=== PATIENT | male | born 1935 | race Caucasian/White ===

== ENCOUNTER 2017-06-20 06:59 | Day surgery (SDC) | payer MEDICARE ==
[2017-06-19 09:01] VITALS: BMI 28.4
[~2017-06-20 06:59] MED LIST: LACTATED RINGERS 1,000 ML IV SCH; LIDOCAINE 1% 20 ML VIAL (10MG/ML) FOR IV START INTRADERMA PRN; Pre Op ABX Message 1 EACH MISC MISCELLANE ONE
[2017-06-20] MEDS ORDERED: LIDOCAINE 2% (PF) 20 MG/ML 10 ML AMP INHALATION STA (07:25)
[2017-06-20] MEDS ORDERED: ALBUTEROL NEBULIZED 2.5 MG/3 ML INHALATION STA (07:25)
[2017-06-20 07:34] VITALS: RESP 16; TEMP 97.3
[2017-06-20 07:38] LABS: Glucose,Whole Blood 91 mg/dL (75-99)
[2017-06-20] MEDS ORDERED: PROPOFOL 10 MG/ML 20 ML VIAL IV ONE (08:02)
[2017-06-20 09:04] VITALS: BP 178/78; PULSE 76
--- NOTE | 2017-06-20 09:35 | PCN ---
PROCEDURE NOTE OPERATIVE REPORT: Bronchoscopy, bronchoalveolar lavage, random washing from different lobes. PREOPERATIVE DIAGNOSIS: Bronchiectasis, persistent cough, in spite of antibiotics. POSTOPERATIVE DIAGNOSIS: Bronchiectasis, persistent cough, in spite of antibiotics. ANESTHESIA USED: IV conscious sedation. PROCEDURE: The patient was prepared according to bronchoscopy protocol. O2 was applied via nasal cannula. We monitored his O2 saturation continuously via pulse oximetry. We also monitored his cardiac rhythm continuously. Blood pressure was intermittently monitored. After adequate IV conscious sedation, a bite block was placed, and the bronchoscope was advanced through the bite block down to the area of the oropharynx. Vocal cords were visualized, minimal whitish secretions were noted around the area of the vocal cords, these were easily suctioned. Then, lidocaine was applied over the vocal cords, and the bronchoscope was advanced further down to the trachea. Thorough examination was done of the trachea, rosmery, right upper lobe, right middle lobe, right lower lobe, left upper lobe, lingula and left lower lobe. Purulent secretions were noted throughout the different lobes and different segments. These were suctioned, washed and lavaged, especially from the area of the right middle lobe and right lower lobe. It was a random washing collected, and it was sent for different diagnostic studies. The mucosa was noted to be bronchitic, the secretions were noted to be slightly purulent, no endobronchial tumors or lesions were noted. There was also evidence of tracheomalacia noted. The procedure was well tolerated, no evidence of any immediate complications. The fluid was sent for different diagnostic studies including cultures, bacterial cultures, fungal cultures and viral cultures. MMODL / IJN: [id number] /
[2017-06-20 15:13] LABS: Color,BF Red
[2017-06-20 15:14] LABS: Appearance,BF Bloody; Nucleated Cells, Body Fluid 150 /uL; RBC, Body Fluid 21600 /uL
[2017-06-20 15:25] LABS: Mononuclear WBC,Body Fluid 20 %; Polynuclear WBC,Body Fluid 80 %; Total Cells Counted,Body Fluid 50
== END 2017-06-20 09:18 | disposition home or self-care (01) ==
LOC: ORWHC2ENDO 06:59
PROVIDERS: ATTEND Internal Medicine
DX: J47.9 Bronchiectasis, uncomplicated (principal); K21.9 Gastro-esophageal reflux disease without esophagitis; I25.10 Atherosclerotic heart disease of native coronary artery without angina pectoris; I10 Essential (primary) hypertension; M79.7 Fibromyalgia; Z87.891 Personal history of nicotine dependence; Z79.82 Long term (current) use of aspirin; Z79.51 Long term (current) use of inhaled steroids; Z79.52 Long term (current) use of systemic steroids; Z79.899 Other long term (current) drug therapy; Z88.1 Allergy status to other antibiotic agents
CPT/HCPCS: 87798 ×3; 87496; 87498; 87529 ×2; 88108; 88305; 89050; 87252; 87502; 87634; 87070; 87205; 87116; 87102; 87206; 31624; J2704

== ENCOUNTER 2017-11-12 11:57 | Emergency (ER) | payer MEDICARE ==
[2017-11-12 12:04] VITALS: RESP 18
[2017-11-12] MEDS ORDERED: IPRATROPIUM-ALBUTEROL 3 ML NEB INHALATION STA (12:16)
[2017-11-12] MEDS ORDERED: methylPREDNISolone SOD SUCCI 125 MG/2 ML VIAL IV STA (12:16)
--- NOTE | 2017-11-12 12:19 | ED ---
URI HPI - General Chief Complaint: Upper Respiratory Infection Stated Complaint: Sob-hx of copd Time Seen by Provider: 11/12/17 12:05 Source: patient, RN notes reviewed, old records reviewed Mode of arrival: ambulatory Limitations: no limitations - History of Present Illness Initial Comments: Patient is an 82-year-old male with a history of COPD presents to the emergency department for chief complaint of cough and occasional shortness of breath since Saturday afternoon. He reports that he went to a meeting at the restaurant [employer] was. He states that they use a chemical latrine cleaner on their floor which causes him to have a coughing response and is mainly short of breath. He states that this seemed to be worse than HIS previous times going to the restaurant. Patient reports that he has had no chest pain. Cough has been nonproductive. He has been using breathing treatments every 4 hours as well as continue steroid doses at night to help him sleep. He is on a maintenance 5 mg dose. His blending coordinator is Dr. Lynn. Patient reports that he has had no fevers or chills. Cough is nonproductive. - Related Data Home Medications Medication Instructions Recorded Confirmed Aspirin EC [Ecotrin Low Dose] 81 mg PO DAILY 07/05/15 11/12/17 Glucosam/Maxwell-Msm1/C/Leonel/Bosw 1 tab PO BID 07/05/15 11/12/17 [Glucosamine-Chondroitin Tablet] Omeprazole [PriLOSEC] 20 mg PO AC-BRKFST 07/05/15 11/12/17 Ubidecarenone [Co Q-10] 300 mg PO DAILY 07/05/15 11/12/17 Clopidogrel [Plavix] 75 mg PO DAILY 05/25/16 11/12/17 Olodaterol HCl [Striverdi Respimat] 2 puff INHALATION DAILY 05/25/16 11/12/17 Carvedilol [Coreg] 6.25 mg PO BID 06/19/17 11/12/17 Furosemide [Lasix] 40 mg PO 1600 06/19/17 11/12/17 Losartan Potassium [Cozaar] 12.5 mg PO BID 06/19/17 11/12/17 Metamucil 75 75 gm PO DAILY 06/19/17 11/12/17 Mometasone Inhalr 220 Mcg/Puff 1 puff INHALATION BID 06/19/17 11/12/17 [Asmanex] N-Acetyl 600 mg PO TID 06/19/17 11/12/17 Resveratrol Tab 75 mg PO DAILY 06/19/17 11/12/17 hydrALAZINE HCL 12.5 mg PO BID 06/19/17 11/12/17 Albuterol Inhaler [Ventolin Hfa 2 puff INHALATION RT-DAILY PRN 11/12/17 11/12/17 Inhaler] Ascorbic Acid [Vitamin C] 1,000 mg PO DAILY 11/12/17 11/12/17 Cholecalciferol [Vitamin D3] 1,000 unit PO DAILY 11/12/17 11/12/17 Isosorbide Dinitrate 30 mg PO DAILY 11/12/17 11/12/17 Polyethylene Glycol 3350 [Miralax] 17 gm PO BID PRN 11/12/17 11/12/17 guaiFENesin [Mucinex] 600 mg PO DAILY 11/12/17 11/12/17 Previous Rx's Medication Instructions Recorded Rybp-Kuio-Zhv 6.25-5-10Mg/5Ml 5 ml PO Q4H 3 Days #90 ml 11/12/17 [Phenergan VC with Codeine] predniSONE 50 mg PO DAILY #7 tablet 11/12/17 Allergies Allergy/AdvReac Type Severity Reaction Status Date / Time diphenhydramine HCl Allergy Confusion Verified 11/12/17 13:29 [From Benadryl] meperidine [From Demerol] Allergy Unknown Verified 11/12/17 13:29 Childhood Review of Systems ROS Statement: Those systems with pertinent positive or pertinent negative responses have been documented in the HPI. ROS Other: All systems not noted in ROS Statement are negative. Past Medical History Past Medical History: Atrial Fibrillation, Coronary Artery Disease (CAD), COPD, Fibromyalgia, GERD/Reflux, Hyperlipidemia, Hypertension, Myocardial Infarction ( MT), Osteoarthritis (OA), Pneumonia, Prostate Disorder, Thyroid Disorder Additional Past Medical History / Comment(s): hx gout, Last Myocardial Infarction Date:: unkn-silent History of Any Multi-Drug Resistant Organisms: None Reported Past Surgical History: Appendectomy, Heart Catheterization With Stent, Hernia Repair, Prostate Surgery, Tonsillectomy Additional Past Surgical History / Comment(s): TURP, sub-mucous resection to improve breathing, 4 cardiac stents, payam cataract surgery Past Anesthesia/Blood Transfusion Reactions: Motion Sickness Additional Past Anesthesia/Blood Transfusion Reaction / Comment(s): . Date of Last Stent Placement:: 2012 Past Psychological History: No Psychological Hx Reported Smoking Status: Former smoker Past Alcohol Use History: None Reported Past Drug Use History: None Reported - Past Family History Father Family Medical History: CVA/TIA Additional Family Medical History / Comment(s): Father had a severe CVA and of this at age 80 yrs. Mother Family Medical History: Coronary Artery Disease (CAD) Additional Family Medical History / Comment(s): Mother had an enlarged heart and at age 90. Sister(s) Family Medical History: Cancer General Exam - General Exam Comments Initial Comments: Patient is an 82-year-old male. Alert and oriented. No significant distress. Limitations: no limitations Head exam: Present: atraumatic, normocephalic, normal inspection Eye exam: Present: normal appearance, PERRL, EOMI. Absent: scleral icterus, conjunctival injection, periorbital swelling ENT exam: Present: normal exam, mucous membranes moist Neck exam: Present: normal inspection. Absent: tenderness, meningismus, lymphadenopathy Respiratory exam: Present: normal lung sounds bilaterally, other (Dry cough). Absent: respiratory distress, wheezes, rales, rhonchi, stridor Cardiovascular Exam: Present: regular rate, normal rhythm, normal heart sounds. Absent: systolic murmur, diastolic murmur, rubs, gallop, clicks GI/Abdominal exam: Present: soft, normal bowel sounds. Absent: distended, tenderness, guarding, rebound, rigid Extremities exam: Present: normal inspection, full ROM, normal capillary refill. Absent: tenderness, pedal edema, joint swelling, calf tenderness Back exam: Present: normal inspection Neurological exam: Present: alert, oriented X3, CN II-XII intact Psychiatric exam: Present: normal affect, normal mood Course Vital Signs 11/12/17 11/12/17 11/12/17 12:00 12:18 12:45 Temperature 99.0 F Pulse Rate 80 83 Respiratory 18 18 Rate Blood Pressure 163/70 O2 Sat by Pulse 95 Oximetry 11/12/17 12:58 Temperature Pulse Rate 88 Respiratory Rate Blood Pressure O2 Sat by Pulse Oximetry - Reevaluation(s) Reevaluation #1: 11/12/17 13:46 Patient is reevaluated and resting or melena. Reports improvement after reading treatment and steroids. Medical Decision Making - Medical Decision Making This Patient is an 82-year-old male history of COPD who takes a daily low-dose steroid by his wound is Dr. Lynn presents today with a acute exacerbation after being exposed to a chemical cleaning product. Patient will be given IM Solu-Medrol, and breathing treatment. Does report improvement. Chest x-ray shows evidence of bronchitis, no significant infiltrate at this time. I discussed we'll increase the patient's steroids, and he has plenty of medication for his nebulizer machine. Also will put the Patient on dose of cough medicine to help him sleep. I discussed the S follow-up with his blending coordinator in 2 days. Patient agrees to treatment plan will comply. Return parameters were discussed. - Lab Data Result diagrams: 11/12/17 12:47 11/12/17 12:47 Lab Results 11/12/17 11/12/17 11/12/17 Range/Units 12:47 12:47 12:47 WBC 12.7 H (3.8-10.6) k/uL RBC 3.62 L (4.30-5.90) m/uL Hgb 11.7 L (13.0-17.5) gm/dL Hct 34.1 L (39.0-53.0) % MCV 94.2 (80.0-100.0) fL MCH 32.3 (25.0-35.0) pg MCHC 34.3 (31.0-37.0) g/dL RDW 13.3 (11.5-15.5) % Plt Count 323 (150-450) k/uL Neutrophils % 85 % Lymphocytes % 6 % Monocytes % 6 % Eosinophils % 1 % Basophils % 0 % Neutrophils # 10.8 H (1.3-7.7) k/uL Lymphocytes # 0.8 L (1.0-4.8) k/uL Monocytes # 0.8 (0-1.0) k/uL Eosinophils # 0.1 (0-0.7) k/uL Basophils # 0.0 (0-0.2) k/uL PT 9.7 (9.0-12.0) sec INR 1.0 (<1.2) APTT 26.6 (22.0-30.0) sec Sodium 133 L (137-145) mmol/L Potassium 4.1 (3.5-5.1) mmol/L Chloride 97 L (98-107) mmol/L Carbon Dioxide 24 (22-30) mmol/L Anion Gap 12 mmol/L BUN 14 (9-20) mg/dL Creatinine 0.98 (0.66-1.25) mg/dL Est GFR (CKD-EPI)AfAm 83 (>60 ml/min/1.73 sqM) Est GFR (CKD-EPI)NonAf 72 (>60 ml/min/1.73 sqM) Glucose 133 H (74-99) mg/dL Calcium 9.2 (8.4-10.2) mg/dL Total Bilirubin 0.7 (0.2-1.3) mg/dL AST 27 (17-59) U/L ALT 34 (21-72) U/L Alkaline Phosphatase 46 (38-126) U/L Total Protein 6.9 (6.3-8.2) g/dL Albumin 4.1 (3.5-5.0) g/dL - Radiology Data Radiology results: report reviewed Chest x-ray shows some persistent interstitial changes which are stable. Correlate for possible bronchitis or chronic underlying interstitial lung disease. Left basilar atelectasis or less likely infiltrate to correlate clinically. Disposition Clinical Impression: Bronchitis, COPD exacerbation Disposition: HOME SELF-CARE Condition: Good Instructions: Acute Bronchitis (ED) Additional Instructions: Patient has a follow-up with your blending coordinator in 2 days. Take the steroids and use cough syrup as directed. Return to the emergency department if any alarming signs or symptoms occur. Prescriptions: predniSONE 50 mg PO DAILY #7 tablet Vmql-Ugqz-Ckc 6.25-5-10Mg/5Ml [Phenergan VC with Codeine] 5 ml PO Q4H 3 Days # 90 ml Is patient prescribed a controlled substance at d/c from ED?: No When asked, does pt state using other controlled substances?: No If prescribed controlled substance>3 days was MAPS reviewed?: No If opioid is for acute pain is fill amount 7 days or less?: No If Rx opioid, was Start Talking consent form obtained?: No Referrals: Aleja Ford DO [Primary Care Provider] - 1-2 days Time of Disposition: 13:48
--- NOTE | 2017-11-12 12:44 | XR ---
EXAMINATION TYPE: XR chest 2V DATE OF EXAM: 11/12/2017 COMPARISON: 06/04/2017 TECHNIQUE: PA and lateral views submitted. HISTORY: Difficulty breathing FINDINGS: Mild cardiomegaly. Atherosclerotic changes aorta with subsegmental changes at the left lung base. Mild elongation of the thoracic aorta. Diffuse interstitial prominence shows some improvement from prior. No consolidation or pleural effusi on. Degenerative change of the spine noted. IMPRESSION: 1. Some persistent interstitial changes which are stable year. Correlate for possible underlying bron chitis, or chronic underlying interstitial lung disease. 2. Left basilar atelectasis or less likely infiltrate correlate clinically.
[2017-11-12 13:02] LABS: Basophils % (A) 0 %; Eosinophils # (A) 0.1 k/uL (0-0.7); Eosinophils % (A) 1 %; HCT 34.1 % (39.0-53.0); HGB 11.7 gm/dL (13.0-17.5); Lymphocytes # (A) 0.8 k/uL (1.0-4.8); Lymphocytes % (A) 6 %; MCH 32.3 pg (25.0-35.0); MCHC 34.3 g/dL (31.0-37.0); MCV 94.2 fL (80.0-100.0); Mean Platelet Volume 6.8; Monocytes # (A) 0.8 k/uL (0-1.0); Monocytes % (A) 6 %; Neutrophils # (A) 10.8 k/uL (1.3-7.7); Neutrophils % (A) 85 %; Platelet Count 323 k/uL (150-450); RBC 3.62 m/uL (4.30-5.90); RDW 13.3 % (11.5-15.5); WBC 12.7 k/uL (3.8-10.6)
[2017-11-12 13:11] LABS: Albumin 4.1 g/dL (3.5-5.0); Calcium 9.2 mg/dL (8.4-10.2); Partial Thromboplastin Time 26.6 sec (22.0-30.0); Potassium 4.1 mmol/L (3.5-5.1); Prothrombin Time 9.7 sec (9.0-12.0); Total Bilirubin 0.7 mg/dL (0.2-1.3); Total Protein 6.9 g/dL (6.3-8.2)
[2017-11-12 14:07] VITALS: BP 127/67; PULSE 79; TEMP 99.7
== END 2017-11-12 14:07 | disposition home or self-care (01) ==
LOC: EC 11:57
DX: J44.1 Chronic obstructive pulmonary disease with (acute) exacerbation (principal); I48.91 Unspecified atrial fibrillation; I25.10 Atherosclerotic heart disease of native coronary artery without angina pectoris; E78.5 Hyperlipidemia, unspecified; K21.9 Gastro-esophageal reflux disease without esophagitis; I10 Essential (primary) hypertension; I25.2 Old myocardial infarction; M19.90 Unspecified osteoarthritis, unspecified site; Z90.49 Acquired absence of other specified parts of digestive tract; Z95.5 Presence of coronary angioplasty implant and graft; Z98.890 Other specified postprocedural states; Z87.891 Personal history of nicotine dependence; Z79.02 Long term (current) use of antithrombotics/antiplatelets; Z79.51 Long term (current) use of inhaled steroids; Z79.82 Long term (current) use of aspirin; Z79.899 Other long term (current) drug therapy
CPT/HCPCS: 36415; 94640; 80053; 85025; 85610; 85730; 87040; 71046; 99284; 96374; J2930

== ENCOUNTER 2018-04-01 10:30 | Day surgery (SDC) | payer MEDICARE ==
[2018-03-28 11:14] VITALS: BMI 29.7
[~2018-04-01 10:30] MED LIST changes: +ALBUTEROL NEB (CONC) 2.5 MG/0.5 ML INHALATION ONE; +LACTATED RINGERS 1,000 ML IV ONE; +LIDOCAINE 2% (PF) 20 MG/ML 2 ML AMP INHALATION ONE; +LIDOCAINE VISCOUS 2% 15 ML CUP MUCOUS MEM ONE; -Pre Op ABX Message 1 EACH MISC MISCELLANE ONE
[2018-04-01 11:26] VITALS: TEMP 97.4
[2018-04-01 11:29] LABS: Glucose,Whole Blood 101 mg/dL (75-99)
[2018-04-01] MEDS ORDERED: MIDAZOLAM 2 MG/2 ML VIAL ONE (12:37)
[2018-04-01] MEDS ORDERED: LIDOCAINE 1% INJ 10MG/ML (20 ML MDV) ONE (12:37)
[2018-04-01] MEDS ORDERED: PROPOFOL 10 MG/ML 20 ML VIAL IV ONE (12:37)
[2018-04-01] MEDS ORDERED: fentaNYL (PF) 50 MCG/ML 2 ML AMP ONE (12:37)
[2018-04-01] MEDS ORDERED: KETAMINE 10 MG/ML 20 ML VIAL ONE (12:37)
[2018-04-01 13:24] VITALS: BP 118/73; PULSE 73; RESP 18
--- NOTE | 2018-04-01 15:13 | PCN ---
PROCEDURE NOTE The operative report is bronchoscopy, random bronchial washing, and random BAL. PREOPERATIVE DIAGNOSIS: Bronchiectasis and difficulty clearing secretions. POSTOPERATIVE DIAGNOSIS: Bronchiectasis and tracheobronchomalacia. ANESTHESIA USED: IV conscious sedation. PROCEDURE: The patient was prepared according to the protocol. O2 was applied via Ventimask over his mouth. Patient was placed in a supine position, we monitored his O2 saturation continuously, blood pressure was intermittently monitored, and cardiac rhythm was continuously monitored. After adequate IV conscious sedation, 2 mL of lidocaine were instilled into the right naris, the bronchoscope was advanced through the right naris down to the area of the vocal cords. The vocal cords were patent. Then lidocaine was applied over the vocal cords, and the bronchoscope was advanced further down to the trachea. Thorough examination was done of the trachea, rosmery, right upper lobe, right middle lobe, right lower lobe, left upper lobe, lingula and left lower lobe. There was clearly evidence of thick purulent secretions noted in both lungs, in different lobes, there was also evidence of tracheomalacia. During the suctioning, the channel of the bronchoscope was too narrow and could not suction much with a narrow channel bronchoscope, hence I changed the bronchoscope to a bigger size channel, and I was able to suction thick purulent secretions from both lungs. Lavage of the lower lobes including the left lower lobe, right lower lobe, and right middle lobe as well as lingula was done. All purulent secretions were sent for cultures. Patient tolerated the procedure well, no evidence of any immediate complications. MMODL / IJN: [id number] /
[2018-04-01 15:34] LABS: Color,BF Colorless
[2018-04-01 15:35] LABS: Appearance,BF Blood Tinged
[2018-04-01 16:58] LABS: Nucleated Cells, Body Fluid 66 /uL; RBC, Body Fluid 439 /uL
[2018-04-01 17:04] LABS: Mononuclear WBC,Body Fluid 37 %; Polynuclear WBC,Body Fluid 63 %; Total Cells Counted,Body Fluid 100
== END 2018-04-01 13:46 | disposition home or self-care (01) ==
LOC: ORWHC2ENDO 10:30
PROVIDERS: ATTEND Internal Medicine
DX: J39.8 Other specified diseases of upper respiratory tract (principal); J98.09 Other diseases of bronchus, not elsewhere classified; Z87.891 Personal history of nicotine dependence; J44.1 Chronic obstructive pulmonary disease with (acute) exacerbation; K21.9 Gastro-esophageal reflux disease without esophagitis; I25.10 Atherosclerotic heart disease of native coronary artery without angina pectoris; I10 Essential (primary) hypertension; E78.5 Hyperlipidemia, unspecified; R05 Cough; I25.2 Old myocardial infarction; I48.91 Unspecified atrial fibrillation; E07.9 Disorder of thyroid, unspecified; N40.0 Benign prostatic hyperplasia without lower urinary tract symptoms; M79.7 Fibromyalgia; M10.9 Gout, unspecified; Z79.82 Long term (current) use of aspirin; Z79.51 Long term (current) use of inhaled steroids; Z79.52 Long term (current) use of systemic steroids; Z79.899 Other long term (current) drug therapy; Z88.1 Allergy status to other antibiotic agents; Z88.5 Allergy status to narcotic agent; Z88.8 Allergy status to other drugs, medicaments and biological substances
CPT/HCPCS: 94640; 89050; 87070; 87205; 87116; 87102; 87206; 31624; J2250; J2001 ×2; J3010; J2704

== ENCOUNTER 2018-10-30 10:47 | Day surgery (SDC) | payer MEDICARE ==
[2018-10-29 09:23] VITALS: BMI 27.4
[~2018-10-30 10:47] MED LIST changes: -LACTATED RINGERS 1,000 ML IV ONE; -LACTATED RINGERS 1,000 ML IV SCH; -LIDOCAINE 1% 20 ML VIAL (10MG/ML) FOR IV START INTRADERMA PRN; -LIDOCAINE 2% (PF) 20 MG/ML 2 ML AMP INHALATION ONE; +LIDOCAINE 2% (PF) 20 MG/ML 5 ML VIAL INHALATION ONE; -LIDOCAINE VISCOUS 2% 15 ML CUP MUCOUS MEM ONE; +LIDOCAINE VISCOUS 300 MG/15 ML CUP MUCOUS MEM ONE; +SODIUM CHLORIDE 0.9% 1,000 ML IV SCH
[2018-10-30 11:32] VITALS: RESP 18; TEMP 97.8
[2018-10-30] MEDS ORDERED: LACTATED RINGERS 1,000 ML IV ONE (11:32)
[2018-10-30 11:53] LABS: Glucose,Whole Blood 100 mg/dL (75-99)
[2018-10-30] MEDS ORDERED: LIDOCAINE 1% INJ 10MG/ML (20 ML MDV) ONE (12:28)
[2018-10-30] MEDS ORDERED: PROPOFOL 10 MG/ML 20 ML VIAL IV ONE (12:28)
[2018-10-30] MEDS ORDERED: LIDOCAINE 2% INJ 20 MG/ML INTRATRACH ONE (12:50)
[2018-10-30 13:29] VITALS: BP 121/73; PULSE 59
--- NOTE | 2018-10-30 14:09 | PCN ---
PROCEDURE NOTE PROCEDURE: Bronchoscopy and bronchoalveolar lavage, random washings of endobronchial secretions from both lungs bilaterally. PREOPERATIVE DIAGNOSIS: Bronchiectasis, difficulty clearing secretions, and worsening shortness of breath. POSTOPERATIVE DIAGNOSIS: Bronchiectasis, difficulty clearing purulent secretions, and tracheobronchomalacia. ANESTHESIA USED: IV conscious sedation. PROCEDURE DESCRIPTION: Patient was prepared according to the bronchoscopy protocol. O2 was applied via nasal cannula and Ventimask. Before and after the procedure the patient was monitored using pulse oximetry, blood pressure was intermittently monitored, and cardiac rhythm was continuously monitored. Patient was placed in the supine position, and after adequate IV conscious sedation, the bronchoscope was inserted through the right naris down to the area of the vocal cords. Significant purulent secretions were noted in the area around the vocal cords, and the vocal cords were patent. The right vocal cord was noted to be slightly sluggish. Lidocaine was applied over the vocal cords, the bronchoscope was advanced further down. Thorough examination was done of the trachea, rosmery, right upper lobe, right lower lobe, right lower lobe, left upper lobe, lingula and left lower lobe. There was evidence of tracheobronchial malacia. There was also evidence of significant purulent secretions, mostly in the right middle lobe, right lower lobe, lingula and left lower lobe. Random bronchial lavage and washing was done from these different areas, specifically the right middle lobe, right lower lobe, lingula and left lower lobe. Procedure was well tolerated. The fluid was sent for different diagnostic studies, and all the secretions were cleared quite well. There was also evidence of tracheomalacia noted upon examination of the trachea. Again, no evidence of any immediate complications, procedure was well tolerated, blood loss was 0. MMODL / IJN: [id number] /
[2018-10-30 16:29] LABS: Appearance,BF Blood Tinged; Color,BF Red; Nucleated Cells, Body Fluid 1667 /uL; RBC, Body Fluid 8133 /uL
[2018-10-30 16:30] LABS: Mononuclear WBC,Body Fluid 2 %; Polynuclear WBC,Body Fluid 98 %; Total Cells Counted,Body Fluid 100
[2018-10-31 12:19] LABS: Mononuclear WBC,Body Fluid 7 %; Polynuclear WBC,Body Fluid 93 %; Total Cells Counted,Body Fluid 100
== END 2018-10-30 13:58 | disposition home or self-care (01) ==
LOC: ORWHC2ENDO 10:47
PROVIDERS: ATTEND Internal Medicine
DX: J47.9 Bronchiectasis, uncomplicated (principal); J39.8 Other specified diseases of upper respiratory tract; J98.09 Other diseases of bronchus, not elsewhere classified; I25.10 Atherosclerotic heart disease of native coronary artery without angina pectoris; I10 Essential (primary) hypertension; E78.49 Other hyperlipidemia; I48.91 Unspecified atrial fibrillation; Z87.891 Personal history of nicotine dependence; E07.9 Disorder of thyroid, unspecified; M79.7 Fibromyalgia; K21.9 Gastro-esophageal reflux disease without esophagitis; J44.9 Chronic obstructive pulmonary disease, unspecified; Z82.3 Family history of stroke; Z95.5 Presence of coronary angioplasty implant and graft; Z79.02 Long term (current) use of antithrombotics/antiplatelets; Z79.82 Long term (current) use of aspirin; Z79.51 Long term (current) use of inhaled steroids; Z88.1 Allergy status to other antibiotic agents; Z88.5 Allergy status to narcotic agent; Z88.8 Allergy status to other drugs, medicaments and biological substances
CPT/HCPCS: 94640; 89050; 87070; 87205; 87116; 87102; 87077; 87186; 87206; 31624; J2001 ×3; J2704

== ENCOUNTER 2019-04-23 07:00 | Day surgery (SDC) | payer MEDICARE ==
[2019-04-23] MEDS ORDERED: LIDOCAINE 1% INJ 10MG/ML (20 ML MDV) ONE (08:02)
[2019-04-23] MEDS ORDERED: KETAMINE 10 MG/ML 20 ML VIAL ONE (08:02)
[2019-04-23] MEDS ORDERED: PROPOFOL 10 MG/ML 20 ML VIAL IV ONE (08:02)
[2019-04-23] MEDS ORDERED: LIDOCAINE 2% INJ 20 MG/ML INTRATRACH ONE (08:16)
[2019-04-23] MEDS ORDERED: LEVOFLOXACIN 750MG-D5W PMX 750 MG in DEXTROSE/WATER 1 150ML.BAG IVPB STA (08:23)
--- NOTE | 2019-04-23 09:22 | PCN ---
PROCEDURE NOTE OPERATIVE REPORT: Bronchoscopy with bronchoalveolar lavage of multiple lobes and bronchial washing of the different lobes. PREOPERATIVE DIAGNOSES: Bronchiectasis, chronic obstructive pulmonary disease exacerbation, and difficulty clearing secretions. POSTOPERATIVE DIAGNOSES: Bronchiectasis, chronic obstructive pulmonary disease exacerbation, and bronchomalacia. ANESTHESIA USED: IV conscious sedation. PROCEDURE: Patient was prepared according to the bronchoscopy protocol. The O2 was applied via nasal cannula. Then after adequate IV conscious sedation, we monitored his O2 saturation continuously, blood pressure was intermittently monitored and cardiac rhythm was continuously monitored. The left naris was anesthetized with topical lidocaine. Then the bronchoscope was inserted through the left naris down to the area of the vocal cords and the vocal cords were patent. Significant purulent secretions noted in the area of the vocal cords and the pyriform sinuses. The secretions were suctioned easily. Then lidocaine was applied over the vocal cords, the bronchoscope was advanced further down to the trachea. Thorough examination was done of the trachea, rosmery, right upper lobe, right middle lobe, right lower lobe, left upper lobe lingula and left lower lobe. There was evidence of significant purulent secretions throughout the whole bronchial tree including the tracheal region, right upper lobe, right middle lobe, right lower lobe, left upper lobe lingula and left lower lobe. All the different lobes were lavaged and suctioned. The purulent secretions were cleared completely. There was evidence of bronchiectasis. There was also evidence of bronchomalacia. The procedure was well-tolerated. The secretions were sent for different diagnostic studies. No evidence of any immediate complications. The patient will be discharged empirically on Levaquin 500 mg daily for 10 days, and I will give him a dose of Levaquin today 750 mg IV piggyback, I will also arrange for prednisone 30 mg tapered over the next 18 days to his usual dose of 5 mg daily maintenance and the patient will continue his bronchodilators as usual. MMODL / IJN: [id number] /
[2019-04-23 09:41] VITALS: PULSE 77
[2019-04-23 09:46] VITALS: BP 117/74; RESP 22
[2019-04-23] MEDS ORDERED: ACETAMINOPHEN TAB 500 MG TAB PO ONE (09:46)
[2019-04-23 09:48] VITALS: TEMP 101.2
[2019-04-23 15:53] LABS: Appearance,BF Cloudy; Nucleated Cells, Body Fluid 4200 /uL; RBC, Body Fluid 1800 /uL
[2019-04-23 15:55] LABS: Mononuclear WBC,Body Fluid 3 %; Polynuclear WBC,Body Fluid 97 %; Total Cells Counted,Body Fluid 100
== END 2019-04-23 09:51 | disposition home or self-care (01) ==
LOC: ORWHC2ENDO 07:00
PROVIDERS: ATTEND Internal Medicine
DX: J47.1 Bronchiectasis with (acute) exacerbation (principal); J98.09 Other diseases of bronchus, not elsewhere classified; K21.9 Gastro-esophageal reflux disease without esophagitis; I25.10 Atherosclerotic heart disease of native coronary artery without angina pectoris; I10 Essential (primary) hypertension; D50.9 Iron deficiency anemia, unspecified; E78.5 Hyperlipidemia, unspecified; I48.91 Unspecified atrial fibrillation; E07.9 Disorder of thyroid, unspecified; M79.7 Fibromyalgia; R50.9 Fever, unspecified; I25.2 Old myocardial infarction; Z86.19 Personal history of other infectious and parasitic diseases; Z88.8 Allergy status to other drugs, medicaments and biological substances; Z88.1 Allergy status to other antibiotic agents; Z79.51 Long term (current) use of inhaled steroids; Z79.82 Long term (current) use of aspirin; Z79.899 Other long term (current) drug therapy; Z79.52 Long term (current) use of systemic steroids; Z79.02 Long term (current) use of antithrombotics/antiplatelets; Z87.891 Personal history of nicotine dependence; Z98.890 Other specified postprocedural states; Z90.89 Acquired absence of other organs; Z95.5 Presence of coronary angioplasty implant and graft; Z82.49 Family history of ischemic heart disease and other diseases of the circulatory system; Z82.3 Family history of stroke
CPT/HCPCS: 94640; 89050; 87252; 87070; 87205; 87102; 87077; 87186; 31624; J2001 ×3; J2704; 87496; 87498; 87502; 87529; 87634; 87798

== ENCOUNTER 2020-06-13 10:45 | Inpatient (IN) | payer MEDICARE ==
--- NOTE | 2020-06-13 12:00 | XR ---
EXAMINATION TYPE: XR chest 1V portable DATE OF EXAM: 06/13/2020 Comparison: 11/12/2017 Clinical History: 85-year-old male cough Findings: Heart upper limits of normal in size. Mild elongation thoracic aorta. Mild interstitial prominence. M ild hyperinflation. Mild patchy opacity medial right base and also at the left base. Degenerative devin nge right shoulder. Impression: 1. COPD. 2. Patchy medial right basilar and also peripheral left basilar opacity. These could be areas of atel ectasis versus developing infiltrate.
--- NOTE | 2020-06-13 12:02 | ED ---
General Adult HPI - General Chief complaint: Shortness of Breath Stated complaint: SOB Time Seen by Provider: 06/13/20 11:18 Source: patient, RN notes reviewed Mode of arrival: wheelchair Limitations: no limitations - History of Present Illness Initial comments: Patient 85-year-old male presented to the emergency room today with a chief complaint of increased shortness of breath. Patient does admit to history of COPD. Patient IS normal conjunctiva is 4 days. Patient states that his had some cough congestion. Patient does admit that last time he had to sit up in the chair. He states that he was feeling more short of breath. He states is unsure if it was just anxiety that was getting better of him. He does admit that he is feeling better at this point. Patient denies any other complaints or symptoms currently. Patient denies any recent fever, chills, chest pain, back pain, abdominal pain, nausea or vomiting, headaches or visual changes, or any other complaints. - Related Data Home Medications Medication Instructions Recorded Confirmed Aspirin EC [Ecotrin Low Dose] 81 mg PO DAILY 07/05/15 10/29/18 Omeprazole [PriLOSEC] 20 mg PO AC-BRKFST 07/05/15 10/29/18 Ubidecarenone [Co Q-10] 100 mg PO DAILY 07/05/15 10/29/18 Clopidogrel [Plavix] 75 mg PO MOWEFR 05/25/16 10/29/18 Olodaterol HCl [Striverdi Respimat] 2 puff INHALATION DAILY 05/25/16 10/29/18 Carvedilol [Coreg] 6.25 mg PO BID 06/19/17 10/29/18 Furosemide [Lasix] 20 - 40 mg PO BID PRN 06/19/17 10/29/18 Losartan Potassium [Cozaar] 12.5 mg PO BID 06/19/17 10/29/18 hydrALAZINE HCL 12.5 mg PO BID 06/19/17 10/29/18 Albuterol Inhaler (Mhu) [Ventolin 2 puff INHALATION QID PRN 11/12/17 10/29/18 Hfa Inhaler] Ascorbic Acid [Vitamin C] 3,000 mg PO DAILY 11/12/17 10/29/18 Cholecalciferol [Vitamin D3] 5,000 unit PO DAILY 11/12/17 10/29/18 Isosorbide Dinitrate 30 mg PO DAILY 11/12/17 10/29/18 guaiFENesin [Mucinex] 400 mg PO TID 11/12/17 10/29/18 Fish Oil/Dha/Epa [Fish Oil 1,200 1,600 mg PO TID 03/28/18 10/29/18 mg Fish Oil] Glucosamine/MSM/Chrond/D3/Bosw 1 each PO BID 03/28/18 10/29/18 [Iymqjblmfwr-Nqovlx-GPC-D3 Cplt] Magnesium Citrate 200 mg PO BID 03/28/18 10/29/18 Multivitamins, Thera [Multivitamin 1 tab PO DAILY 03/28/18 10/29/18 (formulary)] Potassium Gluconate 99 mg PO DIRECTED 03/28/18 10/29/18 Gmld-Prwq-Wkh 6.25-5-10Mg/5Ml 5 ml PO Q4H PRN 03/28/18 10/29/18 [Phenergan VC with Codeine] Psyllium Husk 100% [Metamucil 15 gm PO DAILY 03/28/18 10/29/18 Packet] Resveratrol 75 mg PO DAILY 03/28/18 10/29/18 Rosuvastatin [Crestor] 5 mg PO HS 03/28/18 10/29/18 polyethylene glycoL 3350 [Miralax] 20 gm PO DAILY 03/28/18 10/29/18 Albuterol Nebulized [Ventolin 2.5 mg INHALATION QID 10/29/18 10/29/18 Nebulized] Ipratropium Nebulized [Atrovent 0.5 mg INHALATION QID 10/29/18 10/29/18 Nebulized 0.2 MG/ML] L.acidoph,Paracasei, B.lactis 1 each PO DAILY 10/29/18 10/29/18 [Probiotic] Mometasone Inhalr 220 Mcg/Puff 1 puff INHALATION BID 10/29/18 10/29/18 [Asmanex] Sulfamethox-Tmp 800-160Mg [Bactrim 1 tab PO Q12HR 10/29/18 10/29/18 DS 800-160 mg] predniSONE 30 mg PO DAILY 10/29/18 10/29/18 Allergies Allergy/AdvReac Type Severity Reaction Status Date / Time ciprofloxacin [From Cipro] Allergy joint Verified 06/13/20 11:14 problems diphenhydramine HCl Allergy "felt like Verified 06/13/20 11:14 [From Benadryl] I was dying" meperidine [From Demerol] Allergy Unknown Verified 06/13/20 11:14 Childhood steroids Allergy "angina" Uncoded 06/13/20 11:14 Review of Systems ROS Statement: Those systems with pertinent positive or pertinent negative responses have been documented in the HPI. ROS Other: All systems not noted in ROS Statement are negative. Past Medical History Past Medical History: Atrial Fibrillation, Coronary Artery Disease (CAD), Fibromyalgia, GERD/Reflux, Hyperlipidemia, Hypertension, Myocardial Infarction (VT), Pneumonia, Thyroid Disorder Additional Past Medical History / Comment(s): hx gout, increase difficulty cl earing lungs at night-occ. sleeping in chair to sleep, essential tremors, frequent cough, SOB, vertigo Last Myocardial Infarction Date:: unkn-silent History of Any Multi-Drug Resistant Organisms: MRSA Date of last positivie culture/infection: 04/23/19 MDRO Source:: Bronch wash Past Surgical History: Appendectomy, Heart Catheterization With Stent, Hernia Repair, Prostate Surgery, Tonsillectomy Additional Past Surgical History / Comment(s): TURP, sub-mucous resection to improve breathing, turbinate reduction, 4 cardiac stents, payam cataract surgery, hernia repair x3 , aortic valve replacment 03/2020 Past Anesthesia/Blood Transfusion Reactions: Motion Sickness Additional Past Anesthesia/Blood Transfusion Reaction / Comment(s): vertigo Date of Last Stent Placement:: 2012 Past Psychological History: ADD/ADHD Smoking Status: Former smoker Past Alcohol Use History: Occasional Past Drug Use History: None Reported - Past Family History Father Family Medical History: CVA/TIA Additional Family Medical History / Comment(s): Father had a severe CVA and of this at age 80 yrs. Mother Family Medical History: Coronary Artery Disease (CAD) Additional Family Medical History / Comment(s): Mother had an enlarged heart and at age 90. Sister(s) Family Medical History: Cancer General Exam - General Exam Comments Initial Comments: General: The patient is awake and alert, in no distress, and does not appear acutely ill. Eye: extra-ocular movements are intact. No nystagmus. There is normal conjunctiva bilaterally. No signs of icterus. Ears, nose, mouth and throat: There are moist mucous membranes and no oral lesions. Neck: The neck is supple, there is no tenderness or JVD. Cardiovascular: There is a regular rate and rhythm. No murmur, rub or gallop is appreciated. Respiratory: Lungs are clear to auscultation, respirations are non-labored, breath sounds are equal. No wheezes, stridor, rales, or rhonchi. Musculoskeletal: Normal ROM, no tenderness. Strength 5/5. Sensation intact. Pulses equal bilaterally 2+. Neurological: A&O x 3. CN II-XII intact, There are no obvious motor or sensory deficits. Coordination appears grossly intact. Speech is normal. Skin: Skin is warm and dry and no rashes or lesions are noted. Psychiatric: Cooperative, appropriate mood & affect, normal judgment. Limitations: no limitations Course Vital Signs 06/13/20 06/13/20 06/13/20 11:11 11:28 12:14 Temperature 98.8 F Pulse Rate 72 68 Respiratory 18 20 18 Rate Blood Pressure 147/76 140/81 O2 Sat by Pulse 98 97 Oximetry 06/13/20 13:00 Temperature Pulse Rate 69 Respiratory 22 Rate Blood Pressure 140/81 O2 Sat by Pulse 97 Oximetry Medical Decision Making - Medical Decision Making Patient's comatose negative. Patient's vitals are stable. The emergency room. Patient chest x-ray was unremarkable for any sign of pneumonia. Patient's sodium was 120. Will be admitted to the hospital. Patient is with plan states understanding. - Lab Data Result diagrams: 06/13/20 11:38 06/13/20 11:38 Lab Results 06/13/20 06/13/20 06/13/20 Range/Units 11:38 11:38 11:38 WBC 11.8 H (3.8-10.6) k/uL RBC 3.48 L (4.30-5.90) m/uL Hgb 11.5 L (13.0-17.5) gm/dL Hct 32.6 L (39.0-53.0) % MCV 93.5 (80.0-100.0) fL MCH 33.1 (25.0-35.0) pg MCHC 35.4 (31.0-37.0) g/dL RDW 13.3 (11.5-15.5) % Plt Count 308 (150-450) k/uL MPV 7.2 Neutrophils % 83 % Lymphocytes % 6 % Monocytes % 7 % Eosinophils % 2 % Basophils % 0 % Neutrophils # 9.8 H (1.3-7.7) k/uL Lymphocytes # 0.7 L (1.0-4.8) k/uL Monocytes # 0.9 (0-1.0) k/uL Eosinophils # 0.3 (0-0.7) k/uL Basophils # 0.0 (0-0.2) k/uL PT 10.1 (9.0-12.0) sec INR 0.9 (<1.2) APTT 22.9 (22.0-30.0) sec Sodium 120 L (137-145) mmol/L Potassium 3.9 (3.5-5.1) mmol/L Chloride 90 L (98-107) mmol/L Carbon Dioxide 22 (22-30) mmol/L Anion Gap 8 mmol/L BUN 15 (9-20) mg/dL Creatinine 0.68 (0.66-1.25) mg/dL Est GFR (CKD-EPI)AfAm >90 (>60 ml/min/1.73 sqM) Est GFR (CKD-EPI)NonAf 87 (>60 ml/min/1.73 sqM) Glucose 111 H (74-99) mg/dL Calcium 9.2 (8.4-10.2) mg/dL Total Bilirubin 1.0 (0.2-1.3) mg/dL AST 30 (17-59) U/L ALT 17 (4-49) U/L Alkaline Phosphatase 59 (38-126) U/L Troponin I (0.000-0.034) ng/mL Total Protein 7.3 (6.3-8.2) g/dL Albumin 4.1 (3.5-5.0) g/dL Coronavirus (PCR) (Not Detectd) 06/13/20 06/13/20 Range/Units 11:38 12:09 WBC (3.8-10.6) k/uL RBC (4.30-5.90) m/uL Hgb (13.0-17.5) gm/dL Hct (39.0-53.0) % MCV (80.0-100.0) fL MCH (25.0-35.0) pg MCHC (31.0-37.0) g/dL RDW (11.5-15.5) % Plt Count (150-450) k/uL MPV Neutrophils % % Lymphocytes % % Monocytes % % Eosinophils % % Basophils % % Neutrophils # (1.3-7.7) k/uL Lymphocytes # (1.0-4.8) k/uL Monocytes # (0-1.0) k/uL Eosinophils # (0-0.7) k/uL Basophils # (0-0.2) k/uL PT (9.0-12.0) sec INR (<1.2) APTT (22.0-30.0) sec Sodium (137-145) mmol/L Potassium (3.5-5.1) mmol/L Chloride (98-107) mmol/L Carbon Dioxide (22-30) mmol/L Anion Gap mmol/L BUN (9-20) mg/dL Creatinine (0.66-1.25) mg/dL Est GFR (CKD-EPI)AfAm (>60 ml/min/1.73 sqM) Est GFR (CKD-EPI)NonAf (>60 ml/min/1.73 sqM) Glucose (74-99) mg/dL Calcium (8.4-10.2) mg/dL Total Bilirubin (0.2-1.3) mg/dL AST (17-59) U/L ALT (4-49) U/L Alkaline Phosphatase (38-126) U/L Troponin I <0.012 (0.000-0.034) ng/mL Total Protein (6.3-8.2) g/dL Albumin (3.5-5.0) g/dL Coronavirus (PCR) Not Detected (Not Detectd) Disposition Clinical Impression: COPD exacerbation, Hyponatremia Disposition: ADMITTED IP TO THIS HOSP Condition: Stable Is patient prescribed a controlled substance at d/c from ED?: No Referrals: Aleja Ford DO [Primary Care Provider] - 1-2 days Time of Disposition: 13:32
[2020-06-13 12:14] LABS: ALT 17 U/L (4-49); AST 30 U/L (17-59); African American GFR (CKD) >90 (>60 ml/min/1.73 sqM); Albumin 4.1 g/dL (3.5-5.0); Alkaline Phosphatase 59 U/L (38-126); Anion Gap 8 mmol/L; Blood Urea Nitrogen 15 mg/dL (9-20); Calcium 9.2 mg/dL (8.4-10.2); Carbon Dioxide 22 mmol/L (22-30); Chloride 90 mmol/L (98-107); Glucose 111 mg/dL (74-99); Non-African American GFR(CKD) 87 (>60 ml/min/1.73 sqM); Potassium 3.9 mmol/L (3.5-5.1); Sodium 120 mmol/L (137-145); Total Protein 7.3 g/dL (6.3-8.2)
[2020-06-13 12:36] LABS: INR 0.9 (<1.2); Partial Thromboplastin Time 22.9 sec (22.0-30.0); Prothrombin Time 10.1 sec (9.0-12.0)
[2020-06-13 12:56] LABS: Basophils % (A) 0 %; Eosinophils # (A) 0.3 k/uL (0-0.7); Eosinophils % (A) 2 %; HCT 32.6 % (39.0-53.0); HGB 11.5 gm/dL (13.0-17.5); Lymphocytes # (A) 0.7 k/uL (1.0-4.8); Lymphocytes % (A) 6 %; MCH 33.1 pg (25.0-35.0); MCHC 35.4 g/dL (31.0-37.0); MCV 93.5 fL (80.0-100.0); Mean Platelet Volume 7.2; Monocytes # (A) 0.9 k/uL (0-1.0); Monocytes % (A) 7 %; Neutrophils # (A) 9.8 k/uL (1.3-7.7); Neutrophils % (A) 83 %; Platelet Count 308 k/uL (150-450); RBC 3.48 m/uL (4.30-5.90); RDW 13.3 % (11.5-15.5); WBC 11.8 k/uL (3.8-10.6)
[2020-06-13] MEDS ORDERED: ONDANSETRON 4 MG/2 ML VIAL IVP PRN (13:26)
[2020-06-13] MEDS ORDERED: NALOXONE 0.4 MG/ML 1 ML VIAL IV PRN (13:26)
[2020-06-13] MEDS: SODIUM CHLORIDE 0.9% 1,000 ML IV SCH ×2 (13:32→23:05)
[2020-06-13] MEDS ORDERED: SENNOSIDES 8.6 MG TAB PO PRN (17:23)
--- NOTE | 2020-06-13 17:46 | P.HPIM ---
History of Present Illness H&P Date: 06/13/20 Chief Complaint: Shortness of breath Patient is a 85-year-old male with a known history of coronary artery disease status post and placement, recent I aortic valve replacement in April 2020, COPD, bronchiectasis and pulmonary fibrosis on follow with Dr. Richardson as an outpatient, hypertension, GERD, hypothyroidism and ADD/ADHD and previous history of smoking presents to ER with complaints of shortness of breath worsening since yesterday. Patient says that he has been having cough and mucus-like sputum production and unable to clear secretions. Patient states that he has been drinking plenty of water to clear his lungs. Denied any complaints of fever or chills. No nausea vomiting or abdominal pain or diarrhea. Denied any recent illnesses. Patient thought he might covid 19 infection and presents to ER. Denied any complaints of chest pain. No worsening leg swelling. Chest x-ray showed COPD, patchy medial right basilar and also peripheral left basilar opacity. This could be areas of atelectasis versus developing infiltrate. Laboratory data showed obese 11.8, hemoglobin 11.5 and platelets 308 and lymphocytes 0.7 Sodium 120, potassium 3.9, chloride 90 and BUN 15 and creatinine 0.68 Troponin 0.012 and Covid 19 PCR not detected Review of Systems Constitutional: Patient denies any fever or chills . Patient does have generalized weakness. No fatigue or weight loss.. Abdomen: Patient denied nausea vomiting and diarrhea and abdominal pain. Cardiovascular: Patient denies any chest pain or short of breath no palpitations. Respiratory: Patient does have cough with mucus sputum production and shortness of breath Neurologic: Patient denied any numbness or tingling headache. Musculoskeletal: Patient denies any complaints of joint swelling or deformity. Skin: Negative Psychiatric: Negative Endocrine: No heat or cold intolerance. No recent weight gain. Genitourinary: No dysuria or hematuria. All other 14 point ROS negative except the above Past Medical History Past Medical History: Atrial Fibrillation, Coronary Artery Disease (CAD), Fibromyalgia, GERD/Reflux, Hyperlipidemia, Hypertension, Myocardial Infarction (AR), Pneumonia, Thyroid Disorder Additional Past Medical History / Comment(s): hx gout, increase difficulty clearing lungs at night-occ. sleeping in chair to sleep, essential tremors, frequent cough, SOB, vertigo Last Myocardial Infarction Date:: unkn-silent History of Any Multi-Drug Resistant Organisms: MRSA Date of last positivie culture/infection: 04/23/19 MDRO Source:: Bronch wash Past Surgical History: Appendectomy, Cardiac Valve Replacement, Heart Catheterization With Stent, Hernia Repair, Prostate Surgery, Tonsillectomy Additional Past Surgical History / Comment(s): TURP, sub-mucous resection to improve breathing, turbinate reduction, 4 cardiac stents, payam cataract surgery, hernia repair x3 , aortic valve replacment 03/2020, Aortic Valve replacement April 30 2021 Past Anesthesia/Blood Transfusion Reactions: Motion Sickness Additional Past Anesthesia/Blood Transfusion Reaction / Comment(s): vertigo Date of Last Stent Placement:: 2012 Past Psychological History: ADD/ADHD Additional Psychological History / Comment(s): . Smoking Status: Former smoker Past Alcohol Use History: Occasional Additional Past Alcohol Use History / Comment(s): Pt started smoking in 1950 and quit in 1969. He was a 3 1/2 ppd smoker. Past Drug Use History: None Reported - Past Family History Father Family Medical History: CVA/TIA Additional Family Medical History / Comment(s): Father had a severe CVA and of this at age 80 yrs. Mother Family Medical History: Coronary Artery Disease (CAD) Additional Family Medical History / Comment(s): Mother had an enlarged heart and at age 90. Sister(s) Family Medical History: Cancer Medications and Allergies Home Medications Medication Instructions Recorded Confirmed Type Aspirin EC [Ecotrin Low Dose] 81 mg PO DAILY 07/05/15 06/13/20 History Ubidecarenone [Co Q-10] 100 mg PO DAILY 07/05/15 06/13/20 History Clopidogrel [Plavix] 75 mg PO DAILY 05/25/16 06/13/20 History Carvedilol [Coreg] 6.25 mg PO BID 06/19/17 06/13/20 History Ascorbic Acid [Vitamin C] 1,000 mg PO TID 11/12/17 06/13/20 History Cholecalciferol [Vitamin D3] 5,000 unit PO DAILY 11/12/17 06/13/20 History Fish Oil/Dha/Epa [Fish Oil 1,200 1 cap PO DAILY 03/28/18 06/13/20 History mg Fish Oil] Glucosamine/MSM/Chrond/D3/Bosw 1 tab PO BID 03/28/18 06/13/20 History [Shyrvfhrlsk-Arikaq-GZW-D3 Cplt] Magnesium Citrate 200 mg PO HS 03/28/18 06/13/20 History Multivitamins, Thera [Multivitamin 1 tab PO DAILY 03/28/18 06/13/20 History (formulary)] Psyllium Husk 100% [Metamucil 15 gm PO HS 03/28/18 06/13/20 History Packet] polyethylene glycoL 3350 [Miralax] 17 gm PO HS 03/28/18 06/13/20 History Mometasone Inhalr 220 Mcg/Puff 2 puff INHALATION RT-BID 10/29/18 06/13/20 History [Asmanex] predniSONE 5 mg PO DAILY 10/29/18 06/13/20 History Acetylcysteine [Nac] 500 mg PO DAILY 06/13/20 06/13/20 History Chlorthalidone [Hygroton] 25 mg PO DAILY 06/13/20 06/13/20 History Ipratropium-Albuterol Nebulize 3 ml INHALATION RT-QID 06/13/20 06/13/20 History [Duoneb 0.5 mg-3 mg/3 ml Soln] Isosorbide Mononitrate ER [Imdur] 30 mg PO DAILY 06/13/20 06/13/20 History Losartan Potassium [Cozaar] 50 mg PO DAILY 06/13/20 06/13/20 History Selenium 50 mcg PO DAILY 06/13/20 06/13/20 History Zinc Gluconate [Zinc] 50 mg PO DAILY 06/13/20 06/13/20 History Allergies Allergy/AdvReac Type Severity Reaction Status Date / Time meperidine [From Demerol] Allergy Unknown Verified 06/13/20 14:13 Childhood ciprofloxacin [From Cipro] AdvReac joint Verified 06/13/20 14:13 problems diphenhydramine HCl AdvReac "felt like Verified 06/13/20 14:13 [From Benadryl] I was dying" steroids AdvReac "angina" Uncoded 06/13/20 14:13 Physical Exam Vitals: Vital Signs Temp Pulse Pulse Resp BP BP Pulse Ox 06/13/20 15:45 98.2 F 72 16 151/63 98 06/13/20 15:00 98 F 63 22 146/85 100 06/13/20 14:00 71 12 140/78 99 06/13/20 13:00 69 22 140/81 97 06/13/20 12:14 68 18 140/81 97 06/13/20 11:28 20 06/13/20 11:11 98.8 F 72 18 147/76 98 Intake and Output 06/13/20 06/13/20 06/13/20 06:59 14:59 22:59 Other: Weight 70.307 kg PHYSICAL EXAMINATION: Patient is lying in the bed comfortably, no acute distress, awake alert and oriented.. HEENT: Normocephalic. Neck is supple. Pupils reactive. Nostrils clear. Oral cavity is moist. Ears reveal no drainage. Neck reveals no JVD, carotid bruits, or thyromegaly. CHEST EXAMINATION: Trachea is central. Symmetrical expansion. Bilateral diffuse coarse breath sounds and rhonchi. Minimal expiratory wheeze.. CARDIAC: Normal S1, S2 with no gallops. No murmurs ABDOMEN: Soft. Bowel sounds normal. No organomegaly. No abdominal bruits. Extremities: Bilateral trace lower extremity edema. No clubbing or cyanosis Neurologically awake, alert, oriented x3 with well-coordinated movements. No focal deficits noted Skin: No rash or skin lesions. Psychiatric: Coperative. Nonsuicidal Musculoskeletal: No joint swelling or deformity. Normal range of motion. Results CBC & Chem 7: 06/13/20 11:38 06/13/20 11:38 Labs: Abnormal Lab Results - Last 24 Hours (Table) 06/13/20 06/13/20 Range/Units 11:38 11:38 WBC 11.8 H (3.8-10.6) k/uL RBC 3.48 L (4.30-5.90) m/uL Hgb 11.5 L (13.0-17.5) gm/dL Hct 32.6 L (39.0-53.0) % Neutrophils # 9.8 H (1.3-7.7) k/uL Lymphocytes # 0.7 L (1.0-4.8) k/uL Sodium 120 L (137-145) mmol/L Chloride 90 L (98-107) mmol/L Glucose 111 H (74-99) mg/dL Thrombosis Risk Factor Assmnt - DVT/VTE Prophylaxis DVT/VTE Prophylaxis: Pharmacologic Prophylaxis ordered - Choose All That Apply Each Factor Represents 1 point: Abnormal pulmonary function (COPD) Other Risk Factors: Yes Each Risk Factor Represents 3 Points: Age 75 years or older Thrombosis Risk Factor Assessment Total Risk Factor Score: 4 Thrombosis Risk Factor Assessment Level: Moderate Risk Assessment and Plan Assessment: Acute COPD exacerbation with history of bronchiectasis and tracheomalacia Acute tracheobronchitis Hyponatremia likely hypoosmolar with plenty of plain water intake and decreased solute intake. Recent history of aortic valve replacement Coronary artery disease with history of stent placement History of paroxysmal atrial fibrillation. Maintained on sinus rhythm. Hypertension Hyperlipidemia BPH Fibromyalgia History of gout ADD/ADHD Previous history of smoking DVT prophylaxis with heparin subcu plan: Patient will be continued on IV steroids and antibiotics. Continue with the DuoNeb's and also supplementation. Patient is not on home oxygen currently. Continue IV hydration with normal saline and restrict free water intake. Monitor sodium level closely. BNP level was ordered. Continue with home medications including aspirin, Plavix and beta blockers. Pulmonary was consulted for further evaluation. Time with Patient: Greater than 30
[2020-06-13] MEDS: carvediloL 6.25 MG TAB PO SCH (17:54)
[2020-06-13] MEDS: PSYLLIUM HUSK 100% 6 GM PACKET PO SCH (19:53)
[2020-06-13] MEDS: guaiFENesin 600 MG TABLET.ER PO SCH (19:53)
[2020-06-13] MEDS: AMOXIC-POT CLAV 875-125MG 1 EACH TAB PO SCH (19:53)
[2020-06-13] MEDS ORDERED: FLUTICASONE 220 MCG INHALER INHALATION SCH (20:00)
--- NOTE | 2020-06-13 20:50 | CONS ---
CONSULTATION PULMONARY/CRITICAL CARE CONSULTATION: DATE OF SERVICE: 06/13/2020 REASON FOR CONSULTATION: Shortness of breath. This patient is an 85-year-old male who presented to the emergency room with the chief complaint of increasing shortness of breath. The patient does have a history of underlying COPD. He sees my partner for that. He typically uses albuterol sulfate and ipratropium bromide and a nebulizer, Asmanex inhaler, and also prednisone 5 mg a day for his COPD. He says he panicked and he thought he might have COVID infection and that is why he came to the emergency room to be evaluated. His complaints include shortness of breath, chest congestion, cough and phlegm production. No fever or chills. He is feeling better today. He is currently on room air. His saline is running at 75 mL/hour. His COVID test did machine turner negative. Other issues with him included a sodium of 120, thought to be related to hypervolemic hyponatremia, as well as a recent aortic valve replacement at [facility] on April 30. He denies any chest pain or chest discomfort. Again, he denies any fever or chills. No nausea, vomiting, diarrhea. No genitourinary complaints. HOME MEDICATIONS: His home medications include aspirin, omeprazole, coenzyme Q, Plavix, Striverdi Respimat, Coreg, Lasix, losartan, hydralazine, Ventolin inhaler, vitamin C, vitamin D3, Imdur, Mucinex, fish oil, glucosamine and chondroitin, multiple vitamins, magnesium citrate, potassium, Phenergan with codeine, Metamucil, resveratrol, Crestor, MiraLAX, albuterol and ipratropium bromide updrafts, Asmanex, probiotic, Bactrim DS and prednisone 5 mg a day, as mentioned. ALLERGIES: ALLERGIES include CIPROFLOXACIN, BENADRYL, MEPERIDINE AND STEROIDS. MEDICAL HISTORY: Positive for atrial fibrillation, CAD, fibromyalgia, GERD, hyperlipidemia, hypertension, myocardial infarction, pneumonia and hypothyroidism. He also has a history of gout, frequent chest colds and difficulty clearing secretions from the lungs, essential tremor and vertigo. SURGICAL HISTORY: Surgical history includes bronchoscopy, appendectomy, heart catheterization with stent, hernia repair, prostate surgery, tonsillectomy, 4 cardiac stents, bilateral cataract surgery, hernia repair x3, and a recent aortic valve replacement in April 2020. SOCIAL HISTORY: Positive for previous tobacco use. Drinks alcohol occasionally. No illicit drug use. FAMILY HISTORY: Positive for father with CVA and mother with a history of CAD. REVIEW OF SYSTEMS: CONSTITUTIONAL: Negative. NEUROLOGIC: Negative. HEENT: Negative. CARDIOVASCULAR: Negative. PULMONARY: Shortness of breath, chest congestion, cough, minimal phlegm production. GI: Negative. : Negative. RHEUMATOLOGIC: Negative. IMMUNOLOGIC: Negative. ENDOCRINOLOGIC: Negative. DERMATOLOGIC: Negative. PHYSICAL EXAMINATION: VITAL SIGNS: Current vital signs are temperature 98.2, heart rate 72, respiratory rate 16, blood pressure 151/63, mean 92, two-liter saturation 98%. GENERAL APPEARANCE: He appears in no acute distress. Sitting at the bedside. Looks very comfortable. HEENT: Examination is grossly unremarkable. NECK: Supple. Full range of motion. No adenopathy. Neck veins are flat. CARDIOVASCULAR: Examination reveals regular rhythm and rate. S1, S2 normal. No S3, S4 or murmur. LUNGS: Lungs reveal some diffuse coarse rhonchi and wheezes. Breath sounds are diminished. There is prolongation on forced maneuver. No crackles. ABDOMEN: Soft. Bowel sounds are heard. EXTREMITIES: Intact. No cyanosis, clubbing or edema. SKIN: Without rash. NEUROLOGIC: Neurologic examination is brief but nonfocal. LABS/IMAGING: White count 11.8, hemoglobin 11.5, hematocrit 32.6, platelet count 308,000. PT, INR, PTT normal. Sodium 120, potassium 3.9, chloride is 90, CO2 22. Anion gap is 8. BUN and creatinine were 15 and 0.68. Glucose 111. COVID testing was negative. Chest x-ray from June 13 shows some minimal basilar atelectasis. MEDICATIONS: Reviewed. The patient is on vitamin C, aspirin, Coreg, vitamin D3, Plavix, Flovent inhaler, DuoNeb, Imdur, Solu-Medrol, multiple vitamins, Narcan, Zofran, Metamucil, MiraLAX, Senokot and saline IV at 75 mL/hour. ASSESSMENT: 1. Mild to moderate chronic obstructive pulmonary disease exacerbation in a patient with well-established steroid-dependent COPD. 2. Status post recent aortic valve replacement at [facility]. 3. Previous history of tobacco use. 4. History of atrial fibrillation. 5. Coronary artery disease. 6. Fibromyalgia. 7. Gastroesophageal reflux disease. 8. Hyperlipidemia. 9. Essential hypertension. 10.Prior history of myocardial infarction. 11.History of pneumonia. 12.Multiple other medical problems and comorbidities. PLAN: The patient's medications are reviewed. Will add some Symbicort to his regimen. He is already on steroids. He is getting DuoNeb. No additional recommendations are made. I will also add an oral antibiotic. Prognosis is guarded. COVID testing was negative. MMODL / IJN: [id number] /
[2020-06-13] MEDS ORDERED: polyethylene glycoL 3350 17 GM POWD.PACK PO SCH (21:00)
[2020-06-13] MEDS: SYMBICORT 160-4.5 MCG INHALER INHALATION SCH ×2 (21:29→21:39)
[2020-06-13] MEDS: IPRATROPIUM-ALBUTEROL 3 ML NEB INHALATION SCH (21:30)
[2020-06-13] MEDS: methylPREDNISolone SOD SUCCI 40 MG/ML 1 ML VIAL IV SCH (23:04)
[2020-06-13] MEDS: ASCORBIC ACID 500 MG TAB PO SCH (23:04)
[2020-06-14 06:22] LABS: Basophils % (A) 0 %; Eosinophils % (A) 1 %; HCT 32.5 % (39.0-53.0); Lymphocytes # (A) 0.4 k/uL (1.0-4.8); Lymphocytes % (A) 10 %; MCH 32.4 pg (25.0-35.0); MCHC 33.9 g/dL (31.0-37.0); MCV 95.6 fL (80.0-100.0); Mean Platelet Volume 6.8; Monocytes # (A) 0.1 k/uL (0-1.0); Monocytes % (A) 3 %; Neutrophils # (A) 3.1 k/uL (1.3-7.7); Neutrophils % (A) 86 %; Platelet Count 300 k/uL (150-450); RDW 13.4 % (11.5-15.5); WBC 3.7 k/uL (3.8-10.6)
[2020-06-14] MEDS: ASCORBIC ACID 500 MG TAB PO SCH ×3 (08:03→22:56)
[2020-06-14] MEDS: carvediloL 6.25 MG TAB PO SCH ×2 (08:03→17:15)
[2020-06-14] MEDS: guaiFENesin 600 MG TABLET.ER PO SCH ×2 (08:03→20:23)
[2020-06-14] MEDS: MULTIVITAMINS, THERA 1 EACH TAB PO SCH (08:03)
[2020-06-14] MEDS: ASPIRIN 81 MG PO SCH (08:03)
[2020-06-14] MEDS: CLOPIDOGREL 75 MG TAB PO SCH (08:03)
[2020-06-14] MEDS: CHOLECALCIFEROL 1,000 UNIT TAB PO SCH (08:03)
[2020-06-14] MEDS: AMOXIC-POT CLAV 875-125MG 1 EACH TAB PO SCH ×2 (08:03→20:23)
[2020-06-14] MEDS: methylPREDNISolone SOD SUCCI 40 MG/ML 1 ML VIAL IV SCH ×3 (08:04→22:56)
[2020-06-14] MEDS ORDERED: ISOSORBIDE MONONITRATE ER 30 MG TAB.ER.24H PO SCH (09:00)
[2020-06-14] MEDS ORDERED: NON FORMULARY DRUG (Selenium [Selenium] 50 MCG Tablet) PO SCH (09:00)
[2020-06-14] MEDS ORDERED: NON FORMULARY DRUG (Zinc Gluconate 50 MG Tab) PO SCH (09:00)
[2020-06-14] MEDS: IPRATROPIUM-ALBUTEROL 3 ML NEB INHALATION SCH ×4 (09:10→21:01)
[2020-06-14] MEDS: SYMBICORT 160-4.5 MCG INHALER INHALATION SCH ×2 (09:10→21:01)
[2020-06-14 11:01] LABS: African American GFR (CKD) 94.4 (60.0-200.0); Anion Gap 7.9 mmol/L (4.00-12.00); BUN/Creat Ratio 18.75 Ratio (12.00-20.00); Calcium 8.8 mg/dL (8.7-10.3); Carbon Dioxide 24.1 mmol/L (21.6-31.8); Non-African American GFR(CKD) 81.5 (60.0-200.0); Potassium 4.6 mmol/L (3.5-5.5)
--- NOTE | 2020-06-14 15:04 | P.PN ---
Subjective Progress Note Date: 06/14/20 Principal diagnosis: Shortness of breath 75-year-old white male patient of Dr. Ford, with past medical history significant for COPD, steroid-dependent on the maintenance dose of prednisone 5 mg on a daily basis, recent history of aortic valve replacement at [facility] on 04/30/2020. Patient came into the hospital complaining of worsening dyspnea, patient. Patient panicked he thought he might have COVID infection. Is complaining of shortness of breath, chest congestion, cough and phlegm production, denied any fever or chills. He had a rapid COVID PCR which was n egative, also was found to have a serum sodium level of 120 was thought to be hypervolemic, patient was placed on water restriction. His admission chest x- ray showed COPD, patchy medial right basilar and peripheral left basilar opacity could be related to atelectasis versus developing infiltrate. She is on room air today, his pulse ox is 97%, his sodium is improving, up to 125 on today's labs, his white count is 3.7, hemoglobin is 11, he is lymphopenic, with lymphocyte count of 0.4, potassium is 4.6, chloride is 93, BUN was 15 creatinine was 0.8, history of present was negative at less than 0.012, proBNP was 154, he is on nebulized bronchodilators, he is on IV steroids to 40 mg every 6 hours, he is getting gentle IV hydration with 0.9 normal saline at a rate of 75 ML per hour, who put him on empiric antibodies in the form of Augmentin. He has had no acute events overnight. Objective - Vital Signs Vital signs: Vital Signs Temp 97.5 F L 06/14/20 14:00 Pulse 98 06/14/20 14:00 Resp 18 06/14/20 14:00 BP 146/74 06/14/20 14:00 Pulse Ox 97 06/14/20 14:00 Intake & Output 06/13/20 06/14/20 06/14/20 18:59 06:59 18:59 Intake Total 900 472 Output Total 900 Balance 900 -428 Weight 70.307 kg Intake: Intake, IV Titration 900 Amount Sodium Chloride 0.9% 1, 900 000 ml @ 75 mls/hr IV . [id number] [facility] Rx#:[id number] Oral 472 Output: Urine 900 Other: Voiding Method Toilet Urinal # Voids 1 2 - Exam GENERAL EXAM: Alert, very pleasant, 85-year-old white male, on room air, with a pulse ox 97% comfortable in no apparent distress. HEAD: Normocephalic/atraumatic. EYES: Normal reaction of pupils, equal size. Conjunctiva pink, sclera white. NOSE: Clear with pink turbinates. THROAT: No erythema or exudates. NECK: No masses, no JVD, no thyroid enlargement, no adenopathy. CHEST: No chest wall deformity. Symmetrical expansion. LUNGS: Equal air entry with no crackles, wheeze, rhonchi or dullness. CVS: Regular rate and rhythm, normal S1 and S2, no gallops, no murmurs, no rubs ABDOMEN: Soft, nontender. No hepatosplenomegaly, normal bowel sounds, no guarding or rigidity. EXTREMITIES: No clubbing, no edema, no cyanosis, 2+ pulses and upper and lower extremities. MUSCULOSKELETAL: Muscle strength and tone normal. SPINE: No scoliosis or deformity SKIN: No rashes CENTRAL NERVOUS SYSTEM: Alert and oriented -3. No focal deficits, tone is normal in all 4 extremities. PSYCHIATRIC: Alert and oriented -3. Appropriate affect. Intact judgment and insight. - Labs CBC & Chem 7: 06/14/20 05:49 06/14/20 05:49 Labs: Abnormal Lab Results - Last 24 Hours (Table) 06/14/20 06/14/20 Range/Units 05:49 05:49 WBC 3.7 L (3.8-10.6) k/uL RBC 3.40 L (4.30-5.90) m/uL Hgb 11.0 L (13.0-17.5) gm/dL Hct 32.5 L (39.0-53.0) % Lymphocytes # 0.4 L (1.0-4.8) k/uL Sodium 125 L (135-145) mmol/L Chloride 93 L (96-109) mmol/L Glucose 138 H (70-110) mg/dL Assessment and Plan Plan: Assessment: #1. Dyspnea, likely related to acute exacerbation of COPD #2. Atelectasis versus developing infiltrate is on the chest x-ray, patient was empirically covered with Augmentin, likelihood of pneumonia is less likely #3. Hyponatremia, likely hypervolemic, improving with water restriction #4. Status post recent aortic valve replacement at [facility] on 04/22/2020 #5. Previous history of tobacco use #6. History of atrial fibrillation #7. Coronary artery disease #8. COPD, prednisone dependent #9. Fibromyalgia #10. GERD/reflux Plan: Continue current medical treatment, continue Symbicort, steroids, patient is on room air, no worsening dyspnea, feeling better, sodium is improving, continue empiric antibiotics, no fever or chills, he can be considered for discharge home in the next 24 hours if continues to do well. I performed a history & physical examination of the patient and discussed their management with my nurse practitioner, Monse Castro. I reviewed the nurse practitioner's note and agree with the documented findings and plan of care. Lung sounds are positive for diminished breath sounds.. The findings and the impression was discussed with the patient. I attest to the documentation by the nurse practitioner. Time with Patient: Less than 30
--- NOTE | 2020-06-14 15:11 | P.PN ---
Subjective Progress Note Date: 06/14/20 Patient is a 85-year-old male with a known history of coronary artery disease status post and placement, recent I aortic valve replacement in April 2020, COPD, bronchiectasis and pulmonary fibrosis on follow with Dr. Richardson as an outpatient, hypertension, GERD, hypothyroidism and ADD/ADHD and previous history of smoking presents to ER with complaints of shortness of breath worsening since yesterday. Patient says that he has been having cough and mucus-like sputum production and unable to clear secretions. Patient states that he has been drinking plenty of water to clear his lungs. Denied any complaints of fever or chills. No nausea vomiting or abdominal pain or diarrhea. Denied any recent illnesses. Patient thought he might covid 19 infection and presents to ER. Denied any complaints of chest pain. No worsening leg swelling. Chest x-ray showed COPD, patchy medial right basilar and also peripheral left basilar opacity. This could be areas of atelectasis versus developing infiltra te. Laboratory data showed obese 11.8, hemoglobin 11.5 and platelets 308 and lymphocytes 0.7 Sodium 120, potassium 3.9, chloride 90 and BUN 15 and creatinine 0.68 Troponin 0.012 and Covid 19 PCR not detected 06/14/2020 Patient is seen and evaluated in follow-up with no acute overnight issues. Mariia ent was maintained on gentle IV hydration for a sodium that was 120. Repeat sodium this morning is 125 and patient is continued on 1200 mL fluid restrictions and will repeat a.m. labs. Was have been discontinued as patient is tolerating diet. Patient states he is following the restrictions of 1200 mL per day. Patient is receiving bronchodilators and does use an inhaler that is provided to him at the [place] although nonformulary here and is maintained on dual nebs and will continue at this time. Patient states he feels much better. Pulmonary is following and patient is maintained on IV steroids along with bronchodilators and antibiotics and will continue at this time. Review of systems: Constitutional: No reports of fatigue, fever, or chills Cardiovascular: No reports of chest pain or palpitations Respiratory: No reports of shortness of breath or cough GI: No reports of nausea, vomiting, or diarrhea : No reports of dysuria or retention Neurovascular: No reports of weakness or numbness All medications have been reviewed Objective - Vital Signs Vital signs: Vital Signs Temp 97.4 F L 06/14/20 07:53 Pulse 88 06/14/20 09:23 Resp 18 06/14/20 08:00 BP 146/79 06/14/20 07:53 Pulse Ox 97 06/14/20 07:55 Intake & Output 06/13/20 06/14/20 06/14/20 18:59 06:59 18:59 Intake Total 900 236 Output Total 900 Balance 900 -664 Weight 70.307 kg Intake: Intake, IV Titration 900 Amount Sodium Chloride 0.9% 1, 900 000 ml @ 75 mls/hr IV . [id number] [facility] Rx#:[id number] Oral 236 Output: Urine 900 Other: Voiding Method Toilet Urinal # Voids 1 2 - Exam Patient is sitting up in the chair comfortably, no acute distress, awake alert and oriented.. HEENT: Normocephalic. Neck is supple. Pupils reactive. Nostrils clear. Oral cavity is moist. Ears reveal no drainage. Neck reveals no JVD, carotid bruits, or thyromegaly. CHEST EXAMINATION: Trachea is central. Symmetrical expansion. Bilateral diffuse coarse breath sounds and rhonchi. Minimal expiratory wheeze. Improved. CARDIAC: Normal S1, S2 with no gallops. No murmurs ABDOMEN: Soft. Bowel sounds normal. No organomegaly. No abdominal bruits. Extremities: Bilateral trace lower extremity edema. No clubbing or cyanosis Neurologically awake, alert, oriented x3 with well-coordinated movements. No focal deficits noted Skin: No rash or skin lesions. Psychiatric: Coperative. Nonsuicidal Musculoskeletal: No joint swelling or deformity. Normal range of motion. - Labs CBC & Chem 7: 06/14/20 05:49 06/14/20 05:49 Labs: Abnormal Lab Results - Last 24 Hours (Table) 06/13/20 06/13/20 06/14/20 Range/Units 11:38 11:38 05:49 WBC 11.8 H 3.7 L (3.8-10.6) k/uL RBC 3.48 L 3.40 L (4.30-5.90) m/uL Hgb 11.5 L 11.0 L (13.0-17.5) gm/dL Hct 32.6 L 32.5 L (39.0-53.0) % Neutrophils # 9.8 H (1.3-7.7) k/uL Lymphocytes # 0.7 L 0.4 L (1.0-4.8) k/uL Sodium 120 L (137-145) mmol/L Chloride 90 L (98-107) mmol/L Glucose 111 H (74-99) mg/dL 06/14/20 Range/Units 05:49 WBC (3.8-10.6) k/uL RBC (4.30-5.90) m/uL Hgb (13.0-17.5) gm/dL Hct (39.0-53.0) % Neutrophils # (1.3-7.7) k/uL Lymphocytes # (1.0-4.8) k/uL Sodium 125 L (137-145) mmol/L Chloride 93 L (98-107) mmol/L Glucose 138 H (74-99) mg/dL Assessment and Plan Assessment: Acute COPD exacerbation with history of bronchiectasis and tracheomalacia Acute tracheobronchitis Hyponatremia likely hypoosmolar with plenty of plain water intake and decreased solute intake. Recent history of aortic valve replacement at [facility] Coronary artery disease with history of stent placement History of paroxysmal atrial fibrillation. Maintained on sinus rhythm. Hypertension Hyperlipidemia BPH Fibromyalgia History of gout ADD/ADHD Previous history of smoking DVT prophylaxis with heparin subcu plan: Continue with current medications, management, and symptomatic treatment. Patient is maintained on DuoNeb treatments along with IV steroids and a ntibiotics in the form of oral Augmentin and will continue at this time. Patient was maintained on IV hydration normal saline at 75 ML per hour and sodium was initially found to be 120 with repeat sodium today at 125. We'll continue with fluid restrictions of 1200 mL per day IV fluids have been di scontinued and will repeat a.m. labs. Patient is currently on room air and is 97%. Will continue to monitor closely and make further recommendations depending on the clinical course of the patient. Pulmonary is following. Possible discharge in 24 hours.
[2020-06-14 15:21] VITALS: BMI 25.0
[2020-06-14] MEDS: PSYLLIUM HUSK 100% 6 GM PACKET PO SCH (20:23)
[2020-06-15] MEDS: carvediloL 6.25 MG TAB PO SCH ×2 (07:21→16:10)
[2020-06-15] MEDS: ASPIRIN 81 MG PO SCH (07:22)
[2020-06-15] MEDS: CHOLECALCIFEROL 1,000 UNIT TAB PO SCH (07:22)
[2020-06-15] MEDS: methylPREDNISolone SOD SUCCI 40 MG/ML 1 ML VIAL IV SCH ×2 (07:22→16:10)
[2020-06-15] MEDS: MULTIVITAMINS, THERA 1 EACH TAB PO SCH (07:22)
[2020-06-15] MEDS: CLOPIDOGREL 75 MG TAB PO SCH (07:22)
[2020-06-15] MEDS: AMOXIC-POT CLAV 875-125MG 1 EACH TAB PO SCH ×2 (07:22→20:10)
[2020-06-15] MEDS: ASCORBIC ACID 500 MG TAB PO SCH ×3 (07:23→20:11)
[2020-06-15] MEDS: guaiFENesin 600 MG TABLET.ER PO SCH ×3 (07:24→20:11)
--- NOTE | 2020-06-15 07:58 | XR ---
EXAMINATION TYPE: XR chest 1V portable DATE OF EXAM: 06/15/2020 Comparison: 06/13/2020 Clinical History: 85-year-old male shortness of breath Findings: Heart borderline in size. Mild elongation/tortuosity of the thoracic aorta. Mild hyperinflation with interstitial prominence is unchanged. Some mild residual patchy density medial right base and left ba se show some improvement from prior exam. No new consolidation or pleural effusion. Impression: 1. COPD. 2. Some residual mild patchy basilar density is improving from prior exam.
[2020-06-15] MEDS: SYMBICORT 160-4.5 MCG INHALER INHALATION SCH ×2 (08:32→19:20)
[2020-06-15] MEDS: IPRATROPIUM-ALBUTEROL 3 ML NEB INHALATION SCH ×4 (08:32→19:20)
[2020-06-15 09:14] LABS: African American GFR (CKD) >90 (>60 ml/min/1.73 sqM); Anion Gap 9 mmol/L; Blood Urea Nitrogen 21 mg/dL (9-20); Calcium 9.5 mg/dL (8.4-10.2); Carbon Dioxide 25 mmol/L (22-30); Chloride 97 mmol/L (98-107); Glucose 229 mg/dL (74-99); Non-African American GFR(CKD) 82 (>60 ml/min/1.73 sqM); Potassium 4.1 mmol/L (3.5-5.1); Sodium 131 mmol/L (137-145)
[2020-06-15] MEDS: LOSARTAN 50 MG TAB PO SCH (12:15)
--- NOTE | 2020-06-15 14:48 | P.PN ---
Subjective Progress Note Date: 06/15/20 Patient is a 85-year-old male with a known history of coronary artery disease status post and placement, recent I aortic valve replacement in April 2020, COPD, bronchiectasis and pulmonary fibrosis on follow with Dr. Richardson as an outpatient, hypertension, GERD, hypothyroidism and ADD/ADHD and previous history of smoking presents to ER with complaints of shortness of breath worsening since yesterday. Patient says that he has been having cough and mucus-like sputum production and unable to clear secretions. Patient states that he has been drinking plenty of water to clear his lungs. Denied any complaints of fever or chills. No nausea vomiting or abdominal pain or diarrhea. Denied any recent illnesses. Patient thought he might covid 19 infection and presents to ER. Denied any complaints of chest pain. No worsening leg swelling. Chest x-ray showed COPD, patchy medial right basilar and also peripheral left basilar opacity. This could be areas of atelectasis versus developing infiltra te. Laboratory data showed obese 11.8, hemoglobin 11.5 and platelets 308 and lymphocytes 0.7 Sodium 120, potassium 3.9, chloride 90 and BUN 15 and creatinine 0.68 Troponin 0.012 and Covid 19 PCR not detected 06/14/2020 Patient is seen and evaluated in follow-up with no acute overnight issues. Mariia ent was maintained on gentle IV hydration for a sodium that was 120. Repeat sodium this morning is 125 and patient is continued on 1200 mL fluid restrictions and will repeat a.m. labs. Was have been discontinued as patient is tolerating diet. Patient states he is following the restrictions of 1200 mL per day. Patient is receiving bronchodilators and does use an inhaler that is provided to him at the [place] although nonformulary here and is maintained on dual nebs and will continue at this time. Patient states he feels much better. Pulmonary is following and patient is maintained on IV steroids along with bronchodilators and antibiotics and will continue at this time. 06/15/2020 Patient is seen in follow-up in sodium has improved and is 131 today. Patient to continue with fluid restrictions of 1200 mL per day and Hydrodiuril is on hold. Patient's other home medications have been resumed. Patient continues to have a cough with minimal production and rhonchorous on exam. Patient states his breathing has improved although feels slightly more short of breath when lying down. Patient states he has been having to sleep sitting up in the chair for the last 2 weeks. Pulmonary is following and planning on bronchoscopy tomorrow. Patient does follow with Dr. Silva in the outpatient setting and has had previous bronchoscopies. Patient is maintained on oral Augmentin, bronchodilators, along with IV steroids and will continue at this time. Patient will likely require prednisone taper upon discharge. Patient normally takes 5 mg of prednisone daily in the outpatient setting. Review of systems: Constitutional: No reports of fatigue, fever, or chills Cardiovascular: No reports of chest pain or palpitations Respiratory: reports occasional shortness of breath and mild cough with no phlegm production GI: No reports of nausea, vomiting, or diarrhea : No reports of dysuria or retention Neurovascular: No reports of weakness or numbness All medications have been reviewed Active Medications Albuterol/Ipratropium (Ipratropium-Albuterol 3 Ml Neb) 3 ml INHALATION RT-QID [facility] Last Admin: 06/15/20 11:48 Dose: 3 ml Documented by: Amoxicillin/Clavulanate Potassium (Amoxic-Pot Clav 875-125mg 1 Each Tab) 1 each PO Q12HR [facility] Last Admin: 06/15/20 07:22 Dose: 1 each Documented by: Ascorbic Acid (Ascorbic Acid 500 Mg Tab) 1,000 mg PO TID [facility] Last Admin: 06/15/20 07:23 Dose: 1,000 mg Documented by: Aspirin (Aspirin 81 Mg) 81 mg PO DAILY [facility] Last Admin: 06/15/20 07:22 Dose: 81 mg Documented by: Budesonide/Formoterol Fumarate (Symbicort 160-4.5 Mcg Inhaler) 2 puff INHALATION RT-BID [facility] Last Admin: 06/15/20 08:32 Dose: 2 puff Documented by: Carvedilol (Carvedilol 6.25 Mg Tab) 6.25 mg PO BID-W/MEALS [facility] Last Admin: 06/15/20 07:21 Dose: 6.25 mg Documented by: Cholecalciferol (Cholecalciferol 1,000 Unit Tab) 5,000 unit PO DAILY [facility] Last Admin: 06/15/20 07:22 Dose: 5,000 unit Documented by: Clopidogrel Bisulfate (Clopidogrel 75 Mg Tab) 75 mg PO DAILY [facility] Last Admin: 06/15/20 07:22 Dose: 75 mg Documented by: Guaifenesin (Guaifenesin 600 Mg Tablet.Er) 1,200 mg PO TID [facility] Losartan Potassium (Losartan 50 Mg Tab) 50 mg PO DAILY [facility] Last Admin: 06/15/20 12:15 Dose: 50 mg Documented by: Methylprednisolone Sodium Succinate (Methylprednisolone Sod Succi 40 Mg/Ml 1 Ml Vial) 40 mg IV Q8HR [facility] Last Admin: 06/15/20 07:22 Dose: 40 mg Documented by: Multivitamins (Multivitamins, Thera 1 Each Tab) 1 each PO DAILY [facility] Last Admin: 06/15/20 07:22 Dose: 1 each Documented by: Naloxone HCl (Naloxone 0.4 Mg/Ml 1 Ml Vial) 0.2 mg IV Q2M PRN PRN Reason: Opioid Reversal Ondansetron HCl (Ondansetron 4 Mg/2 Ml Vial) 4 mg IVP Q8HR PRN PRN Reason: Nausea And Vomiting Polyethylene Glycol (Polyethylene Glycol 3350 17 Gm Powd.Pack) 17 gm PO HS PRN PRN Reason: Constipation Psyllium Hydrophilic Mucilloid (Psyllium Husk 100% 6 Gm Packet) 6 gm PO HS [facility] Last Admin: 06/14/20 20:23 Dose: 6 gm Documented by: Senna (Sennosides 8.6 Mg Tab) 8.6 mg PO DAILY PRN PRN Reason: Constipation Objective - Vital Signs Vital signs: Vital Signs Temp 97.8 F 06/15/20 07:40 Pulse 90 06/15/20 08:44 Resp 18 06/15/20 08:00 BP 160/84 06/15/20 07:40 Pulse Ox 95 06/15/20 07:40 Intake & Output 06/14/20 06/15/20 06/15/20 18:59 06:59 18:59 Intake Total 912 237 120 Output Total 900 1300 Balance 12 237 -1180 Weight 70.307 kg Intake: Oral 712 237 120 Other 200 Output: Urine 900 1300 Other: Voiding Method Toilet Toilet Urinal Urinal # Voids 3 3 - Exam Patient is sitting up in the chair comfortably, no acute distress, awake alert a nd oriented. HEENT: Normocephalic. Neck is supple. Pupils reactive. Nostrils clear. Oral cavity is moist. Ears reveal no drainage. Neck reveals no JVD, carotid bruits, or thyromegaly. CHEST EXAMINATION: Trachea is central. Symmetrical expansion. Bilateral diffuse coarse breath sounds and rhonchi noted. With no wheezing noted on exam CARDIAC: Normal S1, S2 with no gallops. No murmurs ABDOMEN: Soft. Bowel sounds normal. No organomegaly. No abdominal bruits. Extremities: Bilateral trace lower extremity edema. No clubbing or cyanosis Neurologically awake, alert, oriented x3 with well-coordinated movements. No focal deficits noted Skin: No rash or skin lesions. Psychiatric: Cooperative. Non-suicidal Musculoskeletal: No joint swelling or deformity. Normal range of motion. - Labs CBC & Chem 7: 06/14/20 05:49 06/15/20 08:48 Labs: Abnormal Lab Results - Last 24 Hours (Table) 06/15/20 Range/Units 08:48 Sodium 131 L (137-145) mmol/L Chloride 97 L (98-107) mmol/L BUN 21 H (9-20) mg/dL Glucose 229 H (74-99) mg/dL Assessment and Plan Assessment: Acute COPD exacerbation with history of bronchiectasis and tracheomalacia Acute tracheobronchitis Hyponatremia likely hypoosmolar with plenty of plain water intake and decreased solute intake, improving current sodium is 131 Recent history of aortic valve replacement at [facility] Coronary artery disease with history of stent placement History of paroxysmal atrial fibrillation. Maintained on sinus rhythm. Hypertension Hyperlipidemia BPH Fibromyalgia History of gout ADD/ADHD Previous history of smoking DVT prophylaxis with heparin subcu plan: Continue with current medications, management, and symptomatic treatment. Patient is maintained on DuoNeb treatments along with IV steroids and antibiotics in the form of oral Augmentin and will continue at this time. Sodium today has improved at 131 and we'll continue with fluid restrictions of 1200 mL per day IV fluids have been discontinued and will repeat a.m. labs. Patient is currently on room air. Pulmonary is following and planning on bronchoscopy in the morning. Will continue to monitor closely and make further recommendations depending on the clinical course of the patient. Possible discharge in 24 hours.
--- NOTE | 2020-06-15 16:02 | P.PN ---
Subjective Progress Note Date: 06/15/20 Principal diagnosis: Shortness of breath/COPD exacerbation. 75-year-old white male patient of Dr. Ford, with past medical history significant for COPD, steroid-dependent on the maintenance dose of prednisone 5 mg on a daily basis, recent history of aortic valve replacement at [facility] on 04/30/2020. Patient came into the hospital complaining of worsening dyspnea, patient. Patient panicked he thought he might have COVID infection. Is complaining of shortness of breath, chest congestion, cough and phlegm production, denied any fever or chills. He had a rapid COVID PCR which was negative, also was found to have a serum sodium level of 120 was thought to be hypervolemic, patient was placed on water restriction. His admission chest x- ray showed COPD, patchy medial right basilar and peripheral left basilar opacity could be related to atelectasis versus developing infiltrate. She is on room air today, his pulse ox is 97%, his sodium is improving, up to 125 on today's labs, his white count is 3.7, hemoglobin is 11, he is lymphopenic, with lymphocyte count of 0.4, potassium is 4.6, chloride is 93, BUN was 15 creatinine was 0.8, history of present was negative at less than 0.012, proBNP was 154, he is on nebulized bronchodilators, he is on IV steroids to 40 mg every 6 hours, he is getting gentle IV hydration with 0.9 normal saline at a rate of 75 ML per hour, who put him on empiric antibodies in the form of Augmentin. He has had no acute events overnight. Progress note dated 06/15/2020. 85-year-old male with a history of COPD, admitted with a COPD exacerbation. Unfortunately, the patient does not feel like he is improved. For that matter, the patient will have bronchoscopy and BAL tomorrow. He has had multiple bronchoscopies in the past performed on him by my partner. He is convinced, that the only way that he will improve, he is to have a bronchoscopy. The patient has a history of severe mucous retention, and has a difficult time c learing secretions. He also has a history of previous tobacco use, atrial fibrillation, CAD, prednisone-dependent COPD, fibromyalgia, GERD, and recent transcatheter aortic valve replacement at [facility]. His complaints today include increasing chest congestion, shortness of breath, c ough, inability to expectorate phlegm, wheezing, and chest tightness. He is on all the appropriate medications for his COPD exacerbation. He will be made nothing by mouth after midnight tonight. Objective - Vital Signs Vital signs: Vital Signs Temp 98.4 F 06/15/20 14:00 Pulse 87 06/15/20 14:00 Resp 16 06/15/20 14:00 BP 161/78 06/15/20 14:00 Pulse Ox 97 06/15/20 14:00 Intake & Output 06/14/20 06/15/20 06/15/20 18:59 06:59 18:59 Intake Total 912 237 120 Output Total 900 1300 Balance 12 237 -1180 Weight 70.307 kg Intake: Oral 712 237 120 Other 200 Output: Urine 900 1300 Other: Voiding Method Toilet Toilet Urinal Urinal # Voids 3 3 - Exam No acute distress, oriented 3. Currently, on room air, without any respiratory distress. The patient does have a very harsh, wet, congested cough. HEENT examination is grossly unremarkable. Mucous membranes are moist. No oral lesions. Neck supple. Full range of motion. No adenopathy thyromegaly or neck vein distention. Cardiovascular examination reveals regular rhythm rate. S1-S2 normal. No S3 or S4. No discernible murmur noted. Heart rate is 87 bpm. Lungs reveal coarse bilateral inspiratory and expiratory rhonchi and wheezes. T here is prolongation on forced maneuver. Adventitious lung sounds are more prominent on forced maneuver. There are no crackles. The patient wheezes and coughs on forced maneuver. Abdomen soft bowel sounds are heard. No masses or tenderness. Extremities are intact. No cyanosis clubbing or edema. Skin is without rash or lesion. Neurologic examination is brief but nonfocal. - Labs CBC & Chem 7: 06/14/20 05:49 06/15/20 08:48 Labs: Abnormal Lab Results - Last 24 Hours (Table) 06/15/20 Range/Units 08:48 Sodium 131 L (137-145) mmol/L Chloride 97 L (98-107) mmol/L BUN 21 H (9-20) mg/dL Glucose 229 H (74-99) mg/dL Assessment and Plan Assessment: #1. Dyspnea, likely related to acute exacerbation of COPD #2. Atelectasis versus developing infiltrate is on the chest x-ray, patient was empirically covered with Augmentin, likelihood of pneumonia is less likely #3. Hyponatremia, likely hypervolemic, improving with water restriction #4. Status post recent aortic valve replacement at [facility] on 04/22/2020 #5. Previous history of tobacco use #6. History of atrial fibrillation #7. Coronary artery disease #8. COPD, prednisone dependent #9. Fibromyalgia #10. GERD/reflux Plan: Plan dated 06/15/2020. Currently, the patient is on a combination long-acting beta agonist/inhaled corticosteroid preparation. In addition, the patient is receiving albuterol sulfate, and ipratropium bromide, by nebulized treatments, 4 times a day and when necessary. In addition, the patient's getting Solu-Medrol 40 mg IV push, every 8 hours. Also, the patient's getting Augmentin 875 twice a day. The patient will be Nothing by mouth after midnight. We will get a consent on the chart for him. We plan on doing a bronchoscopy, therapeutic lavage, airway examination, and BAL on him tomorrow. Hopefully, this will speed his recovery and finally allow him to be discharged from the hospital. Time with Patient: Less than 30
[2020-06-15] MEDS: polyethylene glycoL 3350 17 GM POWD.PACK PO PRN (20:09)
[2020-06-15] MEDS: PSYLLIUM HUSK 100% 6 GM PACKET PO SCH (20:10)
[2020-06-16] MEDS: methylPREDNISolone SOD SUCCI 40 MG/ML 1 ML VIAL IV SCH ×4 (01:57→23:59)
[2020-06-16] MEDS: carvediloL 6.25 MG TAB PO SCH ×2 (07:31→18:13)
[2020-06-16] MEDS: AMOXIC-POT CLAV 875-125MG 1 EACH TAB PO SCH ×2 (07:31→19:57)
[2020-06-16] MEDS: ASCORBIC ACID 500 MG TAB PO SCH ×3 (07:32→19:56)
[2020-06-16] MEDS: MULTIVITAMINS, THERA 1 EACH TAB PO SCH (07:32)
[2020-06-16] MEDS: IPRATROPIUM-ALBUTEROL 3 ML NEB INHALATION SCH ×4 (07:49→20:02)
[2020-06-16] MEDS: SYMBICORT 160-4.5 MCG INHALER INHALATION SCH ×2 (07:49→20:02)
[2020-06-16] MEDS: guaiFENesin 600 MG TABLET.ER PO SCH ×3 (08:16→19:58)
[2020-06-16] MEDS: CHOLECALCIFEROL 1,000 UNIT TAB PO SCH (08:17)
[2020-06-16] MEDS ORDERED: NA PHOS,M-B/NA PHOS,DI-BA 133 ML ENEMA RECTAL ONE (10:22)
[2020-06-16 10:47] LABS: African American GFR (CKD) 94.4 (60.0-200.0); Anion Gap 16.2 mmol/L (4.00-12.00); BUN/Creat Ratio 32.5 Ratio (12.00-20.00); Calcium 9.5 mg/dL (8.7-10.3); Carbon Dioxide 24.8 mmol/L (21.6-31.8); Non-African American GFR(CKD) 81.5 (60.0-200.0); Potassium 4.6 mmol/L (3.5-5.5)
--- NOTE | 2020-06-16 14:52 | P.PN ---
Subjective Progress Note Date: 06/16/20 Principal diagnosis: Shortness of breath/COPD exacerbation. 75-year-old white male patient of Dr. Ford, with past medical history significant for COPD, steroid-dependent on the maintenance dose of prednisone 5 mg on a daily basis, recent history of aortic valve replacement at [facility] on 04/30/2020. Patient came into the hospital complaining of worsening dyspnea, patient. Patient panicked he thought he might have COVID infection. Is complaining of shortness of breath, chest congestion, cough and phlegm production, denied any fever or chills. He had a rapid COVID PCR which was negative, also was found to have a serum sodium level of 120 was thought to be hypervolemic, patient was placed on water restriction. His admission chest x- ray showed COPD, patchy medial right basilar and peripheral left basilar opacity could be related to atelectasis versus developing infiltrate. She is on room air today, his pulse ox is 97%, his sodium is improving, up to 125 on today's labs, his white count is 3.7, hemoglobin is 11, he is lymphopenic, with lymphocyte count of 0.4, potassium is 4.6, chloride is 93, BUN was 15 creatinine was 0.8, history of present was negative at less than 0.012, proBNP was 154, he is on nebulized bronchodilators, he is on IV steroids to 40 mg every 6 hours, he is getting gentle IV hydration with 0.9 normal saline at a rate of 75 ML per hour, who put him on empiric antibodies in the form of Augmentin. He has had no acute events overnight. Progress note dated 06/15/2020. 85-year-old male with a history of COPD, admitted with a COPD exacerbation. Unfortunately, the patient does not feel like he is improved. For that matter, the patient will have bronchoscopy and BAL tomorrow. He has had multiple bronchoscopies in the past performed on him by my partner. He is convinced, that the only way that he will improve, he is to have a bronchoscopy. The patient has a history of severe mucous retention, and has a difficult time c learing secretions. He also has a history of previous tobacco use, atrial fibrillation, CAD, prednisone-dependent COPD, fibromyalgia, GERD, and recent transcatheter aortic valve replacement at [facility]. His complaints today include increasing chest congestion, shortness of breath, c ough, inability to expectorate phlegm, wheezing, and chest tightness. He is on all the appropriate medications for his COPD exacerbation. He will be made nothing by mouth after midnight tonight. Progress note dated 06/16/2020 85-year-old male with history of COPD and COPD exacerbation. The patient has really not improve significantly and we decided to go ahead and proceed with bronchoscopy and BAL today. The patient's bronchoscopy has not yet been done. The patient states that his problem is shortness of breath, chest congestion, tightness, wheezing, and cough. He has a difficult time clearing any secretions or mucus despite being on appropriate medications. He does have a history of multiple medical problems including atrial fibrillation, CAD, prednisone- dependent COPD, fibromyalgia, GERD, recent transcatheter aortic valve replacement, among other things. I'm hoping that after the bronchoscopy and BAL today, the patient can be discharged home tomorrow. Objective - Vital Signs Vital signs: Vital Signs Temp 97.9 F 06/16/20 08:00 Pulse 84 06/16/20 11:34 Resp 16 06/16/20 08:00 BP 129/88 06/16/20 08:00 Pulse Ox 97 06/16/20 08:00 Intake & Output 06/15/20 06/16/20 06/16/20 18:59 06:59 18:59 Intake Total 520 100 Output Total 1300 400 Balance -780 100 -400 Intake: Oral 120 100 Other 400 0 Output: Urine 1300 400 Other: Voiding Method Toilet Toilet Toilet Urinal Urinal Urinal # Voids 3 2 2 # Bowel Movements 1 1 - Exam No acute distress, oriented 3. Currently, on room air, without any respiratory distress. The patient does have a very harsh, wet, congested cough. HEENT examination is grossly unremarkable. Mucous membranes are moist. No oral lesions. Neck supple. Full range of motion. No adenopathy thyromegaly or neck vein distention. Cardiovascular examination reveals regular rhythm rate. S1-S2 normal. No S3 or S4. No discernible murmur noted. Heart rate is 84 bpm. Lungs reveal coarse bilateral inspiratory and expiratory rhonchi and wheezes. There is prolongation on forced maneuver. Adventitious lung sounds are more prominent on forced maneuver. There are no crackles. The patient wheezes and coughs on forced maneuver. Abdomen soft bowel sounds are heard. No masses or tenderness. Extremities are intact. No cyanosis clubbing or edema. Skin is without rash or lesion. Neurologic examination is brief but nonfocal. - Labs CBC & Chem 7: 06/14/20 05:49 06/16/20 06:15 Labs: Abnormal Lab Results - Last 24 Hours (Table) 06/16/20 Range/Units 06:15 Sodium 133 L (135-145) mmol/L Chloride 92 L (96-109) mmol/L Anion Gap 16.20 H (4.00-12.00) mmol/L BUN/Creatinine Ratio 32.50 H (12.00-20.00) Ratio Glucose 125 H (70-110) mg/dL Assessment and Plan Assessment: #1. Dyspnea, likely related to acute exacerbation of COPD #2. Atelectasis versus developing infiltrate is on the chest x-ray, patient was empirically covered with Augmentin, likelihood of pneumonia is less likely #3. Hyponatremia, likely hypervolemic, improving with water restriction #4. Status post recent aortic valve replacement at [facility] on 04/22/2020 #5. Previous history of tobacco use #6. History of atrial fibrillation #7. Coronary artery disease #8. COPD, prednisone dependent #9. Fibromyalgia #10. GERD/reflux #11. Bronchoscopy and BAL, on 06/16/2020. Plan: Plan dated 06/16/2020. The patient will bronchoscopy today. Hopefully this will improve enough to be discharged tomorrow. He remains on albuterol sulfate, ipratropium bromide, Pulmicort, formoterol, and steroids. Additional recommendations and suggestions are forthcoming. We did add some mucolytic a day ago. Additional recommendations and suggestions are forthcoming. Prognosis is guarded. He'll follow up with my partner post discharge. Time with Patient: Less than 30
[2020-06-16] MEDS ORDERED: fentaNYL (PF) 50 MCG/ML 2 ML AMP ONE (14:53)
[2020-06-16] MEDS ORDERED: SUCCINYLCHOLINE CHLORIDE 100 MG/5 ML SYR IV ONE (14:53)
[2020-06-16] MEDS ORDERED: PROPOFOL 10 MG/ML 20 ML VIAL IV ONE (14:53)
[2020-06-16] MEDS ORDERED: LIDOCAINE 1% INJ 10MG/ML (20 ML MDV) ONE (14:53)
--- NOTE | 2020-06-16 14:53 | P.PN ---
Subjective Progress Note Date: 06/16/20 Patient is a 85-year-old male with a known history of coronary artery disease status post and placement, recent I aortic valve replacement in April 2020, COPD, bronchiectasis and pulmonary fibrosis on follow with Dr. Richardson as an outpatient, hypertension, GERD, hypothyroidism and ADD/ADHD and previous history of smoking presents to ER with complaints of shortness of breath worsening since yesterday. Patient says that he has been having cough and mucus-like sputum production and unable to clear secretions. Patient states that he has been drinking plenty of water to clear his lungs. Denied any complaints of fever or chills. No nausea vomiting or abdominal pain or diarrhea. Denied any recent illnesses. Patient thought he might covid 19 infection and presents to ER. Denied any complaints of chest pain. No worsening leg swelling. Chest x-ray showed COPD, patchy medial right basilar and also peripheral left basilar opacity. This could be areas of atelectasis versus developing infiltra te. Laboratory data showed obese 11.8, hemoglobin 11.5 and platelets 308 and lymphocytes 0.7 Sodium 120, potassium 3.9, chloride 90 and BUN 15 and creatinine 0.68 Troponin 0.012 and Covid 19 PCR not detected 06/14/2020 Patient is seen and evaluated in follow-up with no acute overnight issues. Mariia ent was maintained on gentle IV hydration for a sodium that was 120. Repeat sodium this morning is 125 and patient is continued on 1200 mL fluid restrictions and will repeat a.m. labs. Was have been discontinued as patient is tolerating diet. Patient states he is following the restrictions of 1200 mL per day. Patient is receiving bronchodilators and does use an inhaler that [place] although nonformulary here and is maintained on dual nebs and will continue at this time. Patient states he feels much better. Pulmonary is following and patient is maintained on IV steroids along with bronchodilators and antibiotics and will continue at this time. 06/15/2020 Patient is seen in follow-up in sodium has improved and is 131 today. Patient to continue with fluid restrictions of 1200 mL per day and Hydrodiuril is on hold. Patient's other home medications have been resumed. Patient continues to have a cough with minimal production and rhonchorous on exam. Patient states his breathing has improved although feels slightly more short of breath when lying down. Patient states he has been having to sleep sitting up in the chair for the last 2 weeks. Pulmonary is following and planning on bronchoscopy tomorrow. Patient does follow with Dr. Silva in the outpatient setting and has had previous bronchoscopies. Patient is maintained on oral Augmentin, bronchodilators, along with IV steroids and will continue at this time. Patient will likely require prednisone taper upon discharge. Patient normally takes 5 mg of prednisone daily in the outpatient setting. 06/16/2020 Patient is seen and evaluated in follow-up and IV fluids have been discontinued. Patient is maintaining fluid restrictions and tolerating. Patient sodium continues to improve and is currently 133 today. Patient continues to have a cough with some rhonchi noted on exam and is scheduled to undergo bronchoscopy this afternoon with pulmonary. Patient is maintained on oral Augmentin along with breathing treatments and IV steroids and will continue. Patient is requesting an enema stating he would like to keep his bowels moving. Patient does take a number of laxatives and stool softeners in the outpatient setting which could've potentially contributed to the hyponatremia. Review of systems: Constitutional: No reports of fatigue, fever, or chills Cardiovascular: No reports of chest pain or palpitations Respiratory: reports mild cough with no phlegm production GI: No reports of nausea, vomiting, or diarrhea : No reports of dysuria or retention Neurovascular: No reports of weakness or numbness All medications have been reviewed Active Medications Albuterol/Ipratropium (Ipratropium-Albuterol 3 Ml Neb) 3 ml INHALATION RT-QID [facility] Last Admin: 06/16/20 11:22 Dose: 3 ml Documented by: Amoxicillin/Clavulanate Potassium (Amoxic-Pot Clav 875-125mg 1 Each Tab) 1 each PO Q12HR [facility] Last Admin: 06/16/20 07:31 Dose: 1 each Documented by: Ascorbic Acid (Ascorbic Acid 500 Mg Tab) 1,000 mg PO TID [facility] Last Admin: 06/16/20 07:32 Dose: 1,000 mg Documented by: Aspirin (Aspirin 81 Mg) 81 mg PO DAILY [facility] Last Admin: 06/15/20 07:22 Dose: 81 mg Documented by: Budesonide/Formoterol Fumarate (Symbicort 160-4.5 Mcg Inhaler) 2 puff INHALATI ON RT-BID [facility] Last Admin: 06/16/20 07:49 Dose: 2 puff Documented by: Carvedilol (Carvedilol 6.25 Mg Tab) 6.25 mg PO BID-W/MEALS [facility] Last Admin: 06/16/20 07:31 Dose: 6.25 mg Documented by: Cholecalciferol (Cholecalciferol 1,000 Unit Tab) 5,000 unit PO DAILY [facility] Last Admin: 06/16/20 08:17 Dose: 5,000 unit Documented by: Clopidogrel Bisulfate (Clopidogrel 75 Mg Tab) 75 mg PO DAILY [facility] Last Admin: 06/15/20 07:22 Dose: 75 mg Documented by: Guaifenesin (Guaifenesin 600 Mg Tablet.Er) 1,200 mg PO TID [facility] Last Admin: 06/16/20 08:16 Dose: 1,200 mg Documented by: Losartan Potassium (Losartan 50 Mg Tab) 50 mg PO DAILY [facility] Last Admin: 06/15/20 12:15 Dose: 50 mg Documented by: Methylprednisolone Sodium Succinate (Methylprednisolone Sod Succi 40 Mg/Ml 1 Ml Vial) 40 mg IV Q8HR [facility] Last Admin: 06/16/20 07:31 Dose: 40 mg Documented by: Multivitamins (Multivitamins, Thera 1 Each Tab) 1 each PO DAILY [facility] Last Admin: 06/16/20 07:32 Dose: 1 each Documented by: Naloxone HCl (Naloxone 0.4 Mg/Ml 1 Ml Vial) 0.2 mg IV Q2M PRN PRN Reason: Opioid Reversal Ondansetron HCl (Ondansetron 4 Mg/2 Ml Vial) 4 mg IVP Q8HR PRN PRN Reason: Nausea And Vomiting Polyethylene Glycol (Polyethylene Glycol 3350 17 Gm Powd.Pack) 17 gm PO HS PRN PRN Reason: Constipation Last Admin: 06/15/20 20:09 Dose: 17 gm Documented by: Psyllium Hydrophilic Mucilloid (Psyllium Husk 100% 6 Gm Packet) 6 gm PO HS [facility] Last Admin: 06/15/20 20:10 Dose: 6 gm Documented by: Senna (Sennosides 8.6 Mg Tab) 8.6 mg PO DAILY PRN PRN Reason: Constipation Objective - Vital Signs Vital signs: Vital Signs Temp 97.9 F 06/16/20 08:00 Pulse 84 06/16/20 11:34 Resp 16 06/16/20 08:00 BP 129/88 06/16/20 08:00 Pulse Ox 97 06/16/20 08:00 Intake & Output 06/15/20 06/16/20 06/16/20 18:59 06:59 18:59 Intake Total 520 100 Output Total 1300 400 Balance -780 100 -400 Intake: Oral 120 100 Other 400 0 Output: Urine 1300 400 Other: Voiding Method Toilet Toilet Toilet Urinal Urinal Urinal # Voids 3 2 2 # Bowel Movements 1 1 - Exam Patient is sitting up in the chair comfortably, no acute distress, awake alert and oriented. HEENT: Normocephalic. Neck is supple. Pupils reactive. Nostrils clear. Oral cavity is moist. Ears reveal no drainage. Neck reveals no JVD, carotid bruits, or thyromegaly. CHEST EXAMINATION: Trachea is central. Symmetrical expansion. Bilateral diffuse coarse breath sounds and rhonchi noted. With no wheezing noted on exam CARDIAC: Normal S1, S2 with no gallops. No murmurs ABDOMEN: Soft. Bowel sounds normal. No organomegaly. No abdominal bruits. Extremities: Bilateral trace lower extremity edema. No clubbing or cyanosis Neurologically awake, alert, oriented x3 with well-coordinated movements. No focal deficits noted Skin: No rash or skin lesions. Psychiatric: Cooperative. Non-suicidal Musculoskeletal: No joint swelling or deformity. Normal range of motion. - Labs CBC & Chem 7: 06/14/20 05:49 06/16/20 06:15 Labs: Abnormal Lab Results - Last 24 Hours (Table) 06/16/20 Range/Units 06:15 Sodium 133 L (135-145) mmol/L Chloride 92 L (96-109) mmol/L Anion Gap 16.20 H (4.00-12.00) mmol/L BUN/Creatinine Ratio 32.50 H (12.00-20.00) Ratio Glucose 125 H (70-110) mg/dL Assessment and Plan Assessment: Acute COPD exacerbation with history of bronchiectasis and tracheomalacia Acute tracheobronchitis Hyponatremia likely hypoosmolar with plenty of plain water intake and decreased solute intake, improving current sodium is 133 Recent history of aortic valve [facility] at [facility] Coronary artery disease with history of stent placement History of paroxysmal atrial fibrillation. Maintained on sinus rhythm. Hypertension Hyperlipidemia BPH Fibromyalgia History of gout ADD/ADHD Previous history of smoking DVT prophylaxis with heparin subcu plan: Continue with current medications, management, and symptomatic treatment. Sreedhar mcdaniel is maintained on DuoNeb treatments along with IV steroids and antibiotics in the form of oral Augmentin and will continue at this time. Sodium today has improved at 133 and we'll continue with fluid restrictions of 1200 mL per day. Patient is currently on room air. Pulmonary is scheduled to undergo bronchoscopy this afternoon. Will await report. Will continue to monitor closely and make further recommendations depending on the clinical course of the patient. Possible discharge in 24 hours.
[2020-06-16] MEDS ORDERED: LACTATED RINGERS 1,000 ML IV ONE (15:04)
[2020-06-16] MEDS: ASPIRIN 81 MG PO SCH (18:07)
[2020-06-16] MEDS: LOSARTAN 50 MG TAB PO SCH (18:08)
[2020-06-16] MEDS: CLOPIDOGREL 75 MG TAB PO SCH (18:08)
[2020-06-16] MEDS: polyethylene glycoL 3350 17 GM POWD.PACK PO PRN ×2 (18:23→19:56)
[2020-06-16] MEDS: PSYLLIUM HUSK 100% 6 GM PACKET PO SCH (19:57)
[2020-06-16 20:17] LABS: Appearance,BF Blood Tinged
[2020-06-16 20:18] LABS: Nucleated Cells, Body Fluid 35 /uL; RBC, Body Fluid 3860 /uL
[2020-06-16 20:21] LABS: Mononuclear WBC,Body Fluid 31 %; Polynuclear WBC,Body Fluid 69 %; Total Cells Counted,Body Fluid 100
--- NOTE | 2020-06-16 23:14 | PCN ---
PROCEDURE NOTE PROCEDURE: Bronchoscopy, airway examination, therapeutic lavage, BAL. OPERATORS: 1. Dr. Mckeon. 2. Dr. Castro. PREOPERATIVE DIAGNOSIS: Chronic obstructive pulmonary disease exacerbation, retained secretions. POSTOPERATIVE DIAGNOSIS: Chronic obstructive pulmonary disease exacerbation, retained secretions. PROCEDURE DESCRIPTION: The procedure was done in room #1. There was informed consent and universal timeout. Dr. Tucker was the anesthesiologist who was involved in providing general anesthesia. Once the patient was anesthetized, the bronchoscope was inserted through the bronchoscope adapter connected to the endotracheal tube. We did a thorough inspection of both lungs, including the right upper lobe and its 3 segments, right middle lobe and its 2 segments, right lower lobe and its 5 segments, left upper lobe proper and its 2 segments, lingula and its 2 segments and left lower lobe and its 4 segments. Next, the bronchoscope was used to do a formal BAL in the right middle lobe. More than 30 mL was recovered. The rest of the evaluation was focused on removing additional secretions from the tracheobronchial tree. There was a modest amount of erythema and hyperemia of the airways. There was acute bronchitis. There was some mucosal friability. There was no dominant mass or tumor. There were thick yellow secretions noted throughout. They were suctioned with the assistance of saline lavage. The patient tolerated the procedure well. When all the secretions were suctioned, the bronchoscope was removed. The patient will be recovered. There was no immediate complication. MMODL / IJN: [id number] /
[2020-06-17] MEDS: SYMBICORT 160-4.5 MCG INHALER INHALATION SCH (07:08)
[2020-06-17] MEDS: IPRATROPIUM-ALBUTEROL 3 ML NEB INHALATION SCH ×2 (07:08→11:07)
[2020-06-17 08:13] VITALS: BP 145/84; TEMP 97.6
[2020-06-17] MEDS: ASPIRIN 81 MG PO SCH (08:14)
[2020-06-17] MEDS: methylPREDNISolone SOD SUCCI 40 MG/ML 1 ML VIAL IV SCH (08:14)
[2020-06-17] MEDS: CLOPIDOGREL 75 MG TAB PO SCH (08:14)
[2020-06-17] MEDS: ASCORBIC ACID 500 MG TAB PO SCH (08:15)
[2020-06-17] MEDS: carvediloL 6.25 MG TAB PO SCH (08:15)
[2020-06-17] MEDS: AMOXIC-POT CLAV 875-125MG 1 EACH TAB PO SCH (08:15)
[2020-06-17] MEDS: CHOLECALCIFEROL 1,000 UNIT TAB PO SCH (08:15)
[2020-06-17] MEDS: LOSARTAN 50 MG TAB PO SCH (08:16)
[2020-06-17] MEDS: MULTIVITAMINS, THERA 1 EACH TAB PO SCH (08:16)
[2020-06-17] MEDS: guaiFENesin 600 MG TABLET.ER PO SCH (08:16)
[2020-06-17 11:06] VITALS: RESP 17
[2020-06-17 11:10] VITALS: PULSE 86
--- NOTE | 2020-06-17 14:53 | P.DS ---
Providers Date of admission: 06/13/20 13:18 Expected date of discharge: 06/17/20 Attending physician: Tatyana Gautam Consults: 06/13/20 13:27 Consult Physician Routine Consulting Provider: Codi Silva Reason/Comments: SOB Do you want consulting provider notified?: Yes Primary care physician: Aleja Ford Hospital Course: Final diagnosis Acute COPD exacerbation with history of bronchiectasis and tracheomalacia Acute tracheobronchitis Hyponatremia likely hypoosmolar with plenty of plain water intake and decreased solute intake, improved Recent history of aortic valve replacement at [facility] Coronary artery disease with history of stent placement History of paroxysmal atrial fibrillation Hypertension Hyperlipidemia BPH Fibromyalgia History of gout ADD/ADHD Previous history of smoking DVT prophylaxis Discharge disposition Patient is being discharged in a stable condition with guarded prognosis to home. Patient will follow-up with Dr. Ford in the outpatient setting upon discharge. Patient also instructed to follow-up with Dr. Silva in the outpatient setting. Patient will continue on oral Augmentin twice daily for the next 5 days to complete the course. Patient also instructed to continue with prednisone taper and then may resume his 5 mg after the taper. Total time taken is greater than 35 minutes. Hospital course This is a 85-year-old male who was recently admitted with worsening of shortness of breath along with cough and was being closely monitored. Patient was seen and evaluated by pulmonary and underwent bronchoscopy with BAL and specimen was sent and will follow-up with Dr. Silva in the outpatient setting as he normally does. Patient being treated for COPD acute exacerbation with bronchiectasis and possible tracheobronchitis. Patient was also found to be hyponatremic at 120 and laxatives and diuretic was held and patient was placed on fluid restriction with gentle IV hydration and sodium improved to 133. Patient instructed to monitor his free water intake while at home. Patient will continue on Augmentin twice daily for the next 5 days along with a prednisone taper to complete the course. Patient is currently undergoing cardiac rehab a few days a week at [facility] for recent aortic valve replacement and will resume that therapy next week. Currently no reports of chest pain, worsening shortness of breath, or palpitations. Patient is afebrile. No reports of nausea or vomiting and patient is tolerating diet. Patient will be discharged home today. On exam vital signs are stable. Temp is 97.6F, pulse is 91, respirations are 16, blood pressure is 145/84, oxygen saturation is 96% on room air. Cardio S1, S2 are muffled. Respiratory system shows diminished breath sounds at the bases with no wheezing or rhonchi noted. Abdomen is soft and nontender. Nervous system shows no focal deficits. Please refer to medication reconciliation sheet for a list of medications. Patient Condition at Discharge: Stable Plan - Discharge Summary New Discharge Prescriptions: New Amoxic-Pot Clav 875-125Mg [Augmentin 875-125] 1 each PO Q12HR 5 Days #5 tab predniSONE 10 mg PO DIRECTED #30 tab Continue Ubidecarenone [Co Q-10] 100 mg PO DAILY Aspirin EC [Ecotrin Low Dose] 81 mg PO DAILY Clopidogrel [Plavix] 75 mg PO DAILY Carvedilol [Coreg] 6.25 mg PO BID Cholecalciferol [Vitamin D3 (25 Mcg = 1000 Iu)] 5,000 unit PO DAILY Ascorbic Acid [Vitamin C] 1,000 mg PO QID Psyllium Husk 100% [Metamucil Packet] 15 gm PO HS Multivitamins, Thera [Multivitamin (formulary)] 1 tab PO DAILY Magnesium Citrate 200 mg PO HS polyethylene glycoL 3350 [Miralax] 17 gm PO HS Fish Oil/Dha/Epa [Fish Oil 1,200 mg Fish Oil] 1 cap PO DAILY Glucosamine/MSM/Chrond/D3/Bosw [Xvjufrsfatr-Tmyspt-EOA-D3 Cplt] 1 tab PO BID Mometasone Inhalr 220 Mcg/Puff [Asmanex] 2 puff INHALATION RT-BID Chlorthalidone [Hygroton] 12.5 mg PO DAILY Zinc Gluconate [Zinc] 50 mg PO DAILY Selenium 50 mcg PO DAILY Ipratropium-Albuterol Nebulize [Duoneb 0.5 mg-3 mg/3 ml Soln] 3 ml INHALATION RT-QID Losartan Potassium [Cozaar] 50 mg PO DAILY Acetylcysteine [Nac] 500 mg PO DAILY Grape Seed Extract 75mg 1 tab PO DAILY Cyanocobalamin (Vitamin B-12) [Vitamin B-12] 5,000 mcg PO DAILY Acetaminophen [Tylenol] 325 mg PO DAILY PRN PRN Reason: Pain guaiFENesin [Mucinex] 1,200 mg PO TID Olodaterol HCl [Striverdi Respimat] 2 puff INHALATION RT-DAILY Albuterol Nebulized [Ventolin Nebulized] 2.5 mg INHALATION RT-QID PRN PRN Reason: Shortness Of Breath Albuterol Inhaler [Ventolin Hfa Inhaler] 2 puff INHALATION RT-QID PRN PRN Reason: Shortness Of Breath Resveratrol 75mg 75 mg PO DAILY predniSONE 5 mg PO DAILY #0 Discharge Medication List Aspirin EC [Ecotrin Low Dose] 81 mg PO DAILY 07/05/15 [History] Ubidecarenone [Co Q-10] 100 mg PO DAILY 07/05/15 [History] Clopidogrel [Plavix] 75 mg PO DAILY 05/25/16 [History] Carvedilol [Coreg] 6.25 mg PO BID 06/19/17 [History] Ascorbic Acid [Vitamin C] 1,000 mg PO QID 11/12/17 [History] Cholecalciferol [Vitamin D3 (25 Mcg = 1000 Iu)] 5,000 unit PO DAILY 11/12/17 [History] Fish Oil/Dha/Epa [Fish Oil 1,200 mg Fish Oil] 1 cap PO DAILY 03/28/18 [History] Glucosamine/MSM/Chrond/D3/Bosw [Agcjfikcwnv-Jesboq-KAW-D3 Cplt] 1 tab PO BID 03/28/18 [History] Magnesium Citrate 200 mg PO HS 03/28/18 [History] Multivitamins, Thera [Multivitamin (formulary)] 1 tab PO DAILY 03/28/18 [History] Psyllium Husk 100% [Metamucil Packet] 15 gm PO HS 03/28/18 [History] polyethylene glycoL 3350 [Miralax] 17 gm PO HS 03/28/18 [History] Mometasone Inhalr 220 Mcg/Puff [Asmanex] 2 puff INHALATION RT-BID 10/29/18 [History] Acetylcysteine [Nac] 500 mg PO DAILY 06/13/20 [History] Chlorthalidone [Hygroton] 12.5 mg PO DAILY 06/13/20 [History] Ipratropium-Albuterol Nebulize [Duoneb 0.5 mg-3 mg/3 ml Soln] 3 ml INHALATION RT-QID 06/13/20 [History] Losartan Potassium [Cozaar] 50 mg PO DAILY 06/13/20 [History] Selenium 50 mcg PO DAILY 06/13/20 [History] Zinc Gluconate [Zinc] 50 mg PO DAILY 06/13/20 [History] Acetaminophen [Tylenol] 325 mg PO DAILY PRN 06/14/20 [History] Albuterol Inhaler [Ventolin Hfa Inhaler] 2 puff INHALATION RT-QID PRN 06/14/20 [History] Albuterol Nebulized [Ventolin Nebulized] 2.5 mg INHALATION RT-QID PRN 06/14/20 [History] Cyanocobalamin (Vitamin B-12) [Vitamin B-12] 5,000 mcg PO DAILY 06/14/20 [History] Grape Seed Extract 75mg 1 tab PO DAILY 06/14/20 [History] Olodaterol HCl [Striverdi Respimat] 2 puff INHALATION RT-DAILY 06/14/20 [History] Resveratrol 75mg 75 mg PO DAILY 06/14/20 [History] guaiFENesin [Mucinex] 1,200 mg PO TID 06/14/20 [History] Amoxic-Pot Clav 875-125Mg [Augmentin 875-125] 1 each PO Q12HR 5 Days #5 tab 06/17/20 [Rx] predniSONE 5 mg PO DAILY #0 06/17/20 [Rx] predniSONE 10 mg PO DIRECTED #30 tab 06/17/20 [Rx] Follow up Appointment(s)/Referral(s): Codi Silva MD [STAFF PHYSICIAN] - 07/05/20 11:30 am Aleja Ford DO [Primary Care Provider] - 06/23/20 1:30 pm Patient Instructions/Handouts: Hyponatremia (DC), COPD (Chronic Obstructive Pulmonary Disease) (GEN) Activity/Diet/Wound Care/Special Instructions: Activity Limited until follow-up Follow-up with primary care provider upon discharge Follow-up with Dr. Richardson in the outpatient setting Continue with antibiotics until finished Continue with prednisone taper Patient is ok to resume cardiac rehab on Saturday Continue current diet Discharge Disposition: HOME SELF-CARE
--- NOTE | 2020-06-17 15:13 | P.PN ---
Subjective Progress Note Date: 06/17/20 Principal diagnosis: Acute exacerbation of chronic obstructive pulmonary disease 75-year-old white male patient of Dr. Ford, with past medical history significant for COPD, steroid-dependent on the maintenance dose of prednisone 5 mg on a daily basis, recent history of aortic valve replacement at [facility] on 04/30/2020. Patient came into the hospital complaining of worsening dyspnea, patient. Patient panicked he thought he might have COVID infection. Is complaining of shortness of breath, chest congestion, cough and phlegm production, denied any fever or chills. He had a rapid COVID PCR which was negative, also was found to have a serum sodium level of 120 was thought to be hypervolemic, patient was placed on water restriction. His admission chest x- ray showed COPD, patchy medial right basilar and peripheral left basilar opacity could be related to atelectasis versus developing infiltrate. She is on room air today, his pulse ox is 97%, his sodium is improving, up to 125 on today's labs, his white count is 3.7, hemoglobin is 11, he is lymphopenic, with lymphocyte count of 0.4, potassium is 4.6, chloride is 93, BUN was 15 creatinine was 0.8, history of present was negative at less than 0.012, proBNP was 154, he is on nebulized bronchodilators, he is on IV steroids to 40 mg every 6 hours, he is getting gentle IV hydration with 0.9 normal saline at a rate of 75 ML per hour, who put him on empiric antibodies in the form of Augmentin. He has had no acute events overnight. Progress note dated 06/15/2020. 85-year-old male with a history of COPD, admitted with a COPD exacerbation. Unfortunately, the patient does not feel like he is improved. For that matter, the patient will have bronchoscopy and BAL tomorrow. He has had multiple bronchoscopies in the past performed on him by my partner. He is convinced, that the only way that he will improve, he is to have a bronchoscopy. The patient has a history of severe mucous retention, and has a difficult time clearing secretions. He also has a history of previous tobacco use, atrial fibr illation, CAD, prednisone-dependent COPD, fibromyalgia, GERD, and recent transcatheter aortic valve replacement at [facility]. His complaints today include increasing chest congestion, shortness of breath, cough, inability to expectorate phlegm, wheezing, and chest tightness. He is on all the appropriate medications for his COPD exacerbation. He will be made nothing by mouth after midnight tonight. Progress note dated 06/16/2020 85-year-old male with history of COPD and COPD exacerbation. The patient has really not improve significantly and we decided to go ahead and proceed with bronchoscopy and BAL today. The patient's bronchoscopy has not yet been done. The patient states that his problem is shortness of breath, chest congestion, tightness, wheezing, and cough. He has a difficult time clearing any secretions or mucus despite being on appropriate medications. He does have a history of multiple medical problems including atrial fibrillation, CAD, prednisone-depe ndent COPD, fibromyalgia, GERD, recent transcatheter aortic valve replacement, among other things. I'm hoping that after the bronchoscopy and BAL today, the patient can be discharged home tomorrow. The patient is seen today 06/17/2020 follow-up on the regular medical floor. He did undergo bronchoscopy with BAL yesterday. Cultures are pending. He is breathing easier. He denies any worsening shortness of breath, cough or congestion. Maintaining O2 saturations in the mid 90s on room air. He's been afebrile. Hemodynamically stable. He remains on Symbicort, DuoNeb inhalations, IV Solu-Medrol, antibiotics in the form of Augmentin. Objective - Vital Signs Vital signs: Vital Signs Temp 97.6 F 06/17/20 08:00 Pulse 86 06/17/20 11:19 Resp 17 06/17/20 08:00 BP 145/84 06/17/20 08:00 Pulse Ox 96 06/17/20 08:00 Intake & Output 06/16/20 06/17/20 06/17/20 18:59 06:59 18:59 Intake Total 400 240 Output Total 400 Balance 0 240 Intake: IV 400 Oral 240 Output: Urine 400 Other: Voiding Method Toilet Toilet Urinal Urinal # Voids 1 2 # Bowel Movements 1 - Exam GENERAL EXAM: Alert, active, very pleasant 85-year-old gentleman, on room air, comfortable in no apparent distress. HEAD: Normocephalic. EYES: Normal reaction of pupils, equal size. NOSE: Clear with pink turbinates. THROAT: No erythema or exudates. NECK: No masses, no JVD. CHEST: No chest wall deformity. LUNGS: Equal air entry with with few scattered rhonchi. CVS: S1 and S2 normal with no audible murmur, regular rhythm. ABDOMEN: No hepatosplenomegaly, normal bowel sounds, no guarding or rigidity. SPINE: No scoliosis or deformity SKIN: No rashes CENTRAL NERVOUS SYSTEM: No focal deficits, tone is normal in all 4 extremities. EXTREMITIES: There is no peripheral edema. No clubbing, no cyanosis. Peripheral pulses are intact. - Labs CBC & Chem 7: 06/14/20 05:49 06/16/20 06:15 Labs: Microbiology - Last 24 Hours (Table) 06/16/20 14:30 Gram Stain - Preliminary Bronchoalviolar Lavage - Right Bronchial Washings Culture - Preliminary 06/16/20 14:30 Fungal Culture - Preliminary Bronchoalviolar Lavage - Right 06/16/20 14:30 Acid Fast Bacilli Culture - Preliminary Bronchoalviolar Lavage - Right Assessment and Plan Assessment: 1. Acute exacerbation of chronic obstructive pulmonary disease. Recent atelec tasis on chest x-ray, currently on Augmentin 2. Atelectasis versus developing infiltrate is on the chest x-ray, patient was empirically covered with Augmentin, likelihood of pneumonia is less likely 3. Hyponatremia, likely hypervolemic, improving with water restriction 4. Status post recent aortic valve replacement at [facility] on 04/22/2020 5. Previous history of tobacco use 6. History of atrial fibrillation 7. Coronary artery disease 8. COPD, prednisone dependent 9. Fibromyalgia 10. GERD/reflux 11. Bronchoscopy and BAL, on 06/16/2020. Cultures pending Plan: The patient was seen and evaluated by Dr. Mckeon He is cleared for discharge from the pulmonary standpoint Complete course of Augmentin Complete a prednisone taper Attending his home pulmonary medications Follow-up in the office in 1-2 weeks' time I, the cosigning physician, performed a history & physical examination of the patient. Lungs sounds with bilateral scattered rhonchi. Maintaining good O2 saturations in the 90s on room air. I discussed the assessment and plan of care with my nurse practitioner, Diana Jolley. I attest to the above note as dictated by her.
== END 2020-06-17 15:00 | disposition home or self-care (01) | DRG 191 ==
LOC: EC 10:45 → 5NMEDONC 13:18
PROVIDERS: ADMIT Hospitalist; ATTEND Hospitalist
PROC: 0B9D8ZX Drainage of Right Middle Lung Lobe, Via Natural or Artificial Opening Endoscopic, Diagnostic (ICD-10-PCS; principal; 2020-06-16 14:10)
DX: J44.1 Chronic obstructive pulmonary disease with (acute) exacerbation (principal); E87.1 Hypo-osmolality and hyponatremia; J98.11 Atelectasis; I48.0 Paroxysmal atrial fibrillation; I25.10 Atherosclerotic heart disease of native coronary artery without angina pectoris; N40.0 Benign prostatic hyperplasia without lower urinary tract symptoms; K21.9 Gastro-esophageal reflux disease without esophagitis; J84.10 Pulmonary fibrosis, unspecified; M79.7 Fibromyalgia; I10 Essential (primary) hypertension; F17.210 Nicotine dependence, cigarettes, uncomplicated; E78.5 Hyperlipidemia, unspecified; E03.9 Hypothyroidism, unspecified; E66.9 Obesity, unspecified; F90.9 Attention-deficit hyperactivity disorder, unspecified type; J44.0 Chronic obstructive pulmonary disease with (acute) lower respiratory infection; J20.9 Acute bronchitis, unspecified; M10.9 Gout, unspecified; Z20.822 Contact with and (suspected) exposure to COVID-19; E87.70 Fluid overload, unspecified; G25.0 Essential tremor; Z79.82 Long term (current) use of aspirin; I25.2 Old myocardial infarction; Z79.52 Long term (current) use of systemic steroids; Z79.02 Long term (current) use of antithrombotics/antiplatelets; Z79.899 Other long term (current) drug therapy; Z88.1 Allergy status to other antibiotic agents; Z88.8 Allergy status to other drugs, medicaments and biological substances; Z95.5 Presence of coronary angioplasty implant and graft; Z95.2 Presence of prosthetic heart valve; Z90.49 Acquired absence of other specified parts of digestive tract; Z87.01 Personal history of pneumonia (recurrent); Z82.49 Family history of ischemic heart disease and other diseases of the circulatory system; Z82.3 Family history of stroke; Z68.25 Body mass index [BMI] 25.0-25.9, adult; Z86.14 Personal history of Methicillin resistant Staphylococcus aureus infection; Z90.89 Acquired absence of other organs; Z98.890 Other specified postprocedural states; Z98.42 Cataract extraction status, left eye; Z98.41 Cataract extraction status, right eye; Z80.9 Family history of malignant neoplasm, unspecified
CPT/HCPCS: 31624; 36415; 71045; 80048; 80053; 83880; 84484; 85025; 85610; 85730; 87070; 87102; 87116; 87205; 87206; 87252; 87496; 87498; 87502; 87529; 87634; 87635; 87798; 88108; 88305; 89050; 93005; 94640; 94760; 99285

== ENCOUNTER 2020-08-25 13:42 | Emergency (ER) | payer MEDICARE ==
[2020-08-25 13:53] VITALS: RESP 18
--- NOTE | 2020-08-25 13:54 | ED ---
General Adult HPI - General Source: patient, RN notes reviewed Mode of arrival: ambulatory Limitations: no limitations <Pedrito Elliott - Last Filed: 08/25/20 13:52> <Kwadwo Woo - Last Filed: 08/25/20 18:25> - General Stated complaint: SOB, Cough Time Seen by Provider: 08/25/20 13:50 - History of Present Illness Initial comments: This an 85-year-old male presents emergency Department chief complaint shortness of breath. Patient states he has known COPD. Patient states she's been having increasing shortness breath over the last 2-3 days. Patient states he was seen recently for nasal packing was left nostril secondary to epistaxis. Patient states he feels like he cannot clear his lungs. He states he constantly coughing. Patient states he's been vaccinated for covid (Pedrito Elliott) - Related Data Home Medications Medication Instructions Recorded Confirmed Aspirin EC [Ecotrin Low Dose] 81 mg PO DAILY 07/05/15 06/13/20 Ubidecarenone [Co Q-10] 100 mg PO DAILY 07/05/15 06/13/20 Clopidogrel [Plavix] 75 mg PO DAILY 05/25/16 06/13/20 Carvedilol [Coreg] 6.25 mg PO BID 06/19/17 06/13/20 Ascorbic Acid [Vitamin C] 1,000 mg PO QID 11/12/17 06/14/20 Cholecalciferol [Vitamin D3 (25 5,000 unit PO DAILY 11/12/17 06/13/20 Mcg = 1000 Iu)] Fish Oil/Dha/Epa [Fish Oil 1,200 1 cap PO DAILY 03/28/18 06/13/20 mg Fish Oil] Glucosamine/MSM/Chrond/D3/Bosw 1 tab PO BID 03/28/18 06/13/20 [Itawmnqjnao-Znosof-GXG-D3 Cplt] Magnesium Citrate 200 mg PO HS 03/28/18 06/13/20 Multivitamins, Thera [Multivitamin 1 tab PO DAILY 03/28/18 06/13/20 (formulary)] Psyllium Husk 100% [Metamucil 15 gm PO HS 03/28/18 06/13/20 Packet] polyethylene glycoL 3350 [Miralax] 17 gm PO HS 03/28/18 06/13/20 Mometasone Inhalr 220 Mcg/Puff 2 puff INHALATION RT-BID 10/29/18 06/13/20 [Asmanex] Acetylcysteine [Nac] 500 mg PO DAILY 06/13/20 06/13/20 Chlorthalidone [Hygroton] 12.5 mg PO DAILY 06/13/20 06/14/20 Ipratropium-Albuterol Nebulize 3 ml INHALATION RT-QID 06/13/20 06/13/20 [Duoneb 0.5 mg-3 mg/3 ml Soln] Losartan Potassium [Cozaar] 50 mg PO DAILY 06/13/20 06/13/20 Selenium 50 mcg PO DAILY 06/13/20 06/13/20 Zinc Gluconate [Zinc] 50 mg PO DAILY 06/13/20 06/13/20 Acetaminophen [Tylenol] 325 mg PO DAILY PRN 06/14/20 06/14/20 Albuterol Inhaler [Ventolin Hfa 2 puff INHALATION RT-QID PRN 06/14/20 06/14/20 Inhaler] Albuterol Nebulized [Ventolin 2.5 mg INHALATION RT-QID PRN 06/14/20 06/14/20 Nebulized] Cyanocobalamin (Vitamin B-12) 5,000 mcg PO DAILY 06/14/20 06/14/20 [Vitamin B-12] Grape Seed Extract 75mg 1 tab PO DAILY 06/14/20 06/14/20 Olodaterol HCl [Striverdi Respimat] 2 puff INHALATION RT-DAILY 06/14/20 06/14/20 Resveratrol 75mg 75 mg PO DAILY 06/14/20 06/14/20 guaiFENesin [Mucinex] 1,200 mg PO TID 06/14/20 06/14/20 Previous Rx's Medication Instructions Recorded Amoxic-Pot Clav 875-125Mg 1 each PO Q12HR 5 Days #5 tab 06/17/20 [Augmentin 875-125] predniSONE 5 mg PO DAILY #0 06/17/20 predniSONE 10 mg PO DIRECTED #30 tab 06/17/20 Allergies Allergy/AdvReac Type Severity Reaction Status Date / Time meperidine [From Demerol] Allergy Unknown Verified 08/25/20 13:53 Childhood ciprofloxacin [From Cipro] AdvReac joint Verified 08/25/20 13:53 problems diphenhydramine HCl AdvReac "felt like Verified 08/25/20 13:53 [From Benadryl] I was dying" steroids AdvReac "angina" Uncoded 08/25/20 13:53 Review of Systems ROS Other: All systems not noted in ROS Statement are negative. <Pedrito Elliott - Last Filed: 08/25/20 13:52> ROS Other: All systems not noted in ROS Statement are negative. <Kwadwo Woo - Last Filed: 08/25/20 18:25> ROS Statement: Those systems with pertinent positive or pertinent negative responses have been documented in the HPI. Past Medical History Past Medical History: Atrial Fibrillation, Coronary Artery Disease (CAD), Fibromyalgia, GERD/Reflux, Hyperlipidemia, Hypertension, Myocardial Infarction (DC), Pneumonia, Thyroid Disorder Additional Past Medical History / Comment(s): hx gout, increase difficulty clearing lungs at night-occ. sleeping in chair to sleep, essential tremors, frequent cough, SOB, vertigo Last Myocardial Infarction Date:: unkn-silent History of Any Multi-Drug Resistant Organisms: MRSA Date of last positivie culture/infection: 04/23/19 MDRO Source:: Bronch wash Past Surgical History: Appendectomy, Cardiac Valve Replacement, Heart Catheterization With Stent, Hernia Repair, Prostate Surgery, Tonsillectomy Additional Past Surgical History / Comment(s): TURP, sub-mucous resection to improve breathing, turbinate reduction, 4 cardiac stents, payam cataract surgery, hernia repair x3 , aortic valve replacment 03/2020, Aortic Valve replacement April 30 2021 Past Anesthesia/Blood Transfusion Reactions: Motion Sickness Additional Past Anesthesia/Blood Transfusion Reaction / Comment(s): vertigo Date of Last Stent Placement:: 2012 Past Psychological History: ADD/ADHD Additional Psychological History / Comment(s): . Smoking Status: Former smoker Past Alcohol Use History: Occasional Additional Past Alcohol Use History / Comment(s): Pt started smoking in 1950 and quit in 1970. He was a 3 1/2 ppd smoker. Past Drug Use History: None Reported - Past Family History Father Family Medical History: CVA/TIA Additional Family Medical History / Comment(s): Father had a severe CVA and of this at age 80 yrs. Mother Family Medical History: Coronary Artery Disease (CAD) Additional Family Medical History / Comment(s): Mother had an enlarged heart and at age 90. Sister(s) Family Medical History: Cancer <Pedrito Elliott - Last Filed: 08/25/20 13:52> General Exam Limitations: no limitations General appearance: alert, in no apparent distress Head exam: Present: atraumatic, normocephalic, normal inspection ENT exam: Present: other (Left nostril nasal packing) Respiratory exam: Present: wheezes, rhonchi, decreased breath sounds. Absent: r espiratory distress, rales, stridor Cardiovascular Exam: Present: regular rate, normal rhythm, normal heart sounds. Absent: systolic murmur, diastolic murmur, rubs, gallop, clicks <Pedrito Elliott - Last Filed: 08/25/20 13:52> Course - Reevaluation(s) Time: 18:10 <Kwadwo Woo - Last Filed: 08/25/20 18:25> Vital Signs 08/25/20 13:50 Temperature 98.3 F Pulse Rate 70 Respiratory 18 Rate Blood Pressure 155/70 O2 Sat by Pulse 97 Oximetry - Reevaluation(s) Reevaluation #1: 08/25/20 18:10 Patient states his sodium level has been low in the past and is from drinking too much water. Patient states he drinks a lot of water to help with the secretions. Does not want to stay in the hospital. Does not want to stay for IV fluids. Patient's states he will stay for IV fluids and then go home or she will drive him home. (Kwadwo Woo) EKG Findings - EKG Results: EKG: sinus rhythm (Jugular rate of 70, first degree block with MO interval 0.212, QRS of 0.15 QTc 0.455 Right bundle-branch block) <Kwadwo Woo - Last Filed: 08/25/20 18:25> Medical Decision Making - Lab Data Result diagrams: 08/25/20 15:21 08/25/20 15:21 <Kwadwo Woo - Last Filed: 08/25/20 18:25> - Medical Decision Making Nasal packing removed after deflation from left nostril, scant amount of blood noted to packing, copious amounts of clear secretions. White blood count 10.9, hemoglobin 10.6, potassium 4.9, troponin 0.014, sodium 122., Chloride 92, PTT of 21.2. Case discussed with Dr. Yanes. Patient getting 500 mL 0.9 normal saline bolus will be discharged to follow up with primary care doctor this week. Patient has an appointment September 06 with pulmonology. (Kwadwo Woo) - Lab Data Lab Results 08/25/20 08/25/20 08/25/20 Range/Units 15:21 15:21 15:21 WBC 10.9 H (3.8-10.6) k/uL RBC 3.30 L (4.30-5.90) m/uL Hgb 10.6 L (13.0-17.5) gm/dL Hct 31.3 L (39.0-53.0) % MCV 94.8 (80.0-100.0) fL MCH 32.0 (25.0-35.0) pg MCHC 33.8 (31.0-37.0) g/dL RDW 13.9 (11.5-15.5) % Plt Count 327 (150-450) k/uL MPV 6.4 Neutrophils % 89 % Lymphocytes % 6 % Monocytes % 3 % Eosinophils % 2 % Basophils % 0 % Neutrophils # 9.7 H (1.3-7.7) k/uL Lymphocytes # 0.7 L (1.0-4.8) k/uL Monocytes # 0.3 (0-1.0) k/uL Eosinophils # 0.2 (0-0.7) k/uL Basophils # 0.0 (0-0.2) k/uL PT 9.9 (9.0-12.0) sec INR 0.9 (<1.2) APTT 21.2 L (22.0-30.0) sec Sodium 122 L (137-145) mmol/L Potassium 4.9 (3.5-5.1) mmol/L Chloride 92 L (98-107) mmol/L Carbon Dioxide 19 L (22-30) mmol/L Anion Gap 11 mmol/L BUN 26 H (9-20) mg/dL Creatinine 1.19 (0.66-1.25) mg/dL Est GFR (CKD-EPI)AfAm 64 (>60 ml/min/1.73 sqM) Est GFR (CKD-EPI)NonAf 55 (>60 ml/min/1.73 sqM) Glucose 130 H (74-99) mg/dL Plasma Lactic Acid Ke (0.7-2.0) mmol/L Calcium 9.2 (8.4-10.2) mg/dL Total Bilirubin 0.4 (0.2-1.3) mg/dL AST 31 (17-59) U/L ALT 19 (4-49) U/L Alkaline Phosphatase 50 (38-126) U/L Troponin I (0.000-0.034) ng/mL NT-Pro-B Natriuret Pep pg/mL Total Protein 7.0 (6.3-8.2) g/dL Albumin 4.1 (3.5-5.0) g/dL Coronavirus (PCR) (Not Detectd) 08/25/20 08/25/20 08/25/20 Range/Units 15:21 15:21 15:21 WBC (3.8-10.6) k/uL RBC (4.30-5.90) m/uL Hgb (13.0-17.5) gm/dL Hct (39.0-53.0) % MCV (80.0-100.0) fL MCH (25.0-35.0) pg MCHC (31.0-37.0) g/dL RDW (11.5-15.5) % Plt Count (150-450) k/uL MPV Neutrophils % % Lymphocytes % % Monocytes % % Eosinophils % % Basophils % % Neutrophils # (1.3-7.7) k/uL Lymphocytes # (1.0-4.8) k/uL Monocytes # (0-1.0) k/uL Eosinophils # (0-0.7) k/uL Basophils # (0-0.2) k/uL PT (9.0-12.0) sec INR (<1.2) APTT (22.0-30.0) sec Sodium (137-145) mmol/L Potassium (3.5-5.1) mmol/L Chloride (98-107) mmol/L Carbon Dioxide (22-30) mmol/L Anion Gap mmol/L BUN (9-20) mg/dL Creatinine (0.66-1.25) mg/dL Est GFR (CKD-EPI)AfAm (>60 ml/min/1.73 sqM) Est GFR (CKD-EPI)NonAf (>60 ml/min/1.73 sqM) Glucose (74-99) mg/dL Plasma Lactic Acid Ke 1.5 (0.7-2.0) mmol/L Calcium (8.4-10.2) mg/dL Total Bilirubin (0.2-1.3) mg/dL AST (17-59) U/L ALT (4-49) U/L Alkaline Phosphatase (38-126) U/L Troponin I 0.014 (0.000-0.034) ng/mL NT-Pro-B Natriuret Pep 126 pg/mL Total Protein (6.3-8.2) g/dL Albumin (3.5-5.0) g/dL Coronavirus (PCR) (Not Detectd) 08/25/20 Range/Units 16:59 WBC (3.8-10.6) k/uL RBC (4.30-5.90) m/uL Hgb (13.0-17.5) gm/dL Hct (39.0-53.0) % MCV (80.0-100.0) fL MCH (25.0-35.0) pg MCHC (31.0-37.0) g/dL RDW (11.5-15.5) % Plt Count (150-450) k/uL MPV Neutrophils % % Lymphocytes % % Monocytes % % Eosinophils % % Basophils % % Neutrophils # (1.3-7.7) k/uL Lymphocytes # (1.0-4.8) k/uL Monocytes # (0-1.0) k/uL Eosinophils # (0-0.7) k/uL Basophils # (0-0.2) k/uL PT (9.0-12.0) sec INR (<1.2) APTT (22.0-30.0) sec Sodium (137-145) mmol/L Potassium (3.5-5.1) mmol/L Chloride (98-107) mmol/L Carbon Dioxide (22-30) mmol/L Anion Gap mmol/L BUN (9-20) mg/dL Creatinine (0.66-1.25) mg/dL Est GFR (CKD-EPI)AfAm (>60 ml/min/1.73 sqM) Est GFR (CKD-EPI)NonAf (>60 ml/min/1.73 sqM) Glucose (74-99) mg/dL Plasma Lactic Acid Ke (0.7-2.0) mmol/L Calcium (8.4-10.2) mg/dL Total Bilirubin (0.2-1.3) mg/dL AST (17-59) U/L ALT (4-49) U/L Alkaline Phosphatase (38-126) U/L Troponin I (0.000-0.034) ng/mL NT-Pro-B Natriuret Pep pg/mL Total Protein (6.3-8.2) g/dL Albumin (3.5-5.0) g/dL Coronavirus (PCR) Not Detected (Not Detectd) Disposition <Pedrito Elliott - Last Filed: 08/25/20 13:52> Is patient prescribed a controlled substance at d/c from ED?: No Time of Disposition: 18:25 <Kwadwo Woo - Last Filed: 08/25/20 18:25> Clinical Impression: Hyponatremia Disposition: HOME SELF-CARE Condition: Good Instructions (If sedation given, give patient instructions): Hyponatremia (ED) Additional Instructions: Please decrease your water intake to prevent low-sodium which can cause weakness and confusion. Keep track of how much fluid you drink. Return to the emergency room for increasing shortness of breath or confusion. Follow-up with your doctor next week, keep your appointment with pulmonology in September. Referrals: Aleja Ford DO [Primary Care Provider] - 1-2 days
[2020-08-25 15:31] LABS: Basophils % (A) 0 %; Eosinophils # (A) 0.2 k/uL (0-0.7); Eosinophils % (A) 2 %; HCT 31.3 % (39.0-53.0); HGB 10.6 gm/dL (13.0-17.5); Lymphocytes # (A) 0.7 k/uL (1.0-4.8); Lymphocytes % (A) 6 %; MCHC 33.8 g/dL (31.0-37.0); MCV 94.8 fL (80.0-100.0); Mean Platelet Volume 6.4; Monocytes # (A) 0.3 k/uL (0-1.0); Monocytes % (A) 3 %; Neutrophils # (A) 9.7 k/uL (1.3-7.7); Neutrophils % (A) 89 %; Platelet Count 327 k/uL (150-450); RDW 13.9 % (11.5-15.5); WBC 10.9 k/uL (3.8-10.6)
[2020-08-25 15:41] LABS: Albumin 4.1 g/dL (3.5-5.0); Calcium 9.2 mg/dL (8.4-10.2); Potassium 4.9 mmol/L (3.5-5.1); Total Bilirubin 0.4 mg/dL (0.2-1.3)
--- NOTE | 2020-08-25 15:58 | XR ---
EXAMINATION TYPE: XR chest 2V DATE OF EXAM: 08/25/2020 COMPARISON: 06/15/2020 HISTORY: Shortness of breath TECHNIQUE: Frontal and lateral views of the chest are obtained. FINDINGS: Scattered senescent parenchymal changes noted. Hyperinflation compatible with COPD. No evidence for infiltrate. No evidence for atelectasis. Chronic strandy basilar densities. Heart size is stable. Mediastinal structures are stable and grossly unremarkable. No evidence for hilar prominence. Degenerative changes dorsal spine. IMPRESSION: 1. No evidence for acute pulmonary disease.
[2020-08-25 16:05] LABS: INR 0.9 (<1.2); Prothrombin Time 9.9 sec (9.0-12.0)
[2020-08-25 16:08] LABS: Partial Thromboplastin Time 21.2 sec (22.0-30.0)
[2020-08-25] MEDS ORDERED: SODIUM CHLORIDE 0.9% 500 ML 500 ML IV ONE (18:09)
[2020-08-25 19:25] VITALS: BP 150/79; PULSE 77; TEMP 98.4
== END 2020-08-25 19:25 | disposition home or self-care (01) ==
LOC: EC 13:42
DX: E87.1 Hypo-osmolality and hyponatremia (principal); Z20.822 Contact with and (suspected) exposure to COVID-19; E78.5 Hyperlipidemia, unspecified; I10 Essential (primary) hypertension; I25.10 Atherosclerotic heart disease of native coronary artery without angina pectoris; I25.2 Old myocardial infarction; I48.91 Unspecified atrial fibrillation; J44.9 Chronic obstructive pulmonary disease, unspecified; K21.9 Gastro-esophageal reflux disease without esophagitis; Z79.52 Long term (current) use of systemic steroids; Z87.891 Personal history of nicotine dependence; Z79.82 Long term (current) use of aspirin
CPT/HCPCS: 36415; 71046; 80053; 83605; 83880; 84484; 85025; 85610; 85730; 87635; 93005; 99285

== ENCOUNTER 2020-10-12 11:17 | Day surgery (SDC) | payer MEDICARE ==
[2020-10-10 15:21] VITALS: BMI 27.6
[~2020-10-12 11:17] MED LIST changes: +LACTATED RINGERS 1,000 ML IV SCH; +LIDOCAINE 1% (10MG/ML) FOR IV START INTRADERMA PRN
[2020-10-12 12:03] VITALS: RESP 16; TEMP 96.9
[2020-10-12] MEDS ORDERED: PROPOFOL 10 MG/ML 20 ML VIAL IV ONE (12:41)
[2020-10-12] MEDS ORDERED: LIDOCAINE 2% INJ 20 MG/ML INTRATRACH ONE (12:54)
[2020-10-12 13:10] VITALS: BP 113/66
[2020-10-12 13:31] VITALS: PULSE 90
--- NOTE | 2020-10-12 14:40 | PCN ---
PROCEDURE NOTE OPERATIVE REPORT: Bronchoscopy and bronchoalveolar lavage of all lobes. This was a random washing and lavage of all segments and lobes throughout. PREOPERATIVE DIAGNOSIS: Bronchiectasis, unable to clear secretions. POSTOPERATIVE DIAGNOSIS: Bronchiectasis, unable to clear secretions. ANESTHESIA USED: IV conscious sedation, this was administered by [employer]. PROCEDURE DETAILS: The patient was placed in the supine position, O2 was applied via nasal cannula. The patient was monitored via pulse oximetry, cardiac rhythm was also monitored continuously, blood pressure was monitored intermittently. After adequate IV conscious sedation, a few mL of lidocaine were instilled into the right naris, the bronchoscope was advanced through the right naris down to the area of the vocal cords. Purulent secretions were noted over the vocal cords, and these were suctioned easily. Lidocaine applied over the vocal cords, and the bronchoscope was advanced further down. Thorough examination was done of the trachea, right upper lobe, right middle lobe, right lower lobe, left upper lobe, lingula, and left lower lobe. There was evidence of significant thick purulent secretions noted in all the different segments of different lobes. Lavage of all the different segments and lobes was done using saline. Purulent secretions were all suctioned out of the airways. Procedure was well tolerated, no evidence of complications. Fluid was sent for different diagnostic studies. The patient will be discharged home today and he will follow up with me on an outpatient basis. MMODL / IJN: [id number] /
== END 2020-10-12 14:31 | disposition home or self-care (01) ==
LOC: ORWHC2ENDO 11:17
PROVIDERS: ATTEND Internal Medicine
DX: J47.9 Bronchiectasis, uncomplicated (principal); M79.7 Fibromyalgia; F32.9 Major depressive disorder, single episode, unspecified; J44.9 Chronic obstructive pulmonary disease, unspecified; K21.9 Gastro-esophageal reflux disease without esophagitis; I25.10 Atherosclerotic heart disease of native coronary artery without angina pectoris; E03.9 Hypothyroidism, unspecified; I10 Essential (primary) hypertension; I35.0 Nonrheumatic aortic (valve) stenosis; D50.9 Iron deficiency anemia, unspecified; Z79.02 Long term (current) use of antithrombotics/antiplatelets; Z79.899 Other long term (current) drug therapy; Z87.891 Personal history of nicotine dependence; Z88.5 Allergy status to narcotic agent; Z88.2 Allergy status to sulfonamides; Z88.8 Allergy status to other drugs, medicaments and biological substances
CPT/HCPCS: 87798 ×3; 87496; 87498; 87529; 87252; 87502; 87634; 87070; 87205; 87116; 87102; 87077; 87186; 87206; 31624; J2001; J2704

== ENCOUNTER 2020-11-02 14:05 | Emergency (ER) | payer MEDICARE ==
[2020-11-02 14:31] VITALS: RESP 18; TEMP 98.3
--- NOTE | 2020-11-02 15:18 | XR ---
EXAMINATION TYPE: XR chest 2V DATE OF EXAM: 11/02/2020 COMPARISON: Chest x-ray 08/25/2020 HISTORY: Cough TECHNIQUE: Frontal and lateral views of the chest are obtained. FINDINGS: Interstitial changes within the lungs are again noted. Cardiac mediastinal silhouette show s a similar appearance. Aorta is dense. There is no evident pneumothorax or pleural effusion. Promine nt lung volume may be indicative of underlying COPD. There is eventration of right hemidiaphragm. The re is a probable valve replacement present within the heart. IMPRESSION: No acute cardiopulmonary process. Interstitial lung disease.
--- NOTE | 2020-11-02 15:36 | ED ---
SOB HPI - General Chief Complaint: Shortness of Breath Stated Complaint: cough Time Seen by Provider: 11/02/20 15:18 Source: patient Mode of arrival: wheelchair Limitations: no limitations - History of Present Illness Initial Comments: This patient is an 85-year-old man with history of bronchiectasis, who presents with complaint that he is finding it difficult to clear sputum when he coughs. The patient had a bronchoscopy performed by Dr. Silva on about October 14, and he states since that time he has been having trouble with cough productive of sputu m. He was treated with a course of Bactrim which she finished without much improvement and he has been taking a course of Augmentin and has nearly finished that without much improvement. He states he was told to be evaluated in the emergency department. MD Complaint: cough -: week(s) Severity scale (1-10): 0 Consistency: constant, intermittent Improves With: nothing, upright position Worsens With: lying flat Known History Of: other (bronchiectasis) Associated Symptoms: cough, sputum production Treatments Prior to Arrival: other (Antibiotics) - Related Data Home Oxygen Therapy: No Home Medications Medication Instructions Recorded Confirmed Aspirin EC [Ecotrin Low Dose] 81 mg PO DAILY 07/05/15 10/10/20 Ubidecarenone [Co Q-10] 100 mg PO DAILY 07/05/15 10/10/20 Clopidogrel [Plavix] 75 mg PO DAILY 05/25/16 10/10/20 Carvedilol [Coreg] 6.25 mg PO BID 06/19/17 10/10/20 Cholecalciferol [Vitamin D3 (25 125 mcg PO DAILY 11/12/17 10/10/20 Mcg = 1000 Iu)] Fish Oil/Dha/Epa [Fish Oil 1,200 1 cap PO DAILY 03/28/18 10/10/20 mg Fish Oil] Glucosamine/MSM/Chrond/D3/Bosw 1 tab PO BID 03/28/18 10/10/20 [Zjdzqwwrjbc-Xucuqo-JKN-D3 Cplt] Magnesium Citrate 250 mg PO HS 03/28/18 10/10/20 Multivitamins, Thera [Multivitamin 1 tab PO DAILY 03/28/18 10/10/20 (formulary)] polyethylene glycoL 3350 [Miralax] 17 gm PO HS 03/28/18 10/10/20 Acetylcysteine [Nac] 600 mg PO TID 06/13/20 10/10/20 Chlorthalidone [Hygroton] 12.5 mg PO DAILY 06/13/20 10/10/20 Losartan Potassium [Cozaar] 50 mg PO QAM 06/13/20 10/10/20 Selenium 200 mcg PO DAILY 06/13/20 10/10/20 Zinc Gluconate [Zinc] 30 mg PO DAILY 06/13/20 10/10/20 Albuterol Inhaler [Ventolin Hfa 2 puff INHALATION RT-QID PRN 06/14/20 10/10/20 Inhaler] Cyanocobalamin (Vitamin B-12) 5,000 mcg PO DAILY 06/14/20 10/10/20 [Vitamin B-12] Resveratrol 75mg 75 mg PO DAILY 06/14/20 10/10/20 guaiFENesin [Mucinex] 1,200 mg PO TID 06/14/20 10/10/20 Ascorbic Acid [Vitamin C] 1,000 mg PO TID 10/10/20 10/10/20 Ipratropium-Albuterol Nebulize 3 ml INHALATION Q4H 10/10/20 10/10/20 [Duoneb 0.5 mg-3 mg/3 ml Soln] Mometasone Furoate [Asmanex Hfa] 2 puff INHALATION BID 10/10/20 10/10/20 Olodaterol HCl [Striverdi Respimat] 2 spray INHALATION QAM 10/10/20 10/10/20 Rosuvastatin Calcium [Crestor] 5 mg PO HS 10/10/20 10/10/20 predniSONE 20 mg PO DAILY 10/10/20 10/10/20 Previous Rx's Medication Instructions Recorded Levofloxacin [Levaquin] 750 mg PO DAILY 1 Days #7 tab 11/02/20 Allergies Allergy/AdvReac Type Severity Reaction Status Date / Time meperidine [From Demerol] Allergy Unknown Verified 11/02/20 14:31 Childhood ciprofloxacin [From Cipro] AdvReac joint Verified 11/02/20 14:31 problems diphenhydramine HCl AdvReac "felt like Verified 11/02/20 14:31 [From Benadryl] I was dying" steroids AdvReac "Not sure Uncoded 11/02/20 14:31 of steroids""angina" Review of Systems ROS Statement: Those systems with pertinent positive or pertinent negative responses have been documented in the HPI. ROS Other: All systems not noted in ROS Statement are negative. Constitutional: Denies: fever, chills Respiratory: Reports: cough. Denies: dyspnea, wheezes, hemoptysis Cardiovascular: Denies: chest pain, palpitations, dyspnea on exertion, orthopnea, edema, syncope Gastrointestinal: Denies: abdominal pain, vomiting, diarrhea Genitourinary: Denies: dysuria, frequency, hematuria Musculoskeletal: Denies: back pain Skin: Denies: rash Neurological: Denies: headache, weakness Past Medical History Past Medical History: Atrial Fibrillation, Coronary Artery Disease (CAD), Fibromyalgia, GERD/Reflux, Hyperlipidemia, Hypertension, Myocardial Infarction (CT), Pneumonia, Thyroid Disorder Additional Past Medical History / Comment(s): Received covid vaccine, hx gout, increase difficulty clearing lungs at night-occ. 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 Mother Additional Family Medical History / Comment(s): Mother had an enlarged heart and at age 90. Sister(s) Family Medical History: Cancer General Exam Limitations: no limitations General appearance: alert, in no apparent distress Head exam: Present: atraumatic, normocephalic Eye exam: Present: normal appearance. Absent: scleral icterus, conjunctival injection Respiratory exam: Present: rhonchi. Absent: respiratory distress, wheezes, rales, stridor, chest wall tenderness, accessory muscle use, decreased breath sounds Cardiovascular Exam: Present: regular rate, normal rhythm, normal heart sounds. Absent: systolic murmur, diastolic murmur, rubs, gallop GI/Abdominal exam: Present: soft. Absent: distended, tenderness, guarding, rebound, rigid, mass Extremities exam: Present: normal inspection, normal capillary refill. Absent: pedal edema, calf tenderness Back exam: Present: normal inspection. Absent: CVA tenderness (R), CVA tenderness (L) Neurological exam: Present: alert Skin exam: Present: warm, dry, intact, normal color. Absent: rash Course Vital Signs 11/02/20 11/02/20 14:27 16:53 Temperature 98.3 F Pulse Rate 94 94 Respiratory 18 18 Rate Blood Pressure 132/81 145/84 O2 Sat by Pulse 96 96 Oximetry Medical Decision Making - Lab Data Result diagrams: 11/02/20 15:48 11/02/20 15:48 Lab Results 11/02/20 11/02/20 11/02/20 Range/Units 15:48 15:48 15:48 WBC 10.1 (3.8-10.6) k/uL RBC 3.63 L (4.30-5.90) m/uL Hgb 12.4 L (13.0-17.5) gm/dL Hct 35.3 L (39.0-53.0) % MCV 97.3 (80.0-100.0) fL MCH 34.1 (25.0-35.0) pg MCHC 35.1 (31.0-37.0) g/dL RDW 13.5 (11.5-15.5) % Plt Count 275 (150-450) k/uL MPV 7.3 Neutrophils % 84 % Lymphocytes % 7 % Monocytes % 6 % Eosinophils % 2 % Basophils % 0 % Neutrophils # 8.5 H (1.3-7.7) k/uL Lymphocytes # 0.7 L (1.0-4.8) k/uL Monocytes # 0.6 (0-1.0) k/uL Eosinophils # 0.2 (0-0.7) k/uL Basophils # 0.0 (0-0.2) k/uL PT 10.1 (9.0-12.0) sec INR 0.9 (<1.2) APTT 20.2 L (22.0-30.0) sec D-Dimer 4.18 H (<0.60) mg/L FEU Sodium 136 L (137-145) mmol/L Potassium 4.2 (3.5-5.1) mmol/L Chloride 104 (98-107) mmol/L Carbon Dioxide 23 (22-30) mmol/L Anion Gap 9 mmol/L BUN 37 H (9-20) mg/dL Creatinine 1.18 (0.66-1.25) mg/dL Est GFR (CKD-EPI)AfAm 65 (>60 ml/min/1.73 sqM) Est GFR (CKD-EPI)NonAf 56 (>60 ml/min/1.73 sqM) Glucose 143 H (74-99) mg/dL Plasma Lactic Acid Ke (0.7-2.0) mmol/L Calcium 9.9 (8.4-10.2) mg/dL Magnesium 2.4 H (1.6-2.3) mg/dL Total Bilirubin 0.4 (0.2-1.3) mg/dL AST 35 (17-59) U/L ALT 29 (4-49) U/L Alkaline Phosphatase 54 (38-126) U/L Troponin I (0.000-0.034) ng/mL NT-Pro-B Natriuret Pep pg/mL Total Protein 7.3 (6.3-8.2) g/dL Albumin 4.5 (3.5-5.0) g/dL Urine Color Urine Appearance (Clear) Urine pH (5.0-8.0) Ur Specific Kittrell (1.001-1.035) Urine Protein (Negative) Urine Glucose (UA) (Negative) Urine Ketones (Negative) Urine Blood (Negative) Urine Nitrite (Negative) Urine Bilirubin (Negative) Urine Urobilinogen (<2.0) mg/dL Ur Leukocyte Esterase (Negative) Urine WBC (0-5) /hpf Ur Squamous Epith Cells (0-4) /hpf Hyaline Casts (0-2) /lpf Urine Mucus (None) /hpf Coronavirus (PCR) (Not Detectd) 11/02/20 11/02/20 11/02/20 Range/Units 15:48 15:48 15:48 WBC (3.8-10.6) k/uL RBC (4.30-5.90) m/uL Hgb (13.0-17.5) gm/dL Hct (39.0-53.0) % MCV (80.0-100.0) fL MCH (25.0-35.0) pg MCHC (31.0-37.0) g/dL RDW (11.5-15.5) % Plt Count (150-450) k/uL MPV Neutrophils % % Lymphocytes % % Monocytes % % Eosinophils % % Basophils % % Neutrophils # (1.3-7.7) k/uL Lymphocytes # (1.0-4.8) k/uL Monocytes # (0-1.0) k/uL Eosinophils # (0-0.7) k/uL Basophils # (0-0.2) k/uL PT (9.0-12.0) sec INR (<1.2) APTT (22.0-30.0) sec D-Dimer (<0.60) mg/L FEU Sodium (137-145) mmol/L Potassium (3.5-5.1) mmol/L Chloride (98-107) mmol/L Carbon Dioxide (22-30) mmol/L Anion Gap mmol/L BUN (9-20) mg/dL Creatinine (0.66-1.25) mg/dL Est GFR (CKD-EPI)AfAm (>60 ml/min/1.73 sqM) Est GFR (CKD-EPI)NonAf (>60 ml/min/1.73 sqM) Glucose (74-99) mg/dL Plasma Lactic Acid Ke 1.9 (0.7-2.0) mmol/L Calcium (8.4-10.2) mg/dL Magnesium (1.6-2.3) mg/dL Total Bilirubin (0.2-1.3) mg/dL AST (17-59) U/L ALT (4-49) U/L Alkaline Phosphatase (38-126) U/L Troponin I 0.040 H* (0.000-0.034) ng/mL NT-Pro-B Natriuret Pep 152 pg/mL Total Protein (6.3-8.2) g/dL Albumin (3.5-5.0) g/dL Urine Color Urine Appearance (Clear) Urine pH (5.0-8.0) Ur Specific Kittrell (1.001-1.035) Urine Protein (Negative) Urine Glucose (UA) (Negative) Urine Ketones (Negative) Urine Blood (Negative) Urine Nitrite (Negative) Urine Bilirubin (Negative) Urine Urobilinogen (<2.0) mg/dL Ur Leukocyte Esterase (Negative) Urine WBC (0-5) /hpf Ur Squamous Epith Cells (0-4) /hpf Hyaline Casts (0-2) /lpf Urine Mucus (None) /hpf Coronavirus (PCR) (Not Detectd) 11/02/20 11/02/20 Range/Units 15:48 16:22 WBC (3.8-10.6) k/uL RBC (4.30-5.90) m/uL Hgb (13.0-17.5) gm/dL Hct (39.0-53.0) % MCV (80.0-100.0) fL MCH (25.0-35.0) pg MCHC (31.0-37.0) g/dL RDW (11.5-15.5) % Plt Count (150-450) k/uL MPV Neutrophils % % Lymphocytes % % Monocytes % % Eosinophils % % Basophils % % Neutrophils # (1.3-7.7) k/uL Lymphocytes # (1.0-4.8) k/uL Monocytes # (0-1.0) k/uL Eosinophils # (0-0.7) k/uL Basophils # (0-0.2) k/uL PT (9.0-12.0) sec INR (<1.2) APTT (22.0-30.0) sec D-Dimer (<0.60) mg/L FEU Sodium (137-145) mmol/L Potassium (3.5-5.1) mmol/L Chloride (98-107) mmol/L Carbon Dioxide (22-30) mmol/L Anion Gap mmol/L BUN (9-20) mg/dL Creatinine (0.66-1.25) mg/dL Est GFR (CKD-EPI)AfAm (>60 ml/min/1.73 sqM) Est GFR (CKD-EPI)NonAf (>60 ml/min/1.73 sqM) Glucose (74-99) mg/dL Plasma Lactic Acid Ke (0.7-2.0) mmol/L Calcium (8.4-10.2) mg/dL Magnesium (1.6-2.3) mg/dL Total Bilirubin (0.2-1.3) mg/dL AST (17-59) U/L ALT (4-49) U/L Alkaline Phosphatase (38-126) U/L Troponin I (0.000-0.034) ng/mL NT-Pro-B Natriuret Pep pg/mL Total Protein (6.3-8.2) g/dL Albumin (3.5-5.0) g/dL Urine Color Light Yellow Urine Appearance Clear (Clear) Urine pH 5.0 (5.0-8.0) Ur Specific Kittrell 1.013 (1.001-1.035) Urine Protein 1+ H (Negative) Urine Glucose (UA) Negative (Negative) Urine Ketones Negative (Negative) Urine Blood Negative (Negative) Urine Nitrite Negative (Negative) Urine Bilirubin Negative (Negative) Urine Urobilinogen <2.0 (<2.0) mg/dL Ur Leukocyte Esterase Negative (Negative) Urine WBC 1 (0-5) /hpf Ur Squamous Epith Cells <1 (0-4) /hpf Hyaline Casts 21 H (0-2) /lpf Urine Mucus Rare H (None) /hpf Coronavirus (PCR) (Not Detectd) - EKG Data -: EKG Interpreted by Mo EKG shows normal: sinus rhythm, axis (Normal), intervals (MA interval 214 ms, prolonged consistent with first-degree AV block. QRS duration 156 ms, prolonged consistent with right bundle-branch block. QTC 492 ms, normal.), QRS complexes (Right bundle-branch block), ST-T waves (Normal) Rate: normal (Rate 92) Interpretation: other (Possible old inferior infarct.) Disposition Clinical Impression: Bronchiectasis, COPD exacerbation Disposition: HOME SELF-CARE Condition: Good Instructions (If sedation given, give patient instructions): Bronchiectasis (ED) Prescriptions: Levofloxacin [Levaquin] 750 mg PO DAILY 1 Days #7 tab Is patient prescribed a controlled substance at d/c from ED?: No Referrals: Codi Silva MD [STAFF PHYSICIAN] - 1-2 days
[2020-11-02 16:00] LABS: Appearance,Urine Clear (Clear); Bilirubin,Urine Negative (Negative); Blood,Urine Negative (Negative); Color,Urine Light Yellow; Glucose,Urine (UA) Negative (Negative); Hyaline Casts,Urine 21 /lpf (0-2); Ketones,Urine Negative (Negative); Leukocyte Esterase,Urine Negative (Negative); Mucus,Urine Rare /hpf; Nitrite,Urine Negative (Negative); Protein,Urine 1+ (Negative); Specific Gravity,Urine 1.013 (1.001-1.035); Squamous Epithelial Cell,Urine <1 /hpf (0-4); Urobilinogen,Urine <2.0 mg/dL (<2.0); WBC,Urine 1 /hpf (0-5)
[2020-11-02 16:01] LABS: Basophils % (A) 0 %; Eosinophils # (A) 0.2 k/uL (0-0.7); Eosinophils % (A) 2 %; HCT 35.3 % (39.0-53.0); HGB 12.4 gm/dL (13.0-17.5); Lymphocytes # (A) 0.7 k/uL (1.0-4.8); Lymphocytes % (A) 7 %; MCH 34.1 pg (25.0-35.0); MCHC 35.1 g/dL (31.0-37.0); MCV 97.3 fL (80.0-100.0); Mean Platelet Volume 7.3; Monocytes # (A) 0.6 k/uL (0-1.0); Monocytes % (A) 6 %; Neutrophils # (A) 8.5 k/uL (1.3-7.7); Neutrophils % (A) 84 %; Platelet Count 275 k/uL (150-450); RBC 3.63 m/uL (4.30-5.90); RDW 13.5 % (11.5-15.5); WBC 10.1 k/uL (3.8-10.6)
[2020-11-02 16:10] LABS: Albumin 4.5 g/dL (3.5-5.0); Calcium 9.9 mg/dL (8.4-10.2); Magnesium 2.4 mg/dL (1.6-2.3); Potassium 4.2 mmol/L (3.5-5.1); Total Bilirubin 0.4 mg/dL (0.2-1.3); Total Protein 7.3 g/dL (6.3-8.2)
[2020-11-02 16:17] LABS: INR 0.9 (<1.2); Partial Thromboplastin Time 20.2 sec (22.0-30.0); Prothrombin Time 10.1 sec (9.0-12.0)
[2020-11-02 16:20] LABS: D-Dimer 4.18 mg/L FEU (<0.60)
--- NOTE | 2020-11-02 18:21 | CT ---
EXAMINATION TYPE: CT chest angio for PE DATE OF EXAM: 11/02/2020 COMPARISON: Chest radiograph 11/02/2020 HISTORY: 85-year-old male shortness of breath, dyspnea TECHNIQUE: Contiguous axial scanning of the chest performed with IV Contrast, patient injected with 8 0 mL of Isovue 370. Coronal/sagittal MIP reconstructions performed. CT DLP: 406 mGycm Automated exposure control for dose reduction was used. FINDINGS: The heart is upper limits of normal in size. LAD coronary artery calcifications are present. No peric ardial effusion. No reflux of contrast into the hepatic veins. Prosthetic aortic valve. Ectatic ascending aorta at 3.7 cm. [id number] atherosclerotic calcifications. Variant direct ta keoff of the left vertebral artery directly from the aortic arch. Upper descending thoracic aorta por table and ectatic at 3.0 cm. Satisfactory opacification of the pulmonary arterial system. There is some motion artifact at the gail g bases. No definite pulmonary embolus. Numerous tiny mediastinal lymph nodes. No thoracic lymph adenopathy by CT size criteria. Mild centrilobular emphysema. There is bibasilar bronchiectasis and chronic reticular and linear cornejo ges. Some subpleural microcystic changes noted. Some additional scattered reticular changes throughou t the remainder of the lungs. Mild emphysematous changes also noted. Minimal associated groundglass i n the periphery of the lungs. No yon consolidation. Visualized upper abdomen shows no gross abnormality. Bones: Moderate degenerative disc disease lower thoracic spine. IMPRESSION: 1. NO EVIDENCE FOR PULMONARY EMBOLUS. 2. BIBASILAR BRONCHIECTASIS, SOME MINIMAL ASSOCIATED SUBPLEURAL GROUNDGLASS, AND MORE EXTENSIVE SUBPL EURAL RETICULATIONS ESPECIALLY IN THE MID AND LOWER LUNGS. CORRELATE FOR SEQUELA OF CHRONIC ASPIRATIO N OR RECURRENT INFECTIONS, OR INTERSTITIAL PNEUMONITIS SUCH FIBROTIC NSIP. EARLY UIP CONSIDERED L ESS LIKELY. IF NO ESTABLISHED DIAGNOSIS, RECOMMEND FOLLOW-UP WITH PULMONARY MEDICINE. NO DEFINITE ACU TE PULMONARY PROCESS. 3. LAD CORONARY ARTERY CALCIFICATIONS.
[2020-11-02] MEDS ORDERED: IPRATROPIUM-ALBUTEROL 3 ML NEB INHALATION STA (18:57)
[2020-11-02] MEDS ORDERED: LEVOFLOXACIN 750 MG TAB PO STA (18:57)
[2020-11-02] MEDS ORDERED: methylPREDNISolone SOD SUCCI 125 MG/2 ML VIAL IV STA (18:57)
[2020-11-02 19:55] VITALS: BP 141/89; PULSE 104
== END 2020-11-02 20:01 | disposition home or self-care (01) ==
LOC: EC 14:05
DX: J44.1 Chronic obstructive pulmonary disease with (acute) exacerbation (principal); R06.02 Shortness of breath; I25.10 Atherosclerotic heart disease of native coronary artery without angina pectoris; I48.91 Unspecified atrial fibrillation; M79.7 Fibromyalgia; E78.5 Hyperlipidemia, unspecified; I10 Essential (primary) hypertension; I25.2 Old myocardial infarction; E07.9 Disorder of thyroid, unspecified; K21.9 Gastro-esophageal reflux disease without esophagitis; Z95.5 Presence of coronary angioplasty implant and graft; Z90.09 Acquired absence of other part of head and neck; Z87.891 Personal history of nicotine dependence
CPT/HCPCS: 96374 ×2; 99284; 99285; 36415; 94640; 93005; 85379; 83880; 80053; 83605; 83735; 84484; 85025; 85610; 85730; 81001; 87040; 87635; 71046; 71275; J2930; Q9967

== ENCOUNTER 2020-11-19 10:14 | Inpatient (IN) | payer MEDICARE ==
[2020-11-19] MEDS ORDERED: methylPREDNISolone SOD SUCCI 125 MG/2 ML VIAL IV STA (10:34)
[2020-11-19] MEDS ORDERED: IPRATROPIUM-ALBUTEROL 3 ML NEB INHALATION STA (10:34)
[2020-11-19] MEDS ORDERED: ALBUTEROL NEBULIZED 2.5 MG/3 ML INHALATION STA (10:34)
--- NOTE | 2020-11-19 10:58 | ED ---
General Adult HPI - General Chief complaint: Shortness of Breath Stated complaint: mucus in lungs Time Seen by Provider: 11/19/20 10:25 Source: patient, RN notes reviewed, old records reviewed Mode of arrival: wheelchair Limitations: no limitations - History of Present Illness Initial comments: 85-year-old male presenting with increased cough and dyspnea. Patient has had multiple ER visits and a admission at [facility] over the past one month. H e's had chest congestion and is unable to cough up sputum. He was admitted and had a bronchoscopy performed. He denies chest pain denies fever. He does report lower extremity edema. He had been previously taking diuretic but had developed acute kidney injury and diuretic was reduced. Presents for evaluation today as symptoms have not improved with steroids, antibiotics, and diuretics. - Related Data Home Medications Medication Instructions Recorded Confirmed Aspirin EC [Ecotrin Low Dose] 81 mg PO DAILY 07/05/15 10/10/20 Ubidecarenone [Co Q-10] 100 mg PO DAILY 07/05/15 10/10/20 Clopidogrel [Plavix] 75 mg PO DAILY 05/25/16 10/10/20 Carvedilol [Coreg] 6.25 mg PO BID 06/19/17 10/10/20 Cholecalciferol [Vitamin D3 (25 125 mcg PO DAILY 11/12/17 10/10/20 Mcg = 1000 Iu)] Fish Oil/Dha/Epa [Fish Oil 1,200 1 cap PO DAILY 03/28/18 10/10/20 mg Fish Oil] Glucosamine/MSM/Chrond/D3/Bosw 1 tab PO BID 03/28/18 10/10/20 [Jxpattzaihw-Ubljlp-IID-D3 Cplt] Magnesium Citrate 250 mg PO HS 03/28/18 10/10/20 Multivitamins, Thera [Multivitamin 1 tab PO DAILY 03/28/18 10/10/20 (formulary)] polyethylene glycoL 3350 [Miralax] 17 gm PO HS 03/28/18 10/10/20 Acetylcysteine [Nac] 600 mg PO TID 06/13/20 10/10/20 Chlorthalidone [Hygroton] 12.5 mg PO DAILY 06/13/20 10/10/20 Losartan Potassium [Cozaar] 50 mg PO QAM 06/13/20 10/10/20 Selenium 200 mcg PO DAILY 06/13/20 10/10/20 Zinc Gluconate [Zinc] 30 mg PO DAILY 06/13/20 10/10/20 Albuterol Inhaler [Ventolin Hfa 2 puff INHALATION RT-QID PRN 06/14/20 10/10/20 Inhaler] Cyanocobalamin (Vitamin B-12) 5,000 mcg PO DAILY 06/14/20 10/10/20 [Vitamin B-12] Resveratrol 75mg 75 mg PO DAILY 06/14/20 10/10/20 guaiFENesin [Mucinex] 1,200 mg PO TID 06/14/20 10/10/20 Ascorbic Acid [Vitamin C] 1,000 mg PO TID 10/10/20 10/10/20 Ipratropium-Albuterol Nebulize 3 ml INHALATION Q4H 10/10/20 10/10/20 [Duoneb 0.5 mg-3 mg/3 ml Soln] Mometasone Furoate [Asmanex Hfa] 2 puff INHALATION BID 10/10/20 10/10/20 Olodaterol HCl [Striverdi Respimat] 2 spray INHALATION QAM 10/10/20 10/10/20 Rosuvastatin Calcium [Crestor] 5 mg PO HS 10/10/20 10/10/20 predniSONE 20 mg PO DAILY 10/10/20 10/10/20 Previous Rx's Medication Instructions Recorded Levofloxacin [Levaquin] 750 mg PO DAILY 1 Days #7 tab 11/02/20 Allergies Allergy/AdvReac Type Severity Reaction Status Date / Time meperidine [From Demerol] Allergy Unknown Verified 11/19/20 10:21 Childhood ciprofloxacin [From Cipro] AdvReac joint Verified 11/19/20 10:21 problems diphenhydramine HCl AdvReac "felt like Verified 11/19/20 10:21 [From Benadryl] I was dying" steroids AdvReac "Not sure Uncoded 11/19/20 10:21 of steroids""angina" Review of Systems ROS Statement: Those systems with pertinent positive or pertinent negative responses have been documented in the HPI. ROS Other: All systems not noted in ROS Statement are negative. Past Medical History Past Medical History: Atrial Fibrillation, Coronary Artery Disease (CAD), COPD, Fibromyalgia, GERD/Reflux, Hyperlipidemia, Hypertension, Myocardial Infarction (SC), Pneumonia, Thyroid Disorder Additional Past Medical History / Comment(s): Received covid vaccine, hx gout, increase difficulty clearing lungs at night-occ. 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 Mother Additional Family Medical History / Comment(s): Mother had an enlarged heart and at age 90. Sister(s) Family Medical History: Cancer General Exam Limitations: no limitations General appearance: alert, in no apparent distress Head exam: Present: atraumatic, normocephalic Eye exam: Present: normal appearance. Absent: PERRL ENT exam: Present: normal exam Neck exam: Present: normal inspection. Absent: tenderness, meningismus Respiratory exam: Present: respiratory distress, wheezes, rhonchi, decreased breath sounds Cardiovascular Exam: Present: regular rate, normal rhythm GI/Abdominal exam: Present: soft. Absent: distended, tenderness, guarding Extremities exam: Present: pedal edema Neurological exam: Present: alert, oriented X3, CN II-XII intact. Absent: motor sensory deficit Psychiatric exam: Present: normal affect, normal mood Skin exam: Present: warm, dry, intact. Absent: cyanosis, diaphoretic Course Vital Signs 11/19/20 11/19/20 11/19/20 10:19 10:35 10:53 Temperature 98.3 F Pulse Rate 88 94 Respiratory 22 22 Rate Blood Pressure 139/77 O2 Sat by Pulse 94 L Oximetry 11/19/20 11/19/20 11/19/20 11:04 11:09 11:36 Temperature Pulse Rate 88 87 94 Respiratory 20 Rate Blood Pressure 125/79 O2 Sat by Pulse 93 L Oximetry EKG Findings - EKG Comments: EKG Findings:: EKG: Normal sinus rhythm with sinus arrhythmia, right bundle branch block, similar compared to EKG on 11/03/2019. Rate of 87, OH interval 200, QRS duration 156, QTC 493, no ST segment elevation. Medical Decision Making - Medical Decision Making 85-year-old male with cough and dyspnea. Patient has decreased air entry, rhonchi and wheezing throughout. Given albuterol, Atrovent, steroids in the emergency department, workup initiated, chest x-ray negative for focal pneumonia or acute findings. Patient has mild leukocytosis may be secondary to steroid administration. Minimal he elevated troponin 0.058 with no active chest pain. This level will be trended. I did discuss case with Dr. Gautam who will admit with both pulmonology and cardiology on consult. - Lab Data Result diagrams: 11/19/20 10:35 11/19/20 10:35 Lab Results 11/19/20 11/19/20 11/19/20 Range/Units 10:35 10:35 10:35 WBC 14.0 H (3.8-10.6) k/uL RBC 3.12 L (4.30-5.90) m/uL Hgb 10.8 L (13.0-17.5) gm/dL Hct 30.2 L (39.0-53.0) % MCV 96.8 (80.0-100.0) fL MCH 34.6 (25.0-35.0) pg MCHC 35.7 (31.0-37.0) g/dL RDW 13.2 (11.5-15.5) % Plt Count 187 (150-450) k/uL MPV 7.4 Neutrophils % 86 % Lymphocytes % 5 % Monocytes % 6 % Eosinophils % 2 % Basophils % 0 % Neutrophils # 11.9 H (1.3-7.7) k/uL Lymphocytes # 0.7 L (1.0-4.8) k/uL Monocytes # 0.8 (0-1.0) k/uL Eosinophils # 0.3 (0-0.7) k/uL Basophils # 0.0 (0-0.2) k/uL PT 10.2 (9.0-12.0) sec INR 0.9 (<1.2) APTT 20.8 L (22.0-30.0) sec Sodium 138 (137-145) mmol/L Potassium 3.6 (3.5-5.1) mmol/L Chloride 105 (98-107) mmol/L Carbon Dioxide 25 (22-30) mmol/L Anion Gap 8 mmol/L BUN 41 H (9-20) mg/dL Creatinine 0.96 (0.66-1.25) mg/dL Est GFR (CKD-EPI)AfAm 84 (>60 ml/min/1.73 sqM) Est GFR (CKD-EPI)NonAf 72 (>60 ml/min/1.73 sqM) Glucose 124 H (74-99) mg/dL Plasma Lactic Acid Ke (0.7-2.0) mmol/L Calcium 8.9 (8.4-10.2) mg/dL Magnesium 2.3 (1.6-2.3) mg/dL Total Bilirubin 0.4 (0.2-1.3) mg/dL AST 31 (17-59) U/L ALT 19 (4-49) U/L Alkaline Phosphatase 43 (38-126) U/L Troponin I (0.000-0.034) ng/mL NT-Pro-B Natriuret Pep pg/mL Total Protein 6.0 L (6.3-8.2) g/dL Albumin 3.5 (3.5-5.0) g/dL Coronavirus (PCR) (Not Detectd) 11/19/20 11/19/20 11/19/20 Range/Units 10:35 10:35 10:35 WBC (3.8-10.6) k/uL RBC (4.30-5.90) m/uL Hgb (13.0-17.5) gm/dL Hct (39.0-53.0) % MCV (80.0-100.0) fL MCH (25.0-35.0) pg MCHC (31.0-37.0) g/dL RDW (11.5-15.5) % Plt Count (150-450) k/uL MPV Neutrophils % % Lymphocytes % % Monocytes % % Eosinophils % % Basophils % % Neutrophils # (1.3-7.7) k/uL Lymphocytes # (1.0-4.8) k/uL Monocytes # (0-1.0) k/uL Eosinophils # (0-0.7) k/uL Basophils # (0-0.2) k/uL PT (9.0-12.0) sec INR (<1.2) APTT (22.0-30.0) sec Sodium (137-145) mmol/L Potassium (3.5-5.1) mmol/L Chloride (98-107) mmol/L Carbon Dioxide (22-30) mmol/L Anion Gap mmol/L BUN (9-20) mg/dL Creatinine (0.66-1.25) mg/dL Est GFR (CKD-EPI)AfAm (>60 ml/min/1.73 sqM) Est GFR (CKD-EPI)NonAf (>60 ml/min/1.73 sqM) Glucose (74-99) mg/dL Plasma Lactic Acid Ke 1.1 (0.7-2.0) mmol/L Calcium (8.4-10.2) mg/dL Magnesium (1.6-2.3) mg/dL Total Bilirubin (0.2-1.3) mg/dL AST (17-59) U/L ALT (4-49) U/L Alkaline Phosphatase (38-126) U/L Troponin I 0.058 H* (0.000-0.034) ng/mL NT-Pro-B Natriuret Pep 464 pg/mL Total Protein (6.3-8.2) g/dL Albumin (3.5-5.0) g/dL Coronavirus (PCR) (Not Detectd) 11/19/20 Range/Units 10:46 WBC (3.8-10.6) k/uL RBC (4.30-5.90) m/uL Hgb (13.0-17.5) gm/dL Hct (39.0-53.0) % MCV (80.0-100.0) fL MCH (25.0-35.0) pg MCHC (31.0-37.0) g/dL RDW (11.5-15.5) % Plt Count (150-450) k/uL MPV Neutrophils % % Lymphocytes % % Monocytes % % Eosinophils % % Basophils % % Neutrophils # (1.3-7.7) k/uL Lymphocytes # (1.0-4.8) k/uL Monocytes # (0-1.0) k/uL Eosinophils # (0-0.7) k/uL Basophils # (0-0.2) k/uL PT (9.0-12.0) sec INR (<1.2) APTT (22.0-30.0) sec Sodium (137-145) mmol/L Potassium (3.5-5.1) mmol/L Chloride (98-107) mmol/L Carbon Dioxide (22-30) mmol/L Anion Gap mmol/L BUN (9-20) mg/dL Creatinine (0.66-1.25) mg/dL Est GFR (CKD-EPI)AfAm (>60 ml/min/1.73 sqM) Est GFR (CKD-EPI)NonAf (>60 ml/min/1.73 sqM) Glucose (74-99) mg/dL Plasma Lactic Acid Ke (0.7-2.0) mmol/L Calcium (8.4-10.2) mg/dL Magnesium (1.6-2.3) mg/dL Total Bilirubin (0.2-1.3) mg/dL AST (17-59) U/L ALT (4-49) U/L Alkaline Phosphatase (38-126) U/L Troponin I (0.000-0.034) ng/mL NT-Pro-B Natriuret Pep pg/mL Total Protein (6.3-8.2) g/dL Albumin (3.5-5.0) g/dL Coronavirus (PCR) Not Detected (Not Detectd) Disposition Clinical Impression: COPD exacerbation Disposition: ADMITTED IP TO THIS HOSP Condition: Stable Is patient prescribed a controlled substance at d/c from ED?: No Referrals: Aleja Ford DO [Primary Care Provider] - 1-2 days Decision to Admit Reason: Admit from EC Decision Date: 11/19/20 Decision Time: 12:29
[2020-11-19 11:05] LABS: Basophils % (A) 0 %; Eosinophils # (A) 0.3 k/uL (0-0.7); Eosinophils % (A) 2 %; HCT 30.2 % (39.0-53.0); HGB 10.8 gm/dL (13.0-17.5); Lymphocytes # (A) 0.7 k/uL (1.0-4.8); Lymphocytes % (A) 5 %; MCH 34.6 pg (25.0-35.0); MCHC 35.7 g/dL (31.0-37.0); MCV 96.8 fL (80.0-100.0); Mean Platelet Volume 7.4; Monocytes # (A) 0.8 k/uL (0-1.0); Monocytes % (A) 6 %; Neutrophils # (A) 11.9 k/uL (1.3-7.7); Neutrophils % (A) 86 %; Platelet Count 187 k/uL (150-450); RBC 3.12 m/uL (4.30-5.90); RDW 13.2 % (11.5-15.5)
[2020-11-19 11:16] LABS: Albumin 3.5 g/dL (3.5-5.0); Calcium 8.9 mg/dL (8.4-10.2); Magnesium 2.3 mg/dL (1.6-2.3); Potassium 3.6 mmol/L (3.5-5.1); Total Bilirubin 0.4 mg/dL (0.2-1.3)
[2020-11-19 11:24] LABS: INR 0.9 (<1.2); Prothrombin Time 10.2 sec (9.0-12.0)
--- NOTE | 2020-11-19 11:26 | XR ---
EXAMINATION TYPE: XR chest 2V DATE OF EXAM: 11/19/2020 COMPARISON: Chest x-ray November 02, 2020 HISTORY: Coughing and breathing. TECHNIQUE: Frontal and lateral views of the chest are obtained. FINDINGS: There is chronic parenchymal changes bilaterally without suspicious new focal air space op acity, pleural effusion, or pneumothorax seen. The cardiac silhouette size is stable and upper limit s of normal with atherosclerotic thoracic aorta. The osseous structures remain demineralized. IMPRESSION: Chronic changes without acute pulmonary process.
[2020-11-19 11:30] LABS: Partial Thromboplastin Time 20.8 sec (22.0-30.0)
[2020-11-19] MEDS ORDERED: IPRATROPIUM-ALBUTEROL 3 ML NEB INHALATION PRN (12:26)
[2020-11-19] MEDS: IPRATROPIUM-ALBUTEROL 3 ML NEB INHALATION SCH ×2 (16:15→20:05)
[2020-11-19 17:13] LABS: Glucose,Whole Blood 230 mg/dL (75-99)
[2020-11-19] MEDS: methylPREDNISolone SOD SUCCI 125 MG/2 ML VIAL IV SCH ×2 (17:34→23:37)
[2020-11-19] MEDS: INSULIN ASPART (NovoLOG) 100 UNIT/ML VIAL SQ SCH ×2 (17:34→21:03)
[2020-11-19] MEDS ORDERED: LOSARTAN 50 MG TAB PO SCH (20:15)
[2020-11-19] MEDS ORDERED: CHLORTHALIDONE 25 MG TAB PO SCH (20:15)
[2020-11-19] MEDS ORDERED: ACETAMINOPHEN TAB 325 MG TAB PO PRN (20:15)
[2020-11-19] MEDS ORDERED: Magnesium Replacement Protocol 1 EACH MISC MISCELLANE PRN (20:17)
[2020-11-19] MEDS ORDERED: Potassium Replacement Protocol 1 EACH MISC MISCELLANE PRN (20:17)
[2020-11-19] MEDS ORDERED: HYDROcodone/APAP 5-325MG 1 EACH TAB PO PRN (20:18)
[2020-11-19] MEDS ORDERED: ALPRAZolam 0.25 MG TAB PO PRN (20:18)
[2020-11-19 20:29] LABS: Glucose,Whole Blood 175 mg/dL (75-99)
[2020-11-19] MEDS: polyethylene glycoL 3350 17 GM POWD.PACK PO SCH (20:54)
[2020-11-19] MEDS: guaiFENesin 600 MG TABLET.ER PO SCH (20:54)
[2020-11-19] MEDS: FUROSEMIDE 10 MG/ML 4 ML VIAL IV SCH (20:54)
[2020-11-19] MEDS: carvediloL 3.125 MG TAB PO SCH (20:55)
[2020-11-19] MEDS: HEPARIN SODIUM,PORCINE/PF 5,000 UNIT/0.5 ML SYRINGE SQ SCH (20:55)
[2020-11-19] MEDS: PSYLLIUM HUSK 100% 6 GM PACKET PO SCH (21:10)
--- NOTE | 2020-11-19 22:24 | HP ---
HISTORY AND PHYSICAL DATE OF SERVICE: 11/19/2020 CHIEF COMPLAINT: Shortness of breath and cough and sputum. HISTORY OF PRESENT ILLNESS: This 85-year-old gentleman with a past medical history of multiple medical problems including history atrial fibrillation, CAD, COPD, history of fibromyalgia, GERD, being followed by Dr. Norton and as well as Dr. Silva in the outpatient setting apparently had a bronchoscopy recently by Dr. Silva. Subsequently, the patient admitted to [facility] with respiratory difficulty. The patient was evaluated for cardiac issues also including 2D echo, according to him. No records available. However, the patient went home and currently the patient is complaining of increasing shortness of breath and cough and sputum and congestion and the patient came to [facility] and was admitted for further evaluation and treatment. On admission the white count was found to be elevated and chest x-ray which was reviewed personally by me showed chronic changes without any acute change. The NT proBNP is 464. There is no history of fever, rigors. No headache, loss of consciousness, seizures. PAST MEDICAL HISTORY: History of atrial fibrillation, history of CAD, COPD, fibromyalgia, GERD, hypertension, hyperlipidemia, myocardial infarction. MEDICATIONS: Home medications are MiraLAX, Cozaar, Plavix, hydrocodone, Tylenol, Lasix, Mucinex, coenzyme Q, vitamin B12, Ecotrin, vitamin C, multivitamins and Coreg. Doses reviewed. ALLERGIES: DEMEROL, CIPRO, BENADRYL, STEROIDS. FAMILY HISTORY: History of cancer, CVI. SOCIAL HISTORY: Previous history of smoking. No history of current smoking or alcohol intake. 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 REVIEW OF SYSTEMS: ENT No history of diminished hearing or vision. CARDIOVASCULAR As mentioned earlier. RESPIRATORY As mentioned earlier. GI No nausea, vomiting, or diarrhea. No dysuria or hematuria. NERVOUS No numbness or weakness. ALLERGY/IMMUNOLOGY No asthma or hayfever. MUSCULOSKELETAL As mentioned earlier. HEMATOLOGY/ONCOLOGY Negative. ENDOCRINE No history of diabetes or hypothyroidism. CONSTITUTIONAL As mentioned earlier. DERMATOLOGY Negative. RHEUMATOLOGY Negative, PSYCHIATRY As mentioned earlier. PHYSICAL EXAMINATION: Alert and oriented x3. Pulse 100, blood pressure 133/70, respiration 18, temperature is normal, pulse ox 90% on room HEENT: Conjunctivae normal. Oral mucosa moist. NECK: No jugular venous distention. No lymph node enlargement. CARDIOVASCULAR: S1, S2, muffled. No S3, no S4, RESPIRATORY: Diminished breath sounds at the bases. Bilateral scattered rhonchi and coarse crackles bilaterally. No bronchial breath sounds. ABDOMEN: Soft, nontender. LEGS: No edema, no swelling. NERVOUS SYSTEM: Higher functions mentioned earlier. Moves all four limbs. No focal motor or sensory deficits. LYMPHATICS: No lymph node in neck or axilla. SKIN: No rash. JOINTS: No active deforming arthropathy. LABS: WBC 14.8, hemoglobin 10.8. APTT 20.8, glucose 124. Creatinine is 0.96. ASSESSMENT: 1. Chronic obstructive pulmonary disease exacerbation with acute purulent tracheobronchitis. Rule out congestive heart failure acute exacerbation. 2. Troponin 0.058, indeterminate. Rule out acute vwb-OH-krjrydf-elevation myocardial infarction. 3. Increased WBC. 4. Anemia, normocytic anemia of chronic disease. 5. History of atrial fibrillation. 6. History of coronary artery disease. 7. Chronic obstructive pulmonary disease. 8. History of fibromyalgia. 9. History of GERD. 10.Hypertension. 11.History of myocardial infarction. 12.History of hypothyroidism. 13.History of gout. 14.History of MRSA. 15.History of cardiac valve replacement. 16.History of CAD, stent. 17.History of TURP. 18.History of motion sickness. 19.History of vertigo. 20.Remote history of nicotine dependence. 21.NO CODE, NO CPR, NO VENT. RECOMMENDATIONS AND DISCUSSION: In this 85-year-old gentleman who presented with multiple complex medical issues, we will monitor the patient closely continue the current management and symptomatic treatment. Will optimize bronchodilator treatment, empiric antibiotics. Otherwise, I would also recommend IV steroids and a small trial dose of Lasix. We will closely follow with Cardiology and Pulmonology. Guarded prognosis because of multiple complex medical issues. Further recommendations to follow. A 2D echo report is not available at this time. MMODL / IJN: [id number] /
[2020-11-20 05:58] LABS: Glucose,Whole Blood 162 mg/dL (75-99)
[2020-11-20] MEDS: PANTOPRAZOLE 40 MG TABLET PO SCH ×2 (06:16→06:25)
[2020-11-20] MEDS: INSULIN ASPART (NovoLOG) 100 UNIT/ML VIAL SQ SCH ×4 (06:17→21:21)
[2020-11-20] MEDS: methylPREDNISolone SOD SUCCI 125 MG/2 ML VIAL IV SCH (06:17)
[2020-11-20] MEDS: carvediloL 3.125 MG TAB PO SCH ×2 (06:17→17:46)
[2020-11-20] MEDS: FORMOTEROL FUMARATE 20 MCG/2 ML NEBU INHALATION SCH ×2 (08:18→21:56)
[2020-11-20] MEDS: IPRATROPIUM-ALBUTEROL 3 ML NEB INHALATION SCH ×4 (08:18→21:44)
[2020-11-20] MEDS: BUDESONIDE 1 MG/2 ML NEBU INHALATION SCH ×2 (08:18→21:44)
[2020-11-20 08:29] LABS: Basophils % (A) 0 %; Eosinophils % (A) 0 %; HCT 30.8 % (39.0-53.0); HGB 10.8 gm/dL (13.0-17.5); Lymphocytes # (A) 0.6 k/uL (1.0-4.8); Lymphocytes % (A) 6 %; MCH 34.2 pg (25.0-35.0); MCV 97.7 fL (80.0-100.0); Mean Platelet Volume 7.5; Monocytes # (A) 0.4 k/uL (0-1.0); Monocytes % (A) 4 %; Neutrophils # (A) 9.1 k/uL (1.3-7.7); Neutrophils % (A) 91 %; Platelet Count 194 k/uL (150-450); RBC 3.15 m/uL (4.30-5.90); RDW 13.2 % (11.5-15.5); WBC 10.1 k/uL (3.8-10.6)
[2020-11-20 08:54] LABS: Calcium 8.8 mg/dL (8.4-10.2); Magnesium 2.3 mg/dL (1.6-2.3); Potassium 3.6 mmol/L (3.5-5.1)
[2020-11-20] MEDS ORDERED: ASPIRIN 81 MG PO SCH (09:00)
[2020-11-20] MEDS ORDERED: NON FORMULARY DRUG (Ubidecarenone [Co Q-10] 100 MG Capsule) PO SCH (09:00)
[2020-11-20] MEDS: CHOLECALCIFEROL 25 MCG (1000 IU) TABLET PO SCH (09:08)
[2020-11-20] MEDS: ASCORBIC ACID 500 MG TAB PO SCH ×2 (09:09→09:22)
[2020-11-20] MEDS: HEPARIN SODIUM,PORCINE/PF 5,000 UNIT/0.5 ML SYRINGE SQ SCH ×2 (09:09→21:21)
[2020-11-20] MEDS: CYANOCOBALAMIN 500 MCG TAB PO SCH (09:09)
[2020-11-20] MEDS: MULTIVITAMINS, THERA 1 EACH TAB PO SCH (09:09)
[2020-11-20] MEDS: guaiFENesin 600 MG TABLET.ER PO SCH ×3 (09:09→21:21)
[2020-11-20] MEDS: FUROSEMIDE 10 MG/ML 4 ML VIAL IV SCH (09:09)
--- NOTE | 2020-11-20 10:15 | P.CNPUL ---
History of Present Illness Consult date: 11/20/20 Reason for consult: dyspnea, cough History of present illness: 75-year-old male patient with known history of COPD, steroid-dependent on a maintenance of 5 mg of prednisone a daily basis was been having recurrent exacerbations and ongoing respiratory infections. The patient is coming in for emergency department because of increased cough dyspnea congestion and wheeze. Noted the patient was in the hospital back in general 2020. At that time the patient had a bronchoscopy and the bronchioloalveolar lavage and the cultures came back negative for any microbial growth. Subsequently, he was seen by my partner and he had another bronchoscopy on 10/12/2020 and the patient was found to have Serratia marcescens and the patient was given Levaquin. He also had some Deirdre albicans. He did well after the treatment and his symptoms recurred. His chest x-ray is showing chronic COPD. No active airspace disease. The patient is afebrile. White cell count is at 10.1. COVID-19 testing done several occasions came back negative. Rest of the blood work essentially within normal limits. Troponins of 0.04. The patient which has recently hospitalized at [facility] in [place] and the patient was found to have decompensated heart failure. He was further investigated. He was kept off on his diuretics and he does have some mild edema in his lower extremities bilaterally. His last CAT scan of the chest that was done on 11/02/2020 showed no evidence of any pulmonary embolism. Some chronic bibasilar bronchiectasis and some minimal posterior subpleural groundglass infiltrates and extensive subpleural reticulation involving the mid and lower lung hart bilaterally consistent with recurrent infections. He is comorbid conditions include CVA, atrial fibrillation, fibromyalgia, aortic valve disease with a recent transca theter aortic valve replacement and history of acid reflux. Review of Systems Constitutional: Patient denies any fever or chills . Patient does have generalized weakness. No fatigue or weight loss.. Abdomen: Patient denied nausea vomiting and diarrhea and abdominal pain. Cardiovascular: Patient denies any chest pain or short of breath no palpitations. Respiratory: Patient does have cough with mucus sputum production and shortness of breath Neurologic: Patient denied any numbness or tingling headache. Musculoskeletal: Patient denies any complaints of joint swelling or deformity. Skin: Negative Psychiatric: Negative Endocrine: No heat or cold intolerance. No recent weight gain. Genitourinary: No dysuria or hematuria. All other 14 point ROS negative except the above Past Medical History Past Medical History: Atrial Fibrillation, Coronary Artery Disease (CAD), COPD, Fibromyalgia, GERD/Reflux, Hyperlipidemia, Hypertension, Myocardial Infarction ([place]), Pneumonia, Thyroid Disorder Additional Past Medical History / Comment(s): Received covid vaccine, hx gout, increase difficulty clearing lungs at night-occ. sleeping in chair to sleep, essential tremors, frequent cough, SOB, vertigo Last Myocardial Infarction Date:: unkn-silent History of Any Multi-Drug Resistant Organisms: MRSA Date of last positivie culture/infection: 04/23/19 MDRO Source:: Bronch wash Past Surgical History: Appendectomy, Cardiac Valve Replacement, Heart Catheterization With Stent, Hernia Repair, Prostate Surgery, Tonsillectomy Additional Past Surgical History / Comment(s): TURP, sub-mucous resection to improve breathing, turbinate reduction, 4 cardiac stents, payam cataract surgery, hernia repair x3 , TAVR-aortic valve replacment 03/2020,hernia repair x3 Past Anesthesia/Blood Transfusion Reactions: Motion Sickness Additional Past Anesthesia/Blood Transfusion Reaction / Comment(s): vertigo Date of Last Stent Placement:: 2012 Past Psychological History: No Psychological Hx Reported Additional Psychological History / Comment(s): . Smoking Status: Former smoker Past Alcohol Use History: None Reported Additional Past Alcohol Use History / Comment(s): Pt started smoking in 1950 and quit in 1970. He was a 3 1/2 ppd smoker. Past Drug Use History: None Reported - Past Family History Father Additional Family Medical History / Comment(s): Father had a severe CVA and of this at age 80 yrs. Mother Additional Family Medical History / Comment(s): Mother had an enlarged heart and at age 90. Sister(s) Family Medical History: Cancer Medications and Allergies Home Medications Medication Instructions Recorded Confirmed Type Aspirin EC [Ecotrin Low Dose] 81 mg PO DAILY 07/05/15 11/19/20 History Ubidecarenone [Co Q-10] 100 mg PO DAILY 07/05/15 11/19/20 History Clopidogrel [Plavix] 75 mg PO MOWEFR 05/25/16 11/19/20 History Carvedilol [Coreg] 3.125 mg PO BID 06/19/17 11/19/20 History Multivitamins, Thera [Multivitamin 1 tab PO DAILY 03/28/18 11/19/20 History (formulary)] polyethylene glycoL 3350 [Miralax] 17 gm PO HS 03/28/18 11/19/20 History Chlorthalidone [Hygroton] 25 mg PO DIRECTED 06/13/20 11/19/20 History Losartan Potassium [Cozaar] 50 mg PO DIRECTED 06/13/20 11/19/20 History Cyanocobalamin (Vitamin B-12) 5,000 mcg PO DAILY 06/14/20 11/19/20 History [Vitamin B-12] guaiFENesin [Mucinex] 1,200 mg PO TID 06/14/20 11/19/20 History Ascorbic Acid [Vitamin C] 1,000 mg PO DAILY 10/10/20 11/19/20 History Acetaminophen [Tylenol Arthritis] 650 mg PO Q8H PRN 11/19/20 11/19/20 History Cholecalciferol (Vitamin D3) 125 mcg PO DAILY 11/19/20 11/19/20 History [Vitamin D3 (5000 Iu)] Furosemide [Lasix] 40 mg PO BID PRN 11/19/20 11/19/20 History Allergies Allergy/AdvReac Type Severity Reaction Status Date / Time meperidine [From Demerol] Allergy Unknown Verified 11/19/20 10:21 Childhood ciprofloxacin [From Cipro] AdvReac joint Verified 11/19/20 10:21 problems diphenhydramine HCl AdvReac "felt like Verified 11/19/20 10:21 [From Benadryl] I was dying" steroids AdvReac "Not sure Uncoded 11/19/20 10:21 of steroids""angina" Physical Exam Vitals: Vital Signs Temp Pulse Pulse Resp BP BP Pulse Ox 11/20/20 09:06 98.2 F 95 18 106/55 94 L 11/20/20 08:44 92 11/20/20 08:35 91 11/20/20 08:21 92 94 L 11/20/20 04:00 95 18 124/76 94 L 11/20/20 00:00 97 18 124/79 98 11/19/20 20:18 90 11/19/20 20:05 88 11/19/20 20:00 98.4 F 96 18 124/70 93 L 11/19/20 17:00 100 18 133/70 96 11/19/20 16:31 90 11/19/20 16:16 88 11/19/20 14:00 105 H 18 11/19/20 13:55 98.6 F 105 H 18 130/60 97 11/19/20 13:35 98.3 F 100 20 146/86 93 L 11/19/20 11:36 94 20 125/79 93 L 11/19/20 11:09 87 11/19/20 11:04 88 11/19/20 10:53 94 11/19/20 10:35 22 11/19/20 10:19 98.3 F 88 22 139/77 94 L Intake and Output 11/19/20 11/20/20 11/20/20 22:59 06:59 14:59 Intake Total 600 480 240 Balance 600 480 240 Intake: Oral 600 480 240 Other: Voiding Method Toilet Toilet # Voids 2 Weight 74.8 kg GENERAL EXAM: Alert, very pleasant, 85-year-old white male, on room air, with a pulse ox 97% comfortable in no apparent distress. HEAD: Normocephalic/atraumatic. EYES: Normal reaction of pupils, equal size. Conjunctiva pink, sclera white. NOSE: Clear with pink turbinates. THROAT: No erythema or exudates. NECK: No masses, no JVD, no thyroid enlargement, no adenopathy. CHEST: No chest wall deformity. Symmetrical expansion. LUNGS: Equal air entry with no crackles, wheeze, rhonchi or dullness. CVS: Regular rate and rhythm, normal S1 and S2, no gallops, no murmurs, no rubs ABDOMEN: Soft, nontender. No hepatosplenomegaly, normal bowel sounds, no guarding or rigidity. EXTREMITIES: No clubbing, trace edema, no cyanosis, 2+ pulses and upper and lower extremities. MUSCULOSKELETAL: Muscle strength and tone normal. SPINE: No scoliosis or deformity SKIN: No rashes CENTRAL NERVOUS SYSTEM: Alert and oriented -3. No focal deficits, tone is normal in all 4 extremities. PSYCHIATRIC: Alert and oriented -3. Appropriate affect. Intact judgment and insight. Results - Laboratory Findings CBC and BMP: 11/20/20 08:06 11/20/20 08:06 ABG WBC 10.1 k/uL (3.8-10.6) 11/20/20 08:06 RBC 3.15 m/uL (4.30-5.90) L 11/20/20 08:06 Hgb 10.8 gm/dL (13.0-17.5) L 11/20/20 08:06 Hct 30.8 % (39.0-53.0) L 11/20/20 08:06 MCV 97.7 fL (80.0-100.0) 11/20/20 08:06 MCH 34.2 pg (25.0-35.0) 11/20/20 08:06 MCHC 35.0 g/dL (31.0-37.0) 11/20/20 08:06 RDW 13.2 % (11.5-15.5) 11/20/20 08:06 Plt Count 194 k/uL (150-450) 11/20/20 08:06 MPV 7.5 11/20/20 08:06 Neutrophils % 91 % 11/20/20 08:06 Lymphocytes % 6 % 11/20/20 08:06 Monocytes % 4 % 11/20/20 08:06 Eosinophils % 0 % 11/20/20 08:06 Basophils % 0 % 11/20/20 08:06 Neutrophils # 9.1 k/uL (1.3-7.7) H 11/20/20 08:06 Lymphocytes # 0.6 k/uL (1.0-4.8) L 11/20/20 08:06 Monocytes # 0.4 k/uL (0-1.0) 11/20/20 08:06 Eosinophils # 0.0 k/uL (0-0.7) 11/20/20 08:06 Basophils # 0.0 k/uL (0-0.2) 11/20/20 08:06 PT 10.2 sec (9.0-12.0) 11/19/20 10:35 INR 0.9 (<1.2) 11/19/20 10:35 APTT 20.8 sec (22.0-30.0) L 11/19/20 10:35 Sodium 139 mmol/L (137-145) 11/20/20 08:06 Potassium 3.6 mmol/L (3.5-5.1) 11/20/20 08:06 Chloride 102 mmol/L (98-107) 11/20/20 08:06 Carbon Dioxide 28 mmol/L (22-30) 11/20/20 08:06 Anion Gap 9 mmol/L 11/20/20 08:06 BUN 45 mg/dL (9-20) H 11/20/20 08:06 Creatinine 1.11 mg/dL (0.66-1.25) 11/20/20 08:06 Est GFR (CKD-EPI)AfAm 70 (>60 ml/min/1.73 sqM) 11/20/20 08:06 Est GFR (CKD-EPI)NonAf 60 (>60 ml/min/1.73 sqM) 11/20/20 08:06 Glucose 172 mg/dL (74-99) H 11/20/20 08:06 POC Glucose (mg/dL) 162 mg/dL (75-99) H 11/20/20 05:56 POC Glu Press Clipper ID Helen Lowery 11/20/20 05:56 Plasma Lactic Acid Ke 1.1 mmol/L (0.7-2.0) 11/19/20 10:35 Calcium 8.8 mg/dL (8.4-10.2) 11/20/20 08:06 Magnesium 2.3 mg/dL (1.6-2.3) 11/20/20 08:06 Total Bilirubin 0.4 mg/dL (0.2-1.3) 11/19/20 10:35 AST 31 U/L (17-59) 11/19/20 10:35 ALT 19 U/L (4-49) 11/19/20 10:35 Alkaline Phosphatase 43 U/L (38-126) 11/19/20 10:35 Troponin I 0.040 ng/mL (0.000-0.034) H* 11/19/20 17:19 NT-Pro-B Natriuret Pep 464 pg/mL 11/19/20 10:35 Total Protein 6.0 g/dL (6.3-8.2) L 11/19/20 10:35 Albumin 3.5 g/dL (3.5-5.0) 11/19/20 10:35 Coronavirus (PCR) Not Detected (Not Detectd) 11/19/20 10:46 PT/INR, D-dimer PT 10.2 sec (9.0-12.0) 11/19/20 10:35 INR 0.9 (<1.2) 11/19/20 10:35 Abnormal lab findings: Abnormal Labs 11/19/20 11/19/20 11/19/20 10:35 10:35 10:35 WBC 14.0 H RBC 3.12 L Hgb 10.8 L Hct 30.2 L Neutrophils # 11.9 H Lymphocytes # 0.7 L APTT 20.8 L BUN 41 H Glucose 124 H POC Glucose (mg/dL) Troponin I Total Protein 6.0 L 11/19/20 11/19/20 11/19/20 10:35 17:11 17:19 WBC RBC Hgb Hct Neutrophils # Lymphocytes # APTT BUN Glucose POC Glucose (mg/dL) 230 H Troponin I 0.058 H* 0.040 H* Total Protein 11/19/20 11/20/20 11/20/20 20:28 05:56 08:06 WBC RBC 3.15 L Hgb 10.8 L Hct 30.8 L Neutrophils # 9.1 H Lymphocytes # 0.6 L APTT BUN Glucose POC Glucose (mg/dL) 175 H 162 H Troponin I Total Protein 11/20/20 08:06 WBC RBC Hgb Hct Neutrophils # Lymphocytes # APTT BUN 45 H Glucose 172 H POC Glucose (mg/dL) Troponin I Total Protein Assessment and Plan Plan: #1. COPD with recurrent exacerbation recurrent respiratory tract infections. Since the beginning of this year, the patient has had 2 bronchoscopies. First bronchoscopy in June 2020 was negative for any microbial growth. Second bronchoscopy that was done in October 2020 showed Serratia marcescens and the patient was treated with Levaquin outpatient basis. He had a recent hospitalization to [facility]. The patient was treated and he was discharged home. This was not related to any respiratory complication and seems to be more so of a cardiac related. For now, his chest x-ray showing chronic COPD and scarring. Reviewed the most recent CAT scan of the chest that was done in November 2020 and it shows COPD and limited scarring in the lung bases and some limited bronchiectasis. The patient is coming in for another exacerbation. #2. Limited bronchiectasis involving the lung bases along with some limited scarring probably related to recurrent respiratory tract infections #3. COPD #4. Status post recent aortic valve replacement at [facility] on 04/22/2020 #5. History of atrial fibrillation #6. Coronary artery disease #7. Fibromyalgia #8. GERD/reflux Plan: Will reduce the Lasix to once a day 40 mg IV regarding his lower extremity edema We'll put the patient IV cefepime 2 g every 12 hours We'll put the patient on Solu-Medrol 40 mg every 8 hours Resume all medications DuoNeb nebulized treatments around the clock Check pro-calcitonin level Obtain a sputum sample if possible We'll continue to follow
[2020-11-20] MEDS: methylPREDNISolone SOD SUCCI 40 MG/ML 1 ML VIAL IV SCH ×3 (12:08→23:19)
[2020-11-20] MEDS: CEFEPIME 2 GM in SODIUM CHLORIDE 0.9% 100 ML IVPB SCH ×2 (12:08→21:20)
--- NOTE | 2020-11-20 12:23 | P.CRDCN ---
History of Present Illness Consult date: 11/20/20 History of present illness: HISTORY OF PRESENT ILLNESS: This is a 85-year-old male with a past medical history significant for paroxysmal atrial fibrillation not on long-term intake regulation, TAVR in 2019, coronary artery disease with previous stenting 4, COPD, hypertension, and hyperlipidemia. Patient follows with a broker assistant at [facility]. We have been asked to see the patient in consultation for abnormal troponin. Patient examined at the bedside. Patient states he was recently at [facility]. He states he was discharged home Saturday and on he started having symptoms of shortness of breath, congestion, and cough. Patient denies any chest pain or pressure. Patient does have a history of atrial fibrillation. Patient states he was on Coumadin for a while but this was discontinued by his broker assistant as he "no longer needed it". EKG reveals sinus mechanism. Right bundle branch block. Chest xray chronic changes without acute pulmonary process Laboratory data: WBC 10.1. Hemoglobin 10.8. Platelet count 194. Sodium 139. Potassium 3.6. BUN 45. Creatinine 1.11. Troponin 0.05. 0.04. Current home cardiac medications include losartan 50 mg daily, Plavix 75 mg Saturday, Lasix 40 mg twice a day, aspirin 81 mg daily, Coreg 3.125mg twice a day REVIEW OF SYSTEMS: At the time of my exam: CONSTITUTIONAL: Denies fever or chills. HEENT: Denies blurred vision, vision changes, or eye pain. Denies hemoptysis CARDIOVASCULAR: Denies chest pain. Denies orthopnea. Denies PND. Denies palpitations RESPIRATORY: + shortness of breath. GASTROINTESTINAL: Denies abdominal pain. Denies nausea or vomiting. HEMATOLOGIC: Denies bleeding disorders. GENITOURINARY: Denies any blood in urine. SKIN: Denies pruitis. Denies rash. PHYSICAL EXAM: VITAL SIGNS: Reviewed. GENERAL: Well-developed in no acute distress. HEENT: Head is normocephalic. Pupils are equal, round. Sclerae anicteric. Mucous membranes of the mouth are moist. Neck supple. No JVD or thyromegaly LUNGS: Respirations even and unlabored. Lungs diminished bilaterally. HEART: Regular rate and rhythm. S1 and S2 heard. ABDOMEN: Soft. Nondistended. Nontender. EXTREMITIES: Normal range of motion. No clubbing or cyanosis. Peripheral pulses intact. Trace bilateral lower extremity edema NEUROLOGIC: Awake and alert. Oriented x 3. ASSESSMENT: Acute exacerbation of COPD Bronchiectasis Abnormal troponins, not suggestive of acute coronary syndrome History of TAVR, 2019 Coronary artery disease with previous stenting 4 Paroxysmal atrial fibrillation, not on long-term anticoagulation GERD PLAN: Obtain records from patients broker assistant and recent hospitalization at [facility]. Unsure why patient is not on long-term anticoagulation or why his plavix his dosed at 3 times a week. Hopefully will get more information from reviewing patients records from outside facility. Continue additional home cardiac medications Begin atorvastatin. Obtain lipid panel Continue IV Lasix for lower extremity edema Obtain 2-D echo to assess cardiac structure and function Further recommendations pending patient's course Nurse practitioner note has been reviewed by physician. Signing provider agrees with the documented findings, assessment, and plan of care. Past Medical History Past Medical History: Atrial Fibrillation, Coronary Artery Disease (CAD), COPD, Fibromyalgia, GERD/Reflux, Hyperlipidemia, Hypertension, Myocardial Infarction ([place]), Pneumonia, Thyroid Disorder Additional Past Medical History / Comment(s): Received covid vaccine, hx gout, increase difficulty clearing lungs at night-occ. sleeping in chair to sleep, essential tremors, frequent cough, SOB, vertigo Last Myocardial Infarction Date:: unkn-silent History of Any Multi-Drug Resistant Organisms: MRSA Date of last positivie culture/infection: 04/23/19 MDRO Source:: Bronch wash Past Surgical History: Appendectomy, Cardiac Valve Replacement, Heart Catheterization With Stent, Hernia Repair, Prostate Surgery, Tonsillectomy Additional Past Surgical History / Comment(s): TURP, sub-mucous resection to improve breathing, turbinate reduction, 4 cardiac stents, payam cataract surgery, hernia repair x3 , TAVR-aortic valve replacment 03/2020,hernia repair x3 Past Anesthesia/Blood Transfusion Reactions: Motion Sickness Additional Past Anesthesia/Blood Transfusion Reaction / Comment(s): vertigo Date of Last Stent Placement:: 2012 Past Psychological History: No Psychological Hx Reported Additional Psychological History / Comment(s): . Smoking Status: Former smoker Past Alcohol Use History: None Reported Additional Past Alcohol Use History / Comment(s): Pt started smoking in 1950 and quit in 1970. He was a 3 1/2 ppd smoker. Past Drug Use History: None Reported - Past Family History Father Additional Family Medical History / Comment(s): Father had a severe CVA and of this at age 80 yrs. Mother Additional Family Medical History / Comment(s): Mother had an enlarged heart and at age 90. Sister(s) Family Medical History: Cancer Medications and Allergies Home Medications Medication Instructions Recorded Confirmed Type Aspirin EC [Ecotrin Low Dose] 81 mg PO DAILY 07/05/15 11/19/20 History Ubidecarenone [Co Q-10] 100 mg PO DAILY 07/05/15 11/19/20 History Clopidogrel [Plavix] 75 mg PO MOWEFR 05/25/16 11/19/20 History Carvedilol [Coreg] 3.125 mg PO BID 06/19/17 11/19/20 History Multivitamins, Thera [Multivitamin 1 tab PO DAILY 03/28/18 11/19/20 History (formulary)] polyethylene glycoL 3350 [Miralax] 17 gm PO HS 03/28/18 11/19/20 History Chlorthalidone [Hygroton] 25 mg PO DIRECTED 06/13/20 11/19/20 History Losartan Potassium [Cozaar] 50 mg PO DIRECTED 06/13/20 11/19/20 History Cyanocobalamin (Vitamin B-12) 5,000 mcg PO DAILY 06/14/20 11/19/20 History [Vitamin B-12] guaiFENesin [Mucinex] 1,200 mg PO TID 06/14/20 11/19/20 History Ascorbic Acid [Vitamin C] 1,000 mg PO DAILY 10/10/20 11/19/20 History Acetaminophen [Tylenol Arthritis] 650 mg PO Q8H PRN 11/19/20 11/19/20 History Cholecalciferol (Vitamin D3) 125 mcg PO DAILY 11/19/20 11/19/20 History [Vitamin D3 (5000 Iu)] Furosemide [Lasix] 40 mg PO BID PRN 11/19/20 11/19/20 History Allergies Allergy/AdvReac Type Severity Reaction Status Date / Time meperidine [From Demerol] Allergy Unknown Verified 11/19/20 10:21 Childhood ciprofloxacin [From Cipro] AdvReac joint Verified 11/19/20 10:21 problems diphenhydramine HCl AdvReac "felt like Verified 11/19/20 10:21 [From Benadryl] I was dying" steroids AdvReac "Not sure Uncoded 11/19/20 10:21 of steroids""angina" Physical Exam Vitals: Vital Signs Temp Pulse Pulse Resp BP BP Pulse Ox 11/20/20 12:02 89 11/20/20 12:00 66 18 125/62 96 11/20/20 11:52 88 11/20/20 09:06 98.2 F 95 18 106/55 94 L 11/20/20 08:44 92 11/20/20 08:35 91 11/20/20 08:21 92 94 L 11/20/20 04:00 95 18 124/76 94 L 11/20/20 00:00 97 18 124/79 98 11/19/20 20:18 90 11/19/20 20:05 88 11/19/20 20:00 98.4 F 96 18 124/70 93 L 11/19/20 17:00 100 18 133/70 96 11/19/20 16:31 90 11/19/20 16:16 88 11/19/20 14:00 105 H 18 11/19/20 13:55 98.6 F 105 H 18 130/60 97 11/19/20 13:35 98.3 F 100 20 146/86 93 L Intake and Output 11/19/20 11/20/20 11/20/20 22:59 06:59 14:59 Intake Total 600 480 240 Balance 600 480 240 Intake: Oral 600 480 240 Other: Voiding Method Toilet Toilet # Voids 2 Weight 74.8 kg Results 11/20/20 08:06 11/20/20 08:06 Cardiac Enzymes 11/19/20 Range/Units 17:19 Troponin I 0.040 H* (0.000-0.034) ng/mL CBC 11/20/20 Range/Units 08:06 WBC 10.1 (3.8-10.6) k/uL RBC 3.15 L (4.30-5.90) m/uL Hgb 10.8 L (13.0-17.5) gm/dL Hct 30.8 L (39.0-53.0) % Plt Count 194 (150-450) k/uL Comprehensive Metabolic Panel 11/20/20 Range/Units 08:06 Sodium 139 (137-145) mmol/L Potassium 3.6 (3.5-5.1) mmol/L Chloride 102 (98-107) mmol/L Carbon Dioxide 28 (22-30) mmol/L BUN 45 H (9-20) mg/dL Creatinine 1.11 (0.66-1.25) mg/dL Glucose 172 H (74-99) mg/dL Calcium 8.8 (8.4-10.2) mg/dL Current Medications Generic Name Dose Route Start Last Admin Trade Name Freq PRN Reason Stop Dose Admin Acetaminophen 650 mg 11/19/20 20:15 Acetaminophen Tab 325 Mg Tab PO Q8H PRN Pain Hydrocodone Bitart/Acetaminophen 1 each 11/19/20 20:18 Hydrocodone/Apap 5-325mg 1 Each Tab PO Q6HR PRN Pain Albuterol/Ipratropium 3 ml 11/19/20 12:26 Ipratropium-Albuterol 3 Ml Neb INHALATION RT-Q4H PRN Shortness Of Breath Or Wheezing Albuterol/Ipratropium 3 ml 11/19/20 16:00 11/20/20 11:50 Ipratropium-Albuterol 3 Ml Neb INHALATION 3 ml RT-QID DOREEN Administration Alprazolam 0.25 mg 11/19/20 20:18 Alprazolam 0.25 Mg Tab PO TID PRN Anxiety Ascorbic Acid 1,000 mg 11/20/20 09:00 11/20/20 09:22 Ascorbic Acid 500 Mg Tab PO Not Given DAILY DOREEN Aspirin 81 mg 11/20/20 09:00 11/20/20 09:09 Aspirin 81 Mg PO 81 mg DAILY DOREEN Administration Budesonide 1 mg 11/20/20 08:00 11/20/20 08:18 Budesonide 1 Mg/2 Ml Nebu INHALATION 1 mg RT-BID DOREEN Administration Carvedilol 3.125 mg 11/19/20 21:00 11/20/20 06:17 Carvedilol 3.125 Mg Tab PO 3.125 mg BID-W/MEALS DOREEN Administration Cholecalciferol 125 mcg 11/20/20 09:00 11/20/20 09:08 Cholecalciferol 25 Mcg (1000 Iu) Tablet PO 125 mcg DAILY DOREEN Administration Clopidogrel Bisulfate 75 mg 11/21/20 09:00 Clopidogrel 75 Mg Tab PO MOWEFR [facility] Cyanocobalamin 1,000 mcg 11/20/20 09:00 11/20/20 09:09 Cyanocobalamin 500 Mcg Tab PO 1,000 mcg DAILY DOREEN Administration Folic Acid 1 mg 11/20/20 12:00 Folic Acid 1 Mg Tab PO DAILY@1200 DOREEN Formoterol Fumarate 20 mcg 11/20/20 08:00 11/20/20 08:18 Formoterol Fumarate 20 Mcg/2 Ml Nebu INHALATION 20 mcg RT-BID DOREEN Administration Furosemide 40 mg 11/21/20 09:00 Furosemide 10 Mg/Ml 4 Ml Vial IV DAILY DOREEN Guaifenesin 1,200 mg 11/19/20 22:00 11/20/20 09:09 Guaifenesin 600 Mg Tablet.Er PO 1,200 mg TID DOREEN Administration Heparin Sodium (Porcine) 5,000 unit 11/19/20 21:00 11/20/20 09:09 Heparin Sodium,Porcine/Pf 5,000 Unit/0.5 Ml Syringe SQ Not Given Q12HR DOREEN Cefepime HCl 2 gm/ Sodium 100 mls @ 25 mls/hr 11/20/20 10:30 11/20/20 12:08 Chloride IVPB 25 mls/hr Q12HR DOREEN Administration Insulin Aspart 0 unit 11/19/20 17:30 11/20/20 06:17 Insulin Aspart (Novolog) 100 Unit/Ml Vial SQ 3 unit ACHS DOREEN Administration Protocol Methylprednisolone Sodium Succinate 40 mg 11/20/20 10:30 11/20/20 12:08 Methylprednisolone Sod Succi 40 Mg/Ml 1 Ml Vial IV 40 mg Q8HR DOREEN Administration Miscellaneous Information 1 each 11/19/20 20:17 Magnesium Replacement Protocol 1 Each Misc MISCELLANE DAILY PRN Per Protocol Protocol Miscellaneous Information 1 each 11/19/20 20:17 Potassium Replacement Protocol 1 Each Misc MISCELLANE DAILY PRN Per Protocol Protocol Multivitamins 1 each 11/20/20 09:00 11/20/20 09:09 Multivitamins, Thera 1 Each Tab PO 1 each DAILY DOREEN Administration Pantoprazole Sodium 40 mg 11/20/20 07:30 11/20/20 06:25 Pantoprazole 40 Mg Tablet PO Not Given AC-BRKFST DOREEN Polyethylene Glycol 17 gm 11/19/20 21:00 11/19/20 20:54 Polyethylene Glycol 3350 17 Gm Powd.Pack PO 17 gm HS DOREEN Administration Psyllium Hydrophilic Mucilloid 6 gm 11/19/20 21:15 11/19/20 21:10 Psyllium Husk 100% 6 Gm Packet PO 6 gm HS DOREEN Administration Intake and Output 11/19/20 11/20/20 11/20/20 22:59 06:59 14:59 Intake Total 600 480 240 Balance 600 480 240 Intake: Oral 600 480 240 Other: Voiding Method Toilet Toilet # Voids 2 Weight 74.8 kg 11/20/20 08:06 11/20/20 08:06
[2020-11-20 12:36] LABS: Glucose,Whole Blood 190 mg/dL (75-99)
[2020-11-20] MEDS: FOLIC ACID 1 MG TAB PO SCH (12:59)
[2020-11-20 17:21] LABS: Glucose,Whole Blood 270 mg/dL (75-99)
--- NOTE | 2020-11-20 19:36 | PN ---
PROGRESS NOTE DATE OF SERVICE: 11/20/2020. This 85-year-old gentleman admitted with shortness of breath and cough and sputum and possibly COPD exacerbation and purulent tracheobronchitis. Troponins also indeterminate. Cardiology following the patient closely. Bronchodilators have been adjusted at this time. The cultures are negative so far. Hemoglobin 10.5. Serum procalcitonin is 0.11. PAST MEDICAL HISTORY: Reviewed. REVIEW OF SYSTEMS: CARDIOVASCULAR system: No angina or palpitations. RESPIRATORY: As mentioned earlier. GI: As mentioned earlier. : No dysuria. NERVOUS SYSTEM: No numbness or weakness. CURRENT MEDICATIONS: Reviewed and include Tylenol, [place], DuoNeb, vitamin C, aspirin, Lipitor, Pulmicort, Coreg, Cefepime. PHYSICAL EXAM: Patient is alert and oriented times three. Pulse 108. Blood pressure 133/62, respiration 18, temperature 98.2, pulse ox 98 percent on room air. HEENT: Conjunctivae normal. NECK: No JVD. CARDIOVASCULAR: S1, S2 muffled. RESPIRATION: Breath sounds diminished in the bases. A few scattered rhonchi and crackles. Expiratory wheezing also present. ABDOMEN: Soft, nontender. LEGS: No edema. No swelling. NERVOUS SYSTEM: No focal deficits. LABS: WBC 10.9, hemoglobin 10.8. Glucose noted. The chest x-ray personally reviewed showed some chronic changes. ASSESSMENT: 1. Chronic obstructive pulmonary disease acute exacerbation with acute purulent tracheobronchitis. 2. History of bronchiectasis and tracheobronchomalacia. 3. Troponin 0.05 indeterminate rule out acute [id number]-elevation myocardial infarction. 4. Elevated procalcitonin. 5. Increased WBC. 6. Anemia, normocytic anemia of chronic disease. 7. History of atrial fibrillation. 8. History of multiple recent hospital admissions and recent bronchoscopies. 9. History of coronary artery disease. 10.History of multiple organisms grown from the sputum. 11.History of chronic obstructive pulmonary disease. 12.Fibromyalgia. 13.Gastroesophageal reflux disease. 14.Hypertension. 15.History of myocardial infarction. 16.History of hypothyroidism. 17.History of gout. 18.History of MRSA. 19.History of cardiac valve replacement. 20.History of coronary artery disease/stent. 21.History of TURP. 22.History of motion sickness. 23.History of vertigo. 24.Remote history of nicotine dependence. 25.NO CODE, NO CPR, NO VENT. RECOMMENDATIONS AND DISCUSSION: I recommend to continue current medication, continue symptomatic treatment. Otherwise, the patient was initially on cefepime by Dr. Ruvalcaba. Continue with intensive bronchodilators, steroids. Monitor blood sugars closely. Repeat labs. The current cultures are pending at this time. Guarded prognosis because of multiple complex medical issues. Further recommendations to follow. Also recommend a repeat chest x- ray tomorrow. MMODL / IJN: [id number] /
[2020-11-20 21:14] LABS: Glucose,Whole Blood 99 mg/dL (75-99)
[2020-11-20] MEDS: ATORVASTATIN 20 MG TAB PO SCH (21:17)
[2020-11-20] MEDS: PSYLLIUM HUSK 100% 6 GM PACKET PO SCH (21:21)
[2020-11-20] MEDS: polyethylene glycoL 3350 17 GM POWD.PACK PO SCH (21:21)
[2020-11-21 06:31] LABS: Glucose,Whole Blood 170 mg/dL (75-99)
[2020-11-21] MEDS: carvediloL 3.125 MG TAB PO SCH ×2 (06:35→17:44)
[2020-11-21] MEDS: INSULIN ASPART (NovoLOG) 100 UNIT/ML VIAL SQ SCH ×4 (06:35→20:11)
[2020-11-21] MEDS: PANTOPRAZOLE 40 MG TABLET PO SCH (06:36)
--- NOTE | 2020-11-21 07:12 | XR ---
EXAMINATION TYPE: XR chest 1V portable DATE OF EXAM: 11/21/2020 COMPARISON: 11/19/2020 HISTORY: COPD TECHNIQUE: Single frontal view of the chest is obtained. FINDINGS: Interval worsening of small bilateral pleural effusions. Bibasilar airspace disease appears similar. Cardiomediastinal silhouette appears similar to the prior exam. IMPRESSION: Interval worsening of small bilateral pleural effusions. Bibasilar airspace disease appears similar.
[2020-11-21] MEDS ORDERED: DILTIAZEM DRIP BOLUS FROM BAG 1 MG SOLN IV ONE (08:05)
[2020-11-21] MEDS: IPRATROPIUM-ALBUTEROL 3 ML NEB INHALATION SCH ×4 (08:28→21:14)
[2020-11-21] MEDS: FORMOTEROL FUMARATE 20 MCG/2 ML NEBU INHALATION SCH ×2 (08:28→21:14)
[2020-11-21] MEDS: BUDESONIDE 1 MG/2 ML NEBU INHALATION SCH ×2 (08:28→21:14)
[2020-11-21] MEDS ORDERED: FUROSEMIDE 10 MG/ML 4 ML VIAL IV SCH (09:00)
[2020-11-21] MEDS: APIXABAN 2.5 MG TABLET PO SCH ×2 (09:02→20:09)
[2020-11-21] MEDS: methylPREDNISolone SOD SUCCI 40 MG/ML 1 ML VIAL IV SCH ×3 (09:02→23:23)
[2020-11-21] MEDS: guaiFENesin 600 MG TABLET.ER PO SCH ×3 (09:02→20:09)
[2020-11-21] MEDS: CLOPIDOGREL 75 MG TAB PO SCH (09:03)
[2020-11-21] MEDS: CEFEPIME 2 GM in SODIUM CHLORIDE 0.9% 100 ML IVPB SCH ×2 (09:03→20:09)
[2020-11-21] MEDS: ASCORBIC ACID 500 MG TAB PO SCH (09:03)
[2020-11-21] MEDS: CHOLECALCIFEROL 25 MCG (1000 IU) TABLET PO SCH (09:03)
[2020-11-21] MEDS: CYANOCOBALAMIN 500 MCG TAB PO SCH (09:03)
[2020-11-21] MEDS: MULTIVITAMINS, THERA 1 EACH TAB PO SCH (09:04)
[2020-11-21 09:20] LABS: Basophils % (A) 0 %; Eosinophils % (A) 0 %; HCT 30.3 % (39.0-53.0); HGB 10.6 gm/dL (13.0-17.5); Lymphocytes # (A) 0.4 k/uL (1.0-4.8); Lymphocytes % (A) 3 %; MCH 33.8 pg (25.0-35.0); MCV 96.7 fL (80.0-100.0); Mean Platelet Volume 7.4; Monocytes # (A) 0.5 k/uL (0-1.0); Monocytes % (A) 4 %; Neutrophils # (A) 11.6 k/uL (1.3-7.7); Neutrophils % (A) 92 %; Platelet Count 218 k/uL (150-450); RBC 3.14 m/uL (4.30-5.90); RDW 13.2 % (11.5-15.5); WBC 12.6 k/uL (3.8-10.6)
[2020-11-21 09:43] LABS: Potassium 3.5 mmol/L (3.5-5.1)
[2020-11-21] MEDS: DILTIAZEM 125 MG in SODIUM CHLORIDE 0.9% 100 ML IV SCH ×2 (09:52→23:52)
[2020-11-21] MEDS: FUROSEMIDE 40 MG TAB PO SCH (10:54)
[2020-11-21 12:43] LABS: Glucose,Whole Blood 164 mg/dL (75-99)
[2020-11-21] MEDS: FOLIC ACID 1 MG TAB PO SCH (12:46)
--- NOTE | 2020-11-21 13:55 | P.PN ---
Subjective Progress Note Date: 11/21/20 Principal diagnosis: Acute exacerbation of COPD 75-year-old male patient with known history of COPD, steroid-dependent on a maintenance of 5 mg of prednisone a daily basis was been having recurrent exacerbations and ongoing respiratory infections. The patient is coming in for emergency department because of increased cough dyspnea congestion and wheeze. Noted the patient was in the hospital back in general 2020. At that time the patient had a bronchoscopy and the bronchioloalveolar lavage and the cultures came back negative for any microbial growth. Subsequently, he was seen by my partner and he had another bronchoscopy on 10/12/2020 and the patient was found to have Serratia marcescens and the patient was given Levaquin. He also had some Deirdre albicans. He did well after the treatment and his symptoms recurred. His chest x-ray is showing chronic COPD. No active airspace disease. The patient is afebrile. White cell count is at 10.1. COVID-19 testing done several occasions came back negative. Rest of the blood work essentially within normal limits. Troponins of 0.04. The patient which has recently hospitalized at [facility] in [place] and the patient was found to have decompensated heart failure. He was further investigated. He was kept off on his diuretics and he does have some mild edema in his lower extremities bilaterally. His last CAT scan of the chest that was done on 11/02/2020 showed no evidence of any pulmonary embolism. Some chronic bibasilar bronchiectasis and some minimal posterior subpleural groundglass infiltrates and extensive subpleural reticulation involving the mid and lower lung hart bilaterally con sistent with recurrent infections. He is comorbid conditions include CVA, atrial fibrillation, fibromyalgia, aortic valve disease with a recent transcatheter aortic valve replacement and history of acid reflux. On 11/21/2020 patient seen in follow-up on selective care unit, he sitting up in a chair, denies any acute distress, he is currently on room air and a pulse ox of 95%, no fever or chills, no complaints of chest discomfort, however patient still feels short of breath. He remains in atrial fibrillation however his rate has become more tachycardic, and his A. fib is not very well controlled at the moment. His current rate is 129-140 BPM, he was started on Cardizem infusion at 7.5 mg per hour. He is also on Eliquis a 2.5 mg daily. He is on oral Lasix at 40 mg once daily, IV steroids at 40 mg every 8 hours, and nebulized treatments in addition to cefepime. He's had no fever or chills, today's labs have been reviewed showing white blood cell count of 12.6, hemoglobin is 10.6, e lectrolytes are within normal limits, BUN is 50 creatinine 0.98. Pro-calcitonin level came back negative at 0.11, assessing abscess of bacterial infection, patient tested negative for COVId 19. Trace edema involving the lower extremities, no significant wheezing on today's exam. No hemoptysis Objective - Vital Signs Vital signs: Vital Signs Temp 98.2 F 11/20/20 23:20 Pulse 128 H 11/21/20 12:34 Resp 18 11/21/20 12:34 BP 108/75 11/21/20 12:34 Pulse Ox 95 11/21/20 12:34 Intake & Output 11/20/20 11/21/20 11/21/20 18:59 06:59 18:59 Intake Total 720 240 Output Total 850 Balance 720 -610 Intake: Oral 720 240 Output: Urine 850 Other: Voiding Method Toilet Toilet - Exam GENERAL EXAM: Alert, very pleasant, 85-year-old white male, on room air, the pulse ox of 95% comfortable in no apparent distress. HEAD: Normocephalic/atraumatic. EYES: Normal reaction of pupils, equal size. Conjunctiva pink, sclera white. NOSE: Clear with pink turbinates. THROAT: No erythema or exudates. NECK: No masses, no JVD, no thyroid enlargement, no adenopathy. CHEST: No chest wall deformity. Symmetrical expansion. LUNGS: Equal air entry with diminished breath sounds, mild bibasilar crackles CVS: Irregular rate and rhythm, normal S1 and S2, no gallops, no murmurs, no rubs ABDOMEN: Soft, nontender. No hepatosplenomegaly, normal bowel sounds, no guarding or rigidity. EXTREMITIES: No clubbing, trace edema involving lower extremities no cyanosis, 2+ pulses and upper and lower extremities. MUSCULOSKELETAL: Muscle strength and tone normal. SPINE: No scoliosis or deformity SKIN: No rashes CENTRAL NERVOUS SYSTEM: Alert and oriented -3. No focal deficits, tone is normal in all 4 extremities. PSYCHIATRIC: Alert and oriented -3. Appropriate affect. Intact judgment and insight. - Labs CBC & Chem 7: 11/21/20 07:45 11/21/20 07:45 Labs: Abnormal Lab Results - Last 24 Hours (Table) 11/20/20 11/20/20 11/21/20 Range/Units 08:06 16:59 06:17 WBC (3.8-10.6) k/uL RBC (4.30-5.90) m/uL Hgb (13.0-17.5) gm/dL Hct (39.0-53.0) % Neutrophils # (1.3-7.7) k/uL Lymphocytes # (1.0-4.8) k/uL BUN (9-20) mg/dL Glucose (74-99) mg/dL POC Glucose (mg/dL) 270 H 170 H (75-99) mg/dL Procalcitonin 0.11 H (0.02-0.09) ng/mL 11/21/20 11/21/20 11/21/20 Range/Units 07:45 07:45 12:41 WBC 12.6 H (3.8-10.6) k/uL RBC 3.14 L (4.30-5.90) m/uL Hgb 10.6 L (13.0-17.5) gm/dL Hct 30.3 L (39.0-53.0) % Neutrophils # 11.6 H (1.3-7.7) k/uL Lymphocytes # 0.4 L (1.0-4.8) k/uL BUN 50 H (9-20) mg/dL Glucose 125 H (74-99) mg/dL POC Glucose (mg/dL) 164 H (75-99) mg/dL Procalcitonin (0.02-0.09) ng/mL Assessment and Plan Plan: Assessment: #1. COPD with recurrent exacerbation recurrent respiratory tract infections. Since the beginning of this year, the patient has had 2 bronchoscopies. First bronchoscopy in June 2020 was negative for any microbial growth. Second bronchoscopy that was done in October 2020 showed Serratia marcescens and the patient was treated with Levaquin outpatient basis. He had a recent hospitalization to [facility]. The patient was treated and he was discharged home. This was not related to any respiratory complication and seems to be more so of a cardiac related. For now, his chest x-ray showing chronic COPD and scarring. Reviewed the most recent CAT scan of the chest that was done in November 2020 and it shows COPD and limited scarring in the lung bases and some limited bronchiectasis. The patient is coming in for another exacerbation. #2. Limited bronchiectasis involving the lung bases along with some limited scarring probably related to recurrent respiratory tract infections #3. COPD #4. Status post recent aortic valve replacement at [facility] on 04/22/2020 #5. History of atrial fibrillation #6. Coronary artery disease #7. Fibromyalgia #8. GERD/reflux #9. A. fib with RVR, currently on Cardizem infusion at 7.5 mg per hour, and Eliquis Plan: Continue current medical treatment Continue current antibiotics, patient is currently on cefepime, and his most recent bronchoscopy with BAL revealed evidence of Serratia marcescens, and patient has had pseudomonal pulmonary infections in the past Patient is currently in A. fib with RVR which could be contributing to his shortness of breath Rate control medications and anticoagulation per cardiology Continue breathing treatments We'll continue to follow I performed a history & physical examination of the patient and discussed their management with my nurse practitioner, Monse Castro. I reviewed the nurse practitioner's note and agree with the documented findings and plan of care. Lung sounds are positive for diminished breath sounds. The findings and the impression was discussed with the patient. I attest to the documentation by the nurse practitioner. Time with Patient: Less than 30
[2020-11-21 15:10] LABS: Chol/HDL Ratio 2.56; LDL Cholesterol,Calculated 84.4 mg/dL (0.0-131.0); VLDL Calculation 13.6 mg/dL (5.00-40.00)
--- NOTE | 2020-11-21 15:12 | P.PN ---
Subjective This is a 85-year-old male with a past medical history significant for paroxysmal atrial fibrillation not on long-term anticoaulation, severe aortic stenosis s/p TAVR in March 2020, coronary artery disease with previous stenting 4, COPD, hypertension, COPD, and hyperlipidemia. Patient follows with Dr. Leung at [facility]. We have been asked to see the patient in consultation for abnormal troponin. Patient states he was recently at [facility] on 11/13/2020, presented with shortness of breath, congestion, and cough. Patient underwent echocardiogram on 11/14/2020 which revealed left ventricular size, wall thickness and systolic function is normal with EF 65-70%, normal functioning bioprosthetic aortic valve with no significant aortic stenosis, mild tricuspid regurgitation, mild mitral regurgitation, normal pericardium without effusion. EKG at [facility] patient was in sinus mechanism with occasional PVCs, and right bundle branch block. At that time patient's dyspnea was likely multifactorial related to either CHF vs. COPD, however at that time patient had a normal BNP and chest xray and it was thought that patient's symptoms were due to COPD vs acute kidney injury (his serum creatinine was 2.1) and his Losartan was held. His troponin at [facility] was 0.042. Patient states he was on Coumadin for a while but this was discontinued by his hay baler as he "no longer needed it". EKG on admission r evealed sinus mechanism. Right bundle branch block. Per [facility] note, patient was continued on Plavix 75mg saturday, saturday, saturday. 11/21/2020: Patient seen and examined at bedside, no acute distress. Overnight patient was maintaining sinus mechanism. But this a.m. patient went into atrial fibrillation with rapid ventricular response heart rate 130s-140s. He is asymptomatic, denies chest pain, shortness of breath, or palpiations. He states he hasn't gone to atrial fibrillation in 5 years. Blood pressure 115/73, heart rate 138, afebrile, maintaining oxygen saturations on room air. Laboratory data reviewed to be cecal 0.6, hemoglobin 10.6, platelets 218, sodium 141, potassium 3.5, hemoglobin 15, serum creatinine 0.98. PHYSICAL EXAM: VITAL SIGNS: Reviewed. GENERAL: In no acute distress. HEENT: Head is normocephalic. Neck supple. No JVD LUNGS: Respirations even and unlabored. Lungs diminished bilaterally. HEART: Irregular tachycardic rate and rhythm. S1 and S2 heard. ABDOMEN: Soft. Nondistended. Nontender. EXTREMITIES: Normal range of motion. No clubbing or cyanosis. Peripheral pulses intact. No lower extremity edema NEUROLOGIC: Awake and alert. Oriented x 3. ASSESSMENT: Acute exacerbation of COPD Bronchiectasis Abnormal troponins, not suggestive of acute coronary syndrome History of TAVR, 2019 Coronary artery disease with previous stenting 4 Paroxysmal atrial fibrillation, not on long-term anticoagulation- [id number] score 4 GERD History of Hypertension Dyslipidemia PLAN: Patient with recent normal echocardiogram on 11/14/2020, no need to repeat echocardiogram Anticoagulation is recommended for patient, Eliquis 2.5mg BID was started. Case management consulted and patient's copay is currently $35.70/month. Will discontinue aspirin and sub heparin Will start Cardizem 10mg IV Bolus and IV drip 7.5mg/hr Continue atorvastatin 20 mg nightly, carvedilol 3.125 mg twice daily, Plavix 75 mg per home cardiac medications. Will continue to hold Losartan due to hypotension Will transition to PO Lasix Continue telemetry Further recommendations based on clinical course On discharge patient will follow up with his primary hay baler Dr. Leung Nurse practitioner note has been reviewed by physician. Signing provider agrees with the documented findings, assessment, and plan of care. Objective - Vital Signs Vital signs: Vital Signs Temp 98.2 F 11/20/20 23:20 Pulse 128 H 11/21/20 12:34 Resp 18 11/21/20 12:34 BP 108/75 11/21/20 12:34 Pulse Ox 95 11/21/20 12:34 Intake & Output 11/20/20 11/21/20 11/21/20 18:59 06:59 18:59 Intake Total 720 480 Output Total 850 Balance 720 -370 Intake: Oral 720 480 Output: Urine 850 Other: Voiding Method Toilet Toilet - Labs CBC & Chem 7: 11/21/20 07:45 11/21/20 07:45 Labs: Abnormal Lab Results - Last 24 Hours (Table) 11/20/20 11/20/20 11/21/20 Range/Units 08:06 16:59 06:17 WBC (3.8-10.6) k/uL RBC (4.30-5.90) m/uL Hgb (13.0-17.5) gm/dL Hct (39.0-53.0) % Neutrophils # (1.3-7.7) k/uL Lymphocytes # (1.0-4.8) k/uL BUN (9-20) mg/dL Glucose (74-99) mg/dL POC Glucose (mg/dL) 270 H 170 H (75-99) mg/dL Procalcitonin 0.11 H (0.02-0.09) ng/mL 11/21/20 11/21/20 11/21/20 Range/Units 07:45 07:45 12:41 WBC 12.6 H (3.8-10.6) k/uL RBC 3.14 L (4.30-5.90) m/uL Hgb 10.6 L (13.0-17.5) gm/dL Hct 30.3 L (39.0-53.0) % Neutrophils # 11.6 H (1.3-7.7) k/uL Lymphocytes # 0.4 L (1.0-4.8) k/uL BUN 50 H (9-20) mg/dL Glucose 125 H (74-99) mg/dL POC Glucose (mg/dL) 164 H (75-99) mg/dL Procalcitonin (0.02-0.09) ng/mL
[2020-11-21 17:26] LABS: Glucose,Whole Blood 210 mg/dL (75-99)
--- NOTE | 2020-11-21 17:44 | PN ---
PROGRESS NOTE DATE OF SERVICE: 11/21/2020 INTERVAL HISTORY: This 85-year-old gentleman who was admitted with COPD exacerbation as well as bronchiectasis. Also still having significant shortness of breath and shortness of breath. The patient has empiric antibiotics, cultures are negative. No chest pain. No palpitations. No fever. PHYSICAL EXAMINATION: Alert and oriented times three. VITAL SIGNS: Pulse 95, blood pressure 130/60, respirations 16, temperature 97.8, pulse ox 94% on room air. HEENT: Conjunctivae normal. CARDIOVASCULAR: Normal. RESPIRATORY: In the bases a few scattered rhonchi and crackles. ABDOMEN: Soft nontender. LEGS: No edema. LAB STUDIES: WBC 12.2, hemoglobin 10.6. ASSESSMENT: 1. Chronic obstructive pulmonary disease exacerbation with acute purulent tracheobronchitis. 2. Bronchiectasis and tracheal bronchomalacia. 3. Troponin 0.05, indeterminate, rule out acute [id number]-elevation myocardial infarction. 4. Elevated procalcitonin. 5. Increased WBC. 6. Normocytic anemia of chronic disease, history atrial fibrillation. 7. History of multiple recent hospital admissions and recent bronchoscopies. 8. History of coronary artery disease. 9. History of multiple organisms grown from the sputum previously. 10.History of COPD. 11.Fibromyalgia. 12.GERD. 13.Hypertension. 14.History of myocardial infarction. 15.History of hypothyroidism. 16.Gout. 17.History of MRSA. 18.History of cardiac valve replacement. 19.History of coronary artery disease. 20.History of gastroesophageal reflux disease. 21.History of motion sickness, history of vertigo. 22.History of nicotine dependence. 23.No code no CPR, NO VENT. RECOMMENDATIONS AND DISCUSSION: I recommend to continue current medication, continue to monitor. Symptomatic treatment. Otherwise at this time I would recommend continue with broad-spectrum IV antibiotics and follow the cultures. Cultures are negative so far. The patient is currently on 65. We will continue to monitor. Guarded prognosis. Further following the patient with the steroids. Guarded prognosis. Further recommendations to follow. MMLÁZAROL / JUNEN: [id number] /
[2020-11-21] MEDS: PSYLLIUM HUSK 100% 6 GM PACKET PO SCH (20:09)
[2020-11-21] MEDS: polyethylene glycoL 3350 17 GM POWD.PACK PO SCH (20:09)
[2020-11-21 20:10] LABS: Glucose,Whole Blood 238 mg/dL (75-99)
[2020-11-21] MEDS: ATORVASTATIN 20 MG TAB PO SCH (20:11)
[2020-11-22 06:09] LABS: Glucose,Whole Blood 183 mg/dL (75-99)
[2020-11-22] MEDS: PANTOPRAZOLE 40 MG TABLET PO SCH (06:13)
[2020-11-22] MEDS: INSULIN ASPART (NovoLOG) 100 UNIT/ML VIAL SQ SCH ×4 (06:14→20:17)
[2020-11-22] MEDS: carvediloL 3.125 MG TAB PO SCH (06:14)
[2020-11-22] MEDS: IPRATROPIUM-ALBUTEROL 3 ML NEB INHALATION SCH ×4 (08:31→20:51)
[2020-11-22] MEDS: BUDESONIDE 1 MG/2 ML NEBU INHALATION SCH ×2 (08:31→20:50)
[2020-11-22] MEDS: FORMOTEROL FUMARATE 20 MCG/2 ML NEBU INHALATION SCH ×2 (08:31→20:50)
[2020-11-22] MEDS: ASCORBIC ACID 500 MG TAB PO SCH (08:49)
[2020-11-22] MEDS: methylPREDNISolone SOD SUCCI 40 MG/ML 1 ML VIAL IV SCH ×3 (08:50→23:21)
[2020-11-22] MEDS: CEFEPIME 2 GM in SODIUM CHLORIDE 0.9% 100 ML IVPB SCH ×2 (08:51→20:17)
[2020-11-22] MEDS: CHOLECALCIFEROL 25 MCG (1000 IU) TABLET PO SCH (08:55)
[2020-11-22] MEDS: APIXABAN 2.5 MG TABLET PO SCH ×2 (08:55→20:17)
[2020-11-22] MEDS: CYANOCOBALAMIN 500 MCG TAB PO SCH (08:55)
[2020-11-22] MEDS: guaiFENesin 600 MG TABLET.ER PO SCH ×3 (08:57→20:17)
[2020-11-22] MEDS: MULTIVITAMINS, THERA 1 EACH TAB PO SCH (08:57)
[2020-11-22 09:41] LABS: Calcium 8.8 mg/dL (8.4-10.2); Potassium 3.7 mmol/L (3.5-5.1)
[2020-11-22 11:43] LABS: Glucose,Whole Blood 211 mg/dL (75-99)
[2020-11-22] MEDS: FUROSEMIDE 40 MG TAB PO SCH (11:52)
[2020-11-22] MEDS: DILTIAZEM ORAL 60 MG TAB PO SCH ×3 (11:53→20:25)
[2020-11-22] MEDS: FOLIC ACID 1 MG TAB PO SCH (11:56)
--- NOTE | 2020-11-22 12:50 | P.PN ---
Subjective Progress Note Date: 11/22/20 Principal diagnosis: Acute exacerbation of COPD 75-year-old male patient with known history of COPD, steroid-dependent on a maintenance of 5 mg of prednisone a daily basis was been having recurrent exacerbations and ongoing respiratory infections. The patient is coming in for emergency department because of increased cough dyspnea congestion and wheeze. Noted the patient was in the hospital back in general 2020. At that time the patient had a bronchoscopy and the bronchioloalveolar lavage and the cultures came back negative for any microbial growth. Subsequently, he was seen by my partner and he had another bronchoscopy on 10/12/2020 and the patient was found to have Serratia marcescens and the patient was given Levaquin. He also had some Deirdre albicans. He did well after the treatment and his symptoms recurred. His chest x-ray is showing chronic COPD. No active airspace disease. The patient is afebrile. White cell count is at 10.1. COVID-19 testing done several occasions came back negative. Rest of the blood work essentially within normal limits. Troponins of 0.04. The patient which has recently hospitalized at [facility] in [place] and the patient was found to have decompensated heart failure. He was further investigated. He was kept off on his diuretics and he does have some mild edema in his lower extremities bilaterally. His last CAT scan of the chest that was done on 11/02/2020 showed no evidence of any pulmonary embolism. Some chronic bibasilar bronchiectasis and some minimal posterior subpleural groundglass infiltrates and extensive subpleural reticulation involving the mid and lower lung hart bilaterally con sistent with recurrent infections. He is comorbid conditions include CVA, atrial fibrillation, fibromyalgia, aortic valve disease with a recent transcatheter aortic valve replacement and history of acid reflux. On 11/21/2020 patient seen in follow-up on selective care unit, he sitting up in a chair, denies any acute distress, he is currently on room air and a pulse ox of 95%, no fever or chills, no complaints of chest discomfort, however patient still feels short of breath. He remains in atrial fibrillation however his rate has become more tachycardic, and his A. fib is not very well controlled at the moment. His current rate is 129-140 BPM, he was started on Cardizem infusion at 7.5 mg per hour. He is also on Eliquis a 2.5 mg daily. He is on oral Lasix at 40 mg once daily, IV steroids at 40 mg every 8 hours, and nebulized treatments in addition to cefepime. He's had no fever or chills, today's labs have been reviewed showing white blood cell count of 12.6, hemoglobin is 10.6, e lectrolytes are within normal limits, BUN is 50 creatinine 0.98. Pro-calcitonin level came back negative at 0.11, assessing abscess of bacterial infection, patient tested negative for COVId 19. Trace edema involving the lower extremities, no significant wheezing on today's exam. No hemoptysis On 11/22/2020 patient seen in follow-up on the surgical surgical floor. He is awake and alert, in no acute distress, he sitting up in a chair, on room air with a pulse ox of 95-96%, he is afebrile. Hemodynamically stable, he remains in atrial fibrillation, his rate is better controlled, he remains on Cardizem infusion at 7.5 mg per hour, 0.9 normal saline at a rate of 10 ML per hour, he is on antibiotics for possibility of underlying pulmonary infection. He is on oral Eliquis a 2.5 mg twice daily for atrial fibrillation. He is breathing comfortably, room air pulse ox is 95%. He remains on IV steroids at 40 mg every 8 hours, and nebulized bronchodilators. He is on oral dose Lasix 40 mg daily per cardiology. He is in -985 ML fluid balance over the last 24 hours. Objective - Vital Signs Vital signs: Vital Signs Temp 97.3 F L 11/22/20 07:50 Pulse 100 11/22/20 11:57 Resp 17 11/22/20 07:50 BP 142/70 11/22/20 07:50 Pulse Ox 95 11/22/20 07:50 Intake & Output 11/21/20 11/22/20 11/22/20 18:59 06:59 18:59 Intake Total 720 105 534 Output Total 850 960 Balance -130 -855 534 Weight 76.1 kg Intake: Intake, IV Titration 105 Amount Diltiazem 125 mg In 105 Sodium Chloride 0.9% 100 ml @ 7.5 MG/HR 7.5 mls/hr IV .[id number] [facility] Rx#: [id number] Oral 720 534 Output: Urine 850 960 Other: Voiding Method Toilet # Voids 1 - Exam GENERAL EXAM: Alert, very pleasant, 85-year-old white male, on room air, the pulse ox of 95% comfortable in no apparent distress. HEAD: Normocephalic/atraumatic. EYES: Normal reaction of pupils, equal size. Conjunctiva pink, sclera white. NOSE: Clear with pink turbinates. THROAT: No erythema or exudates. NECK: No masses, no JVD, no thyroid enlargement, no adenopathy. CHEST: No chest wall deformity. Symmetrical expansion. LUNGS: Equal air entry with diminished breath sounds, mild bibasilar crackles CVS: Irregular rate and rhythm, normal S1 and S2, no gallops, no murmurs, no rubs ABDOMEN: Soft, nontender. No hepatosplenomegaly, normal bowel sounds, no guarding or rigidity. EXTREMITIES: No clubbing, trace edema involving lower extremities no cyanosis, 2+ pulses and upper and lower extremities. MUSCULOSKELETAL: Muscle strength and tone normal. SPINE: No scoliosis or deformity SKIN: No rashes CENTRAL NERVOUS SYSTEM: Alert and oriented -3. No focal deficits, tone is normal in all 4 extremities. PSYCHIATRIC: Alert and oriented -3. Appropriate affect. Intact judgment and insight. - Labs CBC & Chem 7: 11/21/20 07:45 11/22/20 09:19 Labs: Abnormal Lab Results - Last 24 Hours (Table) 11/21/20 11/21/20 11/21/20 Range/Units 07:45 17:24 20:09 BUN (9-20) mg/dL Glucose (74-99) mg/dL POC Glucose (mg/dL) 210 H 238 H (75-99) mg/dL HDL Cholesterol 63.0 H (40.0-60.0) mg/dL 11/22/20 11/22/20 11/22/20 Range/Units 06:08 09:19 11:41 BUN 56 H (9-20) mg/dL Glucose 197 H (74-99) mg/dL POC Glucose (mg/dL) 183 H 211 H (75-99) mg/dL HDL Cholesterol (40.0-60.0) mg/dL Assessment and Plan Plan: Assessment: #1. COPD with recurrent exacerbation recurrent respiratory tract infections. Since the beginning of this year, the patient has had 2 bronchoscopies. First bronchoscopy in June 2020 was negative for any microbial growth. Second bronchoscopy that was done in October 2020 showed Serratia marcescens and the patient was treated with Levaquin outpatient basis. He had a recent hospitalization to [facility]. The patient was treated and he was discharged home. This was not related to any respiratory complication and seems to be more so of a cardiac related. For now, his chest x-ray showing chronic COPD and scarring. Reviewed the most recent CAT scan of the chest that was done in November 2020 and it shows COPD and limited scarring in the lung bases and some limited bronchiectasis. The patient is coming in for another exacerbation. #2. Limited bronchiectasis involving the lung bases along with some limited scarring probably related to recurrent respiratory tract infections #3. COPD #4. Status post recent aortic valve replacement at [facility] on 04/22/2020 #5. History of atrial fibrillation #6. Coronary artery disease #7. Fibromyalgia #8. GERD/reflux #9. A. fib with RVR, currently on Cardizem infusion at 7.5 mg per hour, and Eliquis. On today's exam on 11/22/2020 remains in A. fib better controlled rates Plan: Continue oral Lasix Continue IV steroids and bronchodilators Continue antibiotics Clinically patient is improving Follow-up chest x-ray in the morning If remains stable he may be considered for discharge home in the next 24-48 hours, as long as his been cleared by cardiology and medicine I performed a history & physical examination of the patient and discussed their management with my nurse practitioner, Monse Castro. I reviewed the nurse practitioner's note and agree with the documented findings and plan of care. Lung sounds are positive for diminished breath sounds. The findings and the impression was discussed with the patient. I attest to the documentation by the nurse practitioner. Time with Patient: Less than 30
--- NOTE | 2020-11-22 14:42 | P.PN ---
Subjective This is a 85-year-old male with a past medical history significant for paroxysmal atrial fibrillation not on long-term anticoaulation, severe aortic stenosis s/p TAVR in March 2020, coronary artery disease with previous stenting 4, COPD, hypertension, COPD, and hyperlipidemia. Patient follows with Dr. Leung at [facility]. We have been asked to see the patient in consultation for abnormal troponin. He presents to the emergency department with worsening shortness of breath, diagnosed with acute exacerbation of COPD. Patient states he was recently at [facility] on 11/13/2020, presented with shortness of breath, congestion, and cough Echocardiogram on 11/14/2020 (at [facility]) revealed left ventricular size, wall thickness and systolic function is normal with EF 65-70%, normal functioning bioprosthetic aortic valve with no significant aortic stenosis, mild tricuspid regurgitation, mild mitral regurgitation, normal pericardium without effusion. EKG at [facility] patient was in sinus mechanism with occasional PVCs, and right bundle branch block. At that time patient's dyspnea was likely multifactorial related to either CHF vs. COPD, however at that time patient had a normal BNP and chest xray and it was thought that patient's symptoms were due to COPD vs acute kidney injury (his serum creatinine was 2.1) and his Losartan was held. His troponin at [facility] was 0.042. Patient states he was on Coumadin for a while but this was discontinued by his sheet metal shop foreman as he "no longer needed it". EKG on admission revealed sinus mechanism. Right bundle branch block. Per [facility] note, patient was continued on Plavix 75mg saturday, saturday, saturday. His sheet metal shop foreman told him he could discontinue this medication, but patient was worried after his TAVR and wanted to continue the medication. 11/21/2020: Patient seen and examined at bedside, no acute distress. Overnight patient was maintaining sinus mechanism. In the morning around 730AM patient went into atrial fibrillation with rapid ventricular response heart rate 130s-140s. He is asymptomatic, denies chest pain, shortness of breath, or palpitations. 11/22/2020: Patient seen and examined at bedside, no acute distress. Sitting up in the bedside chair, at bedside. He states his breathing has much improved. Telemetry reviewed patient continues to be in atrial fibrillation with better controlled rates, heart rates 90-110. He denies chest pain, shortness of breath or palpitations. Blood pressure 116/75, heart rate 106, afebrile, maintaining saturations 94% on room air. Laboratory data reviewed, sodium 140, potassium 3 .7, BUN 56, serum creatinine 1.01. He's currently maintained on a Cardizem drip at 7.5 mg an hour, carvedilol 3.125 mg twice a day, atorvastatin 20 mg daily, Plavix 75 mg Saturday, Lasix 40 mg daily, Eliquis 2.5 mg twice a day. Pulmonary is following the patient and they're continuing IV steroids Solu-Medrol 40mg IV Q8hr, bronchodilators, and IV cefepime. PHYSICAL EXAM: VITAL SIGNS: Reviewed. GENERAL: In no acute distress. HEENT: Head is normocephalic. Neck supple. No JVD LUNGS: Respirations even and unlabored. Lungs diminished bilaterally. HEART: Irregular rate and rhythm. S1 and S2 heard. ABDOMEN: Soft. Nondistended. Nontender. EXTREMITIES: Normal range of motion. No clubbing or cyanosis. Peripheral pulses intact. No lower extremity edema NEUROLOGIC: Awake and alert. Oriented x 3. ASSESSMENT: Acute exacerbation of COPD, with recurrent respiratory infection, per Pulmonary patient has had 2 bronchoscopies since the beginning of this year. Bronchiectasis Abnormal troponins, not suggestive of acute coronary syndrome History of TAVR, 2019 Coronary artery disease with previous stenting 4 Paroxysmal atrial fibrillation, not on long-term anticoagulation- [id number] score 4 - now on Eliquis 2.5mg BID GERD History of Hypertension Dyslipidemia PLAN: Patient with recent normal echocardiogram on 11/14/2020, no need to repeat echocardiogram Anticoagulation is recommended for patient, Eliquis 2.5mg BID was started. Case management consulted and patient's copay is currently $35.70/month. Stop Cardizem Drip Start Cardizem 60mg TID Increased carvedilol 6.25mg BID Continue atorvastatin 20 mg nightly, Plavix 75 mg per home cardiac medications. Continue lasix 40mg PO daily Losartan is still on hold at this time Continue telemetry Pulmonary is following- do not recommend repeat bronchoscopy at this time. Further recommendations based on clinical course On discharge patient will follow up with his primary sheet metal shop foreman Dr. Leung Nurse practitioner note has been reviewed by physician. Signing provider agrees with the documented findings, assessment, and plan of care. Objective - Vital Signs Vital signs: Vital Signs Temp 97.9 F 11/22/20 12:00 Pulse 108 H 11/22/20 13:42 Resp 18 11/22/20 13:42 BP 116/75 11/22/20 12:00 Pulse Ox 94 L 11/22/20 12:00 Intake & Output 11/21/20 11/22/20 11/22/20 18:59 06:59 18:59 Intake Total 720 105 534 Output Total 850 960 200 Balance -130 -855 334 Weight 76.1 kg Intake: Intake, IV Titration 105 Amount Diltiazem 125 mg In 105 Sodium Chloride 0.9% 100 ml @ 7.5 MG/HR 7.5 mls/hr IV .[id number] [facility] Rx#: [id number] Oral 720 534 Output: Urine 850 960 200 Other: Voiding Method Toilet Toilet # Voids 1 1 - Labs CBC & Chem 7: 11/21/20 07:45 11/22/20 09:19 Labs: Abnormal Lab Results - Last 24 Hours (Table) 11/21/20 11/21/20 11/21/20 Range/Units 07:45 17:24 20:09 BUN (9-20) mg/dL Glucose (74-99) mg/dL POC Glucose (mg/dL) 210 H 238 H (75-99) mg/dL HDL Cholesterol 63.0 H (40.0-60.0) mg/dL 11/22/20 11/22/20 11/22/20 Range/Units 06:08 09:19 11:41 BUN 56 H (9-20) mg/dL Glucose 197 H (74-99) mg/dL POC Glucose (mg/dL) 183 H 211 H (75-99) mg/dL HDL Cholesterol (40.0-60.0) mg/dL
[2020-11-22 17:21] LABS: Glucose,Whole Blood 260 mg/dL (75-99)
[2020-11-22] MEDS: carvediloL 6.25 MG TAB PO SCH (17:35)
--- NOTE | 2020-11-22 18:10 | P.PN ---
Subjective Progress Note Date: 11/22/20 This is an 85-year-old male who was recently admitted with COPD acute exacerbation along with bronchiectasis and is being closely monitored. Cardiology and Pulmonary following closely. Patient continues with shortness of breath with slight improvement from yesterday. Patient is maintained on bronchodilators along with IV steroids and will continue. Antibiotics in the form of Cefepime and will continue. Patient being transitioned to oral cardizem and the drip is being discontinued. Patient also maintained on anticoagulation in the form of Eliquis. Patient creatinine stable at 1.01 potassium of 3.7. Review of systems: Constitutional: reports of fatigue, no reports of fever, or chills Cardiovascular: No reports of chest pain or palpitations Respiratory: reports of shortness of breath, with some slight improvement GI: no reports of nausea, vomiting, or diarrhea : No reports of dysuria or retention Neurovascular: reports generalized weakness All medications have been reviewed Objective - Vital Signs Vital signs: Vital Signs Temp 97.3 F L 11/22/20 07:50 Pulse 102 H 11/22/20 08:52 Resp 17 11/22/20 07:50 BP 142/70 11/22/20 07:50 Pulse Ox 95 11/22/20 07:50 Intake & Output 11/21/20 11/22/20 11/22/20 18:59 06:59 18:59 Intake Total 720 105 534 Output Total 850 960 Balance -130 -855 534 Weight 76.1 kg Intake: Intake, IV Titration 105 Amount Diltiazem 125 mg In 105 Sodium Chloride 0.9% 100 ml @ 7.5 MG/HR 7.5 mls/hr IV .[id number] [facility] Rx#: [id number] Oral 720 534 Output: Urine 850 960 Other: Voiding Method Toilet # Voids 1 - Exam Gen: This is a 85-year-old male sitting up in the chair awake, alert and oriented 3, well-developed, well-nourished. Temp is 97.9F, pulse is 106, respirations are 18, blood pressure is 116/75, oxygen saturation is 94% on room air. HEENT: Head is atraumatic, normocephalic. Pupils equal, round. Sclerae is anicteric. NECK: Supple. No JVD. No lymphadenopathy. No thyromegaly. LUNGS: Diminished breath sounds bilaterally with a few scattered rhonchi noted. No intercostal retractions. HEART: S1, S2 are muffled ABDOMEN: Soft. obese. Bowel sounds are present. No masses. No tenderness. EXTREMITIES: No pedal edema. No calf tenderness. NEUROLOGICAL: Patient is awake, alert and oriented x3. Cranial nerves 2 through 12 are grossly intact. - Labs CBC & Chem 7: 11/21/20 07:45 11/22/20 09:19 Labs: Abnormal Lab Results - Last 24 Hours (Table) 11/21/20 11/21/20 11/21/20 Range/Units 07:45 12:41 17:24 BUN (9-20) mg/dL Glucose (74-99) mg/dL POC Glucose (mg/dL) 164 H 210 H (75-99) mg/dL HDL Cholesterol 63.0 H (40.0-60.0) mg/dL 11/21/20 11/22/20 11/22/20 Range/Units 20:09 06:08 09:19 BUN 56 H (9-20) mg/dL Glucose 197 H (74-99) mg/dL POC Glucose (mg/dL) 238 H 183 H (75-99) mg/dL HDL Cholesterol (40.0-60.0) mg/dL Assessment and Plan Assessment: Chronic obstructive pulmonary disease acute exacerbation with acute purulent tracheobronchitis Bronchiectasis and tracheobronchial malacia Troponin 0.05 indeterminate, ruled out acute non-ST segment elevation myocardial infarction Elevated pro-calcitonin Increased WBC Normocytic anemia of chronic disease history of atrial fibrillation Multiple recent hospital admissions and recent bronchoscopies History of coronary artery disease History of multiple organisms grown from the sputum previously history of COPD Fibromyalgia GERD Hypertension history of myocardial infarction history of hypothyroidism Gout History of MRSA history of cardiac valve replacement history of coronary artery disease history of gastroesophageal reflux disease history of motion sickness history of vertigo history of nicotine dependence No code, no CPR, no vent Recommendations and discussion: Recommend to continue with breathing inhalational treatments along with IV steroids. Patient was presently on cardizem drip and being transitioned to oral cardizem with cardiology following closely. Patient continues on Eliquis. Encouraged the patient to increase activity as tolerated as he continues to be dyspneic with minimal exertion. Pulmonary following as well. Continue with IV antibiotics. Prognosis guarded. Possible discharge in 24-48 hours.
[2020-11-22 19:57] LABS: Glucose,Whole Blood 206 mg/dL (75-99)
[2020-11-22] MEDS: polyethylene glycoL 3350 17 GM POWD.PACK PO SCH (20:17)
[2020-11-22] MEDS: ATORVASTATIN 20 MG TAB PO SCH (20:17)
[2020-11-22] MEDS: PSYLLIUM HUSK 100% 6 GM PACKET PO SCH (20:17)
[2020-11-23 04:38] VITALS: RESP 18; TEMP 97.8
[2020-11-23 06:06] LABS: Glucose,Whole Blood 190 mg/dL (75-99)
[2020-11-23] MEDS: carvediloL 6.25 MG TAB PO SCH (06:42)
[2020-11-23] MEDS: INSULIN ASPART (NovoLOG) 100 UNIT/ML VIAL SQ SCH (06:42)
[2020-11-23] MEDS: PANTOPRAZOLE 40 MG TABLET PO SCH (06:42)
--- NOTE | 2020-11-23 07:35 | XR ---
EXAMINATION TYPE: XR chest 2V DATE OF EXAM: 11/23/2020 COMPARISON: 11/21/2020 HISTORY: Short of breath TECHNIQUE: Frontal and lateral views of the chest are obtained. FINDINGS: Unchanged elevation of the right hemidiaphragm with bibasilar airspace disease and prominence of the interstitium bilaterally. Small bilateral pleural effusions are also likely present. Cardiac silhouette is unchanged. IMPRESSION: Unchanged elevation of the right hemidiaphragm with bibasilar airspace disease and prominence of the interstitium bilaterally. Small bilateral pleural effusions are also likely present.
[2020-11-23] MEDS: ASCORBIC ACID 500 MG TAB PO SCH ×2 (08:50→09:05)
[2020-11-23] MEDS: CEFEPIME 2 GM in SODIUM CHLORIDE 0.9% 100 ML IVPB SCH (08:50)
[2020-11-23] MEDS: APIXABAN 2.5 MG TABLET PO SCH (08:50)
[2020-11-23] MEDS: DILTIAZEM ORAL 60 MG TAB PO SCH (08:50)
[2020-11-23] MEDS: FOLIC ACID 1 MG TAB PO SCH (08:50)
[2020-11-23] MEDS: CYANOCOBALAMIN 500 MCG TAB PO SCH (08:50)
[2020-11-23] MEDS: FUROSEMIDE 40 MG TAB PO SCH (08:50)
[2020-11-23] MEDS: CHOLECALCIFEROL 25 MCG (1000 IU) TABLET PO SCH (08:50)
[2020-11-23] MEDS: guaiFENesin 600 MG TABLET.ER PO SCH (08:56)
[2020-11-23] MEDS: methylPREDNISolone SOD SUCCI 40 MG/ML 1 ML VIAL IV SCH (08:56)
[2020-11-23] MEDS: MULTIVITAMINS, THERA 1 EACH TAB PO SCH (08:56)
[2020-11-23] MEDS: CLOPIDOGREL 75 MG TAB PO SCH (08:56)
[2020-11-23] MEDS: BUDESONIDE 1 MG/2 ML NEBU INHALATION SCH (09:06)
[2020-11-23] MEDS: IPRATROPIUM-ALBUTEROL 3 ML NEB INHALATION SCH ×2 (09:06→13:26)
[2020-11-23] MEDS: FORMOTEROL FUMARATE 20 MCG/2 ML NEBU INHALATION SCH (09:06)
[2020-11-23] MEDS ORDERED: carvediloL 6.25 MG TAB PO STA (09:13)
[2020-11-23 11:57] VITALS: BP 123/70
[2020-11-23 11:59] LABS: Glucose,Whole Blood 220 mg/dL (75-99)
--- NOTE | 2020-11-23 12:22 | P.PN ---
Subjective Progress Note Date: 11/23/20 Principal diagnosis: Acute exacerbation of COPD 75-year-old male patient with known history of COPD, steroid-dependent on a maintenance of 5 mg of prednisone a daily basis was been having recurrent exacerbations and ongoing respiratory infections. The patient is coming in for emergency department because of increased cough dyspnea congestion and wheeze. Noted the patient was in the hospital back in general 2020. At that time the patient had a bronchoscopy and the bronchioloalveolar lavage and the cultures came back negative for any microbial growth. Subsequently, he was seen by my partner and he had another bronchoscopy on 10/12/2020 and the patient was found to have Serratia marcescens and the patient was given Levaquin. He also had some Deirdre albicans. He did well after the treatment and his symptoms recurred. His chest x-ray is showing chronic COPD. No active airspace disease. The patient is afebrile. White cell count is at 10.1. COVID-19 testing done several occasions came back negative. Rest of the blood work essentially within normal limits. Troponins of 0.04. The patient which has recently hospitalized at [facility] in [place] and the patient was found to have decompensated heart failure. He was further investigated. He was kept off on his diuretics and he does have some mild edema in his lower extremities bilaterally. His last CAT scan of the chest that was done on 11/02/2020 showed no evidence of any pulmonary embolism. Some chronic bibasilar bronchiectasis and some minimal posterior subpleural groundglass infiltrates and extensive subpleural reticulation involving the mid and lower lung hart bilaterally con sistent with recurrent infections. He is comorbid conditions include CVA, atrial fibrillation, fibromyalgia, aortic valve disease with a recent transcatheter aortic valve replacement and history of acid reflux. On 11/21/2020 patient seen in follow-up on selective care unit, he sitting up in a chair, denies any acute distress, he is currently on room air and a pulse ox of 95%, no fever or chills, no complaints of chest discomfort, however patient still feels short of breath. He remains in atrial fibrillation however his rate has become more tachycardic, and his A. fib is not very well controlled at the moment. His current rate is 129-140 BPM, he was started on Cardizem infusion at 7.5 mg per hour. He is also on Eliquis a 2.5 mg daily. He is on oral Lasix at 40 mg once daily, IV steroids at 40 mg every 8 hours, and nebulized treatments in addition to cefepime. He's had no fever or chills, today's labs have been reviewed showing white blood cell count of 12.6, hemoglobin is 10.6, e lectrolytes are within normal limits, BUN is 50 creatinine 0.98. Pro-calcitonin level came back negative at 0.11, assessing abscess of bacterial infection, patient tested negative for COVId 19. Trace edema involving the lower extremities, no significant wheezing on today's exam. No hemoptysis On 11/22/2020 patient seen in follow-up on the surgical surgical floor. He is awake and alert, in no acute distress, he sitting up in a chair, on room air with a pulse ox of 95-96%, he is afebrile. Hemodynamically stable, he remains in atrial fibrillation, his rate is better controlled, he remains on Cardizem infusion at 7.5 mg per hour, 0.9 normal saline at a rate of 10 ML per hour, he is on antibiotics for possibility of underlying pulmonary infection. He is on oral Eliquis a 2.5 mg twice daily for atrial fibrillation. He is breathing comfortably, room air pulse ox is 95%. He remains on IV steroids at 40 mg every 8 hours, and nebulized bronchodilators. He is on oral dose Lasix 40 mg daily per cardiology. He is in -985 ML fluid balance over the last 24 hours. On 11/23/2020 patient seen in follow-up on selective care unit, he is on room air, pulse ox is 98%, vitals stable, remains in atrial fibrillation, and the rate is better controlled. Hemodynamically patient has been stable, patient has been transitioned to oral Cardizem, his Eliquis has been restarted, he remains on cefepime empirically, however his had no fever or chills, no cough or phlegm production, no chest discomfort, his pro-calcitonin level came back low at 0.11 and at this time we can consider discontinuing his antibiotics. No wheezing, no rhonchi, patient is on IV steroids with can transition him to oral prednisone, he continues on nebulized bronchodilators, he continues on oral dose Lasix 40 mg daily. He is breathing easier. Today's chest x-ray shows bibasilar airspace disease and prominence of interstitium bilaterally, small bilateral pleural effusions, overall stable findings. No new labs today. Objective - Vital Signs Vital signs: Vital Signs Temp 97.8 F 11/23/20 04:00 Pulse 92 11/23/20 09:31 Resp 18 11/23/20 08:00 BP 123/70 11/23/20 08:00 Pulse Ox 98 11/23/20 08:00 Intake & Output 11/22/20 11/23/20 11/23/20 18:59 06:59 18:59 Intake Total 654 240 240 Output Total 200 320 Balance 454 -80 240 Weight 77.7 kg Intake: Oral 654 240 240 Output: Urine 200 320 Other: Voiding Method Toilet Toilet # Voids 1 1 - Exam GENERAL EXAM: Alert, very pleasant, 85-year-old white male, on room air, the pulse ox of 98% comfortable in no apparent distress. HEAD: Normocephalic/atraumatic. EYES: Normal reaction of pupils, equal size. Conjunctiva pink, sclera white. NOSE: Clear with pink turbinates. THROAT: No erythema or exudates. NECK: No masses, no JVD, no thyroid enlargement, no adenopathy. CHEST: No chest wall deformity. Symmetrical expansion. LUNGS: Equal air entry with diminished breath sounds, mild bibasilar crackles CVS: Irregular rate and rhythm, normal S1 and S2, no gallops, no murmurs, no rubs ABDOMEN: Soft, nontender. No hepatosplenomegaly, normal bowel sounds, no guarding or rigidity. EXTREMITIES: No clubbing, trace edema involving lower extremities no cyanosis, 2+ pulses and upper and lower extremities. MUSCULOSKELETAL: Muscle strength and tone normal. SPINE: No scoliosis or deformity SKIN: No rashes CENTRAL NERVOUS SYSTEM: Alert and oriented -3. No focal deficits, tone is normal in all 4 extremities. PSYCHIATRIC: Alert and oriented -3. Appropriate affect. Intact judgment and insight. - Labs CBC & Chem 7: 11/21/20 07:45 11/22/20 09:19 Labs: Abnormal Lab Results - Last 24 Hours (Table) 11/22/20 11/22/20 11/23/20 Range/Units 17:20 19:56 06:05 POC Glucose (mg/dL) 260 H 206 H 190 H (75-99) mg/dL 11/23/20 Range/Units 11:58 POC Glucose (mg/dL) 220 H (75-99) mg/dL Assessment and Plan Plan: Assessment: #1. COPD with recurrent exacerbation recurrent respiratory tract infections. Since the beginning of this year, the patient has had 2 bronchoscopies. First bronchoscopy in June 2020 was negative for any microbial growth. Second br onchoscopy that was done in October 2020 showed Serratia marcescens and the patient was treated with Levaquin outpatient basis. He had a recent hospitalization to [facility]. The patient was treated and he was discharged home. This was not related to any respiratory complication and seems to be more so of a cardiac related. For now, his chest x-ray showing chronic COPD and scar ring. Reviewed the most recent CAT scan of the chest that was done in November 2020 and it shows COPD and limited scarring in the lung bases and some limited bronchiectasis. The patient is coming in for another exacerbation. #2. Limited bronchiectasis involving the lung bases along with some limited scarring probably related to recurrent respiratory tract infections #3. COPD #4. Status post recent aortic valve replacement at [facility] on 04/22/2020 #5. History of atrial fibrillation #6. Coronary artery disease #7. Fibromyalgia #8. GERD/reflux #9. A. fib with RVR, currently on Cardizem infusion at 7.5 mg per hour, and Eliquis. On today's exam on 11/22/2020 remains in A. fib better controlled rates Plan: Discontinue cefepime Transition IV steroids to oral prednisone starting at 30 mg Follow-up chest x-ray has been reviewed still showing interstitial edema, and small pleural effusions Continue diuretics per cardiology recommendations Overall breathing is improving, clinically patient has been stable Recurrent ventral medications and anticoagulation per cardiology From pulmonary perspective patient can be considered for discharge home today if cleared by cardiology and medicine He can complete outpatient course of Bactrim for 7 more days for recent history of tracheobronchitis and patient'sBAL cultures were positive for Serratia marcescens, patient can complete prednisone taper Outpatient follow-up with Dr. Silva in the office in one week I performed a history & physical examination of the patient and discussed their management with my nurse practitioner, Monse Castro. I reviewed the nurse practitioner's note and agree with the documented findings and plan of care. Lung sounds are positive for diminished breath sounds. The findings and the impression was discussed with the patient. I attest to the documentation by the nurse practitioner. Time with Patient: Less than 30
--- NOTE | 2020-11-23 12:31 | P.PN ---
Subjective This is a 85-year-old male with a past medical history significant for paroxysmal atrial fibrillation not on long-term anticoaulation, severe aortic stenosis s/p TAVR in March 2020, coronary artery disease with previous stenting 4, COPD, hypertension, COPD, and hyperlipidemia. Patient follows with Dr. Leung at [facility]. We have been asked to see the patient in consultation for abnormal troponin. He presents to the emergency department with worsening shortness of breath, diagnosed with acute exacerbation of COPD. Patient states he was recently at [facility] on 11/13/2020, presented with shortness of breath, congestion, and cough Echocardiogram on 11/14/2020 (at [facility]) revealed left ventricular size, wall thickness and systolic function is normal with EF 65-70%, normal functioning bioprosthetic aortic valve with no significant aortic stenosis, mild tricuspid regurgitation, mild mitral regurgitation, normal pericardium without effusion. EKG at [facility] patient was in sinus mechanism with occasional PVCs, and right bundle branch block. At that time patient's dyspnea was likely multifactorial related to either CHF vs. COPD, however at that time patient had a normal BNP and chest xray and it was thought that patient's symptoms were due to COPD vs acute kidney injury (his serum creatinine was 2.1) and his Losartan was held. His troponin at [facility] was 0.042. Patient states he was on Coumadin for a while but this was discontinued by his retail maintenance technician as he "no longer needed it". EKG on admission revealed sinus mechanism. Right bundle branch block. Per [facility] note, patient was continued on Plavix 75mg saturday, saturday, saturday. His retail maintenance technician told him he could discontinue this medication, but patient was worried after his TAVR and wanted to continue the medication. 11/21/2020: Patient seen and examined at bedside, no acute distress. Overnight patient was maintaining sinus mechanism. In the morning around 730AM patient went into atrial fibrillation with rapid ventricular response heart rate 130s-140s. He is asymptomatic, denies chest pain, shortness of breath, or palpitations. 11/22/2020: Patient seen and examined at bedside, no acute distress. Sitting up in the bedside chair, He states his breathing has much improved. Telemetry reviewed patient continues to be in atrial fibrillation HR elevated this morning, 90-130. He denies chest pain, shortness of breath or palpitations. Blood pressure 123/70, heart rate 112, afebrile, maintaining saturations 90% on room air. He's currently maintained on a Cardizem 60mg TID, carvedilol 6.25 mg twice a day, a torvastatin 20 mg daily, Plavix 75 mg Saturday, Lasix 40 mg daily, Eliquis 2.5 mg twice a day. Pulmonary is following the patient and discontinued IV cefepime and IV Solu-Medrol. Patient started on prednisone 30 mg daily and Bactrim. PHYSICAL EXAM: VITAL SIGNS: Reviewed. GENERAL: In no acute distress. HEENT: Head is normocephalic. Neck supple. No JVD LUNGS: Respirations even and unlabored. Lungs diminished bilaterally. HEART: Irregular rate and rhythm. S1 and S2 heard. ABDOMEN: Soft. Nondistended. Nontender. EXTREMITIES: Normal range of motion. No clubbing or cyanosis. Peripheral pulses intact. No lower extremity edema NEUROLOGIC: Awake and alert. Oriented x 3. ASSESSMENT: Acute exacerbation of COPD, with recurrent respiratory infection, per Pulmonary patient has had 2 bronchoscopies since the beginning of this year. Bronchiectasis Abnormal troponins, not suggestive of acute coronary syndrome History of TAVR, 2020 Coronary artery disease with previous stenting 4 Paroxysmal atrial fibrillation, not on long-term anticoagulation- [id number] score 4 - now on Eliquis 2.5mg BID GERD History of Hypertension Dyslipidemia PLAN: Anticoagulation is recommended for patient, Eliquis 2.5mg BID was started. Case management consulted and patient's copay is currently $35.70/month. Increase to Cardizem 60mg four times a day Increased carvedilol 12.5mg BID Continue atorvastatin 20 mg nightly, Plavix 75 mg per home cardiac medications. Continue lasix 40mg PO daily Losartan is still on hold at this time Pulmonary is following- do not recommend repeat bronchoscopy at this time. Patient's IV solumedrol and IV cefepime discontinued and prednisone started Further recommendations based on clinical course On discharge patient will follow up with his primary retail maintenance technician Dr. Leung Nurse practitioner note has been reviewed by physician. Signing provider agrees with the documented findings, assessment, and plan of care. Objective - Vital Signs Vital signs: Vital Signs Temp 97.8 F 11/23/20 04:00 Pulse 92 11/23/20 09:31 Resp 18 11/23/20 08:00 BP 123/70 11/23/20 08:00 Pulse Ox 98 11/23/20 08:00 Intake & Output 11/22/20 11/23/20 11/23/20 18:59 06:59 18:59 Intake Total 654 240 240 Output Total 200 320 Balance 454 -80 240 Weight 77.7 kg Intake: Oral 654 240 240 Output: Urine 200 320 Other: Voiding Method Toilet Toilet # Voids 1 1 - Labs CBC & Chem 7: 11/21/20 07:45 11/22/20 09:19 Labs: Abnormal Lab Results - Last 24 Hours (Table) 11/22/20 11/22/20 11/23/20 Range/Units 17:20 19:56 06:05 POC Glucose (mg/dL) 260 H 206 H 190 H (75-99) mg/dL 11/23/20 Range/Units 11:58 POC Glucose (mg/dL) 220 H (75-99) mg/dL
[2020-11-23] MEDS ORDERED: DILTIAZEM ORAL 60 MG TAB PO SCH (13:00)
[2020-11-23 13:41] VITALS: PULSE 150
[2020-11-23] MEDS ORDERED: carvediloL 6.25 MG TAB PO SCH (17:30)
[2020-11-24] MEDS ORDERED: predniSONE 10 MG TAB PO SCH (09:00)
--- NOTE | 2020-11-24 13:35 | P.DS ---
Providers Date of admission: 11/21/20 15:22 Expected date of discharge: 11/23/20 Attending physician: Tatyana Gautam Consults: 11/19/20 12:26 Consult Physician Routine Consulting Provider: Christy Ruvalcaba Consult Reason/Comments: COPD Do you want consulting provider notified?: Yes Consult Physician Routine Consulting Provider: Champ Augustin Consult Reason/Comments: trop elevated Do you want consulting provider notified?: Yes Primary care physician: Aleja Ford Hospital Course: Final diagnosis Chronic obstructive pulmonary disease acute exacerbation with acute purulent tracheobronchitis Bronchiectasis and tracheobronchial malacia Troponin 0.05 indeterminate, ruled out acute non-ST segment elevation myocardial infarction Elevated pro-calcitonin Increased WBC Normocytic anemia of chronic disease history of atrial fibrillation Multiple recent hospital admissions and recent bronchoscopies History of coronary artery disease History of multiple organisms grown from the sputum previously history of COPD Fibromyalgia GERD Hypertension history of myocardial infarction history of hypothyroidism Gout History of MRSA history of cardiac valve replacement history of coronary artery disease history of gastroesophageal reflux disease history of motion sickness history of vertigo history of nicotine dependence No code, no CPR, no vent Discharge disposition Patient is being discharged in a stable condition with guarded prognosis to home. Patient will follow-up with Dr. Aleja Ford upon discharge. Patient also follow-up outpatient with Dr. Shira edouard along with his cardiology Dr. Soto. Patient will continue on a short course of oral antibiotics in the form of Bactrim twice daily for the next 7 days along with a prednisone taper. Patient was also started on Eliquis 2.5 twice daily and will continue. Total time taken is greater than 35 minutes. Hospital course This is an 85-year-old male who was recently admitted with COPD acute exacerbat ion along with bronchiectasis and is being closely monitored. Cardiology and Pulmonary following closely. Patient continues with shortness of breath with slight improvement from yesterday. Patient is maintained on bronchodilators along with IV steroids and will continue. Antibiotics in the form of Cefepime and will continue. Patient being transitioned to oral cardizem and the drip is being discontinued. Patient also maintained on anticoagulation in the form of Eliquis. Patient creatinine stable at 1.01 potassium of 3.7. 11/23/2020 Patient is seen and evaluated in follow-up this morning continues to have shortness of breath although states is slightly improved. Patient does have extensive COPD history and will follow-up closely outpatient with pulmonary Dr. Silva this week. Patient will be continued on Bactrim twice daily for the next 1 week along with a prednisone taper. Tolerating Cardizem and transitioned to oral 4 times daily along with increase in carvedilol and will follow-up with his primary make up editor Dr. Soto in the outpatient setting. Recommend close outpatient follow-up with primary care provider Dr. Aleja Ford as well. Patient will also continue with Eliquis 2.5 mg twice daily as prescribed. Currently no reports of chest pain, worsening shortness of breath, or palpitations. Patient is afebrile. No reports of nausea or vomiting and patient is tolerating diet. Patient will be discharged to home today. Guarded prognosis On exam vital signs are stable. Cardio S1, S2 are muffled. Respiratory shows diminished breath sounds at the bases with some scattered rhonchi noted. Abdomen is soft and nontender. Nervous system shows no focal deficits. Please refer to medication reconciliation sheet for a list of medications. Patient Condition at Discharge: Stable Plan - Discharge Summary Discharge Rx Participant: No New Discharge Prescriptions: New Apixaban [Eliquis] 2.5 mg PO BID 30 Days #30 tab Ipratropium-Albuterol Nebulize [Duoneb 0.5 mg-3 mg/3 ml Soln] 3 ml INHALATION RT-QID 30 Days #120 ml Ipratropium-Albuterol Nebulize [Duoneb 0.5 mg-3 mg/3 ml Soln] 3 ml INHALATION RT-Q4H PRN ml PRN Reason: Shortness Of Breath Or Wheezing Folic Acid 1 mg PO DAILY@1200 #30 tab Atorvastatin [Lipitor] 20 mg PO HS #30 tab Sulfamethox-Tmp 800-160Mg [Bactrim DS 800-160 mg] 1 tab PO Q12HR 7 Days #14 tab predniSONE 10 mg PO DAILY 15 Days #30 tab Diltiazem Oral [Cardizem*] 60 mg PO QID #120 tab carvediloL [Coreg] 12.5 mg PO BID-W/MEALS 30 Days #120 tab Continue Ubidecarenone [Co Q-10] 100 mg PO DAILY Clopidogrel [Plavix] 75 mg PO MOWEFR Multivitamins, Thera [Multivitamin (formulary)] 1 tab PO DAILY polyethylene glycoL 3350 [Miralax] 17 gm PO HS Cyanocobalamin (Vitamin B-12) [Vitamin B-12] 5,000 mcg PO DAILY guaiFENesin [Mucinex] 1,200 mg PO TID Ascorbic Acid [Vitamin C] 1,000 mg PO DAILY Cholecalciferol (Vitamin D3) [Vitamin D3 (5000 Iu)] 125 mcg PO DAILY Acetaminophen [Tylenol Arthritis] 650 mg PO Q8H PRN PRN Reason: Pain Changed Furosemide [Lasix] 40 mg PO DAILY #0 Discontinued Aspirin EC [Ecotrin Low Dose] 81 mg PO DAILY Carvedilol [Coreg] 3.125 mg PO BID Chlorthalidone [Hygroton] 25 mg PO DIRECTED Losartan Potassium [Cozaar] 50 mg PO DIRECTED Discharge Medication List Ubidecarenone [Co Q-10] 100 mg PO DAILY 07/05/15 [History] Clopidogrel [Plavix] 75 mg PO MOWEFR 05/25/16 [History] Multivitamins, Thera [Multivitamin (formulary)] 1 tab PO DAILY 03/28/18 [History] polyethylene glycoL 3350 [Miralax] 17 gm PO HS 03/28/18 [History] Cyanocobalamin (Vitamin B-12) [Vitamin B-12] 5,000 mcg PO DAILY 06/14/20 [History] guaiFENesin [Mucinex] 1,200 mg PO TID 06/14/20 [History] Ascorbic Acid [Vitamin C] 1,000 mg PO DAILY 10/10/20 [History] Acetaminophen [Tylenol Arthritis] 650 mg PO Q8H PRN 11/19/20 [History] Cholecalciferol (Vitamin D3) [Vitamin D3 (5000 Iu)] 125 mcg PO DAILY 11/19/20 [History] Apixaban [Eliquis] 2.5 mg PO BID 30 Days #30 tab 11/21/20 [Rx] Atorvastatin [Lipitor] 20 mg PO HS #30 tab 11/23/20 [Rx] Diltiazem Oral [Cardizem*] 60 mg PO QID #120 tab 11/23/20 [Rx] Folic Acid 1 mg PO DAILY@1200 #30 tab 11/23/20 [Rx] Furosemide [Lasix] 40 mg PO DAILY #0 11/23/20 [Rx] Ipratropium-Albuterol Nebulize [Duoneb 0.5 mg-3 mg/3 ml Soln] 3 ml INHALATION RT-Q4H PRN ml 11/23/20 [Rx] Ipratropium-Albuterol Nebulize [Duoneb 0.5 mg-3 mg/3 ml Soln] 3 ml INHALATION RT-QID 30 Days #120 ml 11/23/20 [Rx] Sulfamethox-Tmp 800-160Mg [Bactrim DS 800-160 mg] 1 tab PO Q12HR 7 Days #14 tab 11/23/20 [Rx] carvediloL [Coreg] 12.5 mg PO BID-W/MEALS 30 Days #120 tab 11/23/20 [Rx] predniSONE 10 mg PO DAILY 15 Days #30 tab 11/23/20 [Rx] Follow up Appointment(s)/Referral(s): Codi Silva MD [STAFF PHYSICIAN] - 1 Week Aleja Ford DO [Primary Care Provider] - 1-2 days Vito Soto DO [REFERRING] - 1 Week Patient Instructions/Handouts: A-fib (Atrial Fibrillation) (DC), Chest Pain (DC), COPD (Chronic Obstructive Pulmonary Disease) (DC) Activity/Diet/Wound Care/Special Instructions: Activity Limited until follow-up Continue with antibiotics until finished continue prednisone taper until finished Continue breathing treatments Follow-up with pulmonary outpatient Follow-up primary care provider upon discharge Follow-up with your make up editor Dr. soto upon discharge Continue heart healthy diet Discharge Disposition: HOME SELF-CARE
== END 2020-11-23 15:56 | disposition home or self-care (01) | DRG 192 ==
LOC: EC 10:14 → 3SCARD 12:35 → OBSVTOIN 11-21 15:22 → 3SCARD 11-22 23:37
PROVIDERS: ADMIT Hospitalist; ATTEND Hospitalist
DX: J47.1 Bronchiectasis with (acute) exacerbation (principal); D63.8 Anemia in other chronic diseases classified elsewhere; I25.10 Atherosclerotic heart disease of native coronary artery without angina pectoris; D72.829 Elevated white blood cell count, unspecified; K21.9 Gastro-esophageal reflux disease without esophagitis; I11.0 Hypertensive heart disease with heart failure; I50.9 Heart failure, unspecified; J98.09 Other diseases of bronchus, not elsewhere classified; I48.0 Paroxysmal atrial fibrillation; R79.89 Other specified abnormal findings of blood chemistry; E03.9 Hypothyroidism, unspecified; I45.10 Unspecified right bundle-branch block; M79.7 Fibromyalgia; E78.5 Hyperlipidemia, unspecified; G25.0 Essential tremor; I08.1 Rheumatic disorders of both mitral and tricuspid valves; M10.9 Gout, unspecified; Z20.822 Contact with and (suspected) exposure to COVID-19; I25.2 Old myocardial infarction; Z95.5 Presence of coronary angioplasty implant and graft; Z79.01 Long term (current) use of anticoagulants; Z79.02 Long term (current) use of antithrombotics/antiplatelets; Z79.52 Long term (current) use of systemic steroids; Z79.82 Long term (current) use of aspirin; Z79.899 Other long term (current) drug therapy; Z86.14 Personal history of Methicillin resistant Staphylococcus aureus infection; Z87.891 Personal history of nicotine dependence; Z90.79 Acquired absence of other genital organ(s); Z95.3 Presence of xenogenic heart valve
CPT/HCPCS: 36415; 71045; 71046; 80048; 80053; 80061; 83605; 83735; 83880; 84145; 84484; 85025; 85610; 85730; 87635; 93005; 94640; 94760; 96374; 99285

== ENCOUNTER 2020-12-15 12:22 | Day surgery (SDC) | payer MEDICARE ==
[2020-12-13 14:35] VITALS: BMI 25.7
[~2020-12-15 12:22] MED LIST changes: -LIDOCAINE 1% (10MG/ML) FOR IV START INTRADERMA PRN; -SODIUM CHLORIDE 0.9% 1,000 ML IV SCH
[2020-12-15 13:06] LABS: Glucose,Whole Blood 109 mg/dL (75-99)
[2020-12-15 13:07] VITALS: RESP 16; TEMP 98
[2020-12-15] MEDS: LACTATED RINGERS 1,000 ML IV SCH ×2 (13:07→13:12)
[2020-12-15] MEDS ORDERED: IPRATROPIUM-ALBUTEROL 3 ML NEB INHALATION STA (14:08)
[2020-12-15] MEDS ORDERED: DEXAMETHASONE SOD PHOSPHATE 10 MG/ML 1 ML VIAL IV ONE (14:12)
[2020-12-15] MEDS ORDERED: RACEPINEPHRINE 2.25% NEB 0.5 ML NEBU INHALATION ONE (14:23)
[2020-12-15] MEDS ORDERED: RACEPINEPHRINE 2.25% NEB 0.5 ML NEBU INHALATION STA (14:26)
[2020-12-15 15:06] VITALS: BP 133/78
[2020-12-15 15:26] VITALS: PULSE 59
--- NOTE | 2020-12-15 22:05 | OP ---
OPERATIVE REPORT PROCEDURE: Bronchoscopy and random bronchoalveolar lavage. PREOPERATIVE DIAGNOSIS: Worsening bronchiectasis, unable to clear secretions. POSTOPERATIVE DIAGNOSIS: Worsening bronchiectasis, unable to clear secretions. ANESTHESIA USED: IV conscious sedation. PROCEDURE: The patient was prepared according to the bronchoscopy protocol. He was brought into endoscopy room 3, placed in a supine position. The patient was connected to a potline monitor, his cardiac rhythm was continuously monitored. Blood pressure was intermittently monitored. O2 saturation was continuously monitored via pulse oximetry. A bite block was applied. The patient was placed on oxygen. After adequate IV conscious sedation, the bronchoscope was inserted through the bite block all the way to the vocal cords. Lots of the secretions were noted on the vocal cords and these were suctioned. Lidocaine was applied over the vocal cords, and the bronchoscope was advanced further down. Thorough examination was done of the distal trachea, rosmery, right upper lobe, right middle lobe, right lower lobe, left upper lobe, lingula and left lower lobe. There was evidence of significant purulent secretions in all the airways, especially in the right lower lobe and left lower lobe. Lavage of all lobes was done. Fluid was a thick, and it was sent for different diagnostic studies. There was also evidence of tracheobronchial malacia. Lavage was sent for different diagnostic studies. No evidence of any complications. MMODL / IJN: [id number] /
== END 2020-12-15 15:26 ==
LOC: ORWHC2ENDO 12:22
PROVIDERS: ATTEND Internal Medicine
DX: J47.9 Bronchiectasis, uncomplicated (principal)
CPT/HCPCS: 31624; 94640; 87070; 87205; 87077; 87186; J1100

== ENCOUNTER 2021-02-02 15:02 | Inpatient (IN) | payer MEDICARE ==
[2021-02-02] MEDS ORDERED: SODIUM CHLORIDE 0.9% 1,000 ML IV STA (16:36)
[2021-02-02] MEDS ORDERED: ALBUTEROL HFA INHALER INHALATION STA (16:37)
[2021-02-02 17:34] LABS: Basophils % (A) 0 %; Eosinophils % (A) 0 %; HCT 31.3 % (39.0-53.0); HGB 10.5 gm/dL (13.0-17.5); Lymphocytes # (A) 0.4 k/uL (1.0-4.8); Lymphocytes % (A) 4 %; MCH 33.8 pg (25.0-35.0); MCHC 33.7 g/dL (31.0-37.0); MCV 100.4 fL (80.0-100.0); Macrocytosis Slight; Mean Platelet Volume 7.8; Monocytes # (A) 0.8 k/uL (0-1.0); Monocytes % (A) 9 %; Neutrophils # (A) 7.3 k/uL (1.3-7.7); Neutrophils % (A) 84 %; Platelet Count 266 k/uL (150-450); RBC 3.11 m/uL (4.30-5.90); WBC 8.7 k/uL (3.8-10.6)
[2021-02-02 17:51] LABS: ALT 20 U/L (4-49); AST 31 U/L (17-59); African American GFR (CKD) >90 (>60 ml/min/1.73 sqM); Albumin 3.7 g/dL (3.5-5.0); Alkaline Phosphatase 52 U/L (38-126); Anion Gap 9 mmol/L; Blood Urea Nitrogen 22 mg/dL (9-20); Calcium 9.3 mg/dL (8.4-10.2); Carbon Dioxide 29 mmol/L (22-30); Chloride 99 mmol/L (98-107); Creatine Kinase 40 U/L (55-170); Glucose 145 mg/dL (74-99); Magnesium 1.9 mg/dL (1.6-2.3); Non-African American GFR(CKD) 82 (>60 ml/min/1.73 sqM); Potassium 3.2 mmol/L (3.5-5.1); Sodium 137 mmol/L (137-145); Total Bilirubin 0.2 mg/dL (0.2-1.3); Total Protein 6.3 g/dL (6.3-8.2)
[2021-02-02 17:55] LABS: Partial Thromboplastin Time 24.8 sec (22.0-30.0); Prothrombin Time 10.9 sec (9.0-12.0)
--- NOTE | 2021-02-02 18:09 | ED ---
SOB HPI - General Chief Complaint: Shortness of Breath Stated Complaint: Covid+ Time Seen by Provider: 02/02/21 16:26 Source: patient Mode of arrival: ambulatory Limitations: no limitations - History of Present Illness Initial Comments: This 85-year-old male who was brought in for evaluation after developing shortness of breath some chest pain he states he was diagnosed with Covid 19 today. He states he also has COPD and always has some issues with breathing. He is unable to exactly tell me with the chest pain feels like is nonradiating is midsternal. It does radiate to his back he states. Mild to moderate in severity. It does get somewhat worse with breathing MD Complaint: shortness of breath, chest pain - Related Data Home Medications Medication Instructions Recorded Confirmed Ubidecarenone [Co Q-10] 100 mg PO DAILY 07/05/15 02/02/21 Multivitamins, Thera [Multivitamin 1 tab PO DAILY 03/28/18 02/02/21 (formulary)] guaiFENesin [Mucinex] 1,200 mg PO TID PRN 06/14/20 02/02/21 Ascorbic Acid [Vitamin C] 500 mg PO BID 10/10/20 02/02/21 Acetaminophen [Tylenol Arthritis] 650 mg PO Q8H PRN 11/19/20 02/02/21 Cholecalciferol (Vitamin D3) 125 mcg PO DAILY 11/19/20 02/02/21 [Vitamin D3 (5000 Iu)] Apixaban [Eliquis] 2.5 mg PO BID 12/13/20 02/02/21 Cyanocobalamin (Vitamin B-12) 5,000 mcg PO DAILY 12/13/20 02/02/21 [Vitamin B-12] Furosemide [Lasix] 40 mg PO DAILY 12/13/20 02/02/21 Magnesium Gluconate [Magonate] 500 mg PO DAILY 12/13/20 02/02/21 Rosuvastatin Calcium 5 mg PO DAILY 12/13/20 02/02/21 predniSONE 10 mg PO DAILY 12/13/20 02/02/21 Aspirin EC [Ecotrin Low Dose] 81 mg PO DAILY 02/02/21 02/02/21 Psyllium Husk (with Sugar) 17 gm PO HS 02/02/21 02/02/21 [Metamucil Powder] carvediloL [Coreg] 12.5 mg PO BID 02/02/21 02/02/21 Previous Rx's Medication Instructions Recorded Ipratropium-Albuterol Nebulize 3 ml INHALATION RT-QID 30 Days 11/23/20 [Duoneb 0.5 mg-3 mg/3 ml Soln] #120 ml Allergies Allergy/AdvReac Type Severity Reaction Status Date / Time meperidine [From Demerol] Allergy Unknown Verified 02/02/21 18:15 Childhood ciprofloxacin [From Cipro] AdvReac joint Verified 02/02/21 18:15 problems diphenhydramine HCl AdvReac "felt like Verified 02/02/21 18:15 [From Benadryl] I was dying" steroids AdvReac "Not sure Uncoded 02/02/21 16:30 of steroids" Review of Systems ROS Statement: Those systems with pertinent positive or pertinent negative responses have been documented in the HPI. ROS Other: All systems not noted in ROS Statement are negative. Past Medical History Past Medical History: Atrial Fibrillation, Coronary Artery Disease (CAD), COPD, Fibromyalgia, GERD/Reflux, Hyperlipidemia, Hypertension, Myocardial Infarction ([place]), Pneumonia, Thyroid Disorder Additional Past Medical History / Comment(s): Received covid vaccine, hx gout, increase difficulty clearing lungs at night-occ. sleeping in chair to sleep, essential tremors, frequent cough, SOB, vertigo Last Myocardial Infarction Date:: unkn-silent History of Any Multi-Drug Resistant Organisms: MRSA Date of last positivie culture/infection: 04/23/19 MDRO Source:: Bronch wash Past Surgical History: Appendectomy, Cardiac Valve Replacement, Heart Catheterization With Stent, Hernia Repair, Prostate Surgery, Tonsillectomy Additional Past Surgical History / Comment(s): TURP, sub-mucous resection to improve breathing, turbinate reduction, 4 cardiac stents, payam cataract surgery, hernia repair x3 , TAVR-aortic valve replacment 03/2020,hernia repair x3 Past Anesthesia/Blood Transfusion Reactions: Motion Sickness Additional Past Anesthesia/Blood Transfusion Reaction / Comment(s): vertigo Date of Last Stent Placement:: 2012 Past Psychological History: No Psychological Hx Reported Smoking Status: Former smoker - Past Family History Father Additional Family Medical History / Comment(s): Father had a severe CVA and of this at age 80 yrs. Mother Additional Family Medical History / Comment(s): Mother had an enlarged heart and at age 90. Sister(s) Family Medical History: Cancer General Exam - General Exam Comments Initial Comments: This is a well-developed well-nourished awake alert oriented times female Limitations: no limitations General appearance: alert, anxious Head exam: Present: atraumatic, normocephalic, normal inspection Eye exam: Present: normal appearance, PERRL, EOMI. Absent: scleral icterus, conjunctival injection, periorbital swelling ENT exam: Present: mucous membranes dry Neck exam: Present: normal inspection, full ROM, other (No stridor JVD or bruits). Absent: tenderness, meningismus, lymphadenopathy Respiratory exam: Present: wheezes, decreased breath sounds. Absent: respiratory distress, rales, rhonchi, stridor Cardiovascular Exam: Present: regular rate, normal rhythm, normal heart sounds. Absent: systolic murmur, diastolic murmur, rubs, gallop, clicks GI/Abdominal exam: Present: soft, normal bowel sounds. Absent: distended, tenderness, guarding, rebound, rigid Extremities exam: Present: normal inspection, full ROM, normal capillary refill. Absent: tenderness, pedal edema, joint swelling, calf tenderness Back exam: Present: normal inspection Neurological exam: Present: alert, oriented X3, CN II-XII intact Psychiatric exam: Present: normal affect, normal mood Skin exam: Present: warm, dry, intact, normal color. Absent: rash Course Vital Signs 02/02/21 02/02/21 02/02/21 16:23 17:00 19:00 Temperature 98.8 F 99.0 F Pulse Rate 100 99 Respiratory 18 18 Rate Blood Pressure 130/72 145/70 O2 Sat by Pulse 93 L 95 93 L Oximetry Medical Decision Making - Medical Decision Making I did a long discussion with patient regarding the findings patient be admitted consultation by cardiology - Lab Data Result diagrams: 02/02/21 17:20 02/02/21 17:20 Lab Results 02/02/21 02/02/21 02/02/21 Range/Units 17:00 17:20 17:20 WBC 8.7 (3.8-10.6) k/uL RBC 3.11 L (4.30-5.90) m/uL Hgb 10.5 L (13.0-17.5) gm/dL Hct 31.3 L (39.0-53.0) % MCV 100.4 H (80.0-100.0) fL MCH 33.8 (25.0-35.0) pg MCHC 33.7 (31.0-37.0) g/dL RDW 15.0 (11.5-15.5) % Plt Count 266 (150-450) k/uL MPV 7.8 Neutrophils % 84 % Lymphocytes % 4 % Monocytes % 9 % Eosinophils % 0 % Basophils % 0 % Neutrophils # 7.3 (1.3-7.7) k/uL Lymphocytes # 0.4 L (1.0-4.8) k/uL Monocytes # 0.8 (0-1.0) k/uL Eosinophils # 0.0 (0-0.7) k/uL Basophils # 0.0 (0-0.2) k/uL Macrocytosis Slight PT 10.9 (9.0-12.0) sec INR 1.0 (<1.2) APTT 24.8 (22.0-30.0) sec D-Dimer 1.02 H (<0.60) mg/L FEU Sodium (137-145) mmol/L Potassium (3.5-5.1) mmol/L Chloride (98-107) mmol/L Carbon Dioxide (22-30) mmol/L Anion Gap mmol/L BUN (9-20) mg/dL Creatinine (0.66-1.25) mg/dL Est GFR (CKD-EPI)AfAm (>60 ml/min/1.73 sqM) Est GFR (CKD-EPI)NonAf (>60 ml/min/1.73 sqM) Glucose (74-99) mg/dL Plasma Lactic Acid Ke (0.7-2.0) mmol/L Calcium (8.4-10.2) mg/dL Magnesium (1.6-2.3) mg/dL Total Bilirubin (0.2-1.3) mg/dL AST (17-59) U/L ALT (4-49) U/L Alkaline Phosphatase (38-126) U/L Creatine Kinase (55-170) U/L Troponin I (0.000-0.034) ng/mL NT-Pro-B Natriuret Pep pg/mL Total Protein (6.3-8.2) g/dL Albumin (3.5-5.0) g/dL Influenza Type A (PCR) Not Detected (Not Detectd) Influenza Type B (PCR) Not Detected (Not Detectd) RSV (PCR) Not Detected (Not Detectd) SARS-CoV-2 (PCR) Detected A (Not Detectd) 02/02/21 02/02/21 02/02/21 Range/Units 17:20 17:20 17:20 WBC (3.8-10.6) k/uL RBC (4.30-5.90) m/uL Hgb (13.0-17.5) gm/dL Hct (39.0-53.0) % MCV (80.0-100.0) fL MCH (25.0-35.0) pg MCHC (31.0-37.0) g/dL RDW (11.5-15.5) % Plt Count (150-450) k/uL MPV Neutrophils % % Lymphocytes % % Monocytes % % Eosinophils % % Basophils % % Neutrophils # (1.3-7.7) k/uL Lymphocytes # (1.0-4.8) k/uL Monocytes # (0-1.0) k/uL Eosinophils # (0-0.7) k/uL Basophils # (0-0.2) k/uL Macrocytosis PT (9.0-12.0) sec INR (<1.2) APTT (22.0-30.0) sec D-Dimer (<0.60) mg/L FEU Sodium 137 (137-145) mmol/L Potassium 3.2 L (3.5-5.1) mmol/L Chloride 99 (98-107) mmol/L Carbon Dioxide 29 (22-30) mmol/L Anion Gap 9 mmol/L BUN 22 H (9-20) mg/dL Creatinine 0.80 (0.66-1.25) mg/dL Est GFR (CKD-EPI)AfAm >90 (>60 ml/min/1.73 sqM) Est GFR (CKD-EPI)NonAf 82 (>60 ml/min/1.73 sqM) Glucose 145 H (74-99) mg/dL Plasma Lactic Acid Ke 1.7 (0.7-2.0) mmol/L Calcium 9.3 (8.4-10.2) mg/dL Magnesium 1.9 (1.6-2.3) mg/dL Total Bilirubin 0.2 (0.2-1.3) mg/dL AST 31 (17-59) U/L ALT 20 (4-49) U/L Alkaline Phosphatase 52 (38-126) U/L Creatine Kinase 40 L (55-170) U/L Troponin I 0.132 H* (0.000-0.034) ng/mL NT-Pro-B Natriuret Pep pg/mL Total Protein 6.3 (6.3-8.2) g/dL Albumin 3.7 (3.5-5.0) g/dL Influenza Type A (PCR) (Not Detectd) Influenza Type B (PCR) (Not Detectd) RSV (PCR) (Not Detectd) SARS-CoV-2 (PCR) (Not Detectd) 02/02/21 Range/Units 17:20 WBC (3.8-10.6) k/uL RBC (4.30-5.90) m/uL Hgb (13.0-17.5) gm/dL Hct (39.0-53.0) % MCV (80.0-100.0) fL MCH (25.0-35.0) pg MCHC (31.0-37.0) g/dL RDW (11.5-15.5) % Plt Count (150-450) k/uL MPV Neutrophils % % Lymphocytes % % Monocytes % % Eosinophils % % Basophils % % Neutrophils # (1.3-7.7) k/uL Lymphocytes # (1.0-4.8) k/uL Monocytes # (0-1.0) k/uL Eosinophils # (0-0.7) k/uL Basophils # (0-0.2) k/uL Macrocytosis PT (9.0-12.0) sec INR (<1.2) APTT (22.0-30.0) sec D-Dimer (<0.60) mg/L FEU Sodium (137-145) mmol/L Potassium (3.5-5.1) mmol/L Chloride (98-107) mmol/L Carbon Dioxide (22-30) mmol/L Anion Gap mmol/L BUN (9-20) mg/dL Creatinine (0.66-1.25) mg/dL Est GFR (CKD-EPI)AfAm (>60 ml/min/1.73 sqM) Est GFR (CKD-EPI)NonAf (>60 ml/min/1.73 sqM) Glucose (74-99) mg/dL Plasma Lactic Acid Ke (0.7-2.0) mmol/L Calcium (8.4-10.2) mg/dL Magnesium (1.6-2.3) mg/dL Total Bilirubin (0.2-1.3) mg/dL AST (17-59) U/L ALT (4-49) U/L Alkaline Phosphatase (38-126) U/L Creatine Kinase (55-170) U/L Troponin I (0.000-0.034) ng/mL NT-Pro-B Natriuret Pep 2600 pg/mL Total Protein (6.3-8.2) g/dL Albumin (3.5-5.0) g/dL Influenza Type A (PCR) (Not Detectd) Influenza Type B (PCR) (Not Detectd) RSV (PCR) (Not Detectd) SARS-CoV-2 (PCR) (Not Detectd) - EKG Data -: EKG Interpreted by [facility] EKG shows normal: sinus rhythm EKG Comments: Sinus rhythm 96 ME interval 206 QRS 154 QT since QTC 380/490 right bundle-branch block nonspecific inferior changes this EKG is compared to one dated 11/19/20 - Radiology Data Radiology results: report reviewed (Imaging reviewed no evidence of PE.), image reviewed Critical Care Time Critical Care Time: Yes Total Critical Care Time: 31 Critical Care Time: This included initial presentation with history physical labs x-rays reevaluation patient several occasions discuss with the patient regarding f indings discussed with the admitting physician admission orders documentation above review of old charting was available. Disposition Clinical Impression: COVID-19, NSTEMI (non-ST elevated myocardial infarction), CHF (congestive heart failure), COPD exacerbation, Hypokalemia Disposition: ADMITTED IP TO THIS HOSP Condition: Fair Referrals: Aleja Ford DO [Primary Care Provider] - 1-2 days
[2021-02-02] MEDS ORDERED: SODIUM CHLORIDE 0.9% 50 ML IVPB ONE (18:15)
--- NOTE | 2021-02-02 18:26 | XR ---
EXAMINATION: XR chest 2V DATE AND TIME: 02/02/2021 5:42 PM CLINICAL INDICATION: PHH; difficulty breathing TECHNIQUE: PA and lateral COMPARISON: 11/23/2020 FINDINGS: Redemonstrated elevation of the right hemidiaphragm. There is mild silhouetting of the pulmonary vasculature bilaterally by a reticular pattern of increas ed density. This can correlate with a clinical diagnosis of mild interstitial phase pulmonary edema v ersus chronic interstitial lung change. The lungs are otherwise unremarkable. The pleural spaces appear to be negative. The cardiac silhouette is mildly enlarged, unchanged. Aortic valve prosthesis redemonstrated. The rem ainder of the mediastinal silhouette is unremarkable. The skeletal structures and soft tissues are negative for acute findings. IMPRESSION: No definite acute radiographic process, as discussed.
[2021-02-02] MEDS ORDERED: CASIRIVIMAB (REGN10933) (EUA) 600 MG, IMDEVIMAB (REGN10987) (EUA) 600 MG in SODIUM CHLO... IVPB ONE (18:30)
--- NOTE | 2021-02-02 19:56 | CT ---
EXAMINATION TYPE: CT angio chest with contrast and with 3-D reconstruction renderings DATE OF EXAM: 02/02/2021 6:56 PM COMPARISON: 05/26/2016 HISTORY: Elevated d-dimer, covid +. CT DLP: 358.8 mGycm Automated exposure control for dose reduction was used. CONTRAST: 441CTA scan of the thorax is performed with IV Contrast, patient injected with 100 mL of Is ovue 370, pulmonary embolism protocol. . FINDINGS: LUNGS: There is atelectasis within the posterior segment of the right lower lobe, concurrent bronchop neumonia can only be excluded clinically. Remainder the lungs are clear and well expanded bilaterally . PLEURAL SPACES: Unremarkable MEDIASTINUM: There is satisfactory enhancement of the pulmonary artery and its branches, and there is no CT evidence for pulmonary embolism. No acute aortic findings.. Bowel prosthesis noted. Multifocal advanced coronary calcifications are noted. Mild cardiomegaly, with no pericardial effusion. No marina opathy. OTHER: No additional significant abnormality is seen. IMPRESSION: 1. NEGATIVE FOR PULMONARY EMBOLISM. 2. RIGHT LUNG BASE AIRLESSNESS DISCUSSED.
[2021-02-02] MEDS ORDERED: NITROGLYCERIN SL TABS 0.4 MG TAB SUBLINGUAL PRN (20:09)
[2021-02-02] MEDS ORDERED: ACETAMINOPHEN TAB 325 MG TAB PO PRN (20:12)
[2021-02-02] MEDS: carvediloL 12.5 MG TAB PO SCH (22:33)
[2021-02-02] MEDS: PSYLLIUM HUSK 100% 6 GM PACKET PO SCH (22:33)
[2021-02-02] MEDS: ASCORBIC ACID 500 MG TAB PO SCH ×2 (22:33→22:36)
[2021-02-02] MEDS: SODIUM CHLORIDE 0.9% 1,000 ML IV SCH (22:33)
[2021-02-02] MEDS: APIXABAN 2.5 MG TABLET PO SCH (22:33)
[2021-02-03] MEDS: ALBUTEROL HFA INHALER INHALATION SCH ×5 (00:43→23:48)
[2021-02-03] MEDS ORDERED: Potassium Replacement Protocol 1 EACH MISC MISCELLANE PRN (01:39)
[2021-02-03] MEDS: POTASSIUM CHLORIDE ER 20 MEQ TAB.ER PO SCH ×4 (02:38→23:44)
[2021-02-03] MEDS: SODIUM CHLORIDE 0.9% 1,000 ML IV SCH ×3 (03:55→23:45)
[2021-02-03] MEDS: carvediloL 12.5 MG TAB PO SCH ×2 (06:13→17:10)
[2021-02-03 08:17] LABS: African American GFR (CKD) >90 (>60 ml/min/1.73 sqM); Anion Gap 7 mmol/L; Blood Urea Nitrogen 27 mg/dL (9-20); Calcium 8.7 mg/dL (8.4-10.2); Carbon Dioxide 28 mmol/L (22-30); Chloride 103 mmol/L (98-107); Glucose 123 mg/dL (74-99); Non-African American GFR(CKD) 81 (>60 ml/min/1.73 sqM); Potassium 3.4 mmol/L (3.5-5.1); Sodium 138 mmol/L (137-145)
[2021-02-03] MEDS: CYANOCOBALAMIN 500 MCG TAB PO SCH (08:40)
[2021-02-03] MEDS: APIXABAN 2.5 MG TABLET PO SCH ×2 (08:41→20:06)
[2021-02-03] MEDS: MULTIVITAMINS, THERA 1 EACH TAB PO SCH (08:41)
[2021-02-03] MEDS: FUROSEMIDE 40 MG TAB PO SCH (08:41)
[2021-02-03] MEDS: ASPIRIN 81 MG PO SCH (08:41)
[2021-02-03] MEDS: ATORVASTATIN 10 MG TAB PO SCH (08:41)
[2021-02-03] MEDS: ASCORBIC ACID 500 MG TAB PO SCH ×2 (08:41→20:06)
[2021-02-03] MEDS: CHOLECALCIFEROL 25 MCG (1000 IU) TABLET PO SCH (08:41)
[2021-02-03] MEDS ORDERED: ASPIRIN 325 MG TAB PO SCH (09:00)
[2021-02-03] MEDS ORDERED: NON FORMULARY DRUG (Ubidecarenone [Co Q-10] 100 MG Capsule) PO SCH (09:00)
[2021-02-03] MEDS ORDERED: NON FORMULARY DRUG (Magnesium Gluconate 500 MG Tab) PO SCH (09:00)
[2021-02-03] MEDS ORDERED: predniSONE 10 MG TAB PO SCH (09:00)
--- NOTE | 2021-02-03 09:32 | P.CRDCN ---
History of Present Illness Consult date: 02/03/21 Chief complaint: Shortness of breath History of present illness: This is an 85-year-old gentleman with a past medical history significant for cor onary artery disease as well as valvular heart disease as well as COPD and paroxysmal atrial fibrillation who requested to see you on the floor for further evaluation of abnormal troponin. The patient somewhat is a poor historian. He states that he presented to the hospital because of shortness of breath and also chest discomfort. In the emergency department he was diagnosed with COVID 19 infection. Currently he is on isolation. He stated that the shortness of breath started about 24-48 hours before he presented. He denies any symptoms of fever or chills. Denies any symptoms of cough or sputum production. Currently he is chest pain-free. We consulted to see the patient mainly because of abnormal troponin. The troponin is a slightly elevated seems to be flat and doesn't seems to be consistent with acute coronary syndrome. The EKG showed sinus rhythm with first-degree AV block and RV. The patient was seen by our service in the past few months ago for the same reason and his troponin also was slightly elevated at that point. No echocardiogram was performed at this point but there is an echo to be done during this admission. Currently the patient is asymptomatic and currently he seems to be more dynamically stable. He is on aspirin as well as oral anticoagulation as well as beta nico. The chest x- ray did not show any acute abnormalities. He underwent a computed tomography scan of the chest and that showed no PE. Past Medical History Past Medical History: Atrial Fibrillation, Coronary Artery Disease (CAD), COPD, Fibromyalgia, GERD/Reflux, Hyperlipidemia, Hypertension, Myocardial Infarction ([place]), Pneumonia, Thyroid Disorder Additional Past Medical History / Comment(s): Received covid vaccine, hx gout, increase difficulty clearing lungs at night-occ. sleeping in chair to sleep, essential tremors, frequent cough, SOB, vertigo Last Myocardial Infarction Date:: unkn-silent History of Any Multi-Drug Resistant Organisms: MRSA Date of last positivie culture/infection: 04/23/19 MDRO Source:: Bronch wash Past Surgical History: Appendectomy, Cardiac Valve Replacement, Heart Catheterization With Stent, Hernia Repair, Prostate Surgery, Tonsillectomy Additional Past Surgical History / Comment(s): TURP, sub-mucous resection to improve breathing, turbinate reduction, 4 cardiac stents, payam cataract surgery, hernia repair x3 , TAVR-aortic valve replacment 03/2020,hernia repair x3 Past Anesthesia/Blood Transfusion Reactions: Motion Sickness Additional Past Anesthesia/Blood Transfusion Reaction / Comment(s): vertigo Date of Last Stent Placement:: 2012 Past Psychological History: No Psychological Hx Reported Additional Psychological History / Comment(s): . Smoking Status: Former smoker Past Alcohol Use History: None Reported Additional Past Alcohol Use History / Comment(s): Pt started smoking in 1950 and quit in 1970. He was a 3 1/2 ppd smoker. Past Drug Use History: None Reported - Past Family History Father Additional Family Medical History / Comment(s): Father had a severe CVA and of this at age 80 yrs. Mother Additional Family Medical History / Comment(s): Mother had an enlarged heart and at age 90. Sister(s) Family Medical History: Cancer Medications and Allergies Home Medications Medication Instructions Recorded Confirmed Type Ubidecarenone [Co Q-10] 100 mg PO DAILY 07/05/15 02/02/21 History Multivitamins, Thera [Multivitamin 1 tab PO DAILY 03/28/18 02/02/21 History (formulary)] guaiFENesin [Mucinex] 1,200 mg PO TID PRN 06/14/20 02/02/21 History Ascorbic Acid [Vitamin C] 500 mg PO BID 10/10/20 02/02/21 History Acetaminophen [Tylenol Arthritis] 650 mg PO Q8H PRN 11/19/20 02/02/21 History Cholecalciferol (Vitamin D3) 125 mcg PO DAILY 11/19/20 02/02/21 History [Vitamin D3 (5000 Iu)] Ipratropium-Albuterol Nebulize 3 ml INHALATION RT-QID 30 Days 11/23/20 02/02/21 Rx [Duoneb 0.5 mg-3 mg/3 ml Soln] #120 ml Apixaban [Eliquis] 2.5 mg PO BID 12/13/20 02/02/21 History Cyanocobalamin (Vitamin B-12) 5,000 mcg PO DAILY 12/13/20 02/02/21 History [Vitamin B-12] Furosemide [Lasix] 40 mg PO DAILY 12/13/20 02/02/21 History Magnesium Gluconate [Magonate] 500 mg PO DAILY 12/13/20 02/02/21 History Rosuvastatin Calcium 5 mg PO DAILY 12/13/20 02/02/21 History predniSONE 10 mg PO DAILY 12/13/20 02/02/21 History Aspirin EC [Ecotrin Low Dose] 81 mg PO DAILY 02/02/21 02/02/21 History Psyllium Husk (with Sugar) 17 gm PO HS 02/02/21 02/02/21 History [Metamucil Powder] carvediloL [Coreg] 12.5 mg PO BID 02/02/21 02/02/21 History Allergies Allergy/AdvReac Type Severity Reaction Status Date / Time meperidine [From Demerol] Allergy Unknown Verified 02/02/21 18:15 Childhood ciprofloxacin [From Cipro] AdvReac joint Verified 02/02/21 18:15 problems diphenhydramine HCl AdvReac "felt like Verified 02/02/21 18:15 [From Benadryl] I was dying" steroids AdvReac "Not sure Uncoded 02/02/21 16:30 of steroids" Physical Exam Vitals: Vital Signs Temp Pulse Pulse Resp BP BP Pulse Ox 02/03/21 06:21 92 L 02/03/21 04:00 99.3 F 103 H 22 124/60 91 L 02/03/21 01:22 89 22 02/03/21 00:09 101 H 22 02/02/21 23:52 99.7 F H 101 H 22 125/62 97 02/02/21 22:43 99.6 F 107 H 22 135/66 90 L 02/02/21 21:49 98 18 122/63 92 L 02/02/21 19:00 99.0 F 99 18 145/70 93 L 02/02/21 17:00 95 02/02/21 16:23 98.8 F 100 18 130/72 93 L Intake and Output 02/02/21 02/03/21 02/03/21 22:59 06:59 14:59 Intake Total 0 Output Total 350 Balance -350 0 Intake: Oral 0 Output: Urine 350 Other: Voiding Method Toilet Urinal # Voids 1 # Bowel Movements 1 Weight 72.575 kg - Constitutional General appearance: no acute distress - Respiratory Respiratory: bilateral: diminished - Cardiovascular Rhythm: regular Heart sounds: normal: S1, S2 Abnormal Heart Sounds: systolic murmur Results 02/02/21 17:20 02/03/21 07:27 Cardiac Enzymes 02/02/21 02/02/21 02/02/21 Range/Units 17:20 17:20 22:02 AST 31 (17-59) U/L Troponin I 0.132 H* 0.131 H* (0.000-0.034) ng/mL 02/03/21 Range/Units 00:00 AST (17-59) U/L Troponin I 0.126 H* (0.000-0.034) ng/mL Coagulation 02/02/21 Range/Units 17:20 PT 10.9 (9.0-12.0) sec APTT 24.8 (22.0-30.0) sec CBC 02/02/21 Range/Units 17:20 WBC 8.7 (3.8-10.6) k/uL RBC 3.11 L (4.30-5.90) m/uL Hgb 10.5 L (13.0-17.5) gm/dL Hct 31.3 L (39.0-53.0) % Plt Count 266 (150-450) k/uL Comprehensive Metabolic Panel 02/02/21 02/03/21 02/03/21 Range/Units 17:20 01:30 07:27 Sodium 137 138 (137-145) mmol/L Potassium 3.2 L 3.1 L 3.4 L (3.5-5.1) mmol/L Chloride 99 103 (98-107) mmol/L Carbon Dioxide 29 28 (22-30) mmol/L BUN 22 H 27 H (9-20) mg/dL Creatinine 0.80 0.82 (0.66-1.25) mg/dL Glucose 145 H 123 H (74-99) mg/dL Calcium 9.3 8.7 (8.4-10.2) mg/dL AST 31 (17-59) U/L ALT 20 (4-49) U/L Alkaline Phosphatase 52 (38-126) U/L Total Protein 6.3 (6.3-8.2) g/dL Albumin 3.7 (3.5-5.0) g/dL Current Medications Generic Name Dose Route Start Last Admin Trade Name Freq PRN Reason Stop Dose Admin Acetaminophen 650 mg 02/02/21 20:12 02/02/21 22:41 Acetaminophen Tab 325 Mg Tab PO 650 mg Q8H PRN Administration Pain Albuterol Sulfate 2 puff 02/03/21 00:00 02/03/21 05:40 Albuterol Hfa Inhaler INHALATION Not Given Q6HR DOREEN Apixaban 2.5 mg 02/02/21 21:00 02/03/21 08:41 Apixaban 2.5 Mg Tablet PO 2.5 mg BID DOREEN Administration Protocol Ascorbic Acid 500 mg 02/02/21 21:00 02/03/21 08:41 Ascorbic Acid 500 Mg Tab PO 500 mg BID DOREEN Administration Aspirin 81 mg 02/03/21 09:00 02/03/21 08:41 Aspirin 81 Mg PO 81 mg DAILY DOREEN Administration Atorvastatin Calcium 10 mg 02/03/21 09:00 02/03/21 08:41 Atorvastatin 10 Mg Tab PO 10 mg DAILY DOREEN Administration Carvedilol 12.5 mg 02/02/21 21:00 02/03/21 06:13 Carvedilol 12.5 Mg Tab PO 12.5 mg BID-W/MEALS DOREEN Administration Cholecalciferol 125 mcg 02/03/21 09:00 02/03/21 08:41 Cholecalciferol 25 Mcg (1000 Iu) Tablet PO 125 mcg DAILY DOREEN Administration Cyanocobalamin 5,000 mcg 02/03/21 09:00 02/03/21 08:40 Cyanocobalamin 500 Mcg Tab PO 5,000 mcg DAILY DOREEN Administration Furosemide 40 mg 02/03/21 09:00 02/03/21 08:41 Furosemide 40 Mg Tab PO 40 mg DAILY DOREEN Administration Guaifenesin 1,200 mg 02/02/21 21:00 Guaifenesin 600 Mg Tablet.Er PO BID PRN Congestion Sodium Chloride 1,000 mls @ 100 mls/hr 02/02/21 20:15 02/03/21 03:55 Saline 0.9% IV 100 mls/hr .Q10H DOREEN Administration Miscellaneous Information 1 each 02/03/21 01:39 Potassium Replacement Protocol 1 Each Misc MISCELLANE DAILY PRN Per Protocol Protocol Multivitamins 1 each 02/03/21 09:00 02/03/21 08:41 Multivitamins, Thera 1 Each Tab PO 1 each DAILY DOREEN Administration Nitroglycerin 0.4 mg 02/02/21 20:09 Nitroglycerin Sl Tabs 0.4 Mg Tab SUBLINGUAL Q5M PRN Chest Pain Prednisone 10 mg 02/03/21 09:00 02/03/21 08:42 Prednisone 10 Mg Tab PO 10 mg DAILY DOREEN Administration Psyllium Hydrophilic Mucilloid 6 gm 02/02/21 21:00 02/02/21 22:33 Psyllium Husk 100% 6 Gm Packet PO 6 gm HS DOREEN Administration Intake and Output 02/02/21 02/03/21 02/03/21 22:59 06:59 14:59 Intake Total 0 Output Total 350 Balance -350 0 Intake: Oral 0 Output: Urine 350 Other: Voiding Method Toilet Urinal # Voids 1 # Bowel Movements 1 Weight 72.575 kg 02/02/21 17:20 02/03/21 07:27 Assessment and Plan Assessment: Assessment #1 evidence of myocardial injury without any evidence of ischemia medically or by EKG. Echo to be done #2 COVID 19 infection #3 pneumonia secondary to COVID 19 #3 coronary artery disease #4 boxes small atrial fibrillation #5 multiple comorbid conditions Plan #1 continue the current medical regimen #2 follow-up on the echocardiogram #3 consider a conservative medical approach regarding the abnormal troponin #4 further recommendation to follow the echocardiogram #5 follow-up with the patient
[2021-02-03] MEDS: DEXAMETHASONE SOD PHOSPHATE 10 MG/ML 1 ML VIAL IV SCH (13:00)
--- NOTE | 2021-02-03 13:01 | ECHOF ---
Referral Reason:Chest pain MEASUREMENTS -------- HEIGHT: 165.1 cm WEIGHT: 72.6 kg BP: IVSd: 1.5 cm (0.6 - 1.1) LVIDd: 4.5 cm (3.9 - 5.3) LVPWd: 1.3 cm (0.6 - 1.1) EDV(Teich): 92 ml IVSs: 2.0 cm LVIDs: 2.6 cm LVPWs: 2.0 cm %IVS Thck: 37 % ESV(Teich): 25 ml EF(Teich): 73 % %FS: 42 % SV(Teich): 67 ml RVIDd: 3.0 cm (< 3.3) Ao Diam: 3.6 cm (2.0 - 3.7) LA Diam: 2.9 cm (2.7 - 3.8) AV Cusp: 2.2 cm (1.5 - 2.6) EPSS: 0.5 cm MV E Chris: 0.84 m/s MV DecT: 186 ms MV Dec [place]: 4.5 m/s MV A Chris: 1.03 m/s MV E/A Ratio: 0.81 MV PHT: 54 ms MR Vmax: 1.34 m/s MR maxP.17 mmHg AV Vmax: 2.23 m/s AV maxP.94 mmHg AV Vmax: 2.31 m/s AV Vmean: 1.69 m/s AV maxP.36 mmHg AV meanP.11 mmHg AV Env.Ti: 258 ms AV VTI: 43.7 cm TR Vmax: 1.49 m/s TR maxP.82 mmHg RAP: 5.00 mmHg RVSP: 13.82 mmHg MV EF SLOPE: 71.96 mm/s (70 - 150) MV EXCURSION: 13.54 mm (> 18.000) FINDINGS -------- This was a technically difficult study with suboptimal views. The left ventricular size is normal. There is moderate concentric left ventricular hypertrophy. O verall left ventricular systolic function is normal with, an EF between 55 - 60 %. The right ventricle is normal in size. The left atrial size is normal. The right atrial size is normal. Lumason used Aortic valve is trileaflet and is mildly thickened. Peak/mean gradient across the Aortic Valve is 2 1.36mmHg / 13.11mmHg. TAVR procedure done The mitral valve is normal. The mitral valve leaflets are mildly thickened. Mild mitral annular c alcification present. Mild mitral regurgitation is present. The tricuspid valve appears structurally normal. Mild tricuspid regurgitation present. Right vent ricular systolic pressure is normal at < 35 mmHg. There is no pulmonic regurgitation present. The aortic root size is normal. IVC Not well visulized. There is no pericardial effusion. CONCLUSIONS -------- 1. The left ventricular size is normal. 2. There is moderate concentric left ventricular hypertrophy. 3. Overall left ventricular systolic function is normal with, an EF between 55 - 60 %. 4. Aortic valve is trileaflet and is mildly thickened. 5. Peak/mean gradient across the Aortic Valve is 21.36mmHg / 13.11mmHg. 6. TAVR procedure done 7. The mitral valve leaflets are mildly thickened. 8. Mild mitral annular calcification present. 9. Mild mitral regurgitation is present. 10. Mild tricuspid regurgitation present. 11. There is no pericardial effusion. RELIGION DEPARTMENT CHAIR: Lynnette Gutierrez RDCS
--- NOTE | 2021-02-03 13:43 | P.CNPUL ---
History of Present Illness Consult date: 02/03/21 Requesting physician: Vito Beckford Reason for consult: dyspnea, chest pain Chief complaint: Shortness of breath, chest pain, COVID-19 History of present illness: This is a 85-year-old white male patient of Dr. Ford also follows with Dr. Richardson in the pulmonary clinic for his history of COPD, and bronchiectasis, has a history of multiple medical problems including chronic A. fib, coronary artery disease with stenting, aortic valve stenosis status post TAVR in March 2020, hypertension, hyperlipidemia, previous myocardial infarction, previous episodes of pneumonia, former smoker. Patient came into the emergency department on 02/02/2021 for evaluation of shortness of breath, and some chest pain. He states he was diagnosed with COVID-19 on the same day. His chest pain was midsternal, it did radiate to his back. It was mild to moderate in severity. Reported fever or chills. His chest x-ray showed an acute radiographic process. His blood work showed white blood cell count of 8.7, hemoglobin is 10.5, lymphocyte count is 0.4, d-dimer was 1.02, potassium is 3.2, progressive ex ercise were unremarkable, B1 is 22, creatinine 0.8, lactic acid is 1.7, patient had elevation of troponin is 0.132, 0.131, and 0.126. ProBNP was 2600, COVID-19 PCR is positive, influenza A and B and RSV PCR were negative. EKG showed sinus rhythm with right bundle branch block and evidence of inferior infarct of undetermined age. Of note patient is vaccinated for COVID-19. He is not oxygen dependent at baseline. He does have history of pseudomonal, MRSA, and Serratia pulmonary infections. His most recent bronchoscopy with bronchial washings from 12/15/2020 showed evidence of pseudomonas aeruginosa in his bronch wash cultures. Because of being high risk for further complications related to COVID-19 infection and multiple comorbidities patient received a dose of Regeneron, he is already on oral Eliquis for his history of atrial fibrillation, he was started on dexamethasone 6 mg daily and he was admitted to the hospital. Review of Systems All systems: negative Constitutional: Denies chills, Denies fever Eyes: denies blurred vision, denies pain Ears, nose, mouth and throat: Denies headache, Denies sore throat Cardiovascular: Reports chest pain, Denies shortness of breath Respiratory: Reports dyspnea, Denies cough Gastrointestinal: Denies abdominal pain, Denies diarrhea, Denies nausea, Denies vomiting Musculoskeletal: Denies myalgias Integumentary: Denies pruritus, Denies rash Neurological: Denies numbness, Denies weakness Psychiatric: Denies anxiety, Denies depression Endocrine: Denies fatigue, Denies weight change Past Medical History Past Medical History: Atrial Fibrillation, Coronary Artery Disease (CAD), COPD, Fibromyalgia, GERD/Reflux, Hyperlipidemia, Hypertension, Myocardial Infarction (HI), Pneumonia, Thyroid Disorder Additional Past Medical History / Comment(s): Received covid vaccine, hx gout, increase difficulty clearing lungs at night-occ. sleeping in chair to sleep, essential tremors, frequent cough, SOB, vertigo Last Myocardial Infarction Date:: unkn-silent History of Any Multi-Drug Resistant Organisms: MRSA Date of last positivie culture/infection: 04/23/19 MDRO Source:: Bronch wash Past Surgical History: Appendectomy, Cardiac Valve Replacement, Heart Catheterization With Stent, Hernia Repair, Prostate Surgery, Tonsillectomy Additional Past Surgical History / Comment(s): TURP, sub-mucous resection to improve breathing, turbinate reduction, 4 cardiac stents, payam cataract surgery, hernia repair x3 , TAVR-aortic valve replacment 03/2020,hernia repair x3 Past Anesthesia/Blood Transfusion Reactions: Motion Sickness Additional Past Anesthesia/Blood Transfusion Reaction / Comment(s): vertigo Date of Last Stent Placement:: 2012 Past Psychological History: No Psychological Hx Reported Additional Psychological History / Comment(s): . Smoking Status: Former smoker Past Alcohol Use History: None Reported Additional Past Alcohol Use History / Comment(s): Pt started smoking in 1950 and quit in 1970. He was a 3 1/2 ppd smoker. Past Drug Use History: None Reported - Past Family History Father Additional Family Medical History / Comment(s): Father had a severe CVA and of this at age 80 yrs. Mother Additional Family Medical History / Comment(s): Mother had an enlarged heart and at age 90. Sister(s) Family Medical History: Cancer Medications and Allergies Home Medications Medication Instructions Recorded Confirmed Type Ubidecarenone [Co Q-10] 100 mg PO DAILY 07/05/16 02/02/21 History Multivitamins, Thera [Multivitamin 1 tab PO DAILY 10/26/18 09/02/21 History (formulary)] guaiFENesin [Mucinex] 1,200 mg PO TID PRN 06/14/20 02/02/21 History Ascorbic Acid [Vitamin C] 500 mg PO BID 10/10/20 02/02/21 History Acetaminophen [Tylenol Arthritis] 650 mg PO Q8H PRN 11/19/20 02/02/21 History Cholecalciferol (Vitamin D3) 125 mcg PO DAILY 11/19/20 02/02/21 History [Vitamin D3 (5000 Iu)] Ipratropium-Albuterol Nebulize 3 ml INHALATION RT-QID 30 Days 11/23/20 02/02/21 Rx [Duoneb 0.5 mg-3 mg/3 ml Soln] #120 ml Apixaban [Eliquis] 2.5 mg PO BID 12/13/20 02/02/21 History Cyanocobalamin (Vitamin B-12) 5,000 mcg PO DAILY 12/13/20 02/02/21 History [Vitamin B-12] Furosemide [Lasix] 40 mg PO DAILY 12/13/20 02/02/21 History Magnesium Gluconate [Magonate] 500 mg PO DAILY 12/13/20 02/02/21 History Rosuvastatin Calcium 5 mg PO DAILY 12/13/20 02/02/21 History predniSONE 10 mg PO DAILY 12/13/20 02/02/21 History Aspirin EC [Ecotrin Low Dose] 81 mg PO DAILY 02/02/21 02/02/21 History Psyllium Husk (with Sugar) 17 gm PO HS 02/02/21 02/02/21 History [Metamucil Powder] carvediloL [Coreg] 12.5 mg PO BID 02/02/21 02/02/21 History Allergies Allergy/AdvReac Type Severity Reaction Status Date / Time meperidine [From Demerol] Allergy Unknown Verified 02/02/21 18:15 Childhood ciprofloxacin [From Cipro] AdvReac joint Verified 02/02/21 18:15 problems diphenhydramine HCl AdvReac "felt like Verified 02/02/21 18:15 [From Benadryl] I was dying" steroids AdvReac "Not sure Uncoded 02/02/21 16:30 of steroids" Physical Exam Vitals: Vital Signs Temp Pulse Pulse Resp BP BP Pulse Ox 02/03/21 08:00 98.7 F 77 22 104/57 94 L 02/03/21 06:21 92 L 02/03/21 04:00 99.3 F 103 H 22 124/60 91 L 02/03/21 01:22 89 22 02/03/21 00:09 101 H 22 02/02/21 23:52 99.7 F H 101 H 22 125/62 97 02/02/21 22:43 99.6 F 107 H 22 135/66 90 L 02/02/21 21:49 98 18 122/63 92 L 02/02/21 19:00 99.0 F 99 18 145/70 93 L 02/02/21 17:00 95 02/02/21 16:23 98.8 F 100 18 130/72 93 L Intake and Output 02/02/21 02/03/21 02/03/21 22:59 06:59 14:59 Intake Total 0 Output Total 350 Balance -350 0 Intake: Oral 0 Output: Urine 350 Other: Voiding Method Toilet Urinal # Voids 1 # Bowel Movements 1 Weight 72.575 kg GENERAL EXAM: Alert, very pleasant, 85-year-old white male, 3 L of oxygen the pulse ox of 94% comfortable in no apparent distress. HEAD: Normocephalic/atraumatic. EYES: Normal reaction of pupils, equal size. Conjunctiva pink, sclera white. NOSE: Clear with pink turbinates. THROAT: No erythema or exudates. NECK: No masses, no JVD, no thyroid enlargement, no adenopathy. CHEST: No chest wall deformity. Symmetrical expansion. LUNGS: Equal air entry with no crackles, wheeze, rhonchi or dullness. CVS: Irregular rate and rhythm, normal S1 and S2, no gallops, no murmurs, no rubs ABDOMEN: Soft, nontender. No hepatosplenomegaly, normal bowel sounds, no gua rding or rigidity. EXTREMITIES: No clubbing, no edema, no cyanosis, 2+ pulses and upper and lower extremities. MUSCULOSKELETAL: Muscle strength and tone normal. SPINE: No scoliosis or deformity SKIN: No rashes CENTRAL NERVOUS SYSTEM: Alert and oriented -3. No focal deficits, tone is normal in all 4 extremities. PSYCHIATRIC: Alert and oriented -3. Appropriate affect. Intact judgment and insight. Results - Laboratory Findings CBC and BMP: 02/02/21 17:20 02/03/21 07:27 PT/INR, D-dimer PT 10.9 sec (9.0-12.0) 02/02/21 17:20 INR 1.0 (<1.2) 02/02/21 17:20 D-Dimer 1.02 mg/L FEU (<0.60) H 02/02/21 17:20 Abnormal lab findings: Abnormal Labs 02/02/21 02/02/21 02/02/21 17:00 17:20 17:20 RBC 3.11 L Hgb 10.5 L Hct 31.3 L MCV 100.4 H Lymphocytes # 0.4 L D-Dimer 1.02 H Potassium BUN Glucose Creatine Kinase Troponin I SARS-CoV-2 (PCR) Detected A 02/02/21 02/02/21 02/02/21 17:20 17:20 22:02 RBC Hgb Hct MCV Lymphocytes # D-Dimer Potassium 3.2 L BUN 22 H Glucose 145 H Creatine Kinase 40 L Troponin I 0.132 H* 0.131 H* SARS-CoV-2 (PCR) 02/03/21 02/03/21 02/03/21 00:00 01:30 07:27 RBC Hgb Hct MCV Lymphocytes # D-Dimer Potassium 3.1 L 3.4 L BUN 27 H Glucose 123 H Creatine Kinase Troponin I 0.126 H* SARS-CoV-2 (PCR) - Diagnostic Findings Chest x-ray: report reviewed, image reviewed CT scan - chest: report reviewed, image reviewed Additional studies: Echocardiogram reviewed, EKG reviewed Assessment and Plan Plan: Assessment: #1. Acute hypoxic respiratory failure related to chronic COPD, atelectasis and COVID-19 infection without evidence of pneumonia on the chest x-ray, or the CTA chest. CTA chest Negative for pulmonary embolism, it did show atelectasis within the posterior segment of the right lower lobe. COVID-19 PCR was positive, onset of symptoms is unclear, reportedly one or 2 days ago. Patient is status post Regeneron infusion on 02/02/2021 #2. Troponin elevation and chest pain, rule out non-ST elevated myocardial infarction #3. Pleated vaccination for COVID-19 #4. History of COPD, and bronchiectasis with frequent pulmonary infections including Pseudomonas, MRSA and Serratia #5. Coronary artery disease with previous stenting #6. Previous history of myocardial infarction #7. Aortic valve stenosis, status post TAVR at [facility] on 04/22/2020 #8. History of atrial fibrillation on Eliquis #9. Fiber margin #10. GERD/reflux Plan: No evidence of significant pneumonia on the chest x-ray or CTA chest Patient received Regeneron in the emergency department Continue conservative medical treatment at this time Continue Decadron 6 mg daily Continue Eliquis We'll continue to follow I performed a history & physical examination of the patient and discussed their management with my nurse practitioner, Monse Castro. I reviewed the nurse practitioner's note and agree with the documented findings and plan of care. Lung sounds are positive for diminished breath sounds throughout the lung hart. The findings and the impression was discussed with the patient. I attest to the documentation by the nurse practitioner. Time with Patient: Greater than 30
--- NOTE | 2021-02-03 16:52 | P.HPIM ---
History of Present Illness H&P Date: 02/03/21 Chief Complaint: Dyspnea/covid positive 85-year-old male who was brought in for evaluation after developing shortness of breath some chest pain he states he was diagnosed with Covid 19 today. He states he also has COPD and always has some issues with breathing. He is unable to exactly tell what the chest pain feels like is nonradiating is midsternal. It does radiate to his back he states. Mild to moderate in severity. It does get somewhat worse with breathing Workup in ED including an EKG reveals a normal sinus rhythm with right bundle branch block and nonspecific inferior changes which are new compared to EKG of 11/19/2020; The chest x-ray did not show any acute abnormalities. He underwent a computed tomography scan of the chest and that showed no PE. Lab work reveals a BNP of 2600, troponin elevated at 0.132; elevated d-dimer of 1.0 to, CBC is unremarkable, sodium 137, potassium 3.2, BUN/creatinine of 22/0.8 Patient is admitted to the hospital with COVID-19 pneumonia, COPD exacerbation, CHF exacerbation and hypokalemia Review of Systems REVIEW OF SYSTEMS: CONSTITUTIONAL: No fever, no malaise, no fatigue. HEENT: No recent visual problems or hearing problems. Denied any sore throat. CARDIOVASCULAR: No chest pain, orthopnea, PND, no palpitations, no syncope. PULMONARY: No shortness of breath, no cough, no hemoptysis. GASTROINTESTINAL: No diarrhea, no nausea, no vomiting, no abdominal pain. NEUROLOGICAL: No headaches, no weakness, no numbness. HEMATOLOGICAL: Denies any bleeding or petechiae. GENITOURINARY: Denies any burning micturition, frequency, or urgency. MUSCULOSKELETAL/RHEUMATOLOGICAL: Denies any joint pain, swelling, or any muscle pain. ENDOCRINE: Denies any polyuria or polydipsia. The rest of the 14-point review of systems is negative. Past Medical History Past Medical History: Atrial Fibrillation, Coronary Artery Disease (CAD), COPD, Fibromyalgia, GERD/Reflux, Hyperlipidemia, Hypertension, Myocardial Infarction (LA), Pneumonia, Thyroid Disorder Additional Past Medical History / Comment(s): Received covid vaccine, hx gout, increase difficulty clearing lungs at night-occ. sleeping in chair to sleep, essential tremors, frequent cough, SOB, vertigo Last Myocardial Infarction Date:: unkn-silent History of Any Multi-Drug Resistant Organisms: MRSA Date of last positivie culture/infection: 04/23/19 MDRO Source:: Bronch wash Past Surgical History: Appendectomy, Cardiac Valve Replacement, Heart Catheterization With Stent, Hernia Repair, Prostate Surgery, Tonsillectomy Additional Past Surgical History / Comment(s): TURP, sub-mucous resection to improve breathing, turbinate reduction, 4 cardiac stents, payam cataract surgery, hernia repair x3 , TAVR-aortic valve replacment 03/2020,hernia repair x3 Past Anesthesia/Blood Transfusion Reactions: Motion Sickness Additional Past Anesthesia/Blood Transfusion Reaction / Comment(s): vertigo Date of Last Stent Placement:: 2012 Past Psychological History: No Psychological Hx Reported Additional Psychological History / Comment(s): . Smoking Status: Former smoker Past Alcohol Use History: None Reported Additional Past Alcohol Use History / Comment(s): Pt started smoking in 1950 and quit in 1969. He was a 3 1/2 ppd smoker. Past Drug Use History: None Reported - Past Family History Father Additional Family Medical History / Comment(s): Father had a severe CVA and of this at age 80 yrs. Mother Additional Family Medical History / Comment(s): Mother had an enlarged heart and at age 90. Sister(s) Family Medical History: Cancer Medications and Allergies Home Medications Medication Instructions Recorded Confirmed Type Ubidecarenone [Co Q-10] 100 mg PO DAILY 07/05/15 02/02/21 History Multivitamins, Thera [Multivitamin 1 tab PO DAILY 03/28/18 02/02/21 History (formulary)] guaiFENesin [Mucinex] 1,200 mg PO TID PRN 06/14/20 02/02/21 History Ascorbic Acid [Vitamin C] 500 mg PO BID 10/10/20 02/02/21 History Acetaminophen [Tylenol Arthritis] 650 mg PO Q8H PRN 11/19/20 02/02/21 History Cholecalciferol (Vitamin D3) 125 mcg PO DAILY 11/19/20 02/02/21 History [Vitamin D3 (5000 Iu)] Ipratropium-Albuterol Nebulize 3 ml INHALATION RT-QID 30 Days 11/23/20 02/02/21 Rx [Duoneb 0.5 mg-3 mg/3 ml Soln] #120 ml Apixaban [Eliquis] 2.5 mg PO BID 12/13/20 02/02/21 History Cyanocobalamin (Vitamin B-12) 5,000 mcg PO DAILY 12/13/20 02/02/21 History [Vitamin B-12] Furosemide [Lasix] 40 mg PO DAILY 12/13/20 02/02/21 History Magnesium Gluconate [Magonate] 500 mg PO DAILY 12/13/20 02/02/21 History Rosuvastatin Calcium 5 mg PO DAILY 12/13/20 02/02/21 History predniSONE 10 mg PO DAILY 12/13/20 02/02/21 History Aspirin EC [Ecotrin Low Dose] 81 mg PO DAILY 02/02/21 02/02/21 History Psyllium Husk (with Sugar) 17 gm PO HS 02/02/21 02/02/21 History [Metamucil Powder] carvediloL [Coreg] 12.5 mg PO BID 02/02/21 02/02/21 History Allergies Allergy/AdvReac Type Severity Reaction Status Date / Time meperidine [From Demerol] Allergy Unknown Verified 02/02/21 18:15 Childhood ciprofloxacin [From Cipro] AdvReac joint Verified 02/02/21 18:15 problems diphenhydramine HCl AdvReac "felt like Verified 02/02/21 18:15 [From Benadryl] I was dying" steroids AdvReac "Not sure Uncoded 02/02/21 16:30 of steroids" Physical Exam Vitals: Vital Signs Temp Pulse Pulse Resp BP BP Pulse Ox 02/03/21 08:00 98.7 F 77 22 104/57 94 L 02/03/21 06:21 92 L 02/03/21 04:00 99.3 F 103 H 22 124/60 91 L 02/03/21 01:22 89 22 02/03/21 00:09 101 H 22 02/02/21 23:52 99.7 F H 101 H 22 125/62 97 02/02/21 22:43 99.6 F 107 H 22 135/66 90 L 02/02/21 21:49 98 18 122/63 92 L 02/02/21 19:00 99.0 F 99 18 145/70 93 L 02/02/21 17:00 95 02/02/21 16:23 98.8 F 100 18 130/72 93 L Intake and Output 02/02/21 02/03/21 02/03/21 22:59 06:59 14:59 Intake Total 0 Output Total 350 Balance -350 0 Intake: Oral 0 Output: Urine 350 Other: Voiding Method Toilet Urinal # Voids 1 # Bowel Movements 1 Weight 72.575 kg General appearance: alert, anxious Head exam: Present: atraumatic, normocephalic, normal inspection Eye exam: Present: normal appearance, PERRL, EOMI. Absent: scleral icterus, conjunctival injection, periorbital swelling ENT exam: Present: mucous membranes dry Neck exam: Present: normal inspection, full ROM, other (No stridor JVD or bruits). Absent: tenderness, meningismus, lymphadenopathy Respiratory exam: Present: wheezes, decreased breath sounds. Absent: respiratory distress, rales, rhonchi, stridor Cardiovascular Exam: Present: regular rate, normal rhythm, normal heart sounds. Absent: systolic murmur, diastolic murmur, rubs, gallop, clicks GI/Abdominal exam: Present: soft, normal bowel sounds. Absent: distended, tenderness, guarding, rebound, rigid Extremities exam: Present: normal inspection, full ROM, normal capillary refill. Absent: tenderness, pedal edema, joint swelling, calf tenderness Back exam: Present: normal inspection Neurological exam: Present: alert, oriented X3, CN II-XII intact Psychiatric exam: Present: normal affect, normal mood Skin exam: Present: warm, dry, intact, normal color. Absent: rash Results CBC & Chem 7: 02/02/21 17:20 02/03/21 07:27 Labs: Abnormal Lab Results - Last 24 Hours (Table) 02/02/21 02/02/21 02/02/21 Range/Units 17:00 17:20 17:20 RBC 3.11 L (4.30-5.90) m/uL Hgb 10.5 L (13.0-17.5) gm/dL Hct 31.3 L (39.0-53.0) % MCV 100.4 H (80.0-100.0) fL Lymphocytes # 0.4 L (1.0-4.8) k/uL D-Dimer 1.02 H (<0.60) mg/L FEU Potassium (3.5-5.1) mmol/L BUN (9-20) mg/dL Glucose (74-99) mg/dL Creatine Kinase (55-170) U/L Troponin I (0.000-0.034) ng/mL SARS-CoV-2 (PCR) Detected A (Not Detectd) 02/02/21 02/02/21 02/02/21 Range/Units 17:20 17:20 22:02 RBC (4.30-5.90) m/uL Hgb (13.0-17.5) gm/dL Hct (39.0-53.0) % MCV (80.0-100.0) fL Lymphocytes # (1.0-4.8) k/uL D-Dimer (<0.60) mg/L FEU Potassium 3.2 L (3.5-5.1) mmol/L BUN 22 H (9-20) mg/dL Glucose 145 H (74-99) mg/dL Creatine Kinase 40 L (55-170) U/L Troponin I 0.132 H* 0.131 H* (0.000-0.034) ng/mL SARS-CoV-2 (PCR) (Not Detectd) 02/03/21 02/03/21 02/03/21 Range/Units 00:00 01:30 07:27 RBC (4.30-5.90) m/uL Hgb (13.0-17.5) gm/dL Hct (39.0-53.0) % MCV (80.0-100.0) fL Lymphocytes # (1.0-4.8) k/uL D-Dimer (<0.60) mg/L FEU Potassium 3.1 L 3.4 L (3.5-5.1) mmol/L BUN 27 H (9-20) mg/dL Glucose 123 H (74-99) mg/dL Creatine Kinase (55-170) U/L Troponin I 0.126 H* (0.000-0.034) ng/mL SARS-CoV-2 (PCR) (Not Detectd) Thrombosis Risk Factor Assmnt - Choose All That Apply Any of the Below Risk Factors Present?: Yes Each Factor Represents 1 point: Abnormal pulmonary function (COPD), Heart failure (<1month) Other Risk Factors: Yes Each Risk Factor Represents 3 Points: Age 75 years or older Other congenital or acquired thrombophilia - If yes, enter type in comment: No Thrombosis Risk Factor Assessment Total Risk Factor Score: 5 Thrombosis Risk Factor Assessment Level: High Risk Assessment and Plan Assessment: 1. Elevated troponin/NSTEMI - Patient will be admitted to telemetry; monitor EKG and trend troponin; recommend 2-D echo - Consult cardiology; patient remains on aspirin and beta blockers and statin therapy 2. Acute exacerbation CHF; patient received IV Lasix in ED; we will continue w ith Lasix 40 mg by mouth daily but home dose; further recommendations once patient evaluated by cardiology 3. COVID-19 pneumonia; patient has complaints on Decadron 6 mg IV daily, vitamin C 500 mg twice a day; vitamin D 125 MCG daily; we will consult pulmonary for further treatment of COVID-19 pneumonia 4. Acute exacerbation COPD; albuterol inhaler 2 puffs every 6 hours and when necessary; IV Decadron; await pulmonary recommendations 5. Hypokalemia; supplemented in ED; we will monitor I's and make further recommendations 6. Hyperlipidemia; Lipitor 10 mg by mouth daily 7. Paroxysmal atrial fibrillation; remains rate controlled on Coreg; anticoagulation therapy in place DVT prophylaxis; SCDs/systemic anticoagulation CODE STATUS; DO NOT RESUSCITATE
[2021-02-03] MEDS: PSYLLIUM HUSK 100% 6 GM PACKET PO SCH (20:06)
[2021-02-04 02:10] LABS: Chol/HDL Ratio 3.73
[2021-02-04] MEDS: carvediloL 12.5 MG TAB PO SCH ×2 (06:42→17:17)
[2021-02-04] MEDS: ALBUTEROL HFA INHALER INHALATION SCH ×3 (08:24→19:15)
--- NOTE | 2021-02-04 09:05 | P.PN ---
Subjective Progress Note Date: 02/04/21 Principal diagnosis: Abnormal cardiac enzymes This is a pleasant 85-year-old female patient who was admitted to the hospital mainly because of COVID 19 infection and we consulted to see the patient because of abnormal cardiac enzymes. The patient denies any symptoms of chest pain or chest discomfort but continues to have shortness of breath. She is still on high flow oxygen. We consider medical treatment/conservative approach for the abnormal cardiac enzymes in the absence of any chest pain or chest discomfort. The echo revealed normal left ventricular systolic function was mild aortic stenosis. Objective - Vital Signs Vital signs: Vital Signs Temp 98 F 02/04/21 08:00 Pulse 70 02/04/21 08:00 Resp 18 02/04/21 08:00 BP 122/63 02/04/21 08:00 Pulse Ox 94 L 02/04/21 08:00 Intake & Output 02/03/21 02/04/21 02/04/21 18:59 06:59 18:59 Intake Total 420 Output Total 350 380 Balance 70 -380 Weight 72.5 kg Intake: Oral 420 Output: Urine 350 380 Other: Voiding Method Toilet Toilet Urinal Urinal # Voids 1 - Constitutional General appearance: Present: no acute distress - Labs CBC & Chem 7: 02/02/21 17:20 02/03/21 07:27 Labs: Abnormal Lab Results - Last 24 Hours (Table) 02/02/21 Range/Units 17:20 Triglycerides 150.0 H (0.0-149.0) mg/dL Microbiology - Last 24 Hours (Table) 02/02/21 17:20 Blood Culture - Preliminary Blood No Growth after 24 hours 02/02/21 17:20 Blood Culture - Preliminary Blood No Growth after 24 hours Assessment and Plan Assessment: Assessment #1 evidence of myocardial injury without any evidence of ischemia medically or by EKG. Echo to be done #2 COVID 19 infection #3 pneumonia secondary to COVID 19 #3 coronary artery disease #4 boxes small atrial fibrillation #5 multiple comorbid conditions Plan #1 continue the current medical regimen #2 follow-up on the echocardiogram #3 consider a conservative medical approach regarding the abnormal troponin #4 the echo was reviewed and showed normal function was moderate aortic stenosis #5 follow-up with the patient
[2021-02-04] MEDS: ATORVASTATIN 10 MG TAB PO SCH (09:47)
[2021-02-04] MEDS: APIXABAN 2.5 MG TABLET PO SCH ×2 (09:47→20:02)
[2021-02-04] MEDS: MULTIVITAMINS, THERA 1 EACH TAB PO SCH (09:48)
[2021-02-04] MEDS: CYANOCOBALAMIN 500 MCG TAB PO SCH (09:48)
[2021-02-04] MEDS: FUROSEMIDE 40 MG TAB PO SCH (09:48)
[2021-02-04] MEDS: ASPIRIN 81 MG PO SCH (09:48)
[2021-02-04] MEDS: DEXAMETHASONE SOD PHOSPHATE 10 MG/ML 1 ML VIAL IV SCH (09:48)
[2021-02-04] MEDS: CHOLECALCIFEROL 25 MCG (1000 IU) TABLET PO SCH (09:48)
[2021-02-04] MEDS: ASCORBIC ACID 500 MG TAB PO SCH ×3 (09:48→21:23)
[2021-02-04 10:12] LABS: African American GFR (CKD) >90 (>60 ml/min/1.73 sqM); Anion Gap 11 mmol/L; Blood Urea Nitrogen 29 mg/dL (9-20); Calcium 8.6 mg/dL (8.4-10.2); Carbon Dioxide 22 mmol/L (22-30); Chloride 104 mmol/L (98-107); Glucose 259 mg/dL (74-99); Non-African American GFR(CKD) 86 (>60 ml/min/1.73 sqM); Potassium 3.9 mmol/L (3.5-5.1); Sodium 137 mmol/L (137-145)
[2021-02-04] MEDS: SODIUM CHLORIDE 0.9% 1,000 ML IV SCH ×2 (12:15→20:02)
--- NOTE | 2021-02-04 13:19 | P.PN ---
Subjective Progress Note Date: 02/04/21 Principal diagnosis: Shortness of breath. This is a 85-year-old white male patient of Dr. Ford also follows with Dr. Richardson in the pulmonary clinic for his history of COPD, and bronchiectasis, has a history of multiple medical problems including chronic A. fib, coronary artery disease with stenting, aortic valve stenosis status post TAVR in March 2020, hypertension, hyperlipidemia, previous myocardial infarction, previous episodes of pneumonia, former smoker. Patient came into the emergency department on 02/02/2021 for evaluation of shortness of breath, and some chest pain. He states he was diagnosed with COVID-19 on the same day. His chest pain was midsternal, it did radiate to his back. It was mild to moderate in severity. Reported fever or chills. His chest x-ray showed an acute radiographic process. His blood work showed white blood cell count of 8.7, hemoglobin is 10.5, lymphocyte count is 0.4, d-dimer was 1.02, potassium is 3.2, progressive exerci se were unremarkable, B1 is 22, creatinine 0.8, lactic acid is 1.7, patient had elevation of troponin is 0.132, 0.131, and 0.126. ProBNP was 2600, COVID-19 PCR is positive, influenza A and B and RSV PCR were negative. EKG showed sinus rhythm with right bundle branch block and evidence of inferior infarct of undetermined age. Of note patient is vaccinated for COVID-19. He is not oxygen dependent at baseline. He does have history of pseudomonal, MRSA, and Serratia pulmonary infections. His most recent bronchoscopy with bronchial washings from 12/15/2020 showed evidence of pseudomonas aeruginosa in his bronch wash cultures. Because of being high risk for further complications related to COVID-19 infection and multiple comorbidities patient received a dose of Regeneron, he is already on oral Eliquis for his history of atrial fibrillation, he was started on dexamethasone 6 mg daily and he was admitted to the hospital. Progress note dated 02/04/2021. This is an 85-year-old male who was seen in consultation. The patient has a history of COPD, bronchiectasis, atrial fibrillation, CAD, aortic valve stenosis, hypertension, hyperlipidemia, and myocardial infarction. The patient has been previously vaccinated against coronavirus. He apparently was recently diagnosed with coronavirus infection. Clinically, the patient looks well. He feels like he is improved. Labs today include a sodium 137, potassium 3.9, chlorides 104, CO2 22, anion gap 11, BUN 29, and creatinine 0.7. There was no chest x-ray today. The patient remains on between 2-3 L nasal cannula, with saturations are 94%. The rest of his vital signs are very stable. Objective - Vital Signs Vital signs: Vital Signs Temp 98 F 02/04/21 08:00 Pulse 70 02/04/21 08:00 Resp 18 02/04/21 08:00 BP 122/63 02/04/21 08:00 Pulse Ox 94 L 02/04/21 08:00 Intake & Output 02/03/21 02/04/21 02/04/21 18:59 06:59 18:59 Intake Total 420 Output Total 350 380 Balance 70 -380 Weight 72.5 kg Intake: Oral 420 Output: Urine 350 380 Other: Voiding Method Toilet Toilet Urinal Urinal # Voids 1 - Exam No acute distress, oriented 3. Currently on 3 L nasal cannula. Saturations are in the mid 90s. HEENT examination is grossly unremarkable. Neck supple. Full range of motion. No adenopathy thyromegaly or neck vein distention. Cardiovascular examination reveals an irregular rhythm and rate. S1-S2 normal. No S3 or S4. No discernible murmur noted. Lungs reveal mostly clear breath sounds. Breath sounds are equal bilaterally. No wheezes or crackles. Scattered mild rhonchi are noted. Abdomen soft. Bowel sounds are noted. Extremities are intact. No cyanosis clubbing or significant edema. Skin is without rash. Neurologic examination is nonfocal. - Labs CBC & Chem 7: 02/02/21 17:20 02/04/21 09:27 Labs: Abnormal Lab Results - Last 24 Hours (Table) 02/02/21 02/04/21 Range/Units 17:20 09:27 BUN 29 H (9-20) mg/dL Glucose 259 H (74-99) mg/dL Triglycerides 150.0 H (0.0-149.0) mg/dL Microbiology - Last 24 Hours (Table) 02/02/21 17:20 Blood Culture - Preliminary Blood No Growth after 24 hours 02/02/21 17:20 Blood Culture - Preliminary Blood No Growth after 24 hours Assessment and Plan Assessment: #1. Acute hypoxic respiratory failure related to chronic COPD, atelectasis and COVID-19 infection without evidence of pneumonia on the chest x-ray, or the CTA chest. CTA chest Negative for pulmonary embolism, it did show atelectasis within the posterior segment of the right lower lobe. COVID-19 PCR was positive, onset of symptoms is unclear, reportedly one or 2 days ago. Patient is status post Regeneron infusion on 02/02/2021 #2. Troponin elevation and chest pain, rule out non-ST elevated myocardial infarction #3. Completed vaccination for COVID-19 #4. History of COPD, and bronchiectasis with frequent pulmonary infections including Pseudomonas, MRSA and Serratia #5. Coronary artery disease with previous stenting #6. Previous history of myocardial infarction #7. Aortic valve stenosis, status post TAVR at [facility] on 04/22/2020 #8. History of atrial fibrillation on Eliquis #9. Fibromyalgia #10. GERD/reflux Plan: Plan dated 02/04/2021. The patient's doing well. He is on 3 L nasal cannula. Labs are reviewed. Clinically he is feeling much improved. We will continue to follow make recommendations where appropriate. Currently, the patient is on albuterol inhaler, Eliquis, vitamins, Decadron, and his usual other medications. No additional recommendations are made at this time. Time with Patient: Less than 30
--- NOTE | 2021-02-04 17:32 | P.PN ---
Subjective Progress Note Date: 02/04/21 Principal diagnosis: Acute hypoxic respiratory failure related to chronic COPD, atelectasis and COVID-19 infection Troponin elevation and chest pain 85-year-old male who was brought in for evaluation after developing shortness of breath some chest pain he states he was diagnosed with Covid 19 today. He states he also has COPD and always has some issues with breathing. He is unable to exactly tell what the chest pain feels like is nonradiating is midsternal. It does radiate to his back he states. Mild to moderate in severity. It does get somewhat worse with breathing Workup in ED including an EKG reveals a normal sinus rhythm with right bundle branch block and nonspecific inferior changes which are new compared to EKG of 11/19/2020; The chest x-ray did not show any acute abnormalities. He underwent a computed tomography scan of the chest and that showed no PE. Lab work reveals a BNP of 2600, troponin elevated at 0.132; elevated d-dimer of 1.0 to, CBC is unremarkable, sodium 137, potassium 3.2, BUN/creatinine of 22/0.8 Patient is admitted to the hospital with COVID-19 pneumonia, COPD exacerbation, CHF exacerbation and hypokalemia Objective - Vital Signs Vital signs: Vital Signs Temp 98 F 02/04/21 08:00 Pulse 70 02/04/21 08:00 Resp 18 02/04/21 08:00 BP 122/63 02/04/21 08:00 Pulse Ox 94 L 02/04/21 08:00 Intake & Output 02/03/21 02/04/21 02/04/21 18:59 06:59 18:59 Intake Total 420 620 Output Total 350 380 Balance 70 -380 620 Weight 72.5 kg Intake: Oral 420 620 Output: Urine 350 380 Other: Voiding Method Toilet Toilet Urinal Urinal # Voids 1 - Exam Head exam: Present: atraumatic, normocephalic, normal inspection Eye exam: Present: normal appearance, PERRL, EOMI. Absent: scleral icterus, co njunctival injection, periorbital swelling ENT exam: Present: mucous membranes dry Neck exam: Present: normal inspection, full ROM, other (No stridor JVD or bruits). Absent: tenderness, meningismus, lymphadenopathy Respiratory exam: Present: wheezes, decreased breath sounds. Absent: respiratory distress, rales, rhonchi, stridor Cardiovascular Exam: Present: regular rate, normal rhythm, normal heart sounds. Absent: systolic murmur, diastolic murmur, rubs, gallop, clicks GI/Abdominal exam: Present: soft, normal bowel sounds. Absent: distended, tenderness, guarding, rebound, rigid Extremities exam: Present: normal inspection, full ROM, normal capillary refill. Absent: tenderness, pedal edema, joint swelling, calf tenderness Back exam: Present: normal inspection Neurological exam: Present: alert, oriented X3, CN II-XII intact Psychiatric exam: Present: normal affect, normal mood Skin exam: Present: warm, dry, intact, normal color. Absent: rash - Labs CBC & Chem 7: 02/02/21 17:20 02/04/21 09:27 Labs: Abnormal Lab Results - Last 24 Hours (Table) 02/02/21 02/04/21 Range/Units 17:20 09:27 BUN 29 H (9-20) mg/dL Glucose 259 H (74-99) mg/dL Triglycerides 150.0 H (0.0-149.0) mg/dL Microbiology - Last 24 Hours (Table) 02/02/21 17:20 Blood Culture - Preliminary Blood No Growth after 24 hours 02/02/21 17:20 Blood Culture - Preliminary Blood No Growth after 24 hours Assessment and Plan Assessment: 1. Elevated troponin/NSTEMI - Patient will be admitted to telemetry; monitor EKG and trend troponin; recommend 2-D echo - Consult cardiology; patient remains on aspirin and beta blockers and statin therapy 2. Acute exacerbation CHF; patient received IV Lasix in ED; we will continue with Lasix 40 mg by mouth daily but home dose; further recommendations once patient evaluated by cardiology 3. COVID-19 pneumonia; patient has complaints on Decadron 6 mg IV daily, vitamin C 500 mg twice a day; vitamin D 125 MCG daily; we will consult pulmonary for further treatment of COVID-19 pneumonia 4. Acute exacerbation COPD; albuterol inhaler 2 puffs every 6 hours and when necessary; IV Decadron; await pulmonary recommendations 5. Hypokalemia; supplemented in ED; we will monitor I's and make further recommendations 6. Hyperlipidemia; Lipitor 10 mg by mouth daily 7. Paroxysmal atrial fibrillation; remains rate controlled on Coreg; anticoagulation therapy in place DVT prophylaxis; SCDs/systemic anticoagulation CODE STATUS; DO NOT RESUSCITATE
[2021-02-04] MEDS: PSYLLIUM HUSK 100% 6 GM PACKET PO SCH (20:02)
[2021-02-04] MEDS: guaiFENesin 600 MG TABLET.ER PO PRN (20:22)
[2021-02-04 23:34] VITALS: RESP 18
[2021-02-05] MEDS: ALBUTEROL HFA INHALER INHALATION SCH ×3 (02:11→11:18)
[2021-02-05] MEDS: SODIUM CHLORIDE 0.9% 1,000 ML IV SCH (06:23)
[2021-02-05] MEDS: carvediloL 12.5 MG TAB PO SCH (06:23)
--- NOTE | 2021-02-05 07:25 | P.PN ---
Subjective Progress Note Date: 02/05/21 Principal diagnosis: Abnormal cardiac enzymes This is a pleasant 85-year-old female patient who was admitted to the hospital mainly because of COVID 19 infection and we consulted to see the patient because of abnormal cardiac enzymes. The patient remains stable from the cardiovascular standpoint of view. The echo revealed normal left ventricular systolic function was mild aortic stenosis. From the cardiovascular standpoint of view, no need for any further cardiac workup and we will follow-up with the patient on when necessary case Objective - Vital Signs Vital signs: Vital Signs Temp 98.5 F 02/05/21 03:32 Pulse 62 02/05/21 03:32 Resp 18 02/05/21 03:32 BP 131/70 02/05/21 03:32 Pulse Ox 97 02/05/21 03:32 Intake & Output 02/04/21 02/05/21 02/05/21 18:59 06:59 18:59 Intake Total 740 Output Total 400 Balance 740 -400 Weight 72 kg Intake: Oral 740 Output: Urine 400 Other: Voiding Method Toilet Urinal Urinal # Voids 1 - Labs CBC & Chem 7: 02/02/21 17:20 02/04/21 09:27 Labs: Abnormal Lab Results - Last 24 Hours (Table) 02/04/21 Range/Units 09:27 BUN 29 H (9-20) mg/dL Glucose 259 H (74-99) mg/dL Microbiology - Last 24 Hours (Table) 02/02/21 17:20 Blood Culture - Preliminary Blood No Growth after 48 hours 02/02/21 17:20 Blood Culture - Preliminary Blood No Growth after 48 hours Assessment and Plan Assessment: Assessment #1 evidence of myocardial injury without any evidence of ischemia medically or by EKG. Echo to be done #2 COVID 19 infection #3 pneumonia secondary to COVID 19 #3 coronary artery disease #4 boxes small atrial fibrillation #5 multiple comorbid conditions Plan #1 continue the current medical regimen #2 follow-up with the patient on when necessary
[2021-02-05] MEDS: DEXAMETHASONE SOD PHOSPHATE 10 MG/ML 1 ML VIAL IV SCH (08:37)
[2021-02-05] MEDS: ATORVASTATIN 10 MG TAB PO SCH (08:38)
[2021-02-05] MEDS: CYANOCOBALAMIN 500 MCG TAB PO SCH (08:38)
[2021-02-05] MEDS: ASCORBIC ACID 500 MG TAB PO SCH ×2 (08:38→08:44)
[2021-02-05] MEDS: CHOLECALCIFEROL 25 MCG (1000 IU) TABLET PO SCH (08:38)
[2021-02-05] MEDS: FUROSEMIDE 40 MG TAB PO SCH (08:38)
[2021-02-05] MEDS: ASPIRIN 81 MG PO SCH ×2 (08:38→08:45)
[2021-02-05] MEDS: APIXABAN 2.5 MG TABLET PO SCH (08:38)
[2021-02-05] MEDS: MULTIVITAMINS, THERA 1 EACH TAB PO SCH (08:44)
[2021-02-05 10:21] VITALS: PULSE 70
[2021-02-05] MEDS: guaiFENesin 600 MG TABLET.ER PO PRN (10:54)
[2021-02-05 11:35] VITALS: BP 159/70; TEMP 97.7
--- NOTE | 2021-02-05 11:58 | P.PN ---
Subjective Progress Note Date: 02/05/21 Principal diagnosis: Shortness of breath. This is a 85-year-old white male patient of Dr. Ford also follows with Dr. Richardson in the pulmonary clinic for his history of COPD, and bronchiectasis, has a history of multiple medical problems including chronic A. fib, coronary artery disease with stenting, aortic valve stenosis status post TAVR in March 2020, hypertension, hyperlipidemia, previous myocardial infarction, previous episodes of pneumonia, former smoker. Patient came into the emergency department on 02/02/2021 for evaluation of shortness of breath, and some chest pain. He states he was diagnosed with COVID-19 on the same day. His chest pain was midsternal, it did radiate to his back. It was mild to moderate in severity. Reported fever or chills. His chest x-ray showed an acute radiographic process. His blood work showed white blood cell count of 8.7, hemoglobin is 10.5, lymphocyte count is 0.4, d-dimer was 1.02, potassium is 3.2, progressive exerci se were unremarkable, B1 is 22, creatinine 0.8, lactic acid is 1.7, patient had elevation of troponin is 0.132, 0.131, and 0.126. ProBNP was 2600, COVID-19 PCR is positive, influenza A and B and RSV PCR were negative. EKG showed sinus rhythm with right bundle branch block and evidence of inferior infarct of undetermined age. Of note patient is vaccinated for COVID-19. He is not oxygen dependent at baseline. He does have history of pseudomonal, MRSA, and Serratia pulmonary infections. His most recent bronchoscopy with bronchial washings from 12/15/2020 showed evidence of pseudomonas aeruginosa in his bronch wash cultures. Because of being high risk for further complications related to COVID-19 infection and multiple comorbidities patient received a dose of Regeneron, he is already on oral Eliquis for his history of atrial fibrillation, he was started on dexamethasone 6 mg daily and he was admitted to the hospital. Progress note dated 02/04/2021. This is an 85-year-old male who was seen in consultation. The patient has a history of COPD, bronchiectasis, atrial fibrillation, CAD, aortic valve stenosis, hypertension, hyperlipidemia, and myocardial infarction. The patient has been previously vaccinated against coronavirus. He apparently was recently diagnosed with coronavirus infection. Clinically, the patient looks well. He feels like he is improved. Labs today include a sodium 137, potassium 3.9, chlorides 104, CO2 22, anion gap 11, BUN 29, and creatinine 0.7. There was no chest x-ray today. The patient remains on between 2-3 L nasal cannula, with saturations are 94%. The rest of his vital signs are very stable. Progress note dated 02/05/2021. 85-year-old male, with a history of COPD, bronchiectasis, atrial fibrillation, coronary disease, aortic valve stenosis, hypertension, hyperlipidemia, and myocardial infarction. The patient who is been previously vaccinated against coronavirus, was recently diagnosed with coronavirus infection. Currently, he's feeling much better. He states that they have weaned him off his oxygen. No new labs today. His current vital signs include temperature 97.7, heart rate 70, respiratory rate 18, blood pressure 159/70, and a room air saturation 92- 93%. Objective - Vital Signs Vital signs: Vital Signs Temp 97.7 F 02/05/21 11:34 Pulse 70 02/05/21 11:34 Resp 18 02/05/21 11:34 BP 159/70 02/05/21 11:34 Pulse Ox 92 L 02/05/21 11:34 Intake & Output 02/04/21 02/05/21 02/05/21 18:59 06:59 18:59 Intake Total 740 120 Output Total 400 Balance 740 -400 120 Weight 72 kg Intake: Oral 740 120 Output: Urine 400 Other: Voiding Method Toilet Urinal Urinal Urinal # Voids 1 1 - Exam No acute distress, oriented 3. Currently on room air, with saturations of 92- 93%. HEENT examination is grossly unremarkable. Neck supple. Full range of motion. No adenopathy thyromegaly or neck vein distention. Cardiovascular examination reveals an irregular rhythm and rate. S1-S2 normal. No S3 or S4. No discernible murmur noted. Heart sounds are distant. Heart rate 70 bpm. Lungs reveal mostly clear breath sounds. Breath sounds are equal bilaterally. No wheezes or crackles. Scattered mild rhonchi are noted. Abdomen soft. Bowel sounds are noted. Extremities are intact. No cyanosis clubbing or significant edema. Skin is without rash. Neurologic examination is nonfocal. - Labs CBC & Chem 7: 02/02/21 17:20 02/04/21 09:27 Labs: Microbiology - Last 24 Hours (Table) 02/02/21 17:20 Blood Culture - Preliminary Blood No Growth after 48 hours 02/02/21 17:20 Blood Culture - Preliminary Blood No Growth after 48 hours Assessment and Plan Assessment: #1. Acute hypoxic respiratory failure related to chronic COPD, atelectasis and COVID-19 infection without evidence of pneumonia on the chest x-ray, or the CTA chest. CTA chest Negative for pulmonary embolism, it did show atelectasis within the posterior segment of the right lower lobe. COVID-19 PCR was p ositive, onset of symptoms is unclear, reportedly one or 2 days ago. Patient is status post Regeneron infusion on 02/02/2021 #2. Troponin elevation and chest pain, rule out non-ST elevated myocardial infarction #3. Completed vaccination for COVID-19 #4. History of COPD, and bronchiectasis with frequent pulmonary infections including Pseudomonas, MRSA and Serratia #5. Coronary artery disease with previous stenting #6. Previous history of myocardial infarction #7. Aortic valve stenosis, status post TAVR at [facility] on 04/22/2020 #8. History of atrial fibrillation on Eliquis #9. Fibromyalgia #10. GERD/reflux Plan: Plan dated 02/04/2021. The patient's doing well. He is on 3 L nasal cannula. Labs are reviewed. Clinically he is feeling much improved. We will continue to follow make recommendations where appropriate. Currently, the patient is on albuterol inhaler, Eliquis, vitamins, Decadron, and his usual other medications. No additional recommendations are made at this time. Plan dated 02/05/2021. Currently, the patient's doing well. His room air saturations 92-93%. Clinically he is feeling much better. The patient remains on albuterol inhaler, Eliquis, Decadron, and his other usual medications. We will continue to follow. The patient is already on Eliquis. Additional recommendations and suggestions are forthcoming. Discharge planning underway. Time with Patient: Less than 30
== END 2021-02-05 16:16 | disposition home or self-care (01) | DRG 177 ==
LOC: EC 15:02 → 3SCARD 20:09
PROVIDERS: ADMIT Internal Medicine; ATTEND Internal Medicine
PROC: XW033H6 Introduction of Other New Technology Monoclonal Antibody into Peripheral Vein, Percutaneous Approach, New Technology Group 6 (ICD-10-PCS; principal; 2021-02-02)
PROC: 3E0F7SF Introduction of Other Gas into Respiratory Tract, Via Natural or Artificial Opening (ICD-10-PCS; 2021-02-02)
PROC: 8E0ZXY6 Isolation (ICD-10-PCS; 2021-02-02)
DX: U07.1 COVID-19 (principal); I21.4 Non-ST elevation (NSTEMI) myocardial infarction; J12.82 Pneumonia due to coronavirus disease 2019; J96.01 Acute respiratory failure with hypoxia; J44.1 Chronic obstructive pulmonary disease with (acute) exacerbation; J44.0 Chronic obstructive pulmonary disease with (acute) lower respiratory infection; I48.20 Chronic atrial fibrillation, unspecified; J98.11 Atelectasis; I11.0 Hypertensive heart disease with heart failure; I50.9 Heart failure, unspecified; I48.0 Paroxysmal atrial fibrillation; E87.6 Hypokalemia; I25.10 Atherosclerotic heart disease of native coronary artery without angina pectoris; I44.0 Atrioventricular block, first degree; E78.5 Hyperlipidemia, unspecified; K21.9 Gastro-esophageal reflux disease without esophagitis; G25.0 Essential tremor; I45.10 Unspecified right bundle-branch block; M79.7 Fibromyalgia; M10.9 Gout, unspecified; R42 Dizziness and giddiness; I25.2 Old myocardial infarction; Z66 Do not resuscitate; Z95.2 Presence of prosthetic heart valve; Z95.5 Presence of coronary angioplasty implant and graft; Z90.79 Acquired absence of other genital organ(s); Z88.1 Allergy status to other antibiotic agents; Z88.8 Allergy status to other drugs, medicaments and biological substances; Z87.01 Personal history of pneumonia (recurrent); Z86.14 Personal history of Methicillin resistant Staphylococcus aureus infection; Z87.891 Personal history of nicotine dependence; Z79.01 Long term (current) use of anticoagulants; Z79.82 Long term (current) use of aspirin; Z79.899 Other long term (current) drug therapy; Z98.42 Cataract extraction status, left eye; Z98.41 Cataract extraction status, right eye; Z88.6 Allergy status to analgesic agent; Z87.19 Personal history of other diseases of the digestive system
CPT/HCPCS: 36415; 71046; 71275; 80048; 80053; 80061; 82550; 83605; 83735; 83880; 84132; 84484; 85025; 85379; 85610; 85730; 87040; 87636; 93005; 93306; 94640; 99291

== ENCOUNTER 2021-02-24 15:41 | Inpatient (IN) | payer MEDICARE ==
[2021-02-24] MEDS ORDERED: FUROSEMIDE 10 MG/ML 4 ML VIAL IV STA (17:46)
--- NOTE | 2021-02-24 17:51 | ED ---
General Adult HPI - General Chief complaint: Shortness of Breath Stated complaint: Chest Pain,SOB Time Seen by Provider: 02/24/21 17:40 Source: patient, family, RN notes reviewed, old records reviewed Mode of arrival: wheelchair Limitations: no limitations - History of Present Illness Initial comments: 86-year-old white male, alert and oriented 4, presents to the emergency room with complaints of shortness of breath with exertion. Patient states for the past 2 days has had increased cough, increased swelling in his ankles and has been needing to sleep in a chair at night. Patient was seen by his dedicated local truck driver today Dr. Barrios who sent him to the emergency room for evaluation. He was told that his oxygen level at the office was low. -: days(s) (2) Severity scale (1-10): 0 Associated Symptoms: cough, loss of appetite, shortness of breath, weakness - Related Data Home Medications Medication Instructions Recorded Confirmed Ubidecarenone [Co Q-10] 100 mg PO DAILY 07/05/15 02/24/21 Multivitamins, Thera [Multivitamin 1 tab PO DAILY 03/28/18 02/24/21 (formulary)] guaiFENesin [Mucinex] 1,200 mg PO TID PRN 06/14/20 02/24/21 Ascorbic Acid [Vitamin C] 500 mg PO BID 10/10/20 02/24/21 Acetaminophen [Tylenol Arthritis] 650 mg PO Q8H PRN 11/19/20 02/24/21 Cholecalciferol (Vitamin D3) 125 mcg PO DAILY 11/19/20 02/24/21 [Vitamin D3 (5000 Iu)] Apixaban [Eliquis] 2.5 mg PO BID 12/13/20 02/24/21 Cyanocobalamin (Vitamin B-12) 5,000 mcg PO DAILY 12/13/20 02/24/21 [Vitamin B-12] Furosemide [Lasix] 40 mg PO DAILY 12/13/20 02/24/21 Magnesium Gluconate [Magonate] 500 mg PO DAILY 12/13/20 02/24/21 Rosuvastatin Calcium 5 mg PO DAILY 12/13/20 02/24/21 predniSONE 10 mg PO DAILY 12/13/20 02/24/21 Aspirin EC [Ecotrin Low Dose] 81 mg PO DAILY 02/02/21 02/24/21 Psyllium Husk (with Sugar) 17 gm PO HS PRN 02/02/21 02/24/21 [Metamucil Powder] carvediloL [Coreg*] 12.5 mg PO BID 02/02/21 02/24/21 Previous Rx's Medication Instructions Recorded Ipratropium-Albuterol Nebulize 3 ml INHALATION RT-QID 30 Days 11/23/20 [Duoneb 0.5 mg-3 mg/3 ml Soln] #120 ml Allergies Allergy/AdvReac Type Severity Reaction Status Date / Time meperidine [From Demerol] Allergy Unknown Verified 02/24/21 21:21 Childhood ciprofloxacin [From Cipro] AdvReac joint Verified 02/24/21 21:21 problems diphenhydramine HCl AdvReac "felt like Verified 02/24/21 21:21 [From Benadryl] I was dying" steroids AdvReac "Not sure Uncoded 02/24/21 16:50 of steroids" Review of Systems ROS Statement: Those systems with pertinent positive or pertinent negative responses have been documented in the HPI. ROS Other: All systems not noted in ROS Statement are negative. Past Medical History Past Medical History: Atrial Fibrillation, Coronary Artery Disease (CAD), COPD, Fibromyalgia, GERD/Reflux, Hyperlipidemia, Hypertension, Myocardial Infarction ([place]), Pneumonia, Thyroid Disorder Additional Past Medical History / Comment(s): Received covid vaccine, hx gout, increase difficulty clearing lungs at night-occ. sleeping in chair to sleep, essential tremors, frequent cough, SOB, vertigo. 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 Mother Additional Family Medical History / Comment(s): Mother had an enlarged heart and at age 90. Sister(s) Family Medical History: Cancer General Exam Limitations: no limitations General appearance: alert, in no apparent distress Head exam: Present: atraumatic, normocephalic, normal inspection Eye exam: Present: normal appearance, EOMI ENT exam: Present: normal exam, normal oropharynx, mucous membranes moist, other (Blue lesion at the tip of the right side of his tongue states chronic) Neck exam: Present: full ROM. Absent: tenderness Respiratory exam: Present: rales. Absent: chest wall tenderness, accessory muscle use, decreased breath sounds Cardiovascular Exam: Present: regular rate, normal rhythm, normal heart sounds. Absent: systolic murmur, diastolic murmur, rubs, gallop, clicks GI/Abdominal exam: Present: soft, normal bowel sounds. Absent: distended, tenderness, guarding, rebound, rigid Extremities exam: Present: normal capillary refill, pedal edema (2+ bilateral). Absent: tenderness, calf tenderness Back exam: Present: normal inspection. Absent: tenderness, CVA tenderness (R), CVA tenderness (L) Neurological exam: Present: alert, oriented X3 Psychiatric exam: Present: normal affect, normal mood Skin exam: Present: warm, dry, intact, normal color. Absent: rash, cyanosis, diaphoretic, petechiae, pallor Course Vital Signs 02/24/21 02/24/21 02/24/21 16:46 19:28 19:42 Temperature 98.7 F Pulse Rate 98 96 96 Respiratory 24 Rate Blood Pressure 151/88 O2 Sat by Pulse 91 L Oximetry Medical Decision Making - Medical Decision Making Chest x-ray shows a new right greater than left patchy and stranding obesity. There is some patchy bibasilar stranding obesity of the left lung. There is no evidence of leukocytosis. His potassium is 3.4, troponin is trending downward at 0.078. He will be admitted to the hospital with congestive heart failure. Case discussed with Dr. Deng. - Lab Data Result diagrams: 02/24/21 18:01 02/24/21 18:01 Lab Results 02/24/21 02/24/21 02/24/21 Range/Units 18:01 18:01 18:01 WBC 8.3 (3.8-10.6) k/uL RBC 3.43 L (4.30-5.90) m/uL Hgb 10.9 L (13.0-17.5) gm/dL Hct 33.3 L (39.0-53.0) % MCV 97.1 (80.0-100.0) fL MCH 31.8 (25.0-35.0) pg MCHC 32.7 (31.0-37.0) g/dL RDW 14.0 (11.5-15.5) % Plt Count 242 (150-450) k/uL MPV 7.6 Neutrophils % 84 % Lymphocytes % 7 % Monocytes % 6 % Eosinophils % 1 % Basophils % 0 % Neutrophils # 7.0 (1.3-7.7) k/uL Lymphocytes # 0.6 L (1.0-4.8) k/uL Monocytes # 0.5 (0-1.0) k/uL Eosinophils # 0.1 (0-0.7) k/uL Basophils # 0.0 (0-0.2) k/uL PT 10.9 (9.0-12.0) sec INR 1.0 (<1.2) APTT 26.4 (22.0-30.0) sec Sodium 133 L (137-145) mmol/L Potassium 3.4 L (3.5-5.1) mmol/L Chloride 94 L (98-107) mmol/L Carbon Dioxide 32 H (22-30) mmol/L Anion Gap 7 mmol/L BUN 32 H (9-20) mg/dL Creatinine 1.12 (0.66-1.25) mg/dL Est GFR (CKD-EPI)AfAm 69 (>60 ml/min/1.73 sqM) Est GFR (CKD-EPI)NonAf 59 (>60 ml/min/1.73 sqM) Glucose 156 H (74-99) mg/dL Plasma Lactic Acid Ke (0.7-2.0) mmol/L Calcium 9.0 (8.4-10.2) mg/dL Magnesium 2.1 (1.6-2.3) mg/dL Total Bilirubin 0.5 (0.2-1.3) mg/dL AST 24 (17-59) U/L ALT 16 (4-49) U/L Alkaline Phosphatase 60 (38-126) U/L Troponin I (0.000-0.034) ng/mL NT-Pro-B Natriuret Pep pg/mL Total Protein 6.5 (6.3-8.2) g/dL Albumin 3.4 L (3.5-5.0) g/dL Urine Color Urine Appearance (Clear) Urine pH (5.0-8.0) Ur Specific Kendall (1.001-1.035) Urine Protein (Negative) Urine Glucose (UA) (Negative) Urine Ketones (Negative) Urine Blood (Negative) Urine Nitrite (Negative) Urine Bilirubin (Negative) Urine Urobilinogen (<2.0) mg/dL Ur Leukocyte Esterase (Negative) Urine RBC (0-5) /hpf Urine WBC (0-5) /hpf Hyaline Casts (0-2) /lpf Urine Mucus (None) /hpf Coronavirus (PCR) (Not Detectd) 02/24/21 02/24/21 02/24/21 Range/Units 18:01 18:01 18:01 WBC (3.8-10.6) k/uL RBC (4.30-5.90) m/uL Hgb (13.0-17.5) gm/dL Hct (39.0-53.0) % MCV (80.0-100.0) fL MCH (25.0-35.0) pg MCHC (31.0-37.0) g/dL RDW (11.5-15.5) % Plt Count (150-450) k/uL MPV Neutrophils % % Lymphocytes % % Monocytes % % Eosinophils % % Basophils % % Neutrophils # (1.3-7.7) k/uL Lymphocytes # (1.0-4.8) k/uL Monocytes # (0-1.0) k/uL Eosinophils # (0-0.7) k/uL Basophils # (0-0.2) k/uL PT (9.0-12.0) sec INR (<1.2) APTT (22.0-30.0) sec Sodium (137-145) mmol/L Potassium (3.5-5.1) mmol/L Chloride (98-107) mmol/L Carbon Dioxide (22-30) mmol/L Anion Gap mmol/L BUN (9-20) mg/dL Creatinine (0.66-1.25) mg/dL Est GFR (CKD-EPI)AfAm (>60 ml/min/1.73 sqM) Est GFR (CKD-EPI)NonAf (>60 ml/min/1.73 sqM) Glucose (74-99) mg/dL Plasma Lactic Acid Ke 1.3 (0.7-2.0) mmol/L Calcium (8.4-10.2) mg/dL Magnesium (1.6-2.3) mg/dL Total Bilirubin (0.2-1.3) mg/dL AST (17-59) U/L ALT (4-49) U/L Alkaline Phosphatase (38-126) U/L Troponin I 0.078 H* (0.000-0.034) ng/mL NT-Pro-B Natriuret Pep 736 pg/mL Total Protein (6.3-8.2) g/dL Albumin (3.5-5.0) g/dL Urine Color Urine Appearance (Clear) Urine pH (5.0-8.0) Ur Specific Kendall (1.001-1.035) Urine Protein (Negative) Urine Glucose (UA) (Negative) Urine Ketones (Negative) Urine Blood (Negative) Urine Nitrite (Negative) Urine Bilirubin (Negative) Urine Urobilinogen (<2.0) mg/dL Ur Leukocyte Esterase (Negative) Urine RBC (0-5) /hpf Urine WBC (0-5) /hpf Hyaline Casts (0-2) /lpf Urine Mucus (None) /hpf Coronavirus (PCR) (Not Detectd) 02/24/21 02/24/21 Range/Units 18:03 20:25 WBC (3.8-10.6) k/uL RBC (4.30-5.90) m/uL Hgb (13.0-17.5) gm/dL Hct (39.0-53.0) % MCV (80.0-100.0) fL MCH (25.0-35.0) pg MCHC (31.0-37.0) g/dL RDW (11.5-15.5) % Plt Count (150-450) k/uL MPV Neutrophils % % Lymphocytes % % Monocytes % % Eosinophils % % Basophils % % Neutrophils # (1.3-7.7) k/uL Lymphocytes # (1.0-4.8) k/uL Monocytes # (0-1.0) k/uL Eosinophils # (0-0.7) k/uL Basophils # (0-0.2) k/uL PT (9.0-12.0) sec INR (<1.2) APTT (22.0-30.0) sec Sodium (137-145) mmol/L Potassium (3.5-5.1) mmol/L Chloride (98-107) mmol/L Carbon Dioxide (22-30) mmol/L Anion Gap mmol/L BUN (9-20) mg/dL Creatinine (0.66-1.25) mg/dL Est GFR (CKD-EPI)AfAm (>60 ml/min/1.73 sqM) Est GFR (CKD-EPI)NonAf (>60 ml/min/1.73 sqM) Glucose (74-99) mg/dL Plasma Lactic Acid Ke (0.7-2.0) mmol/L Calcium (8.4-10.2) mg/dL Magnesium (1.6-2.3) mg/dL Total Bilirubin (0.2-1.3) mg/dL AST (17-59) U/L ALT (4-49) U/L Alkaline Phosphatase (38-126) U/L Troponin I (0.000-0.034) ng/mL NT-Pro-B Natriuret Pep pg/mL Total Protein (6.3-8.2) g/dL Albumin (3.5-5.0) g/dL Urine Color Light Yellow Urine Appearance Clear (Clear) Urine pH 6.5 (5.0-8.0) Ur Specific Kendall 1.009 (1.001-1.035) Urine Protein 1+ H (Negative) Urine Glucose (UA) Negative (Negative) Urine Ketones Negative (Negative) Urine Blood Negative (Negative) Urine Nitrite Negative (Negative) Urine Bilirubin Negative (Negative) Urine Urobilinogen <2.0 (<2.0) mg/dL Ur Leukocyte Esterase Negative (Negative) Urine RBC <1 (0-5) /hpf Urine WBC <1 (0-5) /hpf Hyaline Casts 8 H (0-2) /lpf Urine Mucus Rare H (None) /hpf Coronavirus (PCR) Not Detected (Not Detectd) Disposition Clinical Impression: CHF (congestive heart failure) Disposition: ADMITTED IP TO THIS HOSP Decision Date: 02/24/21 Decision Time: 20:07
[2021-02-24 18:21] LABS: Basophils % (A) 0 %; Eosinophils # (A) 0.1 k/uL (0-0.7); Eosinophils % (A) 1 %; HCT 33.3 % (39.0-53.0); HGB 10.9 gm/dL (13.0-17.5); Lymphocytes # (A) 0.6 k/uL (1.0-4.8); Lymphocytes % (A) 7 %; MCH 31.8 pg (25.0-35.0); MCHC 32.7 g/dL (31.0-37.0); MCV 97.1 fL (80.0-100.0); Mean Platelet Volume 7.6; Monocytes # (A) 0.5 k/uL (0-1.0); Monocytes % (A) 6 %; Neutrophils % (A) 84 %; Platelet Count 242 k/uL (150-450); RBC 3.43 m/uL (4.30-5.90); WBC 8.3 k/uL (3.8-10.6)
[2021-02-24 18:31] LABS: Albumin 3.4 g/dL (3.5-5.0); Magnesium 2.1 mg/dL (1.6-2.3); Potassium 3.4 mmol/L (3.5-5.1); Total Bilirubin 0.5 mg/dL (0.2-1.3); Total Protein 6.5 g/dL (6.3-8.2)
[2021-02-24 18:33] LABS: Partial Thromboplastin Time 26.4 sec (22.0-30.0); Prothrombin Time 10.9 sec (9.0-12.0)
[2021-02-24 19:00] LABS: Appearance,Urine Clear (Clear); Bilirubin,Urine Negative (Negative); Blood,Urine Negative (Negative); Color,Urine Light Yellow; Glucose,Urine (UA) Negative (Negative); Hyaline Casts,Urine 8 /lpf (0-2); Ketones,Urine Negative (Negative); Leukocyte Esterase,Urine Negative (Negative); Mucus,Urine Rare /hpf; Nitrite,Urine Negative (Negative); PH, Urine 6.5 (5.0-8.0); Protein,Urine 1+ (Negative); RBC,Urine <1 /hpf (0-5); Specific Gravity,Urine 1.009 (1.001-1.035); Urobilinogen,Urine <2.0 mg/dL (<2.0); WBC,Urine <1 /hpf (0-5)
[2021-02-24] MEDS ORDERED: IPRATROPIUM-ALBUTEROL 3 ML NEB INHALATION STA (19:08)
--- NOTE | 2021-02-24 19:24 | XR ---
EXAMINATION TYPE: XR chest 2V DATE OF EXAM: 02/24/2021 COMPARISON: Chest radiograph 02/02/2021 HISTORY: Dyspnea TECHNIQUE: Frontal and lateral views of the chest are obtained. FINDINGS: Cardiomediastinal silhouette and pulmonary vasculature is within normal limits . There is patchy opacity in the right lung. There is some patchy and basilar strandy opacity in the le ft lung. IMPRESSION: New Right greater than left patchy and strandy opacities suggests multifocal airspace dis ease.
[2021-02-24] MEDS ORDERED: NALOXONE 0.4 MG/ML 1 ML VIAL IV PRN (20:04)
[2021-02-25] MEDS ORDERED: guaiFENesin 600 MG TABLET.ER PO PRN (02:14)
[2021-02-25] MEDS ORDERED: ACETAMINOPHEN TAB 325 MG TAB PO PRN (02:14)
[2021-02-25] MEDS ORDERED: AZITHROMYCIN 500 MG TAB PO STA (02:16)
[2021-02-25] MEDS ORDERED: POTASSIUM CHLORIDE ER 20 MEQ TAB.ER PO STA (02:19)
--- NOTE | 2021-02-25 02:35 | P.HPIM ---
History of Present Illness H&P Date: 02/24/21 Chief Complaint: SOB progressive 86 year old male with COPD , CAD s/p stents, diastolic CHF, P afib on eliquis elt comes in as a direct admit from cardiology office, for worsening SOB, and fluid overload, secondary to non compliance with lasix patient admits to not taking his lasix for weeks now, reporting progressive exertional dyspnea, unable to do anything without getting short of breath, which he denies while resting. he also report orthopnea and PNDs. he was diagnosed with COVID back 02/03/21 , however his symptoms pretty much resolved at this point , he did receive monoclonal Ab at the time he noticed increased leg edema , and wheezing. Moreover, he also noticed worsening productive cough no hemoptysis, and generalized weakness. he denies any leg tenderness, but noticed increase edema. he does not use home oxygen. he has history of TAVR for aortic valve stenosis blood work in the ED showed, mild hypokalemia , chronic stable anemia, denies any bleeding ,WBC wnl, no fevers, trops positive but lower than baseline , LVEF 55-60%. CXR showed new right lower lobe infilterates patient also reported new onset diarrhea , for the past 2 weeks, no abd pain , no vomiting, he is more used to having constipation for which he takes stool softners for years, that he has stopped over the past 2 weeks due to diarrhea Review of Systems Pertinent positives as noted in HPI. All other systems were reviewed and are negative Past Medical History Past Medical History: Atrial Fibrillation, Coronary Artery Disease (CAD), COPD, Fibromyalgia, GERD/Reflux, Hyperlipidemia, Hypertension, Myocardial Infarction ([place]), Pneumonia, Thyroid Disorder Additional Past Medical History / Comment(s): Received covid vaccine, hx gout, increase difficulty clearing lungs at night-occ. sleeping in chair to sleep, essential tremors, frequent cough, SOB, vertigo. 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 Mother Additional Family Medical History / Comment(s): Mother had an enlarged heart and at age 90. Sister(s) Family Medical History: Cancer Medications and Allergies Home Medications Medication Instructions Recorded Confirmed Type Ubidecarenone [Co Q-10] 100 mg PO DAILY 07/05/15 02/24/21 History Multivitamins, Thera [Multivitamin 1 tab PO DAILY 03/28/18 02/24/21 History (formulary)] guaiFENesin [Mucinex] 1,200 mg PO TID PRN 06/14/20 02/24/21 History Ascorbic Acid [Vitamin C] 500 mg PO BID 10/10/20 02/24/21 History Acetaminophen [Tylenol Arthritis] 650 mg PO Q8H PRN 11/19/20 02/24/21 History Cholecalciferol (Vitamin D3) 125 mcg PO DAILY 11/19/20 02/24/21 History [Vitamin D3 (5000 Iu)] Ipratropium-Albuterol Nebulize 3 ml INHALATION RT-QID 30 Days 11/23/20 02/24/21 Rx [Duoneb 0.5 mg-3 mg/3 ml Soln] #120 ml Apixaban [Eliquis] 2.5 mg PO BID 12/13/20 02/24/21 History Cyanocobalamin (Vitamin B-12) 5,000 mcg PO DAILY 12/13/20 02/24/21 History [Vitamin B-12] Furosemide [Lasix] 40 mg PO DAILY 12/13/20 02/24/21 History Magnesium Gluconate [Magonate] 500 mg PO DAILY 12/13/20 02/24/21 History Rosuvastatin Calcium 5 mg PO DAILY 12/13/20 02/24/21 History predniSONE 10 mg PO DAILY 12/13/20 02/24/21 History Aspirin EC [Ecotrin Low Dose] 81 mg PO DAILY 02/02/21 02/24/21 History Psyllium Husk (with Sugar) 17 gm PO HS PRN 02/02/21 02/24/21 History [Metamucil Powder] carvediloL [Coreg*] 12.5 mg PO BID 02/02/21 02/24/21 History Allergies Allergy/AdvReac Type Severity Reaction Status Date / Time meperidine [From Demerol] Allergy Unknown Verified 02/24/21 21:21 Childhood ciprofloxacin [From Cipro] AdvReac joint Verified 02/24/21 21:21 problems diphenhydramine HCl AdvReac "felt like Verified 02/24/21 21:21 [From Benadryl] I was dying" steroids AdvReac "Not sure Uncoded 02/24/21 16:50 of steroids" Physical Exam Vitals: Vital Signs Temp Pulse Pulse Resp BP BP Pulse Ox 02/25/21 00:00 98.6 F 115 H 18 126/72 91 L 02/24/21 22:00 99.1 F 102 H 20 140/80 92 L 02/24/21 19:42 96 02/24/21 19:28 96 02/24/21 16:46 98.7 F 98 24 151/88 91 L Intake and Output 02/24/21 02/24/21 02/25/21 14:59 22:59 06:59 Intake Total 10 Balance 10 Intake: IV 10 Invasive Line 1 10 Other: Voiding Method Toilet Weight 72.575 kg Constitutional: No acute distress, conversant, pleasant Eyes: Anicteric sclerae, moist conjunctiva, Pupils equal round reactive to light ENMT: NC/AT Oropharynx clear, no erythema, or exudates Neck: Supple, no masses, or JVD No carotid bruits No thyromegaly Lungs: diffuse wheezing , and rhonchorous breathing Clear to percussion Normal respiratory effort, no accessory muscle use Cardiovascular: Heart irregular soft systolic murmurs, no gallops, or rubs +2 bilateral peripheral edema Abdominal: Soft Nontender, no guarding, rebound or rigidity Abdomen moving with respiration Normoactive bowel sounds No hepatomegaly, No splenomegaly No palpable mass No abdominal wall hernia noted Skin: Normal temperature, tone, texture, turgor No induration No subcutaneous nodules No rash, lesions No ulcers Extremities: No digital cyanosis No clubbing Pedal pulses intact and symmetrical Radial pulses intact and symmetrical No calf tenderness Psychiatric: Alert and oriented to person, place and time Appropriate affect fair judgement Neuro Muscles Strength 4/5 in all 4 extremities Sensation to light touch grossly present throughout Cranial nerves II-XII grossly intact No focal sensory deficits Lymphatics: no palpable cervical or supraclavicular , or inguinal lymph nodes Results CBC & Chem 7: 02/24/21 18:01 02/24/21 18:01 Labs: Abnormal Lab Results - Last 24 Hours (Table) 02/24/21 02/24/21 02/24/21 Range/Units 18:01 18:01 18:01 RBC 3.43 L (4.30-5.90) m/uL Hgb 10.9 L (13.0-17.5) gm/dL Hct 33.3 L (39.0-53.0) % Lymphocytes # 0.6 L (1.0-4.8) k/uL Sodium 133 L (137-145) mmol/L Potassium 3.4 L (3.5-5.1) mmol/L Chloride 94 L (98-107) mmol/L Carbon Dioxide 32 H (22-30) mmol/L BUN 32 H (9-20) mg/dL Glucose 156 H (74-99) mg/dL Troponin I 0.078 H* (0.000-0.034) ng/mL Albumin 3.4 L (3.5-5.0) g/dL Urine Protein (Negative) Hyaline Casts (0-2) /lpf Urine Mucus (None) /hpf 02/24/21 Range/Units 18:03 RBC (4.30-5.90) m/uL Hgb (13.0-17.5) gm/dL Hct (39.0-53.0) % Lymphocytes # (1.0-4.8) k/uL Sodium (137-145) mmol/L Potassium (3.5-5.1) mmol/L Chloride (98-107) mmol/L Carbon Dioxide (22-30) mmol/L BUN (9-20) mg/dL Glucose (74-99) mg/dL Troponin I (0.000-0.034) ng/mL Albumin (3.5-5.0) g/dL Urine Protein 1+ H (Negative) Hyaline Casts 8 H (0-2) /lpf Urine Mucus Rare H (None) /hpf Thrombosis Risk Factor Assmnt - Choose All That Apply Each Factor Represents 1 point: Abnormal pulmonary function (COPD), Heart failure (<1month) Each Risk Factor Represents 3 Points: Age 75 years or older Thrombosis Risk Factor Assessment Total Risk Factor Score: 5 Thrombosis Risk Factor Assessment Level: High Risk Assessment and Plan Assessment: acute hypoxic respiratory failure , multifactorial with COPD exacerbation secondary to community acquired pneumonia progressive exertional dyspnea , rule out unerlying cardiac causes, patient non compliant with lasix OP valvular heart disease s/p TAVR afib on eliquis h/o CAD s/o stent diarrhea chronic anemia , stable , denies any bleeding recent COvid Positive early in february s/p monoclonal Ab plan supplemental oxygen follow up cultures rocephine 2 gm IVPB daily Azithromycin breathing treatments, systemic steroids resume eliqui for afib cardiology consult for elevated trops and progressive exertional dyspnea peripheral edema , lasix IV supportive care check C diff due to new onset diarrhea with recent hospitalization symptomatic control of coughing cardiac tele anticipated length of stay > 2 midnights no code anticipated discharge home
[2021-02-25] MEDS: predniSONE 20 MG TAB PO SCH (03:39)
[2021-02-25] MEDS: carvediloL 12.5 MG TAB PO SCH ×3 (03:39→19:59)
[2021-02-25] MEDS: PANTOPRAZOLE 40 MG TABLET PO SCH (06:20)
[2021-02-25 07:13] LABS: Glucose,Whole Blood 155 mg/dL (75-99)
[2021-02-25] MEDS ORDERED: predniSONE 10 MG TAB PO SCH (09:00)
[2021-02-25] MEDS: AZITHROMYCIN 250 MG TAB PO SCH (09:22)
[2021-02-25] MEDS: APIXABAN 2.5 MG TABLET PO SCH ×2 (09:22→19:59)
[2021-02-25] MEDS: ASPIRIN 81 MG PO SCH (09:22)
[2021-02-25] MEDS: ATORVASTATIN 10 MG TAB PO SCH (09:22)
[2021-02-25] MEDS: FUROSEMIDE 10 MG/ML 4 ML VIAL IV SCH ×2 (09:23→19:59)
[2021-02-25] MEDS: IPRATROPIUM-ALBUTEROL 3 ML NEB INHALATION SCH ×4 (09:28→21:17)
--- NOTE | 2021-02-25 14:23 | P.CNPUL ---
History of Present Illness Consult date: 02/25/21 Requesting physician: Jeremiah Price Reason for consult: dyspnea Chief complaint: Shortness of breath History of present illness: This is an 86-year-old gentleman who was admitted again yesterday from the cardiology office for worsening shortness of breath and fluid volume overload secondary to noncompliance with his Lasix. He had stopped taking it for weeks prior. He had recently been here for COVID-19 infection. He received monoclonal antibodies. He is seen today in consultation on the selective care unit. Currently sitting up in a chair at the bedside. Awake and alert in no acute distress. O2 saturation 91% on room air. His x-ray revealed patchy opacities right greater than left. White count 8.3. Hemoglobin 10.9. Sodium 133. Potassium 3.4. Creatinine 1.12. Troponin 0.078. ProBNP 736. Simon virus not detected. He's been initiated on DuoNeb inhalations, prednisone taper, IV diuretics, antibiotics in the form of ceftriaxone and azithromycin. He is anticoagulated with Eliquis. Review of Systems REVIEW OF SYSTEMS: CONSTITUTIONAL: Denies any recent significant weight loss or weight gain. EYES: Denies change in vision. EARS, NOSE, MOUTH, THROAT: Denies headaches, denies sore throat. CARDIOVASCULAR: Denies chest pain, palpitations or syncopal episodes. RESPIRATORY: Positive for shortness of breath, cough, congestion no hemoptysis. GASTROINTESTINAL: Denies change in appetite, denies abdominal pain GENITOURINARY: Denies hematuria, denies infections. MUSKULOSKELETAL: Denies pain, denies swelling. INTEGUMENTARY: Denies rash, denies eczema. NEUROLOGICAL: Denies recent memory loss, no recent seizure activity. PSYCHIATRIC: Denies anxiety, denies depression. HEMATOLOGIC/LYMPHATIC: Denies anemia, denies enlarged lymph nodes. Past Medical History Past Medical History: Atrial Fibrillation, Coronary Artery Disease (CAD), COPD, Fibromyalgia, GERD/Reflux, Hyperlipidemia, Hypertension, Myocardial Infarction ([place]), Pneumonia, Thyroid Disorder Additional Past Medical History / Comment(s): Received covid vaccine, hx gout, increase difficulty clearing lungs at night-occ. sleeping in chair to sleep, essential tremors, frequent cough, SOB, vertigo. 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 Mother Additional Family Medical History / Comment(s): Mother had an enlarged heart and at age 90. Sister(s) Family Medical History: Cancer Medications and Allergies Home Medications Medication Instructions Recorded Confirmed Type Ubidecarenone [Co Q-10] 100 mg PO DAILY 07/05/15 02/24/21 History Multivitamins, Thera [Multivitamin 1 tab PO DAILY 03/28/18 02/24/21 History (formulary)] guaiFENesin [Mucinex] 1,200 mg PO TID PRN 06/14/20 02/24/21 History Ascorbic Acid [Vitamin C] 500 mg PO BID 10/10/20 02/24/21 History Acetaminophen [Tylenol Arthritis] 650 mg PO Q8H PRN 11/19/20 02/24/21 History Cholecalciferol (Vitamin D3) 125 mcg PO DAILY 11/19/20 02/24/21 History [Vitamin D3 (5000 Iu)] Ipratropium-Albuterol Nebulize 3 ml INHALATION RT-QID 30 Days 11/23/20 02/24/21 Rx [Duoneb 0.5 mg-3 mg/3 ml Soln] #120 ml Apixaban [Eliquis] 2.5 mg PO BID 12/13/20 02/24/21 History Cyanocobalamin (Vitamin B-12) 5,000 mcg PO DAILY 12/13/20 02/24/21 History [Vitamin B-12] Furosemide [Lasix] 40 mg PO DAILY 12/13/20 02/24/21 History Magnesium Gluconate [Magonate] 500 mg PO DAILY 12/13/20 02/24/21 History Rosuvastatin Calcium 5 mg PO DAILY 12/13/20 02/24/21 History predniSONE 10 mg PO DAILY 12/13/20 02/24/21 History Aspirin EC [Ecotrin Low Dose] 81 mg PO DAILY 02/02/21 02/24/21 History Psyllium Husk (with Sugar) 17 gm PO HS PRN 02/02/21 02/24/21 History [Metamucil Powder] carvediloL [Coreg*] 12.5 mg PO BID 02/02/21 02/24/21 History Allergies Allergy/AdvReac Type Severity Reaction Status Date / Time meperidine [From Demerol] Allergy Unknown Verified 02/24/21 21:21 Childhood ciprofloxacin [From Cipro] AdvReac joint Verified 02/24/21 21:21 problems diphenhydramine HCl AdvReac "felt like Verified 02/24/21 21:21 [From Benadryl] I was dying" steroids AdvReac "Not sure Uncoded 02/24/21 16:50 of steroids" Physical Exam Vitals: Vital Signs Temp Pulse Pulse Resp BP BP Pulse Ox 02/25/21 12:13 60 18 02/25/21 12:03 55 L 18 02/25/21 09:37 52 L 18 02/25/21 09:28 48 L 18 91 L 02/25/21 08:00 98.4 F 96 18 105/65 91 L 02/25/21 04:00 98.5 F 104 H 18 152/70 89 L 02/25/21 00:00 98.6 F 115 H 18 136/72 91 L 02/24/21 22:00 99.1 F 102 H 20 140/80 92 L 02/24/21 19:42 96 02/24/21 19:28 96 02/24/21 16:46 98.7 F 98 24 151/88 91 L Intake and Output 02/24/21 02/25/21 02/25/21 22:59 06:59 14:59 Intake Total 20 Balance 20 Intake: IV 20 Invasive Line 1 20 Other: Voiding Method Toilet Toilet # Voids 3 Weight 72.575 kg 72.4 kg GENERAL EXAM: Alert, 86-year-old gentleman, on room air, fairly comfortable in no apparent distress. HEAD: Normocephalic. EYES: Normal reaction of pupils, equal size. NOSE: Clear with pink turbinates. THROAT: No erythema or exudates. NECK: No masses, no JVD. CHEST: No chest wall deformity. LUNGS: Equal air entry with crackles in the posterior bases. CVS: S1 and S2 normal with no audible murmur, regular rhythm. ABDOMEN: No hepatosplenomegaly, normal bowel sounds, no guarding or rigidity. SPINE: No scoliosis or deformity SKIN: No rashes CENTRAL NERVOUS SYSTEM: No focal deficits, tone is normal in all 4 extremities. EXTREMITIES: There is no peripheral edema. No clubbing, no cyanosis. Peripheral pulses are intact. Results - Laboratory Findings CBC and BMP: 02/24/21 18:01 02/24/21 18:01 PT/INR, D-dimer PT 10.9 sec (9.0-12.0) 02/24/21 18:01 INR 1.0 (<1.2) 02/24/21 18:01 Abnormal lab findings: Abnormal Labs 02/24/21 02/24/21 02/24/21 18:01 18:01 18:01 RBC 3.43 L Hgb 10.9 L Hct 33.3 L Lymphocytes # 0.6 L Sodium 133 L Potassium 3.4 L Chloride 94 L Carbon Dioxide 32 H BUN 32 H Glucose 156 H POC Glucose (mg/dL) Troponin I 0.078 H* Albumin 3.4 L Urine Protein Hyaline Casts Urine Mucus 02/24/21 02/25/21 18:03 07:11 RBC Hgb Hct Lymphocytes # Sodium Potassium Chloride Carbon Dioxide BUN Glucose POC Glucose (mg/dL) 155 H Troponin I Albumin Urine Protein 1+ H Hyaline Casts 8 H Urine Mucus Rare H - Diagnostic Findings Chest x-ray: image reviewed Assessment and Plan Assessment: 1 Dyspnea secondary to acute exacerbation of diastolic congestive heart failure, noncompliant with diuretics 2 Recent admission for COVID-19 3 Complete vaccination for COVID-19 4 History of COPD, and bronchiectasis with frequent pulmonary infections including Pseudomonas, MRSA and Serratia 5 Coronary artery disease with previous stenting 6 Previous history of myocardial infarction 7 Aortic valve stenosis, status post TAVR at [facility] on 04/22/2020 8 History of atrial fibrillation on Eliquis 9 Fibromyalgia 10 GERD/reflux Plan: The patient was seen and evaluated by Dr. Mckeon Chest x-ray and labs reviewed Continue bronchodilators Continue diuretics Empiric antibiotics Anticoagulated with Eliquis Probable home in the a.m. I, the cosigning physician, performed a history & physical examination of the patient. Lungs sounds with crackles in the posterior bases. Maintaining good O2 saturations in the 90s on room air. I discussed the assessment and plan of care with my nurse practitioner, Diana Jolley. I attest to the above consultation as dictated by her.
--- NOTE | 2021-02-25 14:50 | P.CRDCN ---
History of Present Illness Consult date: 02/25/21 Consult reason: congestive heart failure History of present illness: History of present illness: This is an 86-year-old gentleman with a past medical history significant for coronary artery disease as well as valvular heart disease status post TAVR with Dr. Barrios at [facility] as well as COPD and paroxysmal atrial fibrillation with recent hospitalization early this month due to Covid 19 infection, found to have elevated troponins at that time and both cardiology consult was warranted. Echocardiogram at that time revealed EF of 55-60%, TAVR procedure done, mild mitral regurgitation, mild tricuspid regurgitation. Patient was seen his machine welt butter and at that time had shortness of breath thought to be pulmonary related and patient was recommended to go to [facility] where his pulmonary doctor, Dr. Silva, practices. The patient was afebrile, heart rate in the 90s, blood pressure 151/88, pulse ox 91%. Chest x-ray revealed new right greater than left patchy and strandy opacities suggest multifocal airspace disease. WBC 8.3, hemoglobin 10.9 and platelet count 242. Sodium 133, potassium 3.4, chloride 94, CO2 32, BUN 32 and creatinine 1.12. Blood sugar 156. Troponin 0.078. ProBNP 736. Urinalysis negative. Coronavirus PCR not detected. Patient was started on antibiotics, IV Lasix 40 mg every 12 hours. Review Of Systems: Constitutional: No fever, no chills. No weakness, fatigue or lethargy. EENT: No headache. No dizziness. Lungs Reports shortness of breath, cough, no sputum production. No wheezing. Cardiovascular: No chest pain, no lower extremity edema. No palpitations. No paroxysmal nocturnal dyspnea. No orthopnea. No lightheadedness or dizziness. No syncopal episodes. Abdominal: No abdominal pain. No nausea, vomiting. No diarrhea. No constipation. No bloody or tarry stools.. No loss of appetite. Genitourinary: No dysuria.. No urinary retention. Musculoskeletal: No myalgias. No muscle weakness, no gait dysfunction, no frequent falls. No back pain. No neck pain. Integumentary: No wounds, no lesions. No rash or pruritus. No unusual bruising. Neurologic: No aphasia. No facial droop. No change in mentation. No head injury. No headache. No paralysis. No paresthesia. Psychiatric: No depression. No anxiety. Endocrine: No abnormal blood sugars. Physical examination: Gen: This is an 86-year-old male. Patient is resting in chair and appears to be comfortable and in no acute distress patient's is at the bedside. VS: Afebrile, heart rate 55, blood pressure 105/65, pulse ox 91% on room air. HEENT: Head is atraumatic, normocephalic. Pupils equal, round. Sclerae is anicteric. NECK: Supple. No JVD. No lymphadenopathy. No thyromegaly. LUNGS: Diminished with few crackles. No intercostal retractions. HEART Irregular rate and rhythm. Systolic murmur. ABDOMEN: Soft. Bowel sounds are present. No masses. No tenderness. EXTREMITIES: No pedal edema. No calf tenderness. NEUROLOGICAL: Patient is awake, alert and oriented x3. Cranial nerves 2 through 12 are grossly intact. Assessment: Dyspnea secondary to acute exacerbation of COPD, residual Covid 19 infection, acute on chronic diastolic heart failure Recent hospitalization for COVID 19 infection History of coronary artery disease Paroxysmal atrial fibrillation TAVR history Plan Continue eliquis 0.5 mg twice daily, aspirin 81 mg daily, Lipitor 10 mg daily, Coreg 12.5 mg twice daily Continue Lasix 40 mg IV every 12 hours, monitor I and O and daily weights, mon itor renal function and electrolytes Further recommendations to follow based upon clinical course Thank you kindly for this consultation. Nurse practitioner note has been reviewed, I agree with documented findings and plan of care. Patient was seen and examined. Past Medical History Past Medical History: Atrial Fibrillation, Coronary Artery Disease (CAD), COPD, Fibromyalgia, GERD/Reflux, Hyperlipidemia, Hypertension, Myocardial Infarction ([place]), Pneumonia, Thyroid Disorder Additional Past Medical History / Comment(s): Received covid vaccine, hx gout, increase difficulty clearing lungs at night-occ. sleeping in chair to sleep, essential tremors, frequent cough, SOB, vertigo. 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 Mother Additional Family Medical History / Comment(s): Mother had an enlarged heart and at age 90. Sister(s) Family Medical History: Cancer Medications and Allergies Home Medications Medication Instructions Recorded Confirmed Type Ubidecarenone [Co Q-10] 100 mg PO DAILY 07/05/15 02/24/21 History Multivitamins, Thera [Multivitamin 1 tab PO DAILY 03/28/18 02/24/21 History (formulary)] guaiFENesin [Mucinex] 1,200 mg PO TID PRN 06/14/20 02/24/21 History Ascorbic Acid [Vitamin C] 500 mg PO BID 10/10/20 02/24/21 History Acetaminophen [Tylenol Arthritis] 650 mg PO Q8H PRN 11/19/20 02/24/21 History Cholecalciferol (Vitamin D3) 125 mcg PO DAILY 11/19/20 02/24/21 History [Vitamin D3 (5000 Iu)] Ipratropium-Albuterol Nebulize 3 ml INHALATION RT-QID 30 Days 11/23/20 02/24/21 Rx [Duoneb 0.5 mg-3 mg/3 ml Soln] #120 ml Apixaban [Eliquis] 2.5 mg PO BID 12/13/20 02/24/21 History Cyanocobalamin (Vitamin B-12) 5,000 mcg PO DAILY 12/13/20 02/24/21 History [Vitamin B-12] Furosemide [Lasix] 40 mg PO DAILY 12/13/20 02/24/21 History Magnesium Gluconate [Magonate] 500 mg PO DAILY 12/13/20 02/24/21 History Rosuvastatin Calcium 5 mg PO DAILY 12/13/20 02/24/21 History predniSONE 10 mg PO DAILY 12/13/20 02/24/21 History Aspirin EC [Ecotrin Low Dose] 81 mg PO DAILY 02/02/21 02/24/21 History Psyllium Husk (with Sugar) 17 gm PO HS PRN 02/02/21 02/24/21 History [Metamucil Powder] carvediloL [Coreg*] 12.5 mg PO BID 02/02/21 02/24/21 History Allergies Allergy/AdvReac Type Severity Reaction Status Date / Time meperidine [From Demerol] Allergy Unknown Verified 02/24/21 21:21 Childhood ciprofloxacin [From Cipro] AdvReac joint Verified 02/24/21 21:21 problems diphenhydramine HCl AdvReac "felt like Verified 02/24/21 21:21 [From Benadryl] I was dying" steroids AdvReac "Not sure Uncoded 02/24/21 16:50 of steroids" Physical Exam Vitals: Vital Signs Temp Pulse Pulse Resp BP BP Pulse Ox 02/25/21 09:37 52 L 18 02/25/21 09:28 48 L 18 91 L 02/25/21 08:00 98.4 F 96 18 105/65 91 L 02/25/21 04:00 98.5 F 104 H 18 152/70 89 L 02/25/21 00:00 98.6 F 115 H 18 136/72 91 L 02/24/21 22:00 99.1 F 102 H 20 140/80 92 L 02/24/21 19:42 96 02/24/21 19:28 96 02/24/21 16:46 98.7 F 98 24 151/88 91 L Intake and Output 02/24/21 02/25/21 02/25/21 22:59 06:59 14:59 Intake Total 20 Balance 20 Intake: IV 20 Invasive Line 1 20 Other: Voiding Method Toilet Toilet # Voids 3 Weight 72.575 kg 72.4 kg Results 02/24/21 18:01 02/24/21 18:01 Cardiac Enzymes 02/24/21 02/24/21 Range/Units 18:01 18:01 AST 24 (17-59) U/L Troponin I 0.078 H* (0.000-0.034) ng/mL Coagulation 02/24/21 Range/Units 18:01 PT 10.9 (9.0-12.0) sec APTT 26.4 (22.0-30.0) sec CBC 02/24/21 Range/Units 18:01 WBC 8.3 (3.8-10.6) k/uL RBC 3.43 L (4.30-5.90) m/uL Hgb 10.9 L (13.0-17.5) gm/dL Hct 33.3 L (39.0-53.0) % Plt Count 242 (150-450) k/uL Comprehensive Metabolic Panel 02/24/21 Range/Units 18:01 Sodium 133 L (137-145) mmol/L Potassium 3.4 L (3.5-5.1) mmol/L Chloride 94 L (98-107) mmol/L Carbon Dioxide 32 H (22-30) mmol/L BUN 32 H (9-20) mg/dL Creatinine 1.12 (0.66-1.25) mg/dL Glucose 156 H (74-99) mg/dL Calcium 9.0 (8.4-10.2) mg/dL AST 24 (17-59) U/L ALT 16 (4-49) U/L Alkaline Phosphatase 60 (38-126) U/L Total Protein 6.5 (6.3-8.2) g/dL Albumin 3.4 L (3.5-5.0) g/dL Current Medications Generic Name Dose Route Start Last Admin Trade Name Freq PRN Reason Stop Dose Admin Acetaminophen 650 mg 02/25/21 02:14 Acetaminophen Tab 325 Mg Tab PO Q8H PRN Pain Albuterol/Ipratropium 3 ml 02/25/21 08:00 02/25/21 09:28 Ipratropium-Albuterol 3 Ml Neb INHALATION 3 ml RT-QID DOREEN Administration Apixaban 2.5 mg 02/25/21 09:00 02/25/21 09:22 Apixaban 2.5 Mg Tablet PO 2.5 mg BID DOREEN Administration Protocol Aspirin 81 mg 02/25/21 09:00 02/25/21 09:22 Aspirin 81 Mg PO 81 mg DAILY DOREEN Administration Atorvastatin Calcium 10 mg 02/25/21 09:00 02/25/21 09:22 Atorvastatin 10 Mg Tab PO 10 mg DAILY DOREEN Administration Azithromycin 250 mg 02/25/21 09:00 02/25/21 09:22 Azithromycin 250 Mg Tab PO 250 mg DAILY DOREEN Administration Carvedilol 12.5 mg 02/25/21 02:30 02/25/21 03:39 Carvedilol 12.5 Mg Tab PO 12.5 mg BID DOREEN Administration Furosemide 40 mg 02/25/21 09:00 02/25/21 09:23 Furosemide 10 Mg/Ml 4 Ml Vial IV 40 mg Q12HR DOREEN Administration Guaifenesin 1,200 mg 02/25/21 02:14 Guaifenesin 600 Mg Tablet.Er PO TID PRN Congestion Ceftriaxone Sodium 2 gm/ 50 mls @ 100 mls/hr 02/25/21 02:16 02/25/21 03:40 Sodium Chloride IVPB 100 mls/hr Q24H DOREEN Administration Naloxone HCl 0.2 mg 02/24/21 20:04 Naloxone 0.4 Mg/Ml 1 Ml Vial IV Q2M PRN Opioid Reversal Pantoprazole Sodium 40 mg 02/25/21 07:30 02/25/21 06:20 Pantoprazole 40 Mg Tablet PO Not Given [facility] Prednisone 40 mg 02/25/21 02:45 02/25/21 03:39 Prednisone 20 Mg Tab PO 40 mg DAILY DOREEN Administration Psyllium Hydrophilic Mucilloid 6 gm 02/25/21 02:14 Psyllium Husk 100% 6 Gm Packet PO HS PRN Constipation Intake and Output 02/24/21 02/25/21 02/25/21 22:59 06:59 14:59 Intake Total 20 Balance 20 Intake: IV 20 Invasive Line 1 20 Other: Voiding Method Toilet Toilet # Voids 3 Weight 72.575 kg 72.4 kg 02/24/21 18:01 02/24/21 18:01
[2021-02-25] MEDS ORDERED: Potassium Replacement Protocol 1 EACH MISC MISCELLANE PRN (15:14)
--- NOTE | 2021-02-25 15:14 | P.PN ---
Subjective Progress Note Date: 02/25/21 Patient was seen and evaluated by me this morning. He denies any shortness of breath. No acute events overnight reported by nursing staff. Objective - Vital Signs Vital signs: Vital Signs Temp 98.0 F 02/25/21 12:00 Pulse 94 02/25/21 14:00 Resp 18 02/25/21 14:00 BP 113/69 02/25/21 12:00 Pulse Ox 93 L 02/25/21 12:00 Intake & Output 02/24/21 02/25/21 02/25/21 18:59 06:59 18:59 Intake Total 20 Balance 20 Weight 72.575 kg 72.4 kg Intake: IV 20 Invasive Line 1 20 Other: Voiding Method Toilet Toilet # Voids 3 - Exam General: The patient is awake and alert, in no distress Eye: there is normal conjunctiva bilaterally. Neck: The neck is supple, there is no JVD. Cardiovascular: Normal S1-S2, no S3-S4, no murmurs. Respiratory: Lungs clear to auscultation bilaterally Gastrointestinal: Abdomen is soft, nontender Musculoskeletal: There is +2 pedal edema. Neurological:. Speech is normal. Skin: Skin is warm and dry - Labs CBC & Chem 7: 02/24/21 18:01 02/24/21 18:01 Labs: Abnormal Lab Results - Last 24 Hours (Table) 02/24/21 02/24/21 02/24/21 Range/Units 18:01 18:01 18:01 RBC 3.43 L (4.30-5.90) m/uL Hgb 10.9 L (13.0-17.5) gm/dL Hct 33.3 L (39.0-53.0) % Lymphocytes # 0.6 L (1.0-4.8) k/uL Sodium 133 L (137-145) mmol/L Potassium 3.4 L (3.5-5.1) mmol/L Chloride 94 L (98-107) mmol/L Carbon Dioxide 32 H (22-30) mmol/L BUN 32 H (9-20) mg/dL Glucose 156 H (74-99) mg/dL POC Glucose (mg/dL) (75-99) mg/dL Troponin I 0.078 H* (0.000-0.034) ng/mL Albumin 3.4 L (3.5-5.0) g/dL Urine Protein (Negative) Hyaline Casts (0-2) /lpf Urine Mucus (None) /hpf 02/24/21 02/25/21 Range/Units 18:03 07:11 RBC (4.30-5.90) m/uL Hgb (13.0-17.5) gm/dL Hct (39.0-53.0) % Lymphocytes # (1.0-4.8) k/uL Sodium (137-145) mmol/L Potassium (3.5-5.1) mmol/L Chloride (98-107) mmol/L Carbon Dioxide (22-30) mmol/L BUN (9-20) mg/dL Glucose (74-99) mg/dL POC Glucose (mg/dL) 155 H (75-99) mg/dL Troponin I (0.000-0.034) ng/mL Albumin (3.5-5.0) g/dL Urine Protein 1+ H (Negative) Hyaline Casts 8 H (0-2) /lpf Urine Mucus Rare H (None) /hpf Assessment and Plan Assessment: This is a 86-year-old male with complex past medical history noted below who presented to the emergency room with worsening shortness of breath and swelling in the lower extremities. Patient has stopped taking his Lasix few weeks ago. He was evaluated in the ER and admitted to the hospital for further management of his medical problems noted below. 1. Acute diastolic heart failure exacerbation noncompliant with Lasix 2. Recent COVID-19 pneumonia 3. Underlying coronary artery disease 4. Chronic atrial fibrillation on anticoagulation with Eliquis 5. History of TAVR Today, I reviewed his medication list and lab work results. Continue diuresis with IV Lasix. Daily weights. Accurate I's and O's. Repeat lab work and replace electrolytes as needed.
[2021-02-25 16:25] LABS: Calcium 9.2 mg/dL (8.4-10.2); Potassium 4.1 mmol/L (3.5-5.1)
[2021-02-26] MEDS: PANTOPRAZOLE 40 MG TABLET PO SCH ×2 (06:35→09:20)
[2021-02-26] MEDS: IPRATROPIUM-ALBUTEROL 3 ML NEB INHALATION SCH ×4 (08:12→20:54)
[2021-02-26] MEDS: predniSONE 20 MG TAB PO SCH (09:20)
[2021-02-26] MEDS: AZITHROMYCIN 250 MG TAB PO SCH (09:20)
[2021-02-26] MEDS: carvediloL 12.5 MG TAB PO SCH ×2 (09:20→20:58)
[2021-02-26] MEDS: APIXABAN 2.5 MG TABLET PO SCH ×2 (09:20→21:03)
[2021-02-26] MEDS: ASPIRIN 81 MG PO SCH (09:20)
[2021-02-26] MEDS: ATORVASTATIN 10 MG TAB PO SCH (09:20)
[2021-02-26] MEDS: FUROSEMIDE 10 MG/ML 4 ML VIAL IV SCH ×2 (09:20→20:57)
[2021-02-26 09:39] LABS: Basophils % (A) 0 %; Eosinophils # (A) 0.4 k/uL (0-0.7); Eosinophils % (A) 4 %; HCT 34.1 % (39.0-53.0); HGB 11.8 gm/dL (13.0-17.5); Lymphocytes % (A) 11 %; MCH 32.9 pg (25.0-35.0); MCHC 34.5 g/dL (31.0-37.0); MCV 95.4 fL (80.0-100.0); Mean Platelet Volume 8.3; Monocytes # (A) 0.7 k/uL (0-1.0); Monocytes % (A) 8 %; Neutrophils # (A) 6.9 k/uL (1.3-7.7); Neutrophils % (A) 75 %; Platelet Count 289 k/uL (150-450); RBC 3.57 m/uL (4.30-5.90); RDW 14.3 % (11.5-15.5); WBC 9.2 k/uL (3.8-10.6)
[2021-02-26 10:01] LABS: Calcium 9.6 mg/dL (8.4-10.2); Potassium 3.7 mmol/L (3.5-5.1)
--- NOTE | 2021-02-26 13:17 | P.PN ---
Subjective Progress Note Date: 02/26/21 History of present illness: This is an 86-year-old gentleman with a past medical history significant for c oronary artery disease as well as valvular heart disease status post TAVR with Dr. Barrios at [facility] as well as COPD and paroxysmal atrial fibrillation with recent hospitalization early this month due to Covid 19 infection, found to have elevated troponins at that time and both cardiology consult was warranted. Echocardiogram at that time revealed EF of 55-60%, TAVR procedure done, mild mitral regurgitation, mild tricuspid regurgitation. 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 Silva, practices. The patient was afebrile, heart rate in the 90s, blood pressure 151/88, pulse ox 91%. Chest x-ray revealed new right greater than left patchy and strandy opacities suggest multifocal airspace disease. WBC 8.3, hemoglobin 10.9 and platelet count 242. Sodium 133, potassium 3.4, chloride 94, CO2 32, BUN 32 and creatinine 1.12. Blood sugar 156. Troponin 0.078. ProBNP 736. Urinalysis negative. Coronavirus PCR not detected. Patient was started on antibiotics, IV Lasix 40 mg every 12 hours. 02/26: Patient is found sleeping in chair but arouses easily to verbal stimuli. clinical research monitor sinus tach. He denies any chest pain or shortness of breath. No palpitations. Repeat blood work reveals hemoglobin 11.8. Sodium 136, potassium 3.7, chloride and 94, BUN 47 creatinine 1.25. Physical examination: Gen: This is an 86-year-old male. Patient is resting in chair and appears to be comfortable and in no acute distress patient's is at the bedside. VS: Afebrile, heart rate 96, blood pressure 149/70, pulse ox 93% on room air. HEENT: Head is atraumatic, normocephalic. Pupils equal, round. Sclerae is anicteric. LUNGS: Diminished with few crackles. No intercostal retractions. HEART Irregular rate and rhythm. Systolic murmur. ABDOMEN: Soft. Bowel sounds are present. No masses. No tenderness. EXTREMITIES: No pedal edema. No calf tenderness. NEUROLOGICAL: Patient is awake, alert and oriented x3. Cranial nerves 2 through 12 are grossly intact. Assessment: Dyspnea secondary to acute exacerbation of COPD, residual Covid 19 infection, acute on chronic diastolic heart failure Recent hospitalization for COVID 19 infection History of coronary artery disease Paroxysmal atrial fibrillation TAVR history Plan Continue eliquis 2.5 mg twice daily, aspirin 81 mg daily, Lipitor 10 mg daily, Coreg 12.5 mg twice daily Continue Lasix 40 mg IV every 12 hours, monitor I and O and daily weights, monitor renal function and electrolytes Further recommendations to follow based upon clinical course Thank you kindly for this consultation. Nurse practitioner note has been reviewed, I agree with documented findings and plan of care. Patient was seen and examined. Objective - Vital Signs Vital signs: Vital Signs Temp 98.3 F 02/26/21 08:00 Pulse 114 H 02/26/21 08:24 Resp 18 02/26/21 08:24 BP 149/70 02/26/21 08:00 Pulse Ox 94 L 02/26/21 08:13 Intake & Output 02/25/21 02/26/21 02/26/21 18:59 06:59 18:59 Intake Total 240 10 240 Output Total 602 Balance 240 -592 240 Weight 72 kg Intake: IV 10 Invasive Line 1 10 Oral 240 240 Output: Urine 600 Stool 2 Other: Voiding Method Toilet Urinal - Labs CBC & Chem 7: 02/26/21 08:34 02/26/21 08:34 Labs: Abnormal Lab Results - Last 24 Hours (Table) 02/25/21 02/26/21 02/26/21 Range/Units 15:47 08:34 08:34 RBC 3.57 L (4.30-5.90) m/uL Hgb 11.8 L (13.0-17.5) gm/dL Hct 34.1 L (39.0-53.0) % Sodium 132 L 136 L (137-145) mmol/L Chloride 94 L 94 L (98-107) mmol/L BUN 43 H 47 H (9-20) mg/dL Creatinine 1.30 H (0.66-1.25) mg/dL Glucose 217 H 157 H (74-99) mg/dL Microbiology - Last 24 Hours (Table) 02/25/21 03:36 Blood Culture - Preliminary Blood No Growth after 24 hours
--- NOTE | 2021-02-26 13:28 | P.PN ---
Subjective Progress Note Date: 02/26/21 Principal diagnosis: Diastolic congestive heart failure This is an 86-year-old gentleman who was admitted again yesterday from the cardiology office for worsening shortness of breath and fluid volume overload secondary to noncompliance with his Lasix. He had stopped taking it for weeks prior. He had recently been here for COVID-19 infection. He received monoclonal antibodies. He is seen today in consultation on the selective care unit. Currently sitting up in a chair at the bedside. Awake and alert in no acute distress. O2 saturation 91% on room air. His x-ray revealed patchy opacities right greater than left. White count 8.3. Hemoglobin 10.9. Sodium 133. Potassium 3.4. Creatinine 1.12. Troponin 0.078. ProBNP 736. Simon virus not detected. He's been initiated on DuoNeb inhalations, prednisone taper, IV diuretics, antibiotics in the form of ceftriaxone and azithromycin. He is anticoagulated with Eliquis. The patient is seen today 02/26/2021 follow-up on the selective care unit. He is currently sitting up in a chair at the bedside. Awake and alert in no acute distress. Maintaining good O2 saturations in the 90s on room air. Somewhat tachycardic. Afebrile. Blood culture reveals no growth. White count 9.2. Hemoglobin 11.8. Sodium 136. Potassium 3.7. Creatinine 1.25. Urine Legionella antigen negative. He is continued on DuoNeb inhalations, prednisone. Anticoagulated with Eliquis. Remains on antibiotics in the form of ceftriaxone and azithromycin. Remains on IV diuretics. Objective - Vital Signs Vital signs: Vital Signs Temp 98.3 F 02/26/21 08:00 Pulse 96 02/26/21 12:30 Resp 18 02/26/21 08:24 BP 149/70 02/26/21 08:00 Pulse Ox 94 L 02/26/21 08:13 Intake & Output 02/25/21 02/26/21 02/26/21 18:59 06:59 18:59 Intake Total 240 10 240 Output Total 602 Balance 240 -592 240 Weight 72 kg Intake: IV 10 Invasive Line 1 10 Oral 240 240 Output: Urine 600 Stool 2 Other: Voiding Method Toilet Urinal - Exam GENERAL EXAM: Alert, 86-year-old gentleman, on room air, fairly comfortable in no apparent distress. HEAD: Normocephalic. EYES: Normal reaction of pupils, equal size. NOSE: Clear with pink turbinates. THROAT: No erythema or exudates. NECK: No masses, no JVD. CHEST: No chest wall deformity. LUNGS: Equal air entry with crackles in the posterior bases. CVS: S1 and S2 normal with no audible murmur, regular rhythm. ABDOMEN: No hepatosplenomegaly, normal bowel sounds, no guarding or rigidity. SPINE: No scoliosis or deformity SKIN: No rashes CENTRAL NERVOUS SYSTEM: No focal deficits, tone is normal in all 4 extremities. EXTREMITIES: There is no peripheral edema. No clubbing, no cyanosis. Peripheral pulses are intact. - Labs CBC & Chem 7: 02/26/21 08:34 02/26/21 08:34 Labs: Abnormal Lab Results - Last 24 Hours (Table) 02/25/21 02/26/21 02/26/21 Range/Units 15:47 08:34 08:34 RBC 3.57 L (4.30-5.90) m/uL Hgb 11.8 L (13.0-17.5) gm/dL Hct 34.1 L (39.0-53.0) % Sodium 132 L 136 L (137-145) mmol/L Chloride 94 L 94 L (98-107) mmol/L BUN 43 H 47 H (9-20) mg/dL Creatinine 1.30 H (0.66-1.25) mg/dL Glucose 217 H 157 H (74-99) mg/dL Microbiology - Last 24 Hours (Table) 02/25/21 03:36 Blood Culture - Preliminary Blood No Growth after 24 hours Assessment and Plan Assessment: 1 Dyspnea secondary to acute exacerbation of diastolic congestive heart failure, noncompliant with diuretics 2 Recent admission for COVID-19 3 Complete vaccination for COVID-19 4 History of COPD, and bronchiectasis with frequent pulmonary infections including Pseudomonas, MRSA and Serratia 5 Coronary artery disease with previous stenting 6 Previous history of myocardial infarction 7 Aortic valve stenosis, status post TAVR at [facility] on 04/22/2020 8 History of atrial fibrillation on Eliquis 9 Fibromyalgia 10 GERD/reflux Plan: The patient was seen and evaluated by Dr. Mckeon Continue bronchodilators Continue diuretics Anticoagulated with Eliquis Follow-up chest x-ray in a.m. Probable home in the a.m. I, the cosigning physician, performed a history & physical examination of the patient. Lungs sounds with crackles in the posterior bases. Maintaining good O2 saturations in the 90s on room air. I discussed the assessment and plan of care with my nurse practitioner, Diana Jolley. I attest to the above consultation as dictated by her.
--- NOTE | 2021-02-26 13:54 | P.PN ---
Subjective Patient reports feeling more short of breath today. He denies any chest pain. No acute events overnight. Objective - Vital Signs Vital signs: Vital Signs Temp 98.3 F 02/26/21 08:00 Pulse 96 02/26/21 12:30 Resp 18 02/26/21 08:24 BP 149/70 02/26/21 08:00 Pulse Ox 94 L 02/26/21 08:13 Intake & Output 02/25/21 02/26/21 02/26/21 18:59 06:59 18:59 Intake Total 240 10 480 Output Total 602 Balance 240 -592 480 Weight 72 kg Intake: IV 10 Invasive Line 1 10 Oral 240 480 Output: Urine 600 Stool 2 Other: Voiding Method Toilet Urinal - Exam General: The patient is awake and alert, in no distress Eye: there is normal conjunctiva bilaterally. Neck: The neck is supple, there is no JVD. Cardiovascular: Normal S1-S2, no S3-S4, no murmurs. Respiratory: Lungs clear to auscultation bilaterally Gastrointestinal: Abdomen is soft, nontender Musculoskeletal: There is +1 pedal edema. Neurological:. Speech is normal. Skin: Skin is warm and dry - Labs CBC & Chem 7: 02/26/21 08:34 02/26/21 08:34 Labs: Abnormal Lab Results - Last 24 Hours (Table) 02/25/21 02/26/21 02/26/21 Range/Units 15:47 08:34 08:34 RBC 3.57 L (4.30-5.90) m/uL Hgb 11.8 L (13.0-17.5) gm/dL Hct 34.1 L (39.0-53.0) % Sodium 132 L 136 L (137-145) mmol/L Chloride 94 L 94 L (98-107) mmol/L BUN 43 H 47 H (9-20) mg/dL Creatinine 1.30 H (0.66-1.25) mg/dL Glucose 217 H 157 H (74-99) mg/dL Microbiology - Last 24 Hours (Table) 02/25/21 03:36 Blood Culture - Preliminary Blood No Growth after 24 hours Assessment and Plan Assessment: This is a 86-year-old male with complex past medical history noted below who presented to the emergency room with worsening shortness of breath and swelling in the lower extremities. Patient has stopped taking his Lasix few weeks ago. He was evaluated in the ER and admitted to the hospital for further management of his medical problems noted below. 1. Acute diastolic heart failure exacerbation noncompliant with Lasix 2. Recent COVID-19 pneumonia 3. Underlying coronary artery disease 4. Chronic atrial fibrillation on anticoagulation with Eliquis 5. History of TAVR Today, I reviewed his medication list and lab work results. Continue diuresis with IV Lasix. Daily weights. Accurate I's and O's. Repeat lab work and replace electrolytes as needed.
[2021-02-27] MEDS: PANTOPRAZOLE 40 MG TABLET PO SCH (06:55)
[2021-02-27] MEDS: IPRATROPIUM-ALBUTEROL 3 ML NEB INHALATION SCH ×4 (07:20→19:20)
--- NOTE | 2021-02-27 07:34 | XR ---
EXAMINATION TYPE: XR chest 1V portable DATE OF EXAM: 02/27/2021 COMPARISON: 02/24/2021 INDICATION: Congestive heart failure TECHNIQUE: Single frontal view of the chest is obtained. FINDINGS: The heart size is normal. The pulmonary vasculature is normal. All infiltrates through the right mid lung. This is greatest the right lung base. Mild infiltrates of the left diaphragm. No significant interval change is evident. IMPRESSION: 1. Scattered bilateral lung infiltrates greater on the right. Findings are similar to comparison. Con tinued follow-up is recommended.
[2021-02-27] MEDS: predniSONE 20 MG TAB PO SCH (08:35)
[2021-02-27] MEDS: AZITHROMYCIN 250 MG TAB PO SCH (08:35)
[2021-02-27] MEDS: ASPIRIN 81 MG PO SCH ×2 (08:35→11:59)
[2021-02-27] MEDS: carvediloL 12.5 MG TAB PO SCH ×2 (08:35→18:52)
[2021-02-27] MEDS: FUROSEMIDE 40 MG TAB PO SCH (08:35)
[2021-02-27] MEDS: ATORVASTATIN 10 MG TAB PO SCH (08:35)
[2021-02-27] MEDS: APIXABAN 2.5 MG TABLET PO SCH ×3 (08:35→20:02)
--- NOTE | 2021-02-27 11:31 | P.PN ---
Subjective History of present illness: This is an 86-year-old gentleman with a past medical history significant for coronary artery disease as well as valvular heart disease status post TAVR with Dr. Barrios at [facility] as well as COPD and paroxysmal atrial fibrillation with recent hospitalization early this month due to Covid 19 infection, found to have elevated troponins at that time and both cardiology consult was warranted. Echocardiogram at that time revealed EF of 55-60%, TAVR procedure done, mild mitral regurgitation, mild tricuspid regurgitation. 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 Silva, practices. The patient was afebrile, heart rate in the 90s, blood pressure 151/88, pulse ox 91%. Chest x-ray revealed new right greater than left patchy and strandy opac ities suggest multifocal airspace disease. WBC 8.3, hemoglobin 10.9 and platelet count 242. Sodium 133, potassium 3.4, chloride 94, CO2 32, BUN 32 and creatinine 1.12. Blood sugar 156. Troponin 0.078. ProBNP 736. Urinalysis negative. Coronavirus PCR not detected. Patient was started on antibiotics, IV Lasix 40 mg every 12 hours. 02/27/2021 Patient seen and examined sitting up in recliner chair in no acute distress. He continues to complain of feeling congested and is coughing. He states he feels like he needs another bronchoscopy. He feels like he cannot clear his secretions. He denies chest pain, dizziness or palpitations. Blood pressure 129/78 heart rate 84 afebrile and maintaining oxygen saturation on room air. Urine output documentation inaccurate. The patient states he has been urinating a significant amount, more than his baseline. Physical examination: Gen: This is an 86-year-old male. Patient is resting in chair and appears to be comfortable and in no acute distress patient's is at the bedside. HEENT: Head is atraumatic, normocephalic. Pupils equal, round. Sclerae is anicteric. LUNGS: Diminished with scattered rhonchi, no wheezes or rales. HEART Irregular rate and rhythm. Systolic murmur at the base. EXTREMITIES: No pedal edema. No calf tenderness. Assessment: Dyspnea secondary to acute exacerbation of COPD, residual Covid 19 infection, acute on chronic diastolic heart failure Recent hospitalization for COVID 19 infection History of coronary artery disease Paroxysmal atrial fibrillation TAVR history Plan Continue current medical regimen. Consider pulmonary evaluation. Nurse practitioner note has been reviewed, I agree with documented findings and plan of care. Patient was seen and examined. Objective - Vital Signs Vital signs: Vital Signs Temp 98.5 F 02/27/21 08:00 Pulse 84 02/27/21 10:52 Resp 18 02/27/21 08:00 BP 129/78 02/27/21 08:00 Pulse Ox 94 L 02/27/21 10:38 Intake & Output 02/26/21 02/27/21 02/27/21 18:59 06:59 18:59 Intake Total 720 240 Output Total 1 2 Balance 719 -2 240 Weight 72.8 kg Intake: Oral 720 240 Output: Stool 1 2 Other: Voiding Method Urinal Urinal - Labs CBC & Chem 7: 02/26/21 08:34 02/26/21 08:34 Labs: Microbiology - Last 24 Hours (Table) 02/25/21 03:36 Blood Culture - Preliminary Blood No Growth after 48 hours
--- NOTE | 2021-02-27 12:01 | P.PN ---
Subjective Progress Note Date: 02/27/21 This is an 86-year-old gentleman who was admitted again yesterday from the cardiology office for worsening shortness of breath and fluid volume overload secondary to noncompliance with his Lasix. He had stopped taking it for weeks prior. He had recently been here for COVID-19 infection. He received mo noclonal antibodies. He is seen today in consultation on the selective care unit. Currently sitting up in a chair at the bedside. Awake and alert in no acute distress. O2 saturation 91% on room air. His x-ray revealed patchy opacities right greater than left. White count 8.3. Hemoglobin 10.9. Sodium 133. Potassium 3.4. Creatinine 1.12. Troponin 0.078. ProBNP 736. Simon virus not detected. He's been initiated on DuoNeb inhalations, prednisone taper, IV diuretics, antibiotics in the form of ceftriaxone and azithromycin. He is anticoagulated with Eliquis. The patient is seen today 02/26/2021 follow-up on the selective care unit. He is currently sitting up in a chair at the bedside. Awake and alert in no acute distress. Maintaining good O2 saturations in the 90s on room air. Somewhat tachycardic. Afebrile. Blood culture reveals no growth. White count 9.2. Hemoglobin 11.8. Sodium 136. Potassium 3.7. Creatinine 1.25. Urine Legionella antigen negative. He is continued on DuoNeb inhalations, prednisone. Anticoagulated with Eliquis. Remains on antibiotics in the form of ceftriaxone and azithromycin. Remains on IV diuretics. Evaluation of 02/27/2021, the patient is having a vigorous and the persistent cough. In fact his having limited time in between to catch his breath. This has gotten worse since yesterday. I reviewed the records and the patient has had multiple bronchoscopies in the past and her most recent bronchoscopy was done on 12/15/2020 and the patient back then had pseudomonas aeruginosa and his bronchioloalveolar lavage. He is currently afebrile. Is bringing up some creamy mucus. He is on long-term and to coagulation with Eliquis. For now, his taken a combination of Rocephin and Zithromax. I reviewed the chest x-ray. There are obvious chronic changes on chest x-ray. No clear indication for an acute pneumonia. He is post COVID-19 infection and has recovered and his repeat COVID-19's testing came back negative. His Legionella urine antigen came back negative. Objective - Vital Signs Vital signs: Vital Signs Temp 98.5 F 02/27/21 08:00 Pulse 84 02/27/21 10:52 Resp 18 02/27/21 08:00 BP 129/78 02/27/21 08:00 Pulse Ox 94 L 02/27/21 10:38 Intake & Output 02/26/21 02/27/21 02/27/21 18:59 06:59 18:59 Intake Total 720 240 Output Total 1 2 Balance 719 -2 240 Weight 72.8 kg Intake: Oral 720 240 Output: Stool 1 2 Other: Voiding Method Urinal Urinal - Exam GENERAL EXAM: Alert, 86-year-old gentleman, on room air, fairly comfortable in no apparent distress. HEAD: Normocephalic. EYES: Normal reaction of pupils, equal size. NOSE: Clear with pink turbinates. THROAT: No erythema or exudates. NECK: No masses, no JVD. CHEST: No chest wall deformity. LUNGS: Equal air entry with crackles in the posterior bases. CVS: S1 and S2 normal with no audible murmur, regular rhythm. ABDOMEN: No hepatosplenomegaly, normal bowel sounds, no guarding or rigidity. SPINE: No scoliosis or deformity SKIN: No rashes CENTRAL NERVOUS SYSTEM: No focal deficits, tone is normal in all 4 extremities. EXTREMITIES: There is no peripheral edema. No clubbing, no cyanosis. Pe ripheral pulses are intact. - Labs CBC & Chem 7: 02/26/21 08:34 02/26/21 08:34 Labs: Microbiology - Last 24 Hours (Table) 02/25/21 03:36 Blood Culture - Preliminary Blood No Growth after 48 hours Assessment and Plan Plan: 1 persistent cough and Dyspnea secondary to acute exacerbation of COPD along with a component of diastolic heart failure post multiple bronchoscopies, previous cultures indicating Pseudomonas aeruginosa, MRSA and Serratia. 2 Recent admission for COVID-19 3 Complete vaccination for COVID-19 4 History of COPD, and bronchiectasis with frequent pulmonary infections including Pseudomonas, MRSA and Serratia 5 Coronary artery disease with previous stenting 6 Previous history of myocardial infarction 7 Aortic valve stenosis, status post TAVR at [facility] on 04/22/2020 8 History of atrial fibrillation on Eliquis 9 Fibromyalgia 10 GERD/reflux Plan: On review of the please bronchoscopies, the patient has grown MRSA and pseudomonas aeruginosa. There is addition to Serratia and other microorganisms. Based on all this, I'm recommending the following I'm going to put the patient on IV cefepime for now Stop the Rocephin and Zithromax Switch this patient IV Solu Medrol 60 mg every 6 hours Put the patient a combination of Perforomist and Pulmicort neb last treatment twice a day Continue Mucinex for cough Lidocaine nebulized treatments and the cough persists Keep nothing by mouth after midnight and possible bronchoscopy in a.m. Keep and to coagulation on hold and preparation for the bronchoscopy Continue bronchodilators Continue diuretics ]
[2021-02-27] MEDS: methylPREDNISolone SOD SUCCI 125 MG/2 ML VIAL IV SCH ×3 (12:44→23:15)
--- NOTE | 2021-02-27 13:03 | P.PN ---
Subjective Patient is still complaining of shortness of breath today. Objective - Vital Signs Vital signs: Vital Signs Temp 98.5 F 02/27/21 08:00 Pulse 84 02/27/21 10:52 Resp 18 02/27/21 08:00 BP 129/78 02/27/21 08:00 Pulse Ox 94 L 02/27/21 10:38 Intake & Output 02/26/21 02/27/21 02/27/21 18:59 06:59 18:59 Intake Total 720 240 Output Total 1 2 Balance 719 -2 240 Weight 72.8 kg Intake: Oral 720 240 Output: Stool 1 2 Other: Voiding Method Urinal Urinal - Exam General: The patient is awake and alert, in no distress Eye: there is normal conjunctiva bilaterally. Neck: The neck is supple, there is no JVD. Cardiovascular: Normal S1-S2, no S3-S4, no murmurs. Respiratory: Lungs clear to auscultation bilaterally Gastrointestinal: Abdomen is soft, nontender Musculoskeletal: There is +1 pedal edema. Neurological:. Speech is normal. Skin: Skin is warm and dry - Labs CBC & Chem 7: 02/26/21 08:34 02/26/21 08:34 Labs: Microbiology - Last 24 Hours (Table) 02/25/21 03:36 Blood Culture - Preliminary Blood No Growth after 48 hours Assessment and Plan Assessment: This is a 86-year-old male with complex past medical history noted below who presented to the emergency room with worsening shortness of breath and swelling in the lower extremities. Patient has stopped taking his Lasix few weeks ago. He was evaluated in the ER and admitted to the hospital for further management of his medical problems noted below. 1. Acute diastolic heart failure exacerbation noncompliant with Lasix 2. Recent COVID-19 pneumonia 3. Underlying coronary artery disease 4. Chronic atrial fibrillation on anticoagulation with Eliquis 5. History of TAVR 6. COPD exacerbation Today, I reviewed his medication list and lab work results. Antibiotics adjusted by pulmonology to cefepime based on previous cultures. Patient was on azithromycin and ceftriaxone since admission. Possible bronchoscopy in the morning.
[2021-02-27] MEDS ORDERED: methylPREDNISolone SOD SUCCI 40 MG/ML 1 ML VIAL IV SCH (16:00)
[2021-02-27] MEDS: CEFEPIME 2 GM in SODIUM CHLORIDE 0.9% 100 ML IVPB SCH ×2 (17:05→23:16)
[2021-02-27] MEDS: LACTATED RINGERS 1,000 ML IV SCH (17:06)
[2021-02-27] MEDS: BUDESONIDE 1 MG/2 ML NEBU INHALATION SCH (19:20)
[2021-02-27] MEDS: FORMOTEROL FUMARATE 20 MCG/2 ML NEBU INHALATION SCH (19:34)
[2021-02-27] MEDS ORDERED: carvediloL 12.5 MG TAB PO STA (21:28)
[2021-02-27] MEDS: DILTIAZEM 125 MG in SODIUM CHLORIDE 0.9% 100 ML IV SCH (23:02)
[2021-02-28] MEDS: methylPREDNISolone SOD SUCCI 125 MG/2 ML VIAL IV SCH ×4 (05:54→22:59)
[2021-02-28] MEDS: PANTOPRAZOLE 40 MG TABLET PO SCH (05:55)
[2021-02-28 06:17] LABS: Glucose,Whole Blood 196 mg/dL (75-99)
[2021-02-28] MEDS: APIXABAN 2.5 MG TABLET PO SCH ×2 (07:36→22:01)
[2021-02-28] MEDS: CEFEPIME 2 GM in SODIUM CHLORIDE 0.9% 100 ML IVPB SCH ×2 (08:32→22:03)
[2021-02-28] MEDS: carvediloL 12.5 MG TAB PO SCH ×2 (08:33→22:04)
[2021-02-28] MEDS: FUROSEMIDE 40 MG TAB PO SCH (08:33)
[2021-02-28] MEDS: ATORVASTATIN 10 MG TAB PO SCH (08:33)
[2021-02-28] MEDS: ASPIRIN 81 MG PO SCH (08:37)
[2021-02-28] MEDS: FORMOTEROL FUMARATE 20 MCG/2 ML NEBU INHALATION SCH ×2 (08:38→20:59)
[2021-02-28] MEDS: BUDESONIDE 1 MG/2 ML NEBU INHALATION SCH ×2 (08:38→20:59)
[2021-02-28] MEDS: IPRATROPIUM-ALBUTEROL 3 ML NEB INHALATION SCH ×5 (08:38→20:59)
--- NOTE | 2021-02-28 09:48 | P.PN ---
Subjective History of present illness: This is an 86-year-old gentleman with a past medical history significant for coronary artery disease as well as valvular heart disease status post TAVR with Dr. Barrios at [facility] as well as COPD and paroxysmal atrial fibrillation with recent hospitalization early this month due to Covid 19 infection, found to have elevated troponins at that time and both cardiology consult was warranted. Echocardiogram at that time revealed EF of 55-60%, TAVR procedure done, mild mitral regurgitation, mild tricuspid regurgitation. 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 Silva, practices. The patient was afebrile, heart rate in the 90s, blood pressure 151/88, pulse ox 91%. Chest x-ray revealed new right greater than left patchy and strandy opac ities suggest multifocal airspace disease. WBC 8.3, hemoglobin 10.9 and platelet count 242. Sodium 133, potassium 3.4, chloride 94, CO2 32, BUN 32 and creatinine 1.12. Blood sugar 156. Troponin 0.078. ProBNP 736. Urinalysis negative. Coronavirus PCR not detected. Patient was started on antibiotics, IV Lasix 40 mg every 12 hours. 02/28/2021 Patient seen and examined sitting in a recliner chair [facility]. He is scheduled for bronchoscopy later this afternoon with Dr. Balwinder ruff. Blood pressure 98/65 heart rate 106 afebrile maintaining oxygen saturation on room air. He went into atrial fibrillation last evening and was initiated on a Cardizem infusion. He continues to be in A. fib this morning with variable ventricular rates. Physical examination: Gen: This is an 86-year-old male. Patient is resting in chair and appears to be comfortable and in no acute distress patient's is at the bedside. HEENT: Head is atraumatic, normocephalic. Pupils equal, round. Sclerae is anicteric. LUNGS: Diminished with scattered rhonchi, no wheezes or rales. HEART Irregular rate and rhythm. Systolic murmur at the base. EXTREMITIES: No pedal edema. No calf tenderness. Assessment: Dyspnea secondary to acute exacerbation of COPD, residual Covid 19 infection, acute on chronic diastolic heart failure Recent hospitalization for COVID 19 infection History of coronary artery disease Paroxysmal atrial fibrillation TAVR history Plan Continue Cardizem infusion while the patient is nothing by mouth for bronchoscopy. If his rates remained controlled it can be discontinued this afternoon. Plan discussed with the nurse in detail. Nurse practitioner note has been reviewed, I agree with documented findings and plan of care. Patient was seen and examined. Objective - Vital Signs Vital signs: Vital Signs Temp 97.5 F L 02/28/21 03:53 Pulse 84 02/28/21 09:03 Resp 20 02/28/21 03:53 BP 98/65 02/28/21 06:00 Pulse Ox 93 L 02/28/21 03:53 Intake & Output 02/27/21 02/28/21 02/28/21 18:59 06:59 18:59 Intake Total 720 7.333 Output Total 200 Balance 720 -192.667 Weight 74.5 kg Intake: Intake, IV Titration 7.333 Amount Diltiazem 125 mg In 7.333 Sodium Chloride 0.9% 100 ml @ 5 MG/HR 5 mls/hr IV .Q24H [facility] Rx#:[id number] Oral 720 Output: Urine 200 Other: Voiding Method Urinal # Voids 2 2 - Labs CBC & Chem 7: 02/26/21 08:34 02/26/21 08:34 Labs: Abnormal Lab Results - Last 24 Hours (Table) 02/28/21 Range/Units 06:15 POC Glucose (mg/dL) 196 H (75-99) mg/dL Microbiology - Last 24 Hours (Table) 02/25/21 03:36 Blood Culture - Preliminary Blood No Growth after 72 hours
[2021-02-28] MEDS ORDERED: fentaNYL (PF) 50 MCG/ML 2 ML AMP ONE (10:26)
[2021-02-28] MEDS ORDERED: KETAMINE 10 MG/ML 20 ML VIAL ONE (10:26)
[2021-02-28] MEDS ORDERED: PROPOFOL 10 MG/ML 20 ML VIAL IV ONE (10:26)
[2021-02-28] MEDS ORDERED: MIDAZOLAM 2 MG/2 ML VIAL ONE (10:26)
[2021-02-28] MEDS ORDERED: IV FLUID CONTINUATION 1,000 ML IV ONE (10:33)
[2021-02-28] MEDS ORDERED: LIDOCAINE 2% INJ 20 MG/ML INTRATRACH ONE ×2 (10:50)
--- NOTE | 2021-02-28 11:01 | P.PCN ---
Preoperative Diagnosis: Shortness of breath and cough Postoperative Diagnosis: 1 COPD 2 severe tracheobronchomalacia 3 mucous plugs, the patient underwent therapeutic airway suctioning 4 pseudomonal tracheobronchitis Procedure(s) Performed: 1 flexible bronchoscopy 2 airway inspection 3 therapeutic airway suctioning and removal of mucous plugs Anesthesia: MAC Surgeon: Christy Ruvalcaba Pathology: other Condition: stable Disposition: floor Operative Findings: Visit flexible bronchoscopy that was done in the endoscopy suite. The patient was having difficulty breathing and persistent cough and shortness of breath and for that reason bronchoscopy was indicated This procedure was done under sedation. The patient was given a combination of ketamine and propofol by BUSINESS OFFICE ASSISTANT and an CORINNE inhibitor bedside. After achieving adequate sedation, the flexible bronchoscope was introduced through the right nostril and was advanced into the upper airway. Examination of the posterior oropharynx, larynx, epiglottis, arytenoids, vallecula and situated. Records were essentially within normal limits. A total of 2 mL of 1% lidocaine was applied to the vocal cords and following that the bronchoscope was advanced with Doppler trachea. Examination trachea bronchial tree was done. Immediately, a component of severe tracheal bronchomalacia was identified throughout the patient's airway. The patient had complete collapse of the airway with exhalation, cough and and this was attributed to dynamic collapse ability of the membranous trachea and bronchomalacia was seen throughout the airways bilaterally. There was also copious amounts of mucus plugging that was creamy beige in color. Therapeutic airway suctioning was done. suctioning of the secretions was completed and the trachea and bilateral mainstem bronchi and the various airways in the right upper lobe right lower lobe right middle lobe left upper lobe and left lower lobe. There is fraction included the bilateral mainstem bronchi, right upper lobe bronchus, bronchus intermedius, right middle lobe bronchus, right lower lobe bronchus and the various times segments of the right and examination of the left includes a left mainstem bronchus left upper lobe bronchus left lower lobe bronchus and the various segments of the left. At the completion of the procedure, airway patency was achieved. The bronchial mucosa looked slightly inflamed. All of the mucous plugs were removed. The bronchial aspirate was sent for culture analysis and will make further adjustment in treatment accordingly. The patient tolerated the procedure well. He had a few episodes of desaturation throughout the procedure requiring some bagging and ultimately improved the patient woke up comfortably the patient was transferred recovery in stable condition.
--- NOTE | 2021-02-28 11:03 | P.PN ---
Subjective Progress Note Date: 02/28/21 This is an 86-year-old gentleman who was admitted again yesterday from the cardiology office for worsening shortness of breath and fluid volume overload secondary to noncompliance with his Lasix. He had stopped taking it for weeks prior. He had recently been here for COVID-19 infection. He received mo noclonal antibodies. He is seen today in consultation on the selective care unit. Currently sitting up in a chair at the bedside. Awake and alert in no acute distress. O2 saturation 91% on room air. His x-ray revealed patchy opacities right greater than left. White count 8.3. Hemoglobin 10.9. Sodium 133. Potassium 3.4. Creatinine 1.12. Troponin 0.078. ProBNP 736. Simon virus not detected. He's been initiated on DuoNeb inhalations, prednisone taper, IV diuretics, antibiotics in the form of ceftriaxone and azithromycin. He is anticoagulated with Eliquis. The patient is seen today 02/26/2021 follow-up on the selective care unit. He is currently sitting up in a chair at the bedside. Awake and alert in no acute distress. Maintaining good O2 saturations in the 90s on room air. Somewhat tachycardic. Afebrile. Blood culture reveals no growth. White count 9.2. Hemoglobin 11.8. Sodium 136. Potassium 3.7. Creatinine 1.25. Urine Legionella antigen negative. He is continued on DuoNeb inhalations, prednisone. Anticoagulated with Eliquis. Remains on antibiotics in the form of ceftriaxone and azithromycin. Remains on IV diuretics. Evaluation of 02/27/2021, the patient is having a vigorous and the persistent cough. In fact his having limited time in between to catch his breath. This has gotten worse since yesterday. I reviewed the records and the patient has had multiple bronchoscopies in the past and her most recent bronchoscopy was done on 12/15/2020 and the patient back then had pseudomonas aeruginosa and his bronchioloalveolar lavage. He is currently afebrile. Is bringing up some creamy mucus. He is on long-term and to coagulation with Eliquis. For now, his taken a combination of Rocephin and Zithromax. I reviewed the chest x-ray. There are obvious chronic changes on chest x-ray. No clear indication for an acute pneumonia. He is post COVID-19 infection and has recovered and his repeat COVID-19's testing came back negative. His Legionella urine antigen came back negative. 02/28/2021, the patient's coughing is subsided and the patient was getting better compared to yesterday. Nevertheless, he felt still that he was having copious amount of rest or secretions which she was unable to cough out. As mentioned earlier, his last bronchoscopy revealed pseudomonas aeruginosa and the patient was placed on IV cefepime yesterday in addition to a combination of Perforomist and Pulmicort overestimates twice a day and antitussive medications. Clinically is feeling better. Bronchoscopy was completed today and the patient was found to have severe check of bronchomalacia and the patient had extensive amount of mucous plugging square he underwent a therapeutic it was suctioning. Cultures were also sent. The procedure was completed without any major complications or issues. He is afebrile. He is hemodynamically stable at this point in time. He is post COVID-19 related infection from which she has recovered. He continues to be on anticoagulation with Eliquis. Objective - Vital Signs Vital signs: Vital Signs Temp 97.4 F L 02/28/21 08:00 Pulse 84 02/28/21 09:03 Resp 20 02/28/21 08:00 BP 109/67 02/28/21 08:00 Pulse Ox 92 L 02/28/21 08:00 Intake & Output 02/27/21 02/28/21 02/28/21 18:59 06:59 18:59 Intake Total 720 7.333 100 Output Total 200 Balance 720 -192.667 100 Weight 74.5 kg Intake: IV 100 Intake, IV Titration 7.333 Amount Diltiazem 125 mg In 7.333 Sodium Chloride 0.9% 100 ml @ 5 MG/HR 5 mls/hr IV .Q24H [facility] Rx#:[id number] Oral 720 Output: Urine 200 Other: Voiding Method Urinal Urinal # Voids 2 2 0 # Bowel Movements 0 - Exam GENERAL EXAM: Alert, 86-year-old gentleman, on room air, fairly comfortable in no apparent distress. HEAD: Normocephalic. EYES: Normal reaction of pupils, equal size. NOSE: Clear with pink turbinates. THROAT: No erythema or exudates. NECK: No masses, no JVD. CHEST: No chest wall deformity. LUNGS: Equal air entry with crackles in the posterior bases. CVS: S1 and S2 normal with no audible murmur, regular rhythm. ABDOMEN: No hepatosplenomegaly, normal bowel sounds, no guarding or rigidity. SPINE: No scoliosis or deformity SKIN: No rashes CENTRAL NERVOUS SYSTEM: No focal deficits, tone is normal in all 4 extremities. EXTREMITIES: There is no peripheral edema. No clubbing, no cyanosis. Peripheral pulses are intact. - Labs CBC & Chem 7: 02/26/21 08:34 02/26/21 08:34 Labs: Abnormal Lab Results - Last 24 Hours (Table) 02/28/21 Range/Units 06:15 POC Glucose (mg/dL) 196 H (75-99) mg/dL Microbiology - Last 24 Hours (Table) 02/25/21 03:36 Blood Culture - Preliminary Blood No Growth after 72 hours Assessment and Plan Plan: 1 persistent cough and Dyspnea secondary to acute exacerbation of COPD along with a component of diastolic heart failure post multiple bronchoscopies, pre vious cultures indicating Pseudomonas aeruginosa, MRSA and Serratia.. Bronchoscopy was done and the patient was found to have severe tracheo- bronchomalacia with mucous plugs. 2 Recent admission for COVID-19 3 Complete vaccination for COVID-19 4 History of COPD, and bronchiectasis with frequent pulmonary infections including Pseudomonas, MRSA and Serratia 5 Coronary artery disease with previous stenting 6 Previous history of myocardial infarction 7 Aortic valve stenosis, status post TAVR at [facility] on 04/22/2020 8 History of atrial fibrillation on Eliquis 9 Fibromyalgia 10 GERD/reflux Plan: Bronchoscopy was completed and airway suctioning was done and the patient's mucous plugs were removed Continue IV cefepime for now Continue IV Solu Medrol 60 mg every 6 hours Continue Perforomist and Pulmicort neb last treatment twice a day Continue Mucinex for cough Lidocaine nebulized treatments and the cough persists Continue bronchodilators Continue diuretics ]
--- NOTE | 2021-02-28 11:33 | P.PN ---
Subjective Patient was seen and evaluated by me this morning. He feels that his shortness of breath is around the same compared to yesterday. He is scheduled for bronchoscopy later today. Objective - Vital Signs Vital signs: Vital Signs Temp 97.4 F L 02/28/21 08:00 Pulse 112 H 02/28/21 11:15 Resp 20 02/28/21 11:15 BP 94/71 02/28/21 11:15 Pulse Ox 95 02/28/21 11:15 Intake & Output 02/27/21 02/28/21 02/28/21 18:59 06:59 18:59 Intake Total 720 7.333 100 Output Total 200 Balance 720 -192.667 100 Weight 74.5 kg Intake: IV 100 Intake, IV Titration 7.333 Amount Diltiazem 125 mg In 7.333 Sodium Chloride 0.9% 100 ml @ 5 MG/HR 5 mls/hr IV .Q24H [facility] Rx#:[id number] Oral 720 Output: Urine 200 Other: Voiding Method Urinal Urinal # Voids 2 2 0 # Bowel Movements 0 - Exam General: The patient is awake and alert, in no distress Eye: there is normal conjunctiva bilaterally. Neck: The neck is supple, there is no JVD. Cardiovascular: Normal S1-S2, no S3-S4, no murmurs. Respiratory: Lungs clear to auscultation bilaterally Gastrointestinal: Abdomen is soft, nontender Musculoskeletal: There is +1 pedal edema. Neurological:. Speech is normal. Skin: Skin is warm and dry - Labs CBC & Chem 7: 02/26/21 08:34 02/26/21 08:34 Labs: Abnormal Lab Results - Last 24 Hours (Table) 02/28/21 Range/Units 06:15 POC Glucose (mg/dL) 196 H (75-99) mg/dL Microbiology - Last 24 Hours (Table) 02/25/21 03:36 Blood Culture - Preliminary Blood No Growth after 72 hours Assessment and Plan Assessment: This is a 86-year-old male with complex past medical history noted below who presented to the emergency room with worsening shortness of breath and swelling in the lower extremities. Patient has stopped taking his Lasix few weeks ago. He was evaluated in the ER and admitted to the hospital for further management of his medical problems noted below. 1. Acute diastolic heart failure exacerbation noncompliant with Lasix 2. Recent COVID-19 pneumonia 3. Severe tracheobronchomalacia noted on flexible bronchoscopy on 02/20 4. Acute exacerbation of COPD with mucus plugging status post flexible bronchoscopy with suctioning. Cultures pending. History of MRSA and Serratia in the past currently on IV cefepime day #2 5. Underlying coronary artery disease 6. Chronic atrial fibrillation on anticoagulation with Eliquis 7. History of TAVR Today, I reviewed his medication list and lab work results. Antibiotics and steroids managed by pulmonology Continue supportive care otherwise. Wean off O2 as tolerated.
[2021-02-28] MEDS: LACTATED RINGERS 1,000 ML IV SCH (14:15)
[2021-02-28 20:33] LABS: Glucose,Whole Blood 288 mg/dL (75-99)
[2021-02-28] MEDS: INSULIN ASPART (NovoLOG) 100 UNIT/ML VIAL SQ SCH (21:01)
[2021-02-28] MEDS: DILTIAZEM 125 MG in SODIUM CHLORIDE 0.9% 100 ML IV SCH (22:38)
[2021-03-01] MEDS: PANTOPRAZOLE 40 MG TABLET PO SCH (03:55)
[2021-03-01 06:14] LABS: Glucose,Whole Blood 188 mg/dL (75-99)
[2021-03-01] MEDS: methylPREDNISolone SOD SUCCI 125 MG/2 ML VIAL IV SCH ×4 (06:15→23:09)
[2021-03-01] MEDS: INSULIN ASPART (NovoLOG) 100 UNIT/ML VIAL SQ SCH ×4 (06:16→21:35)
[2021-03-01] MEDS: BUDESONIDE 1 MG/2 ML NEBU INHALATION SCH ×2 (08:49→20:27)
[2021-03-01] MEDS: IPRATROPIUM-ALBUTEROL 3 ML NEB INHALATION SCH ×4 (08:49→20:27)
[2021-03-01] MEDS: FORMOTEROL FUMARATE 20 MCG/2 ML NEBU INHALATION SCH ×2 (08:49→20:27)
[2021-03-01] MEDS: FUROSEMIDE 40 MG TAB PO SCH (09:07)
[2021-03-01] MEDS: ATORVASTATIN 10 MG TAB PO SCH (09:07)
[2021-03-01] MEDS: METOPROLOL TARTRATE 50 MG TAB PO SCH ×2 (09:07→21:36)
[2021-03-01] MEDS: CEFEPIME 2 GM in SODIUM CHLORIDE 0.9% 100 ML IVPB SCH ×2 (09:08→21:36)
[2021-03-01] MEDS: APIXABAN 2.5 MG TABLET PO SCH ×2 (09:08→21:36)
[2021-03-01] MEDS: ASPIRIN 81 MG PO SCH (09:08)
--- NOTE | 2021-03-01 09:46 | P.PN ---
Subjective History of present illness: This is an 86-year-old gentleman with a past medical history significant for coronary artery disease as well as valvular heart disease status post TAVR with Dr. Barrios at [facility] as well as COPD and paroxysmal atrial fibrillation with recent hospitalization early this month due to Covid 19 infection, found to have elevated troponins at that time and both cardiology consult was warranted. Echocardiogram at that time revealed EF of 55-60%, TAVR procedure done, mild mitral regurgitation, mild tricuspid regurgitation. 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 Silva, practices. The patient was afebrile, heart rate in the 90s, blood pressure 151/88, pulse ox 91%. Chest x-ray revealed new right greater than left patchy and strandy opac ities suggest multifocal airspace disease. WBC 8.3, hemoglobin 10.9 and platelet count 242. Sodium 133, potassium 3.4, chloride 94, CO2 32, BUN 32 and creatinine 1.12. Blood sugar 156. Troponin 0.078. ProBNP 736. Urinalysis negative. Coronavirus PCR not detected. Patient was started on antibiotics, IV Lasix 40 mg every 12 hours. 03/01/2021 Pt seen and examined sitting up in the recliner chair undergoing breathing treatment. He continues to be in atrial fibrillation with mostly controlled ventricular rates. He underwent bronchoscopy yesterday with airway suctioning and removal of mucous plugs. Blood pressure 133/75 heart rate in the 60s. Physical examination: Gen: This is an 86-year-old male. Patient is resting in chair and appears to be comfortable and in no acute distress patient's is at the bedside. HEENT: Head is atraumatic, normocephalic. Pupils equal, round. Sclerae is anicteric. LUNGS: Diminished with expiratory wheezes, no rhonchi or rales. HEART Irregular rate and rhythm. Systolic murmur at the base. EXTREMITIES: No pedal edema. No calf tenderness. Assessment: Dyspnea secondary to acute exacerbation of COPD, residual Covid 19 infection, acute on chronic diastolic heart failure Recent hospitalization for COVID 19 infection History of coronary artery disease Paroxysmal atrial fibrillation TAVR history Plan Change Coreg to Lopressor as it is nonselective beta nico due to his lung disease. Overall clinically stable on current medical regimen. Nurse practitioner note has been reviewed, I agree with documented findings and plan of care. Patient was seen and examined. Objective - Vital Signs Vital signs: Vital Signs Temp 97.6 F 03/01/21 08:00 Pulse 71 03/01/21 09:11 Resp 18 03/01/21 08:00 BP 133/75 03/01/21 08:00 Pulse Ox 99 03/01/21 08:00 Intake & Output 02/28/21 03/01/21 03/01/21 18:59 06:59 18:59 Intake Total 220 110.667 240 Output Total 400 200 Balance -180 -89.333 240 Weight 74.6 kg Intake: IV 100 Intake, IV Titration 110.667 Amount Diltiazem 125 mg In 110.667 Sodium Chloride 0.9% 100 ml @ 5 MG/HR 5 mls/hr IV .Q24H [facility] Rx#:[id number] Oral 120 240 Output: Urine 400 200 Other: Voiding Method Urinal Urinal Urinal # Voids 0 # Bowel Movements 0 - Labs CBC & Chem 7: 02/26/21 08:34 02/28/21 12:20 Labs: Abnormal Lab Results - Last 24 Hours (Table) 02/28/21 02/28/21 03/01/21 Range/Units 12:20 20:31 06:12 Sodium 135 L (137-145) mmol/L BUN 51 H (9-20) mg/dL POC Glucose (mg/dL) 288 H 188 H (75-99) mg/dL Microbiology - Last 24 Hours (Table) 02/25/21 03:36 Blood Culture - Preliminary Blood No Growth after 96 hours 02/28/21 10:45 Gram Stain - Preliminary Bronchial Washings - Random Bronchial Washings Culture - Preliminary 02/28/21 10:45 Fungal Culture - Preliminary Bronchial Washings - Random
--- NOTE | 2021-03-01 11:32 | P.PN ---
Subjective Progress Note Date: 03/01/21 This is an 86-year-old gentleman who was admitted again yesterday from the cardiology office for worsening shortness of breath and fluid volume overload secondary to noncompliance with his Lasix. He had stopped taking it for weeks prior. He had recently been here for COVID-19 infection. He received mo noclonal antibodies. He is seen today in consultation on the selective care unit. Currently sitting up in a chair at the bedside. Awake and alert in no acute distress. O2 saturation 91% on room air. His x-ray revealed patchy opacities right greater than left. White count 8.3. Hemoglobin 10.9. Sodium 133. Potassium 3.4. Creatinine 1.12. Troponin 0.078. ProBNP 736. Simon virus not detected. He's been initiated on DuoNeb inhalations, prednisone taper, IV diuretics, antibiotics in the form of ceftriaxone and azithromycin. He is anticoagulated with Eliquis. The patient is seen today 02/26/2021 follow-up on the selective care unit. He is currently sitting up in a chair at the bedside. Awake and alert in no acute distress. Maintaining good O2 saturations in the 90s on room air. Somewhat tachycardic. Afebrile. Blood culture reveals no growth. White count 9.2. Hemoglobin 11.8. Sodium 136. Potassium 3.7. Creatinine 1.25. Urine Legionella antigen negative. He is continued on DuoNeb inhalations, prednisone. Anticoagulated with Eliquis. Remains on antibiotics in the form of ceftriaxone and azithromycin. Remains on IV diuretics. Evaluation of 02/27/2021, the patient is having a vigorous and the persistent cough. In fact his having limited time in between to catch his breath. This has gotten worse since yesterday. I reviewed the records and the patient has had multiple bronchoscopies in the past and her most recent bronchoscopy was done on 12/15/2020 and the patient back then had pseudomonas aeruginosa and his bronchioloalveolar lavage. He is currently afebrile. Is bringing up some creamy mucus. He is on long-term and to coagulation with Eliquis. For now, his taken a combination of Rocephin and Zithromax. I reviewed the chest x-ray. There are obvious chronic changes on chest x-ray. No clear indication for an acute pneumonia. He is post COVID-19 infection and has recovered and his repeat COVID-19's testing came back negative. His Legionella urine antigen came back negative. 02/28/2021, the patient's coughing is subsided and the patient was getting better compared to yesterday. Nevertheless, he felt still that he was having copious amount of rest or secretions which she was unable to cough out. As mentioned earlier, his last bronchoscopy revealed pseudomonas aeruginosa and the patient was placed on IV cefepime yesterday in addition to a combination of Perforomist and Pulmicort overestimates twice a day and antitussive medications. Clinically is feeling better. Bronchoscopy was completed today and the patient was found to have severe check of bronchomalacia and the patient had extensive amount of mucous plugging square he underwent a therapeutic it was suctioning. Cultures were also sent. The procedure was completed without any major complications or issues. He is afebrile. He is hemodynamically stable at this point in time. He is post COVID-19 related infection from which she has recovered. He continues to be on anticoagulation with Eliquis. 03/01/2021, the patient continues to improve on a daily basis. He is post bronchoscopy. The final culture are still pending. Meanwhile, I offered them a flutter valve which she quite likes and he uses it regularly at the bedside. He is also on a combination of Perforomist and Pulmicort neb last 2 minutes twice a day, DuoNeb nebulized treatments around the clock and IV cefepime. He is on 2 g every 12 hours. No new complaints. No fever. No chills. As mentioned earlier, he has severe tracheal bronchomalacia and bronchiectasis in addition. Clinically improving. He is currently on room air oxygen. He remains on IV Solu-Medrol 60 mg every 6 hours and was tapered as of tomorrow. We'll give him the benefit of steroids for another 24 hours. Objective - Vital Signs Vital signs: Vital Signs Temp 97.6 F 03/01/21 08:00 Pulse 71 03/01/21 09:11 Resp 18 03/01/21 08:00 BP 133/75 03/01/21 08:00 Pulse Ox 99 03/01/21 08:00 Intake & Output 09/28/21 09/29/21 09/29/21 18:59 06:59 18:59 Intake Total 220 110.667 240 Output Total 400 200 Balance -180 -89.333 240 Weight 74.6 kg Intake: IV 100 Intake, IV Titration 110.667 Amount Diltiazem 125 mg In 110.667 Sodium Chloride 0.9% 100 ml @ 5 MG/HR 5 mls/hr IV .Q24H [facility] Rx#:[id number] Oral 120 240 Output: Urine 400 200 Other: Voiding Method Urinal Urinal Urinal # Voids 0 # Bowel Movements 0 - Exam GENERAL EXAM: Alert, 86-year-old gentleman, on room air, fairly comfortable in no apparent distress. HEAD: Normocephalic. EYES: Normal reaction of pupils, equal size. NOSE: Clear with pink turbinates. THROAT: No erythema or exudates. NECK: No masses, no JVD. CHEST: No chest wall deformity. LUNGS: Equal air entry with crackles in the posterior bases. CVS: S1 and S2 normal with no audible murmur, regular rhythm. ABDOMEN: No hepatosplenomegaly, normal bowel sounds, no guarding or rigidity. SPINE: No scoliosis or deformity SKIN: No rashes CENTRAL NERVOUS SYSTEM: No focal deficits, tone is normal in all 4 extremities. EXTREMITIES: There is no peripheral edema. No clubbing, no cyanosis. Peripheral pulses are intact. - Labs CBC & Chem 7: 02/26/21 08:34 02/28/21 12:20 Labs: Abnormal Lab Results - Last 24 Hours (Table) 02/28/21 02/28/21 03/01/21 Range/Units 12:20 20:31 06:12 Sodium 135 L (137-145) mmol/L BUN 51 H (9-20) mg/dL POC Glucose (mg/dL) 288 H 188 H (75-99) mg/dL Microbiology - Last 24 Hours (Table) 02/25/21 03:36 Blood Culture - Preliminary Blood No Growth after 96 hours 02/28/21 10:45 Gram Stain - Preliminary Bronchial Washings - Random Bronchial Washings Culture - Preliminary 02/28/21 10:45 Fungal Culture - Preliminary Bronchial Washings - Random Assessment and Plan Plan: 1 persistent cough and Dyspnea secondary to acute exacerbation of COPD along with a component of diastolic heart failure post multiple bronchoscopies, previous cultures indicating Pseudomonas aeruginosa, MRSA and Serratia.. Bronchoscopy was done and the patient was found to have severe tracheo- bronchomalacia with mucous plugs. Clinically improving. Awaiting final cultures of the bronchoscopy and the bronchioloalveolar lavage to make further adjustments on his antibiotics. We'll give him IV Solu-Medrol for another 24 hours. 2 Recent admission for COVID-19 3 Complete vaccination for COVID-19 4 History of COPD, and bronchiectasis with frequent pulmonary infections incl uding Pseudomonas, MRSA and Serratia 5 Coronary artery disease with previous stenting 6 Previous history of myocardial infarction 7 Aortic valve stenosis, status post TAVR at [facility] on 04/22/2020 8 History of atrial fibrillation on Eliquis 9 Fibromyalgia 10 GERD/reflux Plan: We'll continue same treatment Flutter valve Awaiting final cultures from the [facility] Bronchoscopy was completed and airway suctioning was done and the patient's mucous plugs were removed Continue IV cefepime for now Continue IV Solu Medrol 60 mg every 6 hours Continue Perforomist and Pulmicort neb last treatment twice a day Continue Mucinex for cough Lidocaine nebulized treatments and the cough persists Continue bronchodilators Continue diuretics Possible home within the next 24-48 hours once the final cultures are available from the [facility]. ]
[2021-03-01 11:37] LABS: Glucose,Whole Blood 215 mg/dL (75-99)
[2021-03-01 13:23] VITALS: BMI 27.3
[2021-03-01] MEDS ORDERED: METOPROLOL TARTRATE 50 MG TAB PO STA (13:33)
[2021-03-01] MEDS: LACTATED RINGERS 1,000 ML IV SCH (15:23)
--- NOTE | 2021-03-01 16:01 | P.PN ---
Subjective Progress Note Date: 03/01/21 (delayed charting ) Principal diagnosis: shortness of breath Patient is an 86-year-old male with a history of tracheobronchomalacia, A. fib, and recurrent pseudomonal pneumonias who presented to the hospital with complaints of shortness of breath. He underwent a bronchoscopy on 02/28. Patient examined at bedside. He is still having some shortness of breath but does look better than yesterday, coughing is better than yesterday, lower extremity edema is improving slightly. No nausea or vomiting. at bedside and all questions answered. General: Ill appearing, no distress, appears at stated age Derm: warm, dry Head: atraumatic, normocephalic, symmetric Eyes: EOMI, no lid lag, anicteric sclera Mouth: no lip lesion, mucus membranes moist Cardiovascular: S1S2 reg, no murmur, positive posterior tibial pulse bilateral, Lungs: Course breath sounds bilateral, no rhonchi, no rales , no accessory muscle use Abdominal: soft, nontender to palpation, no guarding, no appreciable organomegaly Ext: no gross muscle atrophy, 2+ edema, no contractures Neuro: CN II-XI grossly intact, no focal neuro deficits Psych: Alert, oriented, appropriate affect Severe tracheobronchial malacia Acute exacerbation of COPD with mucus plugging Tracheobronchitis -Status post bronchoscopy -Pulmonary recommendations -Cefepime day #3 -Await final cultures -Pulmonary hygiene -Solu-Medrol -Bronchodilators Acute exacerbation of diastolic congestive heart failure --EF 50-55% 03/02/21 - transition lasix to oral - metoprolol - not chronically on ACEI Paroxysmal atrial fibrillation with a history of RVR -Off Cardizem drip, changed from Coreg to Metoprolol (Wants to transition back and will discuss with outpatient cardio after discharge) -Cardiology recommendations -Continue with Eliquis Chronic: Coronary artery disease Myocardial infarction Status post TAVR Fibromyalgia GERD CKD III DVT prophylaxis: [id number] Discussed with: patient, nursing, Dr. Ruvalcaba Anticipated discharge: in 24-[address]: home with HH A total of 45 minutes was spent on the care of this complex patient more than 50% of the time was spent in counseling and care coordination. Objective - Vital Signs Vital signs: Vital Signs Temp 97.6 F 03/01/21 08:00 Pulse 90 03/01/21 15:42 Resp 18 03/01/21 15:42 BP 120/81 03/01/21 13:32 Pulse Ox 92 L 03/01/21 12:00 Intake & Output 02/28/21 03/01/21 03/01/21 18:59 06:59 18:59 Intake Total 220 110.667 480 Output Total 400 200 300 Balance -180 -89.333 180 Weight 74.6 kg 74.6 kg Intake: IV 100 Intake, IV Titration 110.667 Amount Diltiazem 125 mg In 110.667 Sodium Chloride 0.9% 100 ml @ 5 MG/HR 5 mls/hr IV .Q24H [facility] Rx#:[id number] Oral 120 480 Output: Urine 400 200 300 Other: Voiding Method Urinal Urinal Urinal # Voids 0 # Bowel Movements 0 - Labs CBC & Chem 7: 02/26/21 08:34 02/28/21 12:20 Labs: Abnormal Lab Results - Last 24 Hours (Table) 02/28/21 03/01/21 03/01/21 Range/Units 20:31 06:12 11:36 POC Glucose (mg/dL) 288 H 188 H 215 H (75-99) mg/dL Microbiology - Last 24 Hours (Table) 02/25/21 03:36 Blood Culture - Preliminary Blood No Growth after 96 hours 02/28/21 10:45 Gram Stain - Preliminary Bronchial Washings - Random Bronchial Washings Culture - Preliminary 02/28/21 10:45 Fungal Culture - Preliminary Bronchial Washings - Random
[2021-03-01 16:19] LABS: Glucose,Whole Blood 345 mg/dL (75-99)
[2021-03-01 20:04] LABS: Glucose,Whole Blood 222 mg/dL (75-99)
[2021-03-01] MEDS: FUROSEMIDE 10 MG/ML 4 ML VIAL IV SCH (21:35)
[2021-03-02] MEDS ORDERED: METOPROLOL TARTRATE 50 MG TAB PO STA (03:53)
[2021-03-02] MEDS: methylPREDNISolone SOD SUCCI 125 MG/2 ML VIAL IV SCH (06:45)
[2021-03-02] MEDS: INSULIN ASPART (NovoLOG) 100 UNIT/ML VIAL SQ SCH ×4 (06:45→20:15)
[2021-03-02 06:46] LABS: Glucose,Whole Blood 199 mg/dL (75-99)
[2021-03-02 06:46] LABS: Glucose,Whole Blood 215 mg/dL (75-99)
[2021-03-02] MEDS: PANTOPRAZOLE 40 MG TABLET PO SCH (06:49)
[2021-03-02] MEDS: BUDESONIDE 1 MG/2 ML NEBU INHALATION SCH ×2 (08:02→20:45)
[2021-03-02] MEDS: IPRATROPIUM-ALBUTEROL 3 ML NEB INHALATION SCH ×4 (08:03→20:45)
[2021-03-02] MEDS: FORMOTEROL FUMARATE 20 MCG/2 ML NEBU INHALATION SCH ×2 (08:03→20:45)
[2021-03-02 08:23] LABS: HCT 32.6 % (39.0-53.0); HGB 10.9 gm/dL (13.0-17.5); MCH 32.1 pg (25.0-35.0); MCHC 33.5 g/dL (31.0-37.0); MCV 95.9 fL (80.0-100.0); Mean Platelet Volume 8.4; Platelet Count 376 k/uL (150-450); RDW 14.3 % (11.5-15.5); WBC 10.5 k/uL (3.8-10.6)
[2021-03-02 08:48] LABS: Calcium 9.7 mg/dL (8.4-10.2); Magnesium 2.4 mg/dL (1.6-2.3); Potassium 3.8 mmol/L (3.5-5.1)
[2021-03-02] MEDS: ASPIRIN 81 MG PO SCH (09:07)
[2021-03-02] MEDS: APIXABAN 2.5 MG TABLET PO SCH ×2 (09:07→20:48)
[2021-03-02] MEDS: CEFEPIME 2 GM in SODIUM CHLORIDE 0.9% 100 ML IVPB SCH ×2 (09:07→20:48)
[2021-03-02] MEDS: FUROSEMIDE 10 MG/ML 4 ML VIAL IV SCH (09:07)
[2021-03-02] MEDS: ATORVASTATIN 10 MG TAB PO SCH (09:07)
[2021-03-02] MEDS: METOPROLOL TARTRATE 50 MG TAB PO SCH ×2 (09:08→20:48)
--- NOTE | 2021-03-02 10:55 | P.PN ---
<Arden Lockwood - Last Filed: 03/02/21 13:49> Subjective Progress Note Date: 03/02/21 Hospital course: Patient is an 86-year-old male with a history of tracheobronchomalacia, CAD with previous [place] status post TAVR, A. fib on anticoagulation with Xarelto, hypertension, hyperlipidemia, and recurrent pseudomonal pneumonias who presented to the hospital on 02/24/21 with complaints of shortness of breath. He is admitted under our services with consultation to pulmonology for treatment of acute exacerbation of COPD with mucus plugging, severe tracheobronchial malacia, and acute exacerbation of diastolic heart failure. He underwent a bronchoscopy on 02/28. Physical examination: Patient examined at bedside. He was sitting up in chair at bedside reports improvement in shortness of breath, however continues to have dyspnea with minimal exertion and dry cough. He denies having any headache, lightheadedness, dizziness, chest pain, palpitations, or experiencing any numbness/tingling/weakness in his extremities. Gram stains from bronchial washings collected during bronchoscopy revealed gram-negative bacilli, final cultures pending. CBC stable, BMP revealing slight elevation in renal function with BUN of 64, creatinine 1.34 and GFR of 48. Patient has been on IV Lasix 40 mg IVP every 12 hours, this was decreased to 40 mg IVP daily with plans to transition to oral Lasix, we will continue to monitor renal function and electrolytes closely with repeat a.m. labs. General: Chronically Ill appearing, no acute distress, appears at stated age Derm: warm, dry Head: atraumatic, normocephalic, symmetric Eyes: EOMI, no lid lag, anicteric sclera Mouth: no lip lesion, mucus membranes moist Cardiovascular: S1S2 reg, no murmur, positive posterior tibial pulse bilateral, Lungs: Course breath sounds bilateral, no rhonchi, no rales , no accessory muscle use Abdominal: soft, nontender to palpation, no guarding, no appreciable organomegaly Ext: no gross muscle atrophy, 2+ pitting edema, no contractures Neuro: CN II-XI grossly intact, no focal neuro deficits Psych: Alert, oriented, appropriate affect Assessment and plan of care: Severe tracheobronchial malacia Acute exacerbation of COPD with mucus plugging Tracheobronchitis -Status post bronchoscopy -Pulmonary recommendations -Cefepime day #3 -Await final cultures -Pulmonary hygiene -Solu-Medrol -Bronchodilators Acute exacerbation of diastolic congestive heart failure -EF 50-55% 03/02/21 -Patient has been on IV Lasix 40 mg IVP every 12 hours, this was decreased to 40 mg IVP daily secondary to elevating BUN and creatinine with plans to transition to oral Lasix, we will continue to monitor renal function and electrolytes closely with repeat a.m. labs. - metoprolol - not chronically on ACEI CKD III -BMP revealing slight elevation in renal function with BUN of 64, creatinine 1.34 and GFR of 48. -Patient has been on IV Lasix 40 mg IVP every 12 hours, this was decreased to 40 mg IVP daily with plans to transition to oral Lasix, we will continue to monitor renal function and electrolytes closely with repeat a.m. labs. Paroxysmal atrial fibrillation with a history of RVR -Off Cardizem drip, changed from Coreg to Metoprolol (Wants to transition back and will discuss with outpatient cardio after discharge) -Cardiology following, appreciate further recommendations -Continue anticoagulation with with Eliquis Chronic medical conditions include: Coronary artery disease History of Myocardial infarction Status post TAVR Fibromyalgia GERD DVT prophylaxis: Titus Discussed with: Patient and RN Anticipated discharge: 1-[address]: Home with home care A total of 45 minutes was spent on the care of this complex patient more than 50% of the time was spent in counseling and care coordination. Objective - Vital Signs Vital signs: Vital Signs Temp 98.1 F 03/02/21 08:00 Pulse 100 03/02/21 08:22 Resp 18 03/02/21 08:00 BP 107/65 03/02/21 08:00 Pulse Ox 94 L 03/02/21 08:00 Intake & Output 03/01/21 03/02/21 03/02/21 18:59 06:59 18:59 Intake Total 720 180 Output Total 375 351 Balance 345 -351 180 Weight 74.6 kg 76.4 kg Intake: Oral 720 180 Output: Urine 375 350 Stool 1 Other: Voiding Method Urinal Urinal Urinal - Labs CBC & Chem 7: 03/02/21 07:59 03/02/21 07:59 Labs: Abnormal Lab Results - Last 24 Hours (Table) 09/29/21 09/29/21 09/29/21 Range/Units 11:36 16:17 20:03 RBC (4.30-5.90) m/uL Hgb (13.0-17.5) gm/dL Hct (39.0-53.0) % Sodium (137-145) mmol/L BUN (9-20) mg/dL Creatinine (0.66-1.25) mg/dL Glucose (74-99) mg/dL POC Glucose (mg/dL) 215 H 345 H 222 H (75-99) mg/dL Magnesium (1.6-2.3) mg/dL 03/02/21 03/02/21 03/02/21 Range/Units 06:39 06:42 07:59 RBC 3.40 L (4.30-5.90) m/uL Hgb 10.9 L (13.0-17.5) gm/dL Hct 32.6 L (39.0-53.0) % Sodium (137-145) mmol/L BUN (9-20) mg/dL Creatinine (0.66-1.25) mg/dL Glucose (74-99) mg/dL POC Glucose (mg/dL) 199 H 215 H (75-99) mg/dL Magnesium (1.6-2.3) mg/dL 03/02/21 Range/Units 07:59 RBC (4.30-5.90) m/uL Hgb (13.0-17.5) gm/dL Hct (39.0-53.0) % Sodium 135 L (137-145) mmol/L BUN 64 H (9-20) mg/dL Creatinine 1.34 H (0.66-1.25) mg/dL Glucose 170 H (74-99) mg/dL POC Glucose (mg/dL) (75-99) mg/dL Magnesium 2.4 H (1.6-2.3) mg/dL Microbiology - Last 24 Hours (Table) 02/25/21 03:36 Blood Culture - Preliminary Blood No Growth after 120 hours <Lily Marin - Last Filed: 03/02/21 18:11> Objective - Vital Signs Vital signs: Vital Signs Temp 98.1 F 03/02/21 08:00 Pulse 80 03/02/21 16:00 Resp 18 03/02/21 16:00 BP 122/72 03/02/21 16:00 Pulse Ox 95 03/02/21 16:00 Intake & Output 03/01/21 03/02/21 03/02/21 18:59 06:59 18:59 Intake Total 720 360 Output Total 375 351 750 Balance 345 -351 -390 Weight 74.6 kg 76.4 kg Intake: Oral 720 360 Output: Urine 375 350 750 Stool 1 Other: Voiding Method Urinal Urinal Urinal - Labs CBC & Chem 7: 03/02/21 07:59 03/02/21 07:59 Labs: Abnormal Lab Results - Last 24 Hours (Table) 03/01/21 03/02/21 03/02/21 Range/Units 20:03 06:39 06:42 RBC (4.30-5.90) m/uL Hgb (13.0-17.5) gm/dL Hct (39.0-53.0) % Sodium (137-145) mmol/L BUN (9-20) mg/dL Creatinine (0.66-1.25) mg/dL Glucose (74-99) mg/dL POC Glucose (mg/dL) 222 H 199 H 215 H (75-99) mg/dL Magnesium (1.6-2.3) mg/dL 03/02/21 03/02/21 03/02/21 Range/Units 07:59 07:59 11:59 RBC 3.40 L (4.30-5.90) m/uL Hgb 10.9 L (13.0-17.5) gm/dL Hct 32.6 L (39.0-53.0) % Sodium 135 L (137-145) mmol/L BUN 64 H (9-20) mg/dL Creatinine 1.34 H (0.66-1.25) mg/dL Glucose 170 H (74-99) mg/dL POC Glucose (mg/dL) 193 H (75-99) mg/dL Magnesium 2.4 H (1.6-2.3) mg/dL 03/02/21 Range/Units 16:40 RBC (4.30-5.90) m/uL Hgb (13.0-17.5) gm/dL Hct (39.0-53.0) % Sodium (137-145) mmol/L BUN (9-20) mg/dL Creatinine (0.66-1.25) mg/dL Glucose (74-99) mg/dL POC Glucose (mg/dL) 186 H (75-99) mg/dL Magnesium (1.6-2.3) mg/dL Microbiology - Last 24 Hours (Table) 02/28/21 10:45 Gram Stain - Preliminary Bronchial Washings - Random Bronchial Washings Culture - Preliminary Gram Neg Bacilli Deirdre albicans 02/25/21 03:36 Blood Culture - Preliminary Blood No Growth after 120 hours Assessment and Plan Assessment: I reviewed the documentation as provided by the KEN above, who is the original author of this note. I agree with the documented assessment and plan, with the following changes: None
[2021-03-02 12:01] LABS: Glucose,Whole Blood 193 mg/dL (75-99)
--- NOTE | 2021-03-02 12:02 | P.PN ---
Subjective History of present illness: This is an 86-year-old gentleman with a past medical history significant for coronary artery disease as well as valvular heart disease status post TAVR with Dr. Barrios at [facility] as well as COPD and paroxysmal atrial fibrillation with recent hospitalization early this month due to Covid 19 infection, found to have elevated troponins at that time and both cardiology consult was warranted. Echocardiogram at that time revealed EF of 55-60%, TAVR procedure done, mild mitral regurgitation, mild tricuspid regurgitation. Patient was seen his senior oracle pl sql developer and at that time had shortness of breath thought to be pulmonary related and patient was recommended to go to [facility] where his pulmonary doctor, Dr. Silva, practices. The patient was afebrile, heart rate in the 90s, blood pressure 151/88, pulse ox 91%. Chest x-ray revealed new right greater than left patchy and strandy opac ities suggest multifocal airspace disease. WBC 8.3, hemoglobin 10.9 and platelet count 242. Sodium 133, potassium 3.4, chloride 94, CO2 32, BUN 32 and creatinine 1.12. Blood sugar 156. Troponin 0.078. ProBNP 736. Urinalysis negative. Coronavirus PCR not detected. Patient was started on antibiotics, IV Lasix 40 mg every 12 hours. 03/02/2021 Patient seen and examined sitting up in recliner undergoing breathing treatment. His heart rates continued to fluctuate. Currently he has atrial fibrillation with heart rate of 140 for blood pressure 126/82. Laboratory data reviewed, WBC 10.5, hemoglobin 10.9, platelets 376, sodium 135, potassium 3.8, creatinine 1.34 magnesium 2.4. Last evening his Lopressor was increased to 100 mg twice a day. Physical examination: Gen: This is an 86-year-old male. Patient is resting in chair and appears to be comfortable and in no acute distress patient's is at the bedside. HEENT: Head is atraumatic, normocephalic. Pupils equal, round. Sclerae is anicteric. LUNGS: Diminished with expiratory wheezes, no rhonchi or rales. HEART Irregular rate and rhythm. Systolic murmur at the base. EXTREMITIES: No pedal edema. No calf tenderness. Assessment: Dyspnea secondary to acute exacerbation of COPD, residual Covid 19 infection, acute on chronic diastolic heart failure Recent hospitalization for COVID 19 infection History of coronary artery disease Paroxysmal atrial fibrillation TAVR history Plan Continue Lopressor 100 mg twice a day and add verapamil 40 mg twice a day to his regimen. Expect his heart rates will become better controlled once his exacerbation of COPD has improved. Nurse practitioner note has been reviewed, I agree with documented findings and plan of care. Patient was seen and examined. Objective - Vital Signs Vital signs: Vital Signs Temp 98.1 F 03/02/21 08:00 Pulse 100 03/02/21 11:23 Resp 18 03/02/21 08:00 BP 107/65 03/02/21 08:00 Pulse Ox 94 L 03/02/21 08:00 Intake & Output 03/01/21 03/02/21 03/02/21 18:59 06:59 18:59 Intake Total 720 180 Output Total 375 351 Balance 345 -351 180 Weight 74.6 kg 76.4 kg Intake: Oral 720 180 Output: Urine 375 350 Stool 1 Other: Voiding Method Urinal Urinal Urinal - Labs CBC & Chem 7: 03/02/21 07:59 03/02/21 07:59 Labs: Abnormal Lab Results - Last 24 Hours (Table) 03/01/21 03/01/21 03/02/21 Range/Units 16:17 20:03 06:39 RBC (4.30-5.90) m/uL Hgb (13.0-17.5) gm/dL Hct (39.0-53.0) % Sodium (137-145) mmol/L BUN (9-20) mg/dL Creatinine (0.66-1.25) mg/dL Glucose (74-99) mg/dL POC Glucose (mg/dL) 345 H 222 H 199 H (75-99) mg/dL Magnesium (1.6-2.3) mg/dL 03/02/21 03/02/21 03/02/21 Range/Units 06:42 07:59 07:59 RBC 3.40 L (4.30-5.90) m/uL Hgb 10.9 L (13.0-17.5) gm/dL Hct 32.6 L (39.0-53.0) % Sodium 135 L (137-145) mmol/L BUN 64 H (9-20) mg/dL Creatinine 1.34 H (0.66-1.25) mg/dL Glucose 170 H (74-99) mg/dL POC Glucose (mg/dL) 215 H (75-99) mg/dL Magnesium 2.4 H (1.6-2.3) mg/dL Microbiology - Last 24 Hours (Table) 02/25/21 03:36 Blood Culture - Preliminary Blood No Growth after 120 hours
--- NOTE | 2021-03-02 12:12 | P.PN ---
Subjective Progress Note Date: 03/02/21 This is an 86-year-old gentleman who was admitted again yesterday from the cardiology office for worsening shortness of breath and fluid volume overload secondary to noncompliance with his Lasix. He had stopped taking it for weeks prior. He had recently been here for COVID-19 infection. He received mo noclonal antibodies. He is seen today in consultation on the selective care unit. Currently sitting up in a chair at the bedside. Awake and alert in no acute distress. O2 saturation 91% on room air. His x-ray revealed patchy opacities right greater than left. White count 8.3. Hemoglobin 10.9. Sodium 133. Potassium 3.4. Creatinine 1.12. Troponin 0.078. ProBNP 736. Smion virus not detected. He's been initiated on DuoNeb inhalations, prednisone taper, IV diuretics, antibiotics in the form of ceftriaxone and azithromycin. He is anticoagulated with Eliquis. The patient is seen today 02/26/2021 follow-up on the selective care unit. He is currently sitting up in a chair at the bedside. Awake and alert in no acute distress. Maintaining good O2 saturations in the 90s on room air. Somewhat tachycardic. Afebrile. Blood culture reveals no growth. White count 9.2. Hemoglobin 11.8. Sodium 136. Potassium 3.7. Creatinine 1.25. Urine Legionella antigen negative. He is continued on DuoNeb inhalations, prednisone. Anticoagulated with Eliquis. Remains on antibiotics in the form of ceftriaxone and azithromycin. Remains on IV diuretics. Evaluation of 02/27/2021, the patient is having a vigorous and the persistent cough. In fact his having limited time in between to catch his breath. This has gotten worse since yesterday. I reviewed the records and the patient has had multiple bronchoscopies in the past and her most recent bronchoscopy was done on 12/15/2020 and the patient back then had pseudomonas aeruginosa and his bronchioloalveolar lavage. He is currently afebrile. Is bringing up some creamy mucus. He is on long-term and to coagulation with Eliquis. For now, his taken a combination of Rocephin and Zithromax. I reviewed the chest x-ray. There are obvious chronic changes on chest x-ray. No clear indication for an acute pneumonia. He is post COVID-19 infection and has recovered and his repeat COVID-19's testing came back negative. His Legionella urine antigen came back negative. 02/28/2021, the patient's coughing is subsided and the patient was getting better compared to yesterday. Nevertheless, he felt still that he was having copious amount of rest or secretions which she was unable to cough out. As mentioned earlier, his last bronchoscopy revealed pseudomonas aeruginosa and the patient was placed on IV cefepime yesterday in addition to a combination of Perforomist and Pulmicort overestimates twice a day and antitussive medications. Clinically is feeling better. Bronchoscopy was completed today and the patient was found to have severe check of bronchomalacia and the patient had extensive amount of mucous plugging square he underwent a therapeutic it was suctioning. Cultures were also sent. The procedure was completed without any major complications or issues. He is afebrile. He is hemodynamically stable at this point in time. He is post COVID-19 related infection from which she has recovered. He continues to be on anticoagulation with Eliquis. 03/01/2021, the patient continues to improve on a daily basis. He is post bronchoscopy. The final culture are still pending. Meanwhile, I offered them a flutter valve which she quite likes and he uses it regularly at the bedside. He is also on a combination of Perforomist and Pulmicort neb last 2 minutes twice a day, DuoNeb nebulized treatments around the clock and IV cefepime. He is on 2 g every 12 hours. No new complaints. No fever. No chills. As mentioned earlier, he has severe tracheal bronchomalacia and bronchiectasis in addition. Clinically improving. He is currently on room air oxygen. He remains on IV Solu-Medrol 60 mg every 6 hours and was tapered as of tomorrow. We'll give him the benefit of steroids for another 24 hours. 03/02/2021, the patient is still having some difficulties in breathing. Cough is more dry. No significant sputum production. Remains on IV cefepime. Remains on Perforomist and Pulmicort nebulized treatments and is using a flutter valve. Meanwhile, the bronchioloalveolar lavage was collected earlier for the bronchoscopy showed gram-negative bacillus. Final culture are still pending for now. He has severe tracheal bronchomalacia and bronchiectasis. No other new complaints otherwise for now.. In terms of his labs, the creatinine is at 1.34 with a BUN of 64. His BUN and creatinine took a bump as the patient is on IV Lasix 40 mg every 12 hours. His sodium level is at 135. Potassium level is at 3.8. He remains on long-term and to coagulation with Eliquis regarding his chronic atrial fibrillation. No angina. Is on room air oxygen. Objective - Vital Signs Vital signs: Vital Signs Temp 98.1 F 03/02/21 08:00 Pulse 100 03/02/21 11:23 Resp 18 03/02/21 08:00 BP 107/65 03/02/21 08:00 Pulse Ox 94 L 03/02/21 08:00 Intake & Output 03/01/21 03/02/21 03/02/21 18:59 06:59 18:59 Intake Total 720 180 Output Total 375 351 750 Balance 345 351 -570 Weight 74.6 kg 76.4 kg Intake: Oral 720 180 Output: Urine 375 350 750 Stool 1 Other: Voiding Method Urinal Urinal Urinal - Exam GENERAL EXAM: Alert, 86-year-old gentleman, on room air, fairly comfortable in no apparent distress. HEAD: Normocephalic. EYES: Normal reaction of pupils, equal size. NOSE: Clear with pink turbinates. THROAT: No erythema or exudates. NECK: No masses, no JVD. CHEST: No chest wall deformity. LUNGS: Equal air entry with crackles in the posterior bases. CVS: S1 and S2 normal with no audible murmur, regular rhythm. ABDOMEN: No hepatosplenomegaly, normal bowel sounds, no guarding or rigidity. SPINE: No scoliosis or deformity SKIN: No rashes CENTRAL NERVOUS SYSTEM: No focal deficits, tone is normal in all 4 extremities. EXTREMITIES: There is no peripheral edema. No clubbing, no cyanosis. Peripheral pulses are intact. - Labs CBC & Chem 7: 03/02/21 07:59 03/02/21 07:59 Labs: Abnormal Lab Results - Last 24 Hours (Table) 03/01/21 03/01/21 03/02/21 Range/Units 16:17 20:03 06:39 RBC (4.30-5.90) m/uL Hgb (13.0-17.5) gm/dL Hct (39.0-53.0) % Sodium (137-145) mmol/L BUN (9-20) mg/dL Creatinine (0.66-1.25) mg/dL Glucose (74-99) mg/dL POC Glucose (mg/dL) 345 H 222 H 199 H (75-99) mg/dL Magnesium (1.6-2.3) mg/dL 03/02/21 03/02/21 03/02/21 Range/Units 06:42 07:59 07:59 RBC 3.40 L (4.30-5.90) m/uL Hgb 10.9 L (13.0-17.5) gm/dL Hct 32.6 L (39.0-53.0) % Sodium 135 L (137-145) mmol/L BUN 64 H (9-20) mg/dL Creatinine 1.34 H (0.66-1.25) mg/dL Glucose 170 H (74-99) mg/dL POC Glucose (mg/dL) 215 H (75-99) mg/dL Magnesium 2.4 H (1.6-2.3) mg/dL 03/02/21 Range/Units 11:59 RBC (4.30-5.90) m/uL Hgb (13.0-17.5) gm/dL Hct (39.0-53.0) % Sodium (137-145) mmol/L BUN (9-20) mg/dL Creatinine (0.66-1.25) mg/dL Glucose (74-99) mg/dL POC Glucose (mg/dL) 193 H (75-99) mg/dL Magnesium (1.6-2.3) mg/dL Microbiology - Last 24 Hours (Table) 02/28/21 10:45 Gram Stain - Preliminary Bronchial Washings - Random Bronchial Washings Culture - Preliminary Gram Neg Bacilli Deirdre albicans 02/25/21 03:36 Blood Culture - Preliminary Blood No Growth after 120 hours Assessment and Plan Plan: 1 persistent cough and Dyspnea secondary to acute exacerbation of COPD along with a component of diastolic heart failure post multiple bronchoscopies, previous cultures indicating Pseudomonas aeruginosa, MRSA and Serratia.. Bronchoscopy was done and the patient was found to have severe tracheo-bronchomalacia with mucous plugs. Clinically improving. Awaiting final cultures of the bronchoscopy and the bronchioloalveolar lavage to make further adjustments on his antibiotics. 2 Recent admission for COVID-19 3 Complete vaccination for COVID-19 4 History of COPD, and bronchiectasis with frequent pulmonary infections including Pseudomonas, MRSA and Serratia 5 Coronary artery disease with previous stenting 6 Previous history of myocardial infarction 7 Aortic valve stenosis, status post TAVR at [facility] on 04/22/2020 8 History of atrial fibrillation on Eliquis 9 Fibromyalgia 10 GERD/reflux Plan: We'll continue same treatment Flutter valve Awaiting final cultures from the BAL, the preliminary cultures indicating gram- negative bacillus. We'll make further adjustment antibiotics once the cultures are available. Bronchoscopy was completed and airway suctioning was done and the patient's mucous plugs were removed Continue IV cefepime for now Current down the IV Solu-Medrol to a prednisone burst taper. This continued IV Solu Medrol for now. Continue Perforomist and Pulmicort neb last treatment twice a day Continue Mucinex for cough Lidocaine nebulized treatments and the cough persists Continue bronchodilators Continue diuretics, reduced the Lasix dose to 40 mg IV once a day and monitor his renal function. Possible home within the next 24-48 hours once the final cultures are available from the BAL. ]
[2021-03-02] MEDS: VERAPAMIL 40 MG TAB PO SCH ×2 (12:25→20:48)
[2021-03-02] MEDS: LACTATED RINGERS 1,000 ML IV SCH (16:14)
[2021-03-02 16:41] LABS: Glucose,Whole Blood 186 mg/dL (75-99)
[2021-03-02 20:44] LABS: Glucose,Whole Blood 110 mg/dL (75-99)
[2021-03-03 06:19] LABS: Glucose,Whole Blood 180 mg/dL (75-99)
[2021-03-03] MEDS: INSULIN ASPART (NovoLOG) 100 UNIT/ML VIAL SQ SCH ×4 (06:37→20:51)
[2021-03-03] MEDS: PANTOPRAZOLE 40 MG TABLET PO SCH (06:38)
--- NOTE | 2021-03-03 07:32 | XR ---
EXAMINATION TYPE: XR chest 1V portable DATE OF EXAM: 03/03/2021 COMPARISON: 02/27/2021 INDICATION: Short of breath TECHNIQUE: Single frontal view of the chest is obtained. FINDINGS: The heart size is normal. The pulmonary vasculature is normal. Mild plate atelectasis at the right base. Mild diffuse increased lung markings are present which are nonspecific. Consider atypical pneumonia. IMPRESSION: 1. Mild diffuse increased infiltrates. Consider atypical pneumonia.
[2021-03-03] MEDS: IPRATROPIUM-ALBUTEROL 3 ML NEB INHALATION SCH ×5 (08:01→20:50)
[2021-03-03] MEDS: BUDESONIDE 1 MG/2 ML NEBU INHALATION SCH ×3 (08:01→20:50)
[2021-03-03] MEDS: FORMOTEROL FUMARATE 20 MCG/2 ML NEBU INHALATION SCH ×3 (08:01→20:50)
[2021-03-03 08:28] LABS: HCT 32.5 % (39.0-53.0); HGB 10.7 gm/dL (13.0-17.5); MCH 32.3 pg (25.0-35.0); MCHC 32.9 g/dL (31.0-37.0); MCV 98.3 fL (80.0-100.0); Mean Platelet Volume 8.4; Platelet Count 367 k/uL (150-450); RBC 3.31 m/uL (4.30-5.90); WBC 10.3 k/uL (3.8-10.6)
[2021-03-03 08:38] LABS: Calcium 9.7 mg/dL (8.4-10.2); Magnesium 2.6 mg/dL (1.6-2.3)
[2021-03-03] MEDS ORDERED: FUROSEMIDE 10 MG/ML 4 ML VIAL IV SCH (09:00)
[2021-03-03] MEDS: CEFEPIME 2 GM in SODIUM CHLORIDE 0.9% 100 ML IVPB SCH ×2 (09:19→20:51)
[2021-03-03] MEDS: VERAPAMIL 40 MG TAB PO SCH ×3 (09:20→20:52)
[2021-03-03] MEDS: APIXABAN 2.5 MG TABLET PO SCH ×2 (09:20→20:50)
[2021-03-03] MEDS: ATORVASTATIN 10 MG TAB PO SCH (09:20)
[2021-03-03] MEDS: METOPROLOL TARTRATE 50 MG TAB PO SCH ×2 (09:20→20:51)
[2021-03-03] MEDS: ASPIRIN 81 MG PO SCH (09:20)
[2021-03-03 11:49] LABS: Glucose,Whole Blood 156 mg/dL (75-99)
--- NOTE | 2021-03-03 13:32 | PN ---
PROGRESS NOTE This gentleman has a history of persistent atrial fibrillation, COPD, recurrent bronchitis. He underwent bronchoscopy on this admission. His rate is better controlled. He is resting comfortably, has no chest pain but has shortness of breath and wheezing and coughing. Vitals are stable. There is JVD of 1 cm. No carotid bruit. S1-S2 heard normally. Tachycardia. Short systolic murmur is audible. Lungs reveal bilateral scattered rhonchi. Abdomen is soft. Lower extremities reveal diminished pulses. Central nervous system is normal. RECOMMENDATIONS: I am recommending that we increase the verapamil to 40 mg t.i.d., change him from IV to p.o. Lasix at 40 mg b.i.d. Heart rate is better controlled, but we will add verapamil to improve it further. I will see the patient as needed from a cardiac standpoint, and patient is being followed closely by Pulmonology. MMLÁZAROL / JUNEN: [id number] /
[2021-03-03] MEDS ORDERED: PROMETHAZINE HCL 6.25 MG/5 ML CUP PO PRN (13:47)
--- NOTE | 2021-03-03 13:49 | P.PN ---
Subjective Progress Note Date: 03/03/21 This is an 86-year-old gentleman who was admitted again yesterday from the cardiology office for worsening shortness of breath and fluid volume overload secondary to noncompliance with his Lasix. He had stopped taking it for weeks prior. He had recently been here for COVID-19 infection. He received mo noclonal antibodies. He is seen today in consultation on the selective care unit. Currently sitting up in a chair at the bedside. Awake and alert in no acute distress. O2 saturation 91% on room air. His x-ray revealed patchy opacities right greater than left. White count 8.3. Hemoglobin 10.9. Sodium 133. Potassium 3.4. Creatinine 1.12. Troponin 0.078. ProBNP 736. Simon virus not detected. He's been initiated on DuoNeb inhalations, prednisone taper, IV diuretics, antibiotics in the form of ceftriaxone and azithromycin. He is anticoagulated with Eliquis. The patient is seen today 02/26/2021 follow-up on the selective care unit. He is currently sitting up in a chair at the bedside. Awake and alert in no acute distress. Maintaining good O2 saturations in the 90s on room air. Somewhat tachycardic. Afebrile. Blood culture reveals no growth. White count 9.2. Hemoglobin 11.8. Sodium 136. Potassium 3.7. Creatinine 1.25. Urine Legionella antigen negative. He is continued on DuoNeb inhalations, prednisone. Anticoagulated with Eliquis. Remains on antibiotics in the form of ceftriaxone and azithromycin. Remains on IV diuretics. Evaluation of 02/27/2021, the patient is having a vigorous and the persistent cough. In fact his having limited time in between to catch his breath. This has gotten worse since yesterday. I reviewed the records and the patient has had multiple bronchoscopies in the past and her most recent bronchoscopy was done on 12/15/2020 and the patient back then had pseudomonas aeruginosa and his bronchioloalveolar lavage. He is currently afebrile. Is bringing up some creamy mucus. He is on long-term and to coagulation with Eliquis. For now, his taken a combination of Rocephin and Zithromax. I reviewed the chest x-ray. There are obvious chronic changes on chest x-ray. No clear indication for an acute pneumonia. He is post COVID-19 infection and has recovered and his repeat COVID-19's testing came back negative. His Legionella urine antigen came back negative. 02/28/2021, the patient's coughing is subsided and the patient was getting better compared to yesterday. Nevertheless, he felt still that he was having copious amount of rest or secretions which she was unable to cough out. As mentioned earlier, his last bronchoscopy revealed pseudomonas aeruginosa and the patient was placed on IV cefepime yesterday in addition to a combination of Perforomist and Pulmicort overestimates twice a day and antitussive medications. Clinically is feeling better. Bronchoscopy was completed today and the patient was found to have severe check of bronchomalacia and the patient had extensive amount of mucous plugging square he underwent a therapeutic it was suctioning. Cultures were also sent. The procedure was completed without any major complications or issues. He is afebrile. He is hemodynamically stable at this point in time. He is post COVID-19 related infection from which she has recovered. He continues to be on anticoagulation with Eliquis. 03/01/2021, the patient continues to improve on a daily basis. He is post bronchoscopy. The final culture are still pending. Meanwhile, I offered them a flutter valve which she quite likes and he uses it regularly at the bedside. He is also on a combination of Perforomist and Pulmicort neb last 2 minutes twice a day, DuoNeb nebulized treatments around the clock and IV cefepime. He is on 2 g every 12 hours. No new complaints. No fever. No chills. As mentioned earlier, he has severe tracheal bronchomalacia and bronchiectasis in addition. Clinically improving. He is currently on room air oxygen. He remains on IV Solu-Medrol 60 mg every 6 hours and was tapered as of tomorrow. We'll give him the benefit of steroids for another 24 hours. 03/02/2021, the patient is still having some difficulties in breathing. Cough is more dry. No significant sputum production. Remains on IV cefepime. Remains on Perforomist and Pulmicort nebulized treatments and is using a flutter valve. Meanwhile, the bronchioloalveolar lavage was collected earlier for the bronchoscopy showed gram-negative bacillus. Final culture are still pending for now. He has severe tracheal bronchomalacia and bronchiectasis. No other new complaints otherwise for now.. In terms of his labs, the creatinine is at 1.34 with a BUN of 64. His BUN and creatinine took a bump as the patient is on IV Lasix 40 mg every 12 hours. His sodium level is at 135. Potassium level is at 3.8. He remains on long-term and to coagulation with Eliquis regarding his chronic atrial fibrillation. No angina. Is on room air oxygen. 03/03/2021, the patient is using incentive spirometer. He is using the flutter valve. No worsening his breathing. Remain on his bronchodilators. Remains on a combination of Perforomist and Pulmicort nebulized treatments. Remains on IV cefepime. Final culture are still pending from the bronchioloalveolar lavage. He was taken off the IV Lasix and currently is on oral Lasix. BUN is slightly higher in the creatinine is stable for now. He has tracheobronchomalacia and bronchiectasis. He remains on room air oxygen. He is having episodes of cough. He has occasional desaturation whenever he goes into a coughing spell. Objective - Vital Signs Vital signs: Vital Signs Temp 97.6 F 03/03/21 08:00 Pulse 70 03/03/21 12:27 Resp 18 03/03/21 12:27 BP 152/69 03/03/21 12:27 Pulse Ox 92 L 03/03/21 12:27 Intake & Output 03/02/21 03/03/21 03/03/21 18:59 06:59 18:59 Intake Total 600 120 Output Total 750 1 Balance -150 -1 120 Weight 74.9 kg Intake: Oral 600 120 Output: Urine 750 Stool 1 Other: Voiding Method Urinal Urinal Urinal # Voids 0 - Exam GENERAL EXAM: Alert, 86-year-old gentleman, on room air, fairly comfortable in no apparent distress. HEAD: Normocephalic. EYES: Normal reaction of pupils, equal size. NOSE: Clear with pink turbinates. THROAT: No erythema or exudates. NECK: No masses, no JVD. CHEST: No chest wall deformity. LUNGS: Equal air entry with crackles in the posterior bases. CVS: S1 and S2 normal with no audible murmur, regular rhythm. ABDOMEN: No hepatosplenomegaly, normal bowel sounds, no guarding or rigidity. SPINE: No scoliosis or deformity SKIN: No rashes CENTRAL NERVOUS SYSTEM: No focal deficits, tone is normal in all 4 extremities. EXTREMITIES: There is no peripheral edema. No clubbing, no cyanosis. Peripheral pulses are intact. - Labs CBC & Chem 7: 03/03/21 08:06 03/03/21 08:06 Labs: Abnormal Lab Results - Last 24 Hours (Table) 03/02/21 03/02/21 03/03/21 Range/Units 16:40 20:11 06:04 RBC (4.30-5.90) m/uL Hgb (13.0-17.5) gm/dL Hct (39.0-53.0) % BUN (9-20) mg/dL Glucose (74-99) mg/dL POC Glucose (mg/dL) 186 H 110 H 180 H (75-99) mg/dL Magnesium (1.6-2.3) mg/dL 03/03/21 03/03/21 03/03/21 Range/Units 08:06 08:06 11:45 RBC 3.31 L (4.30-5.90) m/uL Hgb 10.7 L (13.0-17.5) gm/dL Hct 32.5 L (39.0-53.0) % BUN 73 H (9-20) mg/dL Glucose 136 H (74-99) mg/dL POC Glucose (mg/dL) 156 H (75-99) mg/dL Magnesium 2.6 H (1.6-2.3) mg/dL Microbiology - Last 24 Hours (Table) 02/25/21 03:36 Blood Culture - Final Blood No Growth after 144 hours 02/28/21 10:45 Gram Stain - Preliminary Bronchial Washings - Random Bronchial Washings Culture - Preliminary Gram Neg Bacilli Deirdre albicans Assessment and Plan Plan: 1 persistent cough and Dyspnea secondary to acute exacerbation of COPD along with a component of diastolic heart failure post multiple bronchoscopies, previous cultures indicating Pseudomonas aeruginosa, MRSA and Serratia.. Bronchoscopy was done and the patient was found to have severe tracheo- bronchomalacia with mucous plugs. Clinically improving. Awaiting final cultures of the bronchoscopy and the bronchioloalveolar lavage to make further adjustments on his antibiotics. Clinically stable, not much change compared to yesterday, awaiting the results of the bronchioloalveolar lavage 2 Recent admission for COVID-19 3 Complete vaccination for COVID-19 4 History of COPD, and bronchiectasis with frequent pulmonary infections including Pseudomonas, MRSA and Serratia 5 Coronary artery disease with previous stenting 6 Previous history of myocardial infarction 7 Aortic valve stenosis, status post TAVR at [facility] on 04/22/2020 8 History of atrial fibrillation on Eliquis 9 Fibromyalgia 10 GERD/reflux Plan: We'll continue same treatment Flutter valve Awaiting final cultures from the BAL, the preliminary cultures indicating gram- negative bacillus. We'll make further adjustment antibiotics once the cultures are available. Give the patient promethazine liquid for cough suppression Bronchoscopy was completed and airway suctioning was done and the patient's mucous plugs were removed Continue IV cefepime for now Discontinue the IV Solu-Medrol and start the patient prednisone burst taper Continue Perforomist and Pulmicort neb last treatment twice a day Continue Mucinex for cough Lidocaine nebulized treatments and the cough persists Continue bronchodilators Continue diuretics, currently on oral Lasix Possible home within the next 24-48 hours once the final cultures are available from the BAL. ]
--- NOTE | 2021-03-03 14:44 | P.PN ---
<Arden Lockwood - Last Filed: 03/03/21 14:37> Subjective Progress Note Date: 03/03/21 Hospital course: Patient is an 86-year-old male with a history of tracheobronchomalacia, CAD with previous [place] status post TAVR, A. fib on anticoagulation with Xarelto, hypertension, hyperlipidemia, and recurrent pseudomonal pneumonias who presented to the hospital on 02/24/21 with complaints of shortness of breath. He is admitted under our services with consultation to pulmonology for treatment of acute exacerbation of COPD with mucus plugging, severe tracheobronchial malacia, and acute exacerbation of diastolic heart failure. He underwent a bronchoscopy on 02/28. Physical examination: Patient examined at bedside. He was sitting up in chair at bedside reports dealing a little weaker today with continued persistent shortness of breath and fits of coughing. Patient remains with dry cough unable to bring up any secretions. He denies having any headache, lightheadedness, dizziness, chest pain, palpitations, or experiencing any numbness/tingling/weakness in his extremities.Gram stains from bronchial washings collected during bronchoscopy preliminarily revealed gram-negative bacilli, final culture and sensitivity results pending. Home oxygen assessment being completed with ambulation. PT/OT consult placed. Plan for discharge home with home care once final culture and sensitivity results are available and arrangements can be made. Encouraged compression stockings. General: Chronically Ill appearing, no acute distress, appears at stated age Derm: warm, dry Head: atraumatic, normocephalic, symmetric Eyes: EOMI, no lid lag, anicteric sclera Mouth: no lip lesion, mucus membranes moist Cardiovascular: S1S2 reg, no murmur, positive posterior tibial pulse bilateral, Lungs: Diffuse Course breath sounds bilaterally however improved from previous examination, no rhonchi, no rales , no accessory muscle use Abdominal: soft, nontender to palpation, no guarding, no appreciable organomegaly Ext: no gross muscle atrophy, 2+ pitting edema, no contractures Neuro: CN II-XI grossly intact, no focal neuro deficits Psych: Alert, oriented, appropriate affect Assessment and plan of care: Severe tracheobronchial malacia Acute exacerbation of COPD with mucus plugging Tracheobronchitis -Status post bronchoscopy -Pulmonary recommendations -Cefepime day #3 -Await final cultures -Pulmonary hygiene -Solu-Medrol -Bronchodilators Acute exacerbation of diastolic congestive heart failure -EF 50-55% 03/02/21 -Patient has been on IV Lasix 40 mg IVP every 12 hours, this was decreased to 40 mg IVP daily secondary to elevating BUN and creatinine with plans to transition to oral Lasix, we will continue to monitor renal function and electrolytes closely with repeat a.m. labs. - metoprolol - not chronically on ACEI CKD III -BMP revealing slight elevation in renal function with BUN of 64, creatinine 1.34 and GFR of 48. -Patient has been on IV Lasix 40 mg IVP every 12 hours, this was decreased to 40 mg IVP daily with plans to transition to oral Lasix, we will continue to monitor renal function and electrolytes closely with repeat a.m. labs. Paroxysmal atrial fibrillation with a history of RVR -Off Cardizem drip, changed from Coreg to Metoprolol (Wants to transition back and will discuss with outpatient cardio after discharge) -Cardiology following, appreciate further recommendations -Continue anticoagulation with with Titus Chronic medical conditions include: Coronary artery disease History of Myocardial infarction Status post TAVR Fibromyalgia GERD DVT prophylaxis: Titus Discussed with: Patient and RN Anticipated discharge: Tomorrow Anticipated discharge place: Home with home care A total of 45 minutes was spent on the care of this complex patient more than 50% of the time was spent in counseling and care coordination. Objective - Vital Signs Vital signs: Vital Signs Temp 98.1 F 03/02/21 08:00 Pulse 88 03/03/21 08:03 Resp 16 03/03/21 04:00 BP 158/84 03/03/21 04:00 Pulse Ox 97 03/03/21 04:00 Intake & Output 03/02/21 03/03/21 03/03/21 18:59 06:59 18:59 Intake Total 600 Output Total 750 1 Balance -150 -1 Weight 74.9 kg Intake: Oral 600 Output: Urine 750 Stool 1 Other: Voiding Method Urinal Urinal # Voids 0 - Labs CBC & Chem 7: 03/03/21 08:06 03/03/21 08:06 Labs: Abnormal Lab Results - Last 24 Hours (Table) 03/02/21 03/02/21 03/02/21 Range/Units 07:59 07:59 11:59 RBC 3.40 L (4.30-5.90) m/uL Hgb 10.9 L (13.0-17.5) gm/dL Hct 32.6 L (39.0-53.0) % Sodium 135 L (137-145) mmol/L BUN 64 H (9-20) mg/dL Creatinine 1.34 H (0.66-1.25) mg/dL Glucose 170 H (74-99) mg/dL POC Glucose (mg/dL) 193 H (75-99) mg/dL Magnesium 2.4 H (1.6-2.3) mg/dL 03/02/21 03/02/21 03/03/21 Range/Units 16:40 20:11 06:04 RBC (4.30-5.90) m/uL Hgb (13.0-17.5) gm/dL Hct (39.0-53.0) % Sodium (137-145) mmol/L BUN (9-20) mg/dL Creatinine (0.66-1.25) mg/dL Glucose (74-99) mg/dL POC Glucose (mg/dL) 186 H 110 H 180 H (75-99) mg/dL Magnesium (1.6-2.3) mg/dL Microbiology - Last 24 Hours (Table) 02/25/21 03:36 Blood Culture - Final Blood No Growth after 144 hours 02/28/21 10:45 Gram Stain - Preliminary Bronchial Washings - Random Bronchial Washings Culture - Preliminary Gram Neg Bacilli Deirdre albicans <Bruna Vazquez - Last Filed: 03/03/21 15:02> Subjective Patient seen and examined independently. Patient was also seen by Arden Lockwood NP and case was discussed. I am in agreement with subjective, physical exam, assessment and plan as written above and amended below. Significant other present at bedside. All questions answered. Likely home in a.m. once cultures available. Patient reports he is still feeling very fatigued and having a hard time coughing. We discussed that this was part of his course of tracheobronchomalacia and likely will worsen over time. General: non toxic, no distress, appears at stated age Derm: warm, dry Head: atraumatic, normocephalic, symmetric Eyes: EOMI, no lid lag, anicteric sclera Mouth: no lip lesion, mucus membranes moist Cardiovascular: [S1S2 regular with systolic ejection murmur grade 2, positive posterior tibial pulse bilateral, Lungs: Course breath sounds bilateral, forced expiratory wheeze no rhonchi, no rales , no accessory muscle use Abdominal: soft, nontender to palpation, no guarding, no appreciable organomegaly Ext: no gross muscle atrophy, 3+ edema, no contractures Neuro: CN II-XI grossly intact, no focal neuro deficits Psych: Alert, oriented, appropriate affect Objective - Vital Signs Vital signs: Vital Signs Temp 97.6 F 03/03/21 08:00 Pulse 70 03/03/21 12:27 Resp 18 03/03/21 12:27 BP 152/69 03/03/21 12:27 Pulse Ox 92 L 03/03/21 12:27 Intake & Output 03/02/21 03/03/21 03/03/21 18:59 06:59 18:59 Intake Total 600 360 Output Total 750 1 Balance -150 -1 360 Weight 74.9 kg Intake: Oral 600 360 Output: Urine 750 Stool 1 Other: Voiding Method Urinal Urinal Urinal # Voids 0 1 - Labs CBC & Chem 7: 03/03/21 08:06 03/03/21 08:06 Labs: Abnormal Lab Results - Last 24 Hours (Table) 03/02/21 03/02/21 03/03/21 Range/Units 16:40 20:11 06:04 RBC (4.30-5.90) m/uL Hgb (13.0-17.5) gm/dL Hct (39.0-53.0) % BUN (9-20) mg/dL Glucose (74-99) mg/dL POC Glucose (mg/dL) 186 H 110 H 180 H (75-99) mg/dL Magnesium (1.6-2.3) mg/dL 03/03/21 03/03/21 03/03/21 Range/Units 08:06 08:06 11:45 RBC 3.31 L (4.30-5.90) m/uL Hgb 10.7 L (13.0-17.5) gm/dL Hct 32.5 L (39.0-53.0) % BUN 73 H (9-20) mg/dL Glucose 136 H (74-99) mg/dL POC Glucose (mg/dL) 156 H (75-99) mg/dL Magnesium 2.6 H (1.6-2.3) mg/dL Microbiology - Last 24 Hours (Table) 02/28/21 10:45 Gram Stain - Final Bronchial Washings - Random Bronchial Washings Culture - Final Pseudomonas aeruginosa Deirdre albicans 02/25/21 03:36 Blood Culture - Final Blood No Growth after 144 hours
[2021-03-03 16:19] LABS: Glucose,Whole Blood 149 mg/dL (75-99)
[2021-03-03] MEDS: predniSONE 20 MG TAB PO SCH (16:41)
[2021-03-03] MEDS: FUROSEMIDE 40 MG TAB PO SCH (16:42)
[2021-03-03] MEDS ORDERED: LORazepam 2 MG/ML INJ IV STA (17:31)
[2021-03-03 20:24] LABS: Glucose,Whole Blood 169 mg/dL (75-99)
[2021-03-04 06:24] LABS: Glucose,Whole Blood 143 mg/dL (75-99)
[2021-03-04] MEDS: INSULIN ASPART (NovoLOG) 100 UNIT/ML VIAL SQ SCH ×4 (06:56→20:04)
[2021-03-04] MEDS: FORMOTEROL FUMARATE 20 MCG/2 ML NEBU INHALATION SCH ×2 (07:17→19:46)
[2021-03-04] MEDS: IPRATROPIUM-ALBUTEROL 3 ML NEB INHALATION SCH ×4 (07:17→19:46)
[2021-03-04] MEDS: BUDESONIDE 1 MG/2 ML NEBU INHALATION SCH ×2 (07:17→19:46)
[2021-03-04] MEDS: METOPROLOL TARTRATE 50 MG TAB PO SCH ×2 (08:07→20:04)
[2021-03-04] MEDS: ASPIRIN 81 MG PO SCH (08:07)
[2021-03-04] MEDS: predniSONE 20 MG TAB PO SCH (08:07)
[2021-03-04] MEDS: FUROSEMIDE 40 MG TAB PO SCH ×2 (08:07→17:35)
[2021-03-04] MEDS: VERAPAMIL 40 MG TAB PO SCH ×2 (08:08→20:04)
[2021-03-04] MEDS: ATORVASTATIN 10 MG TAB PO SCH (08:08)
[2021-03-04] MEDS: CEFEPIME 2 GM in SODIUM CHLORIDE 0.9% 100 ML IVPB SCH ×2 (08:08→20:03)
[2021-03-04] MEDS: APIXABAN 2.5 MG TABLET PO SCH ×2 (08:08→20:04)
--- NOTE | 2021-03-04 11:04 | PN ---
PROGRESS NOTE Mr. Winn remains in atrial fibrillation. Rate is better controlled; somewhat slower at night. I am reducing the verapamil from 40 mg t.i.d. to b.i.d., continue beta nico. He was also being seen by Pulmonology, underwent a bronchoscopy. His secretions are better. Breathing is better. Vitals are stable. JVD 1 cm. No carotid bruit. S1, S2 heard normally. Short systolic murmur. Irregular rate and rhythm noted. Lungs reveal scattered rhonchi, improved air entry. Abdomen and lower extremity exam unchanged. He can be discharged today from a cardiac standpoint. We will see him as needed. MMODL / IJN: [id number] /
[2021-03-04 11:51] LABS: Glucose,Whole Blood 210 mg/dL (75-99)
--- NOTE | 2021-03-04 11:53 | P.PN ---
Subjective Progress Note Date: 03/04/21 This is an 86-year-old gentleman who was admitted again yesterday from the cardiology office for worsening shortness of breath and fluid volume overload secondary to noncompliance with his Lasix. He had stopped taking it for weeks prior. He had recently been here for COVID-19 infection. He received mo noclonal antibodies. He is seen today in consultation on the selective care unit. Currently sitting up in a chair at the bedside. Awake and alert in no acute distress. O2 saturation 91% on room air. His x-ray revealed patchy opacities right greater than left. White count 8.3. Hemoglobin 10.9. Sodium 133. Potassium 3.4. Creatinine 1.12. Troponin 0.078. ProBNP 736. Simon virus not detected. He's been initiated on DuoNeb inhalations, prednisone taper, IV diuretics, antibiotics in the form of ceftriaxone and azithromycin. He is anticoagulated with Eliquis. The patient is seen today 02/26/2021 follow-up on the selective care unit. He is currently sitting up in a chair at the bedside. Awake and alert in no acute distress. Maintaining good O2 saturations in the 90s on room air. Somewhat tachycardic. Afebrile. Blood culture reveals no growth. White count 9.2. Hemoglobin 11.8. Sodium 136. Potassium 3.7. Creatinine 1.25. Urine Legionella antigen negative. He is continued on DuoNeb inhalations, prednisone. Anticoagulated with Eliquis. Remains on antibiotics in the form of ceftriaxone and azithromycin. Remains on IV diuretics. Evaluation of 02/27/2021, the patient is having a vigorous and the persistent cough. In fact his having limited time in between to catch his breath. This has gotten worse since yesterday. I reviewed the records and the patient has had multiple bronchoscopies in the past and her most recent bronchoscopy was done on 12/15/2020 and the patient back then had pseudomonas aeruginosa and his bronchioloalveolar lavage. He is currently afebrile. Is bringing up some creamy mucus. He is on long-term and to coagulation with Eliquis. For now, his taken a combination of Rocephin and Zithromax. I reviewed the chest x-ray. There are obvious chronic changes on chest x-ray. No clear indication for an acute pneumonia. He is post COVID-19 infection and has recovered and his repeat COVID-19's testing came back negative. His Legionella urine antigen came back negative. 02/28/2021, the patient's coughing is subsided and the patient was getting better compared to yesterday. Nevertheless, he felt still that he was having copious amount of rest or secretions which she was unable to cough out. As mentioned earlier, his last bronchoscopy revealed pseudomonas aeruginosa and the patient was placed on IV cefepime yesterday in addition to a combination of Perforomist and Pulmicort overestimates twice a day and antitussive medications. Clinically is feeling better. Bronchoscopy was completed today and the patient was found to have severe check of bronchomalacia and the patient had extensive amount of mucous plugging square he underwent a therapeutic it was suctioning. Cultures were also sent. The procedure was completed without any major complications or issues. He is afebrile. He is hemodynamically stable at this point in time. He is post COVID-19 related infection from which she has recovered. He continues to be on anticoagulation with Eliquis. 03/01/2021, the patient continues to improve on a daily basis. He is post bronchoscopy. The final culture are still pending. Meanwhile, I offered them a flutter valve which she quite likes and he uses it regularly at the bedside. He is also on a combination of Perforomist and Pulmicort neb last 2 minutes twice a day, DuoNeb nebulized treatments around the clock and IV cefepime. He is on 2 g every 12 hours. No new complaints. No fever. No chills. As mentioned earlier, he has severe tracheal bronchomalacia and bronchiectasis in addition. Clinically improving. He is currently on room air oxygen. He remains on IV Solu-Medrol 60 mg every 6 hours and was tapered as of tomorrow. We'll give him the benefit of steroids for another 24 hours. 03/02/2021, the patient is still having some difficulties in breathing. Cough is more dry. No significant sputum production. Remains on IV cefepime. Remains on Perforomist and Pulmicort nebulized treatments and is using a flutter valve. Meanwhile, the bronchioloalveolar lavage was collected earlier for the bronchoscopy showed gram-negative bacillus. Final culture are still pending for now. He has severe tracheal bronchomalacia and bronchiectasis. No other new complaints otherwise for now.. In terms of his labs, the creatinine is at 1.34 with a BUN of 64. His BUN and creatinine took a bump as the patient is on IV Lasix 40 mg every 12 hours. His sodium level is at 135. Potassium level is at 3.8. He remains on long-term and to coagulation with Eliquis regarding his chronic atrial fibrillation. No angina. Is on room air oxygen. 03/03/2021, the patient is using incentive spirometer. He is using the flutter valve. No worsening his breathing. Remain on his bronchodilators. Remains on a combination of Perforomist and Pulmicort nebulized treatments. Remains on IV cefepime. Final culture are still pending from the bronchioloalveolar lavage. He was taken off the IV Lasix and currently is on oral Lasix. BUN is slightly higher in the creatinine is stable for now. He has tracheobronchomalacia and bronchiectasis. He remains on room air oxygen. He is having episodes of cough. He has occasional desaturation whenever he goes into a coughing spell. 03/04/2021, the patient is still struggling with his breathing. His coughing and is having frequent coughing spells. I added promethazine yesterday which she did not like. Is a bit lethargic today. He is using oxygen 2 L per minute nasal cannula. He has been taken off IV Lasix. His been taken all soft IV Solu-Medrol. His bronchioloalveolar lavage was done earlier showed pseudomonas aeruginosa and the patient is currently on IV cefepime. He is using a flutter valve. He is on accommodation performance of Pulmicort overestimates twice a day and DuoNeb nebulized treatments around the clock. He remains on long-term and coagulation with Eliquis. No chest pain. He feels that he is unable to breathe and the frequent coughing spells are still affecting his well-being and his ongoing shortness of breath. No other complaints otherwise for now. His at the bedside. No other new labs from today. Most recent labs from yesterday. A normal renal function. Objective - Vital Signs Vital signs: Vital Signs Temp 98.3 F 03/04/21 08:00 Pulse 94 03/04/21 08:00 Resp 16 03/04/21 08:00 BP 145/79 03/04/21 08:00 Pulse Ox 94 L 03/04/21 08:00 Intake & Output 03/03/21 03/04/21 03/04/21 18:59 06:59 18:59 Intake Total 480 240 Output Total 1000 300 Balance 480 -1000 -60 Weight 74.4 kg Intake: Oral 480 240 Output: Urine 1000 300 Other: Voiding Method Urinal # Voids 1 - Exam GENERAL EXAM: Alert, 86-year-old gentleman, on room air, fairly comfortable in no apparent distress. HEAD: Normocephalic. EYES: Normal reaction of pupils, equal size. NOSE: Clear with pink turbinates. THROAT: No erythema or exudates. NECK: No masses, no JVD. CHEST: No chest wall deformity. LUNGS: Equal air entry with crackles in the posterior bases. CVS: S1 and S2 normal with no audible murmur, regular rhythm. ABDOMEN: No hepatosplenomegaly, normal bowel sounds, no guarding or rigidity. SPINE: No scoliosis or deformity SKIN: No rashes CENTRAL NERVOUS SYSTEM: No focal deficits, tone is normal in all 4 extremities. EXTREMITIES: There is no peripheral edema. No clubbing, no cyanosis. Peripheral pulses are intact. - Labs CBC & Chem 7: 03/03/21 08:06 03/03/21 08:06 Labs: Abnormal Lab Results - Last 24 Hours (Table) 03/03/21 03/03/21 03/04/21 Range/Units 16:18 20:23 06:23 POC Glucose (mg/dL) 149 H 169 H 143 H (75-99) mg/dL Microbiology - Last 24 Hours (Table) 02/28/21 10:45 Fungal Culture - Preliminary Bronchial Washings - Random Yeast species 02/28/21 10:45 Gram Stain - Final Bronchial Washings - Random Bronchial Washings Culture - Final Pseudomonas aeruginosa Deirdre albicans Assessment and Plan Plan: 1 persistent cough and Dyspnea secondary to acute exacerbation of COPD along with a component of diastolic heart failure post multiple bronchoscopies, pre vious cultures indicating Pseudomonas aeruginosa, MRSA and Serratia.. Bronchoscopy was done and the patient was found to have severe tracheo- bronchomalacia with mucous plugs. The patient currently is on antibiotics with IV cefepime. Bronchioloalveolar lavage grew pseudomonas aeruginosa which is sensitive to cefepime and quinolones. I opted to keep the patient IV cefepime for now. Still symptomatic. Still having difficulties with shortness of breath and cough. This is probably related to his underlying tracheal bronchomalacia bronchiectasis in addition to superimposed pseudomonal infection. 2 Recent admission for COVID-19 3 Complete vaccination for COVID-19 4 History of COPD, and bronchiectasis with frequent pulmonary infections including Pseudomonas, MRSA and Serratia 5 Coronary artery disease with previous stenting 6 Previous history of myocardial infarction 7 Aortic valve stenosis, status post TAVR at [facility] on 04/22/2020 8 History of atrial fibrillation on Eliquis 9 Fibromyalgia 10 GERD/reflux Plan: The patient has recurrent pseudomonal growth We'll continue same treatment Flutter valve Give the patient promethazine liquid for cough suppression Xanax 0.25 every 8 hours on a when necessary basis Involve physical therapy Bronchoscopy was completed and airway suctioning was done and the patient's mucous plugs were removed Continue IV cefepime for now prednisone burst taper Continue Perforomist and Pulmicort neb last treatment twice a day Continue Mucinex for cough Lidocaine nebulized treatments and the cough persists Continue bronchodilators Continue oral Lasix We'll keep the patient hospital as long as he continues to be symptomatic. ]
--- NOTE | 2021-03-04 13:33 | P.PN ---
Subjective Progress Note Date: 03/04/21 Hospital course: Patient is an 86-year-old male with a history of tracheobronchomalacia, CAD with previous [place] status post TAVR, A. fib on anticoagulation with Xarelto, hypertension, hyperlipidemia, and recurrent pseudomonal pneumonias who presented to the hospital on 02/24/21 with complaints of shortness of breath. He is admitted under our services with consultation to pulmonology for treatment of acute exacerbation of COPD with mucus plugging, severe tracheobronchial malacia, and acute exacerbation of diastolic heart failure. He underwent a bronchoscopy on 02/28. Physical examination: The patient was seen and evaluated at bedside this morning. He continues to have persistent coughing episodes resulting in struggling with his breathing. Pulmonology started patient on promethazine yesterday and stopped Lasix. He reports feeling continued shortness of breath and slightly weaker today and denies having any headache, lightheadedness, dizziness, chest pain, palpitations, or experiencing any numbness/tingling/weakness in his extremities. Gram stain positive for pseudomonas aeruginosa. Patient remains on cefepime. Pulmonology recommended continued monitoring and medical management with encouragement of flutter valve while patient remains symptomatic. Awaiting evaluation and recommendations by PT/OT. Discussed possible SNF placement with patient and family at bedside this morning. General: Chronically Ill appearing, no acute distress, appears at stated age Derm: warm, dry Head: atraumatic, normocephalic, symmetric Eyes: EOMI, no lid lag, anicteric sclera Mouth: no lip lesion, mucus membranes moist Cardiovascular: S1S2 reg, no murmur, positive posterior tibial pulse bilateral, Lungs: Diffuse Course breath sounds bilaterally however improved from previous examination, no rhonchi, no rales , no accessory muscle use Abdominal: soft, nontender to palpation, no guarding, no appreciable organomegaly Ext: no gross muscle atrophy, 2+ pitting edema, no contractures Neuro: CN II-XI grossly intact, no focal neuro deficits Psych: Alert, oriented, appropriate affect Assessment and plan of care: Severe tracheobronchial malacia Acute exacerbation of COPD with mucus plugging Tracheobronchitis -Status post bronchoscopy -Pulmonary recommendations -Cefepime -Bronchial washing, Gram stain positive for pseudomonas aeruginosa. -Encouraged Pulmonary hygiene -Solu-Medrol -Bronchodilators -Encourage use of flutter valve -Continue Mucinex and promethazine Acute exacerbation of diastolic congestive heart failure -EF 50-55% 03/02/21 -Lasix discontinued - metoprolol - not chronically on ACEI CKD III, improving -We will continue to monitor with repeat a.m. labs. Paroxysmal atrial fibrillation with a history of RVR -Off Cardizem drip, changed from Coreg to Metoprolol (Wants to transition back and will discuss with outpatient cardio after discharge) -Cardiology following, appreciate further recommendations -Continue anticoagulation with with Eliquis Chronic medical conditions include: Coronary artery disease History of Myocardial infarction Status post TAVR Fibromyalgia GERD DVT prophylaxis: Eliquis Discussed with: Patient and RN, patient's daughter, and patient's significant other. Anticipated discharge: Clinical course to determine Anticipated discharge place: Home with home care A total of 45 minutes was spent on the care of this complex patient more than 50% of the time was spent in counseling and care coordination. Objective - Vital Signs Vital signs: Vital Signs Temp 98.2 F 03/04/21 12:00 Pulse 82 03/04/21 12:25 Resp 17 03/04/21 12:00 BP 114/62 03/04/21 12:00 Pulse Ox 91 L 03/04/21 12:00 Intake & Output 03/03/21 03/04/21 03/04/21 18:59 06:59 18:59 Intake Total 480 240 Output Total 1000 300 Balance 480 -1000 -60 Weight 74.4 kg Intake: Oral 480 240 Output: Urine 1000 300 Other: Voiding Method Urinal # Voids 1 - Labs CBC & Chem 7: 03/03/21 08:06 03/03/21 08:06 Labs: Abnormal Lab Results - Last 24 Hours (Table) 03/03/21 03/03/21 03/04/21 Range/Units 16:18 20:23 06:23 POC Glucose (mg/dL) 149 H 169 H 143 H (75-99) mg/dL 03/04/21 Range/Units 11:49 POC Glucose (mg/dL) 210 H (75-99) mg/dL Microbiology - Last 24 Hours (Table) 02/28/21 10:45 Fungal Culture - Preliminary Bronchial Washings - Random Yeast species 02/28/21 10:45 Gram Stain - Final Bronchial Washings - Random Bronchial Washings Culture - Final Pseudomonas aeruginosa Deirdre albicans
[2021-03-04 17:06] LABS: Glucose,Whole Blood 155 mg/dL (75-99)
[2021-03-04] MEDS: ALPRAZolam 0.25 MG TAB PO PRN (18:56)
[2021-03-04 19:57] LABS: Glucose,Whole Blood 189 mg/dL (75-99)
[2021-03-05 06:05] LABS: Glucose,Whole Blood 106 mg/dL (75-99)
[2021-03-05] MEDS: INSULIN ASPART (NovoLOG) 100 UNIT/ML VIAL SQ SCH ×4 (06:05→20:57)
[2021-03-05 07:45] LABS: Basophils # (A) 0.1 k/uL (0-0.2); Basophils % (A) 1 %; Eosinophils # (A) 0.8 k/uL (0-0.7); Eosinophils % (A) 6 %; HCT 34.7 % (39.0-53.0); HGB 11.9 gm/dL (13.0-17.5); Lymphocytes # (A) 0.7 k/uL (1.0-4.8); Lymphocytes % (A) 6 %; MCH 32.5 pg (25.0-35.0); MCHC 34.4 g/dL (31.0-37.0); MCV 94.7 fL (80.0-100.0); Mean Platelet Volume 8.2; Monocytes # (A) 0.8 k/uL (0-1.0); Monocytes % (A) 6 %; Neutrophils % (A) 80 %; Platelet Count 412 k/uL (150-450); RBC 3.67 m/uL (4.30-5.90); RDW 14.8 % (11.5-15.5); WBC 12.5 k/uL (3.8-10.6)
[2021-03-05] MEDS: FORMOTEROL FUMARATE 20 MCG/2 ML NEBU INHALATION SCH ×2 (07:56→20:03)
[2021-03-05] MEDS: BUDESONIDE 1 MG/2 ML NEBU INHALATION SCH ×2 (07:56→20:03)
[2021-03-05] MEDS: IPRATROPIUM-ALBUTEROL 3 ML NEB INHALATION SCH ×4 (07:56→20:03)
[2021-03-05 08:08] LABS: Calcium 9.9 mg/dL (8.4-10.2); Magnesium 2.4 mg/dL (1.6-2.3); Potassium 3.6 mmol/L (3.5-5.1)
[2021-03-05] MEDS: predniSONE 20 MG TAB PO SCH (08:30)
[2021-03-05] MEDS: METOPROLOL TARTRATE 50 MG TAB PO SCH ×2 (08:30→20:56)
[2021-03-05] MEDS: APIXABAN 2.5 MG TABLET PO SCH ×2 (08:30→20:56)
[2021-03-05] MEDS: ASPIRIN 81 MG PO SCH (08:30)
[2021-03-05] MEDS: CEFEPIME 2 GM in SODIUM CHLORIDE 0.9% 100 ML IVPB SCH ×2 (08:30→20:56)
[2021-03-05] MEDS: ATORVASTATIN 10 MG TAB PO SCH (08:30)
[2021-03-05] MEDS: VERAPAMIL 40 MG TAB PO SCH ×2 (08:30→20:56)
[2021-03-05] MEDS: FUROSEMIDE 40 MG TAB PO SCH ×2 (08:31→16:57)
[2021-03-05 12:09] LABS: Glucose,Whole Blood 139 mg/dL (75-99)
--- NOTE | 2021-03-05 12:29 | P.PN ---
Subjective Progress Note Date: 03/05/21 Hospital course: Patient is an 86-year-old male with a history of tracheobronchomalacia, CAD with previous MS status post TAVR, A. fib on anticoagulation with Xarelto, hypertension, hyperlipidemia, and recurrent pseudomonal pneumonias who presented to the hospital on 02/24/21 with complaints of shortness of breath. He is admitted under our services with consultation to pulmonology for treatment of acute exacerbation of COPD with mucus plugging, severe tracheobronchial malacia, and acute exacerbation of diastolic heart failure. He underwent a bronchoscopy on 02/28. Gram stain from bronchial washings was positive for pseudomonas aeruginosa. Patient being treated with IV cefepime. Physical examination: The patient was seen and evaluated at bedside this morning. He continues to report feeling very weak and states slight improvement in coughing episodes, stating the flutter valve is really helping. Patient remains on Lasix, Pulmicort, formoterol, promethazine, and Mucinex. Patient continues to deny having any headache, lightheadedness, dizziness, chest pain, palpitations, or experiencing any numbness/tingling/weakness in his extremities. Gram stain positive for pseudomonas aeruginosa. Patient remains on cefepime. Pulmonology recommended continued monitoring and medical management with encouragement of flutter valve while patient remains symptomatic. Awaiting evaluation and recommendations by PT/OT. Patient still considering possible SNF placement for rehab upon discharge. Reports he could no longer wear the knee high HANNAH hose because they were digging into the back of his leg, these were discontinued and an order was placed for thigh-high compression stockings to avoid digging in at back of knee. Labs reviewed. General: Chronically Ill appearing, no acute distress, appears at stated age Derm: warm, dry Head: atraumatic, normocephalic, symmetric Eyes: EOMI, no lid lag, anicteric sclera Mouth: no lip lesion, mucus membranes moist Cardiovascular: S1S2 reg, no murmur, positive posterior tibial pulse bilateral, Lungs: Diffuse Course breath sounds bilaterally however improved from previous examination, no rhonchi, no rales , no accessory muscle use Abdominal: soft, nontender to palpation, no guarding, no appreciable organomegaly Ext: no gross muscle atrophy, 2+ pitting edema, no contractures Neuro: CN II-XI grossly intact, no focal neuro deficits Psych: Alert, oriented, appropriate affect Assessment and plan of care: Severe tracheobronchial malacia Acute exacerbation of COPD with mucus plugging Tracheobronchitis -Status post bronchoscopy -Pulmonary recommendations -Cefepime -Bronchial washing, Gram stain positive for pseudomonas aeruginosa. -Encouraged Pulmonary hygiene -Solu-Medrol -Bronchodilators -Encourage use of flutter valve -Continue Mucinex and promethazine Acute exacerbation of diastolic congestive heart failure -EF 50-55% 03/02/21 -IV lasix discontinued, Continue Lasix 40 mg by mouth twice daily -Metoprolol -Not chronically on ACEI CKD III, improving -We will continue to monitor with repeat a.m. labs. Paroxysmal atrial fibrillation with a history of RVR -Off Cardizem drip, changed from Coreg to Metoprolol (Wants to transition back and will discuss with outpatient cardio after discharge) -Cardiology following, appreciate further recommendations -Continue anticoagulation with with Eliquis Chronic medical conditions include: Coronary artery disease History of Myocardial infarction Status post TAVR Fibromyalgia GERD DVT prophylaxis: Eliquis Discussed with: Patient and RN, patient's daughter, and patient's significant other. Anticipated discharge: Clinical course to determine Anticipated discharge place: Home with home care A total of 45 minutes was spent on the care of this complex patient more than 50% of the time was spent in counseling and care coordination. Objective - Vital Signs Vital signs: Vital Signs Temp 98.0 F 03/05/21 04:00 Pulse 78 03/05/21 04:00 Resp 19 03/05/21 04:00 BP 150/94 03/05/21 04:00 Pulse Ox 97 03/05/21 04:00 Intake & Output 03/04/21 03/05/21 03/05/21 18:59 06:59 18:59 Intake Total 240 Output Total 300 425 Balance -60 -425 Weight 74.6 kg Intake: Oral 240 Output: Urine 300 425 Other: Voiding Method Urinal # Voids 50 - Labs CBC & Chem 7: 03/05/21 07:23 03/05/21 07:23 Labs: Abnormal Lab Results - Last 24 Hours (Table) 03/04/21 03/04/21 03/04/21 Range/Units 11:49 17:04 19:55 WBC (3.8-10.6) k/uL RBC (4.30-5.90) m/uL Hgb (13.0-17.5) gm/dL Hct (39.0-53.0) % Neutrophils # (1.3-7.7) k/uL Lymphocytes # (1.0-4.8) k/uL Eosinophils # (0-0.7) k/uL POC Glucose (mg/dL) 210 H 155 H 189 H (75-99) mg/dL 03/05/21 03/05/21 Range/Units 06:04 07:23 WBC 12.5 H (3.8-10.6) k/uL RBC 3.67 L (4.30-5.90) m/uL Hgb 11.9 L (13.0-17.5) gm/dL Hct 34.7 L (39.0-53.0) % Neutrophils # 10.0 H (1.3-7.7) k/uL Lymphocytes # 0.7 L (1.0-4.8) k/uL Eosinophils # 0.8 H (0-0.7) k/uL POC Glucose (mg/dL) 106 H (75-99) mg/dL
--- NOTE | 2021-03-05 13:16 | P.PN ---
Subjective Progress Note Date: 03/05/21 This is an 86-year-old gentleman who was admitted again yesterday from the cardiology office for worsening shortness of breath and fluid volume overload secondary to noncompliance with his Lasix. He had stopped taking it for weeks prior. He had recently been here for COVID-19 infection. He received mo noclonal antibodies. He is seen today in consultation on the selective care unit. Currently sitting up in a chair at the bedside. Awake and alert in no acute distress. O2 saturation 91% on room air. His x-ray revealed patchy opacities right greater than left. White count 8.3. Hemoglobin 10.9. Sodium 133. Potassium 3.4. Creatinine 1.12. Troponin 0.078. ProBNP 736. Simon virus not detected. He's been initiated on DuoNeb inhalations, prednisone taper, IV diuretics, antibiotics in the form of ceftriaxone and azithromycin. He is anticoagulated with Eliquis. The patient is seen today 02/26/2021 follow-up on the selective care unit. He is currently sitting up in a chair at the bedside. Awake and alert in no acute distress. Maintaining good O2 saturations in the 90s on room air. Somewhat tachycardic. Afebrile. Blood culture reveals no growth. White count 9.2. Hemoglobin 11.8. Sodium 136. Potassium 3.7. Creatinine 1.25. Urine Legionella antigen negative. He is continued on DuoNeb inhalations, prednisone. Anticoagulated with Eliquis. Remains on antibiotics in the form of ceftriaxone and azithromycin. Remains on IV diuretics. Evaluation of 02/27/2021, the patient is having a vigorous and the persistent cough. In fact his having limited time in between to catch his breath. This has gotten worse since yesterday. I reviewed the records and the patient has had multiple bronchoscopies in the past and her most recent bronchoscopy was done on 12/15/2020 and the patient back then had pseudomonas aeruginosa and his bronchioloalveolar lavage. He is currently afebrile. Is bringing up some creamy mucus. He is on long-term and to coagulation with Eliquis. For now, his taken a combination of Rocephin and Zithromax. I reviewed the chest x-ray. There are obvious chronic changes on chest x-ray. No clear indication for an acute pneumonia. He is post COVID-19 infection and has recovered and his repeat COVID-19's testing came back negative. His Legionella urine antigen came back negative. 02/28/2021, the patient's coughing is subsided and the patient was getting better compared to yesterday. Nevertheless, he felt still that he was having copious amount of rest or secretions which she was unable to cough out. As mentioned earlier, his last bronchoscopy revealed pseudomonas aeruginosa and the patient was placed on IV cefepime yesterday in addition to a combination of Perforomist and Pulmicort overestimates twice a day and antitussive medications. Clinically is feeling better. Bronchoscopy was completed today and the patient was found to have severe check of bronchomalacia and the patient had extensive amount of mucous plugging square he underwent a therapeutic it was suctioning. Cultures were also sent. The procedure was completed without any major complications or issues. He is afebrile. He is hemodynamically stable at this point in time. He is post COVID-19 related infection from which she has recovered. He continues to be on anticoagulation with Eliquis. 03/01/2021, the patient continues to improve on a daily basis. He is post bronchoscopy. The final culture are still pending. Meanwhile, I offered them a flutter valve which she quite likes and he uses it regularly at the bedside. He is also on a combination of Perforomist and Pulmicort neb last 2 minutes twice a day, DuoNeb nebulized treatments around the clock and IV cefepime. He is on 2 g every 12 hours. No new complaints. No fever. No chills. As mentioned earlier, he has severe tracheal bronchomalacia and bronchiectasis in addition. Clinically improving. He is currently on room air oxygen. He remains on IV Solu-Medrol 60 mg every 6 hours and was tapered as of tomorrow. We'll give him the benefit of steroids for another 24 hours. 03/02/2021, the patient is still having some difficulties in breathing. Cough is more dry. No significant sputum production. Remains on IV cefepime. Remains on Perforomist and Pulmicort nebulized treatments and is using a flutter valve. Meanwhile, the bronchioloalveolar lavage was collected earlier for the bronchoscopy showed gram-negative bacillus. Final culture are still pending for now. He has severe tracheal bronchomalacia and bronchiectasis. No other new complaints otherwise for now.. In terms of his labs, the creatinine is at 1.34 with a BUN of 64. His BUN and creatinine took a bump as the patient is on IV Lasix 40 mg every 12 hours. His sodium level is at 135. Potassium level is at 3.8. He remains on long-term and to coagulation with Eliquis regarding his chronic atrial fibrillation. No angina. Is on room air oxygen. 03/03/2021, the patient is using incentive spirometer. He is using the flutter valve. No worsening his breathing. Remain on his bronchodilators. Remains on a combination of Perforomist and Pulmicort nebulized treatments. Remains on IV cefepime. Final culture are still pending from the bronchioloalveolar lavage. He was taken off the IV Lasix and currently is on oral Lasix. BUN is slightly higher in the creatinine is stable for now. He has tracheobronchomalacia and bronchiectasis. He remains on room air oxygen. He is having episodes of cough. He has occasional desaturation whenever he goes into a coughing spell. 03/04/2021, the patient is still struggling with his breathing. His coughing and is having frequent coughing spells. I added promethazine yesterday which she did not like. Is a bit lethargic today. He is using oxygen 2 L per minute nasal cannula. He has been taken off IV Lasix. His been taken all soft IV Solu-Medrol. His bronchioloalveolar lavage was done earlier showed pseudomonas aeruginosa and the patient is currently on IV cefepime. He is using a flutter valve. He is on accommodation performance of Pulmicort overestimates twice a day and DuoNeb nebulized treatments around the clock. He remains on long-term and coagulation with Eliquis. No chest pain. He feels that he is unable to breathe and the frequent coughing spells are still affecting his well-being and his ongoing shortness of breath. No other complaints otherwise for now. His at the bedside. No other new labs from today. Most recent labs from yesterday. A normal renal function. 72,021, the patient is feeling much more comfortable compared to yesterday. His cough has subsided. He essentially remains the same treatment. Using the flutter valve. Switch to oral Lasix. Switch to oral prednisone burst taper. Remains on IV cefepime and the cultures from the bronchioloalveolar lavage log turner positive for Pseudomonas. I'm considering outpatient treatment with IV antibiotics with a PICC line to optimize his respiratory status. He is weak. He would benefit from physical therapy. No fever. No chills. Communicating. Remains on IV coagulation with Eliquis 2.5 mg by mouth twice a day. Objective - Vital Signs Vital signs: Vital Signs Temp 97.5 F L 03/05/21 07:54 Pulse 94 03/05/21 12:09 Resp 17 03/05/21 11:47 BP 123/71 03/05/21 11:47 Pulse Ox 95 03/05/21 11:47 Intake & Output 03/04/21 03/05/21 03/05/21 18:59 06:59 18:59 Intake Total 240 360 Output Total 300 425 Balance -60 -425 360 Weight 74.6 kg Intake: Oral 240 360 Output: Urine 300 425 Other: Voiding Method Urinal Urinal # Voids 50 1 - Exam GENERAL EXAM: Alert, 86-year-old gentleman, on room air, fairly comfortable in no apparent distress. HEAD: Normocephalic. EYES: Normal reaction of pupils, equal size. NOSE: Clear with pink turbinates. THROAT: No erythema or exudates. NECK: No masses, no JVD. CHEST: No chest wall deformity. LUNGS: Equal air entry with crackles in the posterior bases. CVS: S1 and S2 normal with no audible murmur, regular rhythm. ABDOMEN: No hepatosplenomegaly, normal bowel sounds, no guarding or rigidity. SPINE: No scoliosis or deformity SKIN: No rashes CENTRAL NERVOUS SYSTEM: No focal deficits, tone is normal in all 4 extremities. EXTREMITIES: There is no peripheral edema. No clubbing, no cyanosis. Peripheral pulses are intact. - Labs CBC & Chem 7: 03/05/21 07:23 03/05/21 07:23 Labs: Abnormal Lab Results - Last 24 Hours (Table) 03/04/21 03/04/21 03/05/21 Range/Units 17:04 19:55 06:04 WBC (3.8-10.6) k/uL RBC (4.30-5.90) m/uL Hgb (13.0-17.5) gm/dL Hct (39.0-53.0) % Neutrophils # (1.3-7.7) k/uL Lymphocytes # (1.0-4.8) k/uL Eosinophils # (0-0.7) k/uL Sodium (137-145) mmol/L BUN (9-20) mg/dL Glucose (74-99) mg/dL POC Glucose (mg/dL) 155 H 189 H 106 H (75-99) mg/dL Magnesium (1.6-2.3) mg/dL 03/05/21 03/05/21 03/05/21 Range/Units 07:23 07:23 12:07 WBC 12.5 H (3.8-10.6) k/uL RBC 3.67 L (4.30-5.90) m/uL Hgb 11.9 L (13.0-17.5) gm/dL Hct 34.7 L (39.0-53.0) % Neutrophils # 10.0 H (1.3-7.7) k/uL Lymphocytes # 0.7 L (1.0-4.8) k/uL Eosinophils # 0.8 H (0-0.7) k/uL Sodium 135 L (137-145) mmol/L BUN 61 H (9-20) mg/dL Glucose 108 H (74-99) mg/dL POC Glucose (mg/dL) 139 H (75-99) mg/dL Magnesium 2.4 H (1.6-2.3) mg/dL Assessment and Plan Plan: 1 persistent cough and Dyspnea secondary to acute exacerbation of COPD along with a component of diastolic heart failure post multiple bronchoscopies, previous cultures indicating Pseudomonas aeruginosa, MRSA and Serratia.. Bronchoscopy was done and the patient was found to have severe tracheo- bronchomalacia with mucous plugs. The patient currently is on antibiotics with IV cefepime. Bronchioloalveolar lavage grew pseudomonas aeruginosa which is sensitive to cefepime and quinolones. I opted to keep the patient IV cefepime for now. Still symptomatic although improved compared to yesterday.. Still having difficulties with shortness of breath and cough. This is probably related to his underlying tracheal bronchomalacia bronchiectasis in addition to superimposed pseudomonal infection. 2 Recent admission for COVID-19 3 Complete vaccination for COVID-19 4 History of COPD, and bronchiectasis with frequent pulmonary infections including Pseudomonas, MRSA and Serratia 5 Coronary artery disease with previous stenting 6 Previous history of myocardial infarction 7 Aortic valve stenosis, status post TAVR at [facility] on 04/22/2020 8 History of atrial fibrillation on Eliquis 9 Fibromyalgia 10 GERD/reflux Plan: Clinically better compared to yesterday The patient has recurrent pseudomonal growth, consider PICC line and IV antibiotic use on outpatient basis Meanwhile continued IV cefepime for now white cell count is not elevated He is afebrile and overall is feeling better prednisone burst taper Continue Perforomist and Pulmicort neb last treatment twice a day Continue Mucinex for cough Lidocaine nebulized treatments and the cough persists Continue bronchodilators Continue oral Lasix We'll continue to follow. ]
[2021-03-05 16:43] LABS: Glucose,Whole Blood 250 mg/dL (75-99)
[2021-03-05 20:41] LABS: Glucose,Whole Blood 159 mg/dL (75-99)
[2021-03-05] MEDS: polyethylene glycoL 3350 17 GM POWD.PACK PO PRN (21:27)
[2021-03-05] MEDS: PSYLLIUM HUSK 100% 6 GM PACKET PO PRN (21:27)
[2021-03-05] MEDS: ALPRAZolam 0.25 MG TAB PO PRN (21:29)
[2021-03-06 05:56] LABS: Glucose,Whole Blood 87 mg/dL (75-99)
[2021-03-06] MEDS: INSULIN ASPART (NovoLOG) 100 UNIT/ML VIAL SQ SCH ×4 (06:12→21:15)
[2021-03-06 08:05] LABS: HCT 34.1 % (39.0-53.0); HGB 11.5 gm/dL (13.0-17.5); MCHC 33.6 g/dL (31.0-37.0); MCV 98.2 fL (80.0-100.0); Mean Platelet Volume 7.9; Platelet Count 331 k/uL (150-450); RBC 3.48 m/uL (4.30-5.90); RDW 14.1 % (11.5-15.5); WBC 12.9 k/uL (3.8-10.6)
[2021-03-06 08:20] LABS: Calcium 9.7 mg/dL (8.4-10.2); Potassium 3.6 mmol/L (3.5-5.1)
[2021-03-06] MEDS: IPRATROPIUM-ALBUTEROL 3 ML NEB INHALATION SCH ×4 (08:21→20:01)
[2021-03-06] MEDS: BUDESONIDE 1 MG/2 ML NEBU INHALATION SCH ×2 (08:21→20:01)
[2021-03-06] MEDS: FORMOTEROL FUMARATE 20 MCG/2 ML NEBU INHALATION SCH ×2 (08:22→20:01)
[2021-03-06] MEDS: ATORVASTATIN 10 MG TAB PO SCH (09:01)
[2021-03-06] MEDS: FUROSEMIDE 40 MG TAB PO SCH ×2 (09:01→16:48)
[2021-03-06] MEDS: CEFEPIME 2 GM in SODIUM CHLORIDE 0.9% 100 ML IVPB SCH ×2 (09:01→21:15)
[2021-03-06] MEDS: APIXABAN 2.5 MG TABLET PO SCH ×2 (09:01→21:15)
[2021-03-06] MEDS: ASPIRIN 81 MG PO SCH (09:01)
[2021-03-06] MEDS: VERAPAMIL 40 MG TAB PO SCH ×2 (09:02→21:15)
[2021-03-06] MEDS: METOPROLOL TARTRATE 50 MG TAB PO SCH ×2 (09:02→21:15)
[2021-03-06] MEDS: predniSONE 20 MG TAB PO SCH (09:02)
[2021-03-06 11:49] LABS: Glucose,Whole Blood 129 mg/dL (75-99)
--- NOTE | 2021-03-06 12:26 | P.PN ---
<Arden Lockwood - Last Filed: 03/06/21 12:20> Subjective Progress Note Date: 03/06/21 Hospital course: Patient is an 86-year-old male with a history of tracheobronchomalacia, CAD with previous CT status post TAVR, A. fib on anticoagulation with Xarelto, hypertension, hyperlipidemia, and recurrent pseudomonal pneumonias who presented to the hospital on 02/24/21 with complaints of shortness of breath. He is admitted under our services with consultation to pulmonology for treatment of acute exacerbation of COPD with mucus plugging, severe tracheobronchial malacia, and acute exacerbation of diastolic heart failure. He underwent a bronchoscopy on 02/28. Gram stain from bronchial washings was positive for pseudomonas aeruginosa. Patient being treated with IV cefepime. Physical examination: The patient was seen and evaluated at bedside this morning. He continues to report feeling very weak, but has had significant improvement in coughing fits. Patient continues to use flutter valve at bedside. He remains on Lasix, Pulmicort, formoterol, promethazine, and Mucinex. Patient continues to deny having any headache, lightheadedness, dizziness, chest pain, palpitations, or experiencing any numbness/tingling/weakness in his extremities. Gram stain positive for pseudomonas aeruginosa. Patient remains on cefepime. Pulmonologi sts recommending possible outpatient course of antibiotics. Patient to be evaluated by PT/OT with plans for likely discharge tomorrow morning home with home care versus SNF pending PT recommendations. Morning labs reviewed. Mild leukocytosis with WBC count of 12.9 and normocytic normochromic anemia with hemoglobin of 11.5. General: Chronically Ill appearing, no acute distress, appears at stated age Derm: warm, dry Head: atraumatic, normocephalic, symmetric Eyes: EOMI, no lid lag, anicteric sclera Mouth: no lip lesion, mucus membranes moist Cardiovascular: S1S2 reg, no murmur, positive posterior tibial pulse bilateral, Lungs: Lung sounds improved, soft crackles at bases. No coarse rhonchi, wheezes, or rales present. No accessory muscle use. Abdominal: soft, nontender to palpation, no guarding, no appreciable organomegaly Ext: no gross muscle atrophy, 2+ pitting edema, no contractures Neuro: CN II-XI grossly intact, no focal neuro deficits Psych: Alert, oriented, appropriate affect Assessment and plan of care: Severe tracheobronchial malacia Acute exacerbation of COPD with mucus plugging Tracheobronchitis -Status post bronchoscopy -Pulmonary following, recommending possible outpatient IV antibiotics -Continue with Cefepime -Bronchial washing, Gram stain positive for pseudomonas aeruginosa. -Encouraged Pulmonary hygiene -Solu-Medrol -Bronchodilators -Encourage use of flutter valve -Continue Mucinex and promethazine Acute exacerbation of diastolic congestive heart failure -EF 50-55% 03/02/21 -Continue Lasix 40 mg by mouth twice daily -Metoprolol -Not chronically on ACEI CKD III, improving -We will continue to monitor with repeat a.m. labs. Paroxysmal atrial fibrillation with a history of RVR -Off Cardizem drip, changed from Coreg to Metoprolol (Wants to transition back and will discuss with outpatient cardio after discharge) -Cardiology following, appreciate further recommendations -Continue anticoagulation with with Eliquis Chronic medical conditions include: Coronary artery disease History of Myocardial infarction Status post TAVR Fibromyalgia GERD DVT prophylaxis: Titus Discussed with: Patient and RN Anticipated discharge: Likely tomorrow morning Anticipated discharge place: Home with home care vs SNF A total of 45 minutes was spent on the care of this complex patient more than 50% of the time was spent in counseling and care coordination. Objective - Vital Signs Vital signs: Vital Signs Temp 96.7 F L 03/06/21 08:00 Pulse 84 03/06/21 08:35 Resp 19 03/06/21 08:00 BP 133/67 03/06/21 08:00 Pulse Ox 94 L 03/06/21 08:00 Intake & Output 03/05/21 03/06/21 03/06/21 18:59 06:59 18:59 Intake Total 720 20 Output Total 1025 500 Balance -305 -480 Weight 72.8 kg Intake: IV 20 Invasive Line 3 20 Oral 720 Output: Urine 1025 500 Other: Voiding Method Urinal Urinal Urinal # Voids 3 - Labs CBC & Chem 7: 03/06/21 07:37 03/06/21 07:37 Labs: Abnormal Lab Results - Last 24 Hours (Table) 03/05/21 03/05/21 03/05/21 Range/Units 12:07 16:41 20:31 WBC (3.8-10.6) k/uL RBC (4.30-5.90) m/uL Hgb (13.0-17.5) gm/dL Hct (39.0-53.0) % Sodium (137-145) mmol/L Carbon Dioxide (22-30) mmol/L BUN (9-20) mg/dL POC Glucose (mg/dL) 139 H 250 H 159 H (75-99) mg/dL 03/06/21 03/06/21 Range/Units 07:37 07:37 WBC 12.9 H (3.8-10.6) k/uL RBC 3.48 L (4.30-5.90) m/uL Hgb 11.5 L (13.0-17.5) gm/dL Hct 34.1 L (39.0-53.0) % Sodium 136 L (137-145) mmol/L Carbon Dioxide 32 H (22-30) mmol/L BUN 48 H (9-20) mg/dL POC Glucose (mg/dL) (75-99) mg/dL <Lily Marin - Last Filed: 03/06/21 18:32> Objective - Vital Signs Vital signs: Vital Signs Temp 98.0 F 03/06/21 15:41 Pulse 80 03/06/21 16:13 Resp 16 03/06/21 15:41 BP 136/72 03/06/21 15:41 Pulse Ox 92 L 03/06/21 15:41 Intake & Output 03/05/21 03/06/21 03/06/21 18:59 06:59 18:59 Intake Total 720 20 880 Output Total 1025 500 950 Balance -305 -480 -70 Weight 72.8 kg Intake: IV 20 Invasive Line 3 20 Intake, IV Titration 100 Amount Cefepime 2 gm In Sodium 100 Chloride 0.9% 100 ml @ 25 mls/hr IVPB Q12HR [facility] Rx #:[id number] Oral 720 780 Output: Urine 1025 500 950 Other: Voiding Method Urinal Urinal Urinal # Voids 3 1 - Labs CBC & Chem 7: 03/06/21 07:37 03/06/21 07:37 Labs: Abnormal Lab Results - Last 24 Hours (Table) 03/05/21 03/06/21 03/06/21 Range/Units 20:31 07:37 07:37 WBC 12.9 H (3.8-10.6) k/uL RBC 3.48 L (4.30-5.90) m/uL Hgb 11.5 L (13.0-17.5) gm/dL Hct 34.1 L (39.0-53.0) % Sodium 136 L (137-145) mmol/L Carbon Dioxide 32 H (22-30) mmol/L BUN 48 H (9-20) mg/dL POC Glucose (mg/dL) 159 H (75-99) mg/dL 03/06/21 03/06/21 Range/Units 11:42 16:29 WBC (3.8-10.6) k/uL RBC (4.30-5.90) m/uL Hgb (13.0-17.5) gm/dL Hct (39.0-53.0) % Sodium (137-145) mmol/L Carbon Dioxide (22-30) mmol/L BUN (9-20) mg/dL POC Glucose (mg/dL) 129 H 245 H (75-99) mg/dL Microbiology - Last 24 Hours (Table) 02/28/21 10:45 Fungal Culture - Preliminary Bronchial Washings - Random Deirdre albicans Assessment and Plan Assessment: I reviewed the documentation as provided by the KEN above, who is the original author of this note. I agree with the documented assessment and plan, with the following changes: None
[2021-03-06 16:44] LABS: Glucose,Whole Blood 245 mg/dL (75-99)
[2021-03-06] MEDS: PSYLLIUM HUSK 100% 6 GM PACKET PO PRN (16:50)
[2021-03-06] MEDS: polyethylene glycoL 3350 17 GM POWD.PACK PO PRN (16:50)
--- NOTE | 2021-03-06 17:13 | P.PN ---
Subjective Progress Note Date: 03/06/21 Principal diagnosis: Acute on chronic hypoxic story failure secondary to acute exacerbation of COPD and acute diastolic congestive heart failure as well as recurrent pseudomonal in fection. With bronchiectasis Patient was reevaluated today on 03/06/2021, he is presently on room air, remains on antibiotics in the form of cefepime. Feeling much better, responded well to antibiotics, and diuretics, he is also on bronchodilators and steroids. I believe the patient has made a significant improvement since admission, chest x- ray is reassuring, patient seems to be comfortable in bed without any oxygen. And at this point I don't see the value of the PICC line since the pseudomonas infection could be treated on outpatient basis with oral antibiotics for at least one week. Patient remains on bronchodilators, remains on Eliquis. He is also on diuretics. WBC count is 12.9 hemoglobin is 11.5 electrolytes are normal renal profile is relatively normal. Objective - Vital Signs Vital signs: Vital Signs Temp 98.0 F 03/06/21 15:41 Pulse 80 03/06/21 16:13 Resp 16 03/06/21 15:41 BP 136/72 03/06/21 15:41 Pulse Ox 92 L 03/06/21 15:41 Intake & Output 03/05/21 03/06/21 03/06/21 18:59 06:59 18:59 Intake Total 720 20 880 Output Total 1025 500 950 Balance -305 -480 -70 Weight 72.8 kg Intake: IV 20 Invasive Line 3 20 Intake, IV Titration 100 Amount Cefepime 2 gm In Sodium 100 Chloride 0.9% 100 ml @ 25 mls/hr IVPB Q12HR [facility] Rx #:[id number] Oral 720 780 Output: Urine 1025 500 950 Other: Voiding Method Urinal Urinal Urinal # Voids 3 1 - Exam GENERAL EXAM: Alert, 86-year-old gentleman, on room air, fairly comfortable in no apparent distress. HEENT: PERRLA, NV, nonicteric, no neck masses, no JVD, no stridor. CHEST: No chest wall deformity. LUNGS: Diminished breath sounds at the bases no rhonchi and no wheezes CVS: S1 and S2 normal with no audible murmur, regular rhythm. ABDOMEN: No hepatosplenomegaly, normal bowel sounds, no guarding or rigidity. Skeletal : No deformities noted limitation range of motion. SKIN: No rashes CENTRAL NERVOUS SYSTEM: Alert and oriented 3 and no gross focal deficits. EXTREMITIES: Plus bipedal edema no clubbing no cyanosis. - Labs CBC & Chem 7: 03/06/21 07:37 03/06/21 07:37 Labs: Abnormal Lab Results - Last 24 Hours (Table) 03/05/21 03/06/21 03/06/21 Range/Units 20:31 07:37 07:37 WBC 12.9 H (3.8-10.6) k/uL RBC 3.48 L (4.30-5.90) m/uL Hgb 11.5 L (13.0-17.5) gm/dL Hct 34.1 L (39.0-53.0) % Sodium 136 L (137-145) mmol/L Carbon Dioxide 32 H (22-30) mmol/L BUN 48 H (9-20) mg/dL POC Glucose (mg/dL) 159 H (75-99) mg/dL 03/06/21 03/06/21 Range/Units 11:42 16:29 WBC (3.8-10.6) k/uL RBC (4.30-5.90) m/uL Hgb (13.0-17.5) gm/dL Hct (39.0-53.0) % Sodium (137-145) mmol/L Carbon Dioxide (22-30) mmol/L BUN (9-20) mg/dL POC Glucose (mg/dL) 129 H 245 H (75-99) mg/dL Microbiology - Last 24 Hours (Table) 02/28/21 10:45 Fungal Culture - Preliminary Bronchial Washings - Random Deirdre albicans Assessment and Plan Assessment: Impression: Acute on chronic hypoxic respiratory failure, multifactorial secondary to acute exacerbation of COPD, acute diastolic congestive heart failure, reactive since, and tracheobronchomalacia as well as mucous plugging requiring bronchoscopy and lavage by Dr. Ruvalcaba. Patient has underlying superimposed pseudomonal infection, remains on cefepime. History of recent admission for COVID-19 infection History of bronchiectasis Coronary artery disease and previous stent placement History of coronary artery disease and previous NV Aortic valve stenosis status post T aVR History of chronic atrial fibrillation remains on Eliquis Recommendation: Continue antibiotics, transition to oral antibiotics tomorrow in the form of Levaquin No need for a PICC line placement. Consider discharge planning in a.m. Continue bronchodilators. Continue Mucinex. Continue Lasix. Outpatient follow-up post discharge in the next couple of weeks. Again clear for discharge in a.m. Time with Patient: Less than 30
[2021-03-06 19:58] LABS: Glucose,Whole Blood 170 mg/dL (75-99)
[2021-03-06] MEDS: ALPRAZolam 0.25 MG TAB PO PRN (21:15)
[2021-03-07 00:06] VITALS: RESP 18
[2021-03-07 06:07] LABS: Glucose,Whole Blood 81 mg/dL (75-99)
[2021-03-07] MEDS: INSULIN ASPART (NovoLOG) 100 UNIT/ML VIAL SQ SCH ×2 (06:43→11:50)
[2021-03-07] MEDS: IPRATROPIUM-ALBUTEROL 3 ML NEB INHALATION SCH ×3 (07:22→15:49)
[2021-03-07] MEDS: BUDESONIDE 1 MG/2 ML NEBU INHALATION SCH (07:22)
[2021-03-07] MEDS: FORMOTEROL FUMARATE 20 MCG/2 ML NEBU INHALATION SCH (07:22)
[2021-03-07 08:25] VITALS: TEMP 96.9
[2021-03-07] MEDS: CEFEPIME 2 GM in SODIUM CHLORIDE 0.9% 100 ML IVPB SCH (08:31)
[2021-03-07] MEDS: ATORVASTATIN 10 MG TAB PO SCH (08:31)
[2021-03-07] MEDS: FUROSEMIDE 40 MG TAB PO SCH (08:31)
[2021-03-07] MEDS: METOPROLOL TARTRATE 50 MG TAB PO SCH (08:31)
[2021-03-07] MEDS: ASPIRIN 81 MG PO SCH (08:31)
[2021-03-07] MEDS: predniSONE 20 MG TAB PO SCH (08:31)
[2021-03-07] MEDS: APIXABAN 2.5 MG TABLET PO SCH (08:31)
[2021-03-07] MEDS: VERAPAMIL 40 MG TAB PO SCH (09:26)
[2021-03-07 11:09] VITALS: BP 145/74
[2021-03-07 11:35] LABS: Glucose,Whole Blood 115 mg/dL (75-99)
--- NOTE | 2021-03-07 11:59 | P.DS ---
Providers Date of admission: 02/24/21 20:58 Attending physician: Jeremiah Price MD Consults: 02/24/21 20:05 Consult Physician Routine Consulting Provider: Codi Silva Consult Reason/Comments: CHF Do you want consulting provider notified?: Yes 02/25/21 02:17 Consult Physician Routine Consulting Provider: Hector Cardoso Consult Reason/Comments: chf Do you want consulting provider notified?: Yes Primary care physician: Aleja Ford Hospital Course: Discharge Diagnosis: Severe tracheobronchial malacia Acute exacerbation of COPD with mucus plugging Tracheobronchitis Acute exacerbation of diastolic congestive heart failure CKD III, improving Paroxysmal atrial fibrillation with a history of RVR Coronary artery disease History of Myocardial infarction Status post TAVR Fibromyalgia GERD Hospital Course: Patient is an 86-year-old male with a history of tracheobronchomalacia, CAD with previous RI status post TAVR, A. fib on anticoagulation with Xarelto, hypertension, hyperlipidemia, and recurrent pseudomonal pneumonias who presented to the hospital on 02/24/21 with complaints of shortness of breath. An EKG was completed showing atrial fibrillation with RVR to 119 bpm with a right bundle branch block. Chest x-ray showing new right greater than left patchy and strandy opacities suggestive of multifocal airspace disease. He is admitted under our services for treatment of acute exacerbation of COPD with mucus plugging, severe tracheobronchial malacia, and acute exacerbation of diastolic h eart failure. Pulmonology and cardiology were consulted. Patient underwent a bronchoscopy on 02/28. Gram stain from bronchial washings was positive for pseudomonas aeruginosa. Patient was treated with IV cefepime, Lasix, Pulmicort, formoterol, promethazine, Mucinex, oxygen, and steroids. Patient was educated on use of flutter valve and he was weaned off of oxygen. He worked with PT/OT. He maintained ambulatory pulse ox greater than 90% on room air. Patient's condition improved daily and he completed his course of IV antibiotics. Patient is stable for discharge home at this time. Patient being discharged home with [facility] for continued PT/OT to work on strength and endurance. Patient to follow up outpatient with PCP, cardiology, and pulmonology. Physical examination: The patient was seen and evaluated at bedside this morning. He reports mild weakness and shortness of breath only on exertion. He states his coughing fits have significantly improved. He continues to deny having any headache, lightheadedness, dizziness, chest pain, palpitations, or experiencing any numbness/tingling/weakness in his extremities. General: Chronically Ill appearing, no acute distress, appears at stated age Derm: warm, dry Head: atraumatic, normocephalic, symmetric Eyes: EOMI, no lid lag, anicteric sclera Mouth: no lip lesion, mucus membranes moist Cardiovascular: S1S2 reg, no murmur, positive posterior tibial pulse bilateral, Lungs: Lung sounds improved, soft crackles at bases. No coarse rhonchi, wheezes, or rales present. No accessory muscle use. Respirations even, regular, and unlabored on room air. Abdominal: soft, nontender to palpation, no guarding, no appreciable organomegaly Ext: no gross muscle atrophy, 2+ pitting edema, no contractures Neuro: CN II-XI grossly intact, no focal neuro deficits Psych: Alert, oriented, appropriate affect A total of 45 minutes of time were spent preparing this complex discharge s radhika. Patient Condition at Discharge: Stable Plan - Discharge Summary New Discharge Prescriptions: New Verapamil [Isoptin] 40 mg PO BID 30 Days #60 tab Metoprolol Tartrate [Lopressor] 100 mg PO BID 30 Days #60 tab Promethazine HCl [Phenergan Syrup] 6.25 mg PO Q6HR PRN 30 Days #1 each PRN Reason: Cough predniSONE See Taper PO DAILY 15 Days #45 tab Furosemide [Lasix] 40 mg PO BID@0900,1600 30 Days #60 tab Formoterol Fumarate [Perforomist] 20 mcg INHALATION RT-BID 30 Days #60 ml Budesonide [Pulmicort] 1 mg INHALATION RT-BID 30 Days #1 inh Continue Ubidecarenone [Co Q-10] 100 mg PO DAILY Multivitamins, Thera [Multivitamin (formulary)] 1 tab PO DAILY guaiFENesin [Mucinex] 1,200 mg PO TID PRN PRN Reason: Congestion Ascorbic Acid [Vitamin C] 500 mg PO BID Magnesium Gluconate [Magonate] 500 mg PO DAILY Apixaban [Eliquis] 2.5 mg PO BID Psyllium Husk (with Sugar) [Metamucil Powder] 17 gm PO HS PRN PRN Reason: Constipation Cholecalciferol (Vitamin D3) [Vitamin D3 (5000 Iu)] 125 mcg PO DAILY Acetaminophen [Tylenol Arthritis] 650 mg PO Q8H PRN PRN Reason: Pain Cyanocobalamin (Vitamin B-12) [Vitamin B-12] 5,000 mcg PO DAILY Rosuvastatin Calcium 5 mg PO DAILY Aspirin EC [Ecotrin Low Dose] 81 mg PO DAILY Ipratropium-Albuterol Nebulize [Duoneb 0.5 mg-3 mg/3 ml Soln] 3 ml INHALATION RT-QID 30 Days #120 ml predniSONE 10 mg PO DAILY #0 Discontinued Furosemide [Lasix] 40 mg PO DAILY carvediloL [Coreg*] 12.5 mg PO BID Discharge Medication List Ubidecarenone [Co Q-10] 100 mg PO DAILY 07/05/15 [History] Multivitamins, Thera [Multivitamin (formulary)] 1 tab PO DAILY 03/28/18 [History] guaiFENesin [Mucinex] 1,200 mg PO TID PRN 06/14/20 [History] Ascorbic Acid [Vitamin C] 500 mg PO BID 10/10/20 [History] Acetaminophen [Tylenol Arthritis] 650 mg PO Q8H PRN 11/19/20 [History] Cholecalciferol (Vitamin D3) [Vitamin D3 (5000 Iu)] 125 mcg PO DAILY 11/19/20 [History] Apixaban [Eliquis] 2.5 mg PO BID 12/13/20 [History] Cyanocobalamin (Vitamin B-12) [Vitamin B-12] 5,000 mcg PO DAILY 12/13/20 [History] Magnesium Gluconate [Magonate] 500 mg PO DAILY 12/13/20 [History] Rosuvastatin Calcium 5 mg PO DAILY 12/13/20 [History] Aspirin EC [Ecotrin Low Dose] 81 mg PO DAILY 02/02/21 [History] Psyllium Husk (with Sugar) [Metamucil Powder] 17 gm PO HS PRN 02/02/21 [History] Budesonide [Pulmicort] 1 mg INHALATION RT-BID 30 Days #1 inh 03/07/21 [Rx] Formoterol Fumarate [Perforomist] 20 mcg INHALATION RT-BID 30 Days #60 ml 03/07/21 [Rx] Furosemide [Lasix] 40 mg PO BID@0900,1600 30 Days #60 tab 10/05/21 [Rx] Ipratropium-Albuterol Nebulize [Duoneb 0.5 mg-3 mg/3 ml Soln] 3 ml INHALATION RT-QID 30 Days #120 ml 03/07/21 [Rx] Metoprolol Tartrate [Lopressor] 100 mg PO BID 30 Days #60 tab 03/07/21 [Rx] Promethazine HCl [Phenergan Syrup] 6.25 mg PO Q6HR PRN 30 Days #1 each 03/07/21 [Rx] Verapamil [Isoptin] 40 mg PO BID 30 Days #60 tab 03/07/21 [Rx] predniSONE 10 mg PO DAILY #0 03/07/21 [Rx] predniSONE See Taper PO DAILY 15 Days #45 tab 03/07/21 [Rx] Follow up Appointment(s)/Referral(s): Codi Silva MD [STAFF PHYSICIAN] - 03/15/21 9:30 am (Saturday) [facility], [NON-STAFF] - Aleja Ford DO [Primary Care Provider] - 03/10/21 2:00 pm (Saturday) Shubham Barrios MD [REFERRING] - 04/13/21 1:30 pm ( Offices will call if an appointment opens up sooner.) Patient Instructions/Handouts: Heart Failure (DC), COPD (Chronic Obstructive Pulmonary Disease) (DC), Leg Edema (ED) Activity/Diet/Wound Care/Special Instructions: CHF Weigh yourself every morning after you urinate. If you gain 3 pounds overnight or 5 pounds in one week, call your primary physician for guidance on your medications. Keep a log of your weights. Avoid salt, or foods with hidden salt. Extra salt makes your heart work harder and traps the fluid in your body for longer. Take all of your medications as directed, especially your water pills. NEVER skip a dose. Elevate your legs when you are not up moving around to help with circulation and prevent swelling. Call your physician if you notice any extra swelling in your legs, ankles, feet or abdomen, if you have a new dry cough, if your shortness of breath worsens with activity or at rest, or if you feel more fatigued. COPD When to call your provider: Shortness of breath, wheezing, or trouble breathing that does not improve with rest and treatment Increase in the amount of mucus production Mucus that is yellow, green, bloody or smelly. Fever or chills Tightness in your chest that does not go away with your normal medication An irregular heartbeat or feeling that our heart is racing Trouble talking without shortness of breath Feeling increased lightheadedness or dizziness Feeling of doom Skin that is blue, bolanos, or purple in color. Weight loss, poor appetite, weakness, and fatigue What you can do to help manage your condition: Quit smoking Take your medications as directed. Prevent infection; wash your hands often, avoid crowds, get a flu shot Manage stress Do breathing and coughing exercises Stay active Eat a healthy diet THANK YOU FOR ALLOWING US TO PARTICIPATE IN YOUR CARE, IT WAS TRULY A PLEASURE HAVING YOU FOR OUR PATIENT!!! Discharge Disposition: HOME WITH HOME HEALTH SERVICES
--- NOTE | 2021-03-07 12:58 | P.PN ---
Subjective Progress Note Date: 03/07/21 Principal diagnosis: Diastolic congestive heart failure This is an 86-year-old gentleman who was admitted again yesterday from the cardiology office for worsening shortness of breath and fluid volume overload secondary to noncompliance with his Lasix. He had stopped taking it for weeks prior. He had recently been here for COVID-19 infection. He received monoclonal antibodies. He is seen today in consultation on the selective care unit. Currently sitting up in a chair at the bedside. Awake and alert in no acute distress. O2 saturation 91% on room air. His x-ray revealed patchy opacities right greater than left. White count 8.3. Hemoglobin 10.9. Sodium 133. Potassium 3.4. Creatinine 1.12. Troponin 0.078. ProBNP 736. Simon virus not detected. He's been initiated on DuoNeb inhalations, prednisone taper, IV diuretics, antibiotics in the form of ceftriaxone and azithromycin. He is anticoagulated with Eliquis. The patient is seen today 02/26/2021 follow-up on the selective care unit. He is currently sitting up in a chair at the bedside. Awake and alert in no acute distress. Maintaining good O2 saturations in the 90s on room air. Somewhat tachycardic. Afebrile. Blood culture reveals no growth. White count 9.2. Hemoglobin 11.8. Sodium 136. Potassium 3.7. Creatinine 1.25. Urine Legionella antigen negative. He is continued on DuoNeb inhalations, prednisone. Anticoagulated with Eliquis. Remains on antibiotics in the form of ceftriaxone and azithromycin. Remains on IV diuretics. The patient is seen today 03/07/2021 in follow-up on selective care unit. He is currently sitting up in a chair at the bedside. Awake and alert in no acute distress. Still with a dry nonproductive cough. No worsening shortness of breath. Maintaining O2 saturations at 92% on room air. He's been afebrile. Hemodynamically stable. Bronchoscopy had been performed on 02/28/2021. Cytology negative for malignancy. Cultures were again positive for pseudomonas aeruginosa and Deirdre. His been maintained on cefepime. Continued on DuoNeb inhalations, Pulmicort and Perforomist inhalations, Mucinex, prednisone taper. Objective - Vital Signs Vital signs: Vital Signs Temp 96.9 F L 03/07/21 08:24 Pulse 73 03/07/21 11:08 Resp 18 03/07/21 11:08 BP 145/74 03/07/21 11:08 Pulse Ox 92 L 03/07/21 11:08 Intake & Output 03/06/21 03/07/21 03/07/21 18:59 06:59 18:59 Intake Total 880 280 Output Total 950 350 325 Balance -70 -350 -45 Weight 75.3 kg Intake: Intake, IV Titration 100 100 Amount Cefepime 2 gm In Sodium 100 100 Chloride 0.9% 100 ml @ 25 mls/hr IVPB Q12HR [facility] Rx #:[id number] Oral 780 180 Output: Urine 950 350 325 Other: Voiding Method Urinal Urinal Urinal # Voids 1 1 - Exam GENERAL EXAM: Alert, 86-year-old gentleman, on room air, fairly comfortable in no apparent distress. HEAD: Normocephalic. EYES: Normal reaction of pupils, equal size. NOSE: Clear with pink turbinates. THROAT: No erythema or exudates. NECK: No masses, no JVD. CHEST: No chest wall deformity. LUNGS: Equal air entry with crackles in the posterior bases. CVS: S1 and S2 normal with no audible murmur, regular rhythm. ABDOMEN: No hepatosplenomegaly, normal bowel sounds, no guarding or rigidity. SPINE: No scoliosis or deformity SKIN: No rashes CENTRAL NERVOUS SYSTEM: No focal deficits, tone is normal in all 4 extremities. EXTREMITIES: There is no peripheral edema. No clubbing, no cyanosis. Peripheral pulses are intact. - Labs CBC & Chem 7: 03/06/21 07:37 03/06/21 07:37 Labs: Abnormal Lab Results - Last 24 Hours (Table) 03/06/21 03/06/21 03/07/21 Range/Units 16:29 19:56 11:34 POC Glucose (mg/dL) 245 H 170 H 115 H (75-99) mg/dL Microbiology - Last 24 Hours (Table) 02/28/21 10:45 Fungal Culture - Preliminary Bronchial Washings - Random Deirdre albicans Assessment and Plan Assessment: 1 Dyspnea secondary to acute exacerbation of diastolic congestive heart failure, noncompliant with diuretics, also secondary to recurrent pseudomonas aeruginosa pulmonary infection found on bronchoscopy 02/28/2021 2 Recent admission for COVID-19 3 Complete vaccination for COVID-19 4 History of COPD, and bronchiectasis with frequent pulmonary infections including Pseudomonas, MRSA and Serratia 5 Coronary artery disease with previous stenting 6 Previous history of myocardial infarction 7 Aortic valve stenosis, status post TAVR at [facility] on 04/22/2020 8 History of atrial fibrillation on Eliquis 9 Fibromyalgia 10 GERD/reflux Plan: The patient was seen and evaluated by Dr. Silva Cleared for discharge from the pulmonary standpoint Complete a course of antibiotics Taper prednisone down to his maintenance 10 mg daily Follow-up in the office with Dr. Silva in 1-2 weeks' I, the cosigning physician, performed a history & physical examination of the patient. Lungs sounds with crackles in the posterior bases. Maintaining good O2 saturations in the 90s on room air. I discussed the assessment and plan of care with my nurse practitioner, Diana Jolley. I attest to the above note as dictated by her.
[2021-03-07 13:59] VITALS: PULSE 84
== END 2021-03-07 15:39 | disposition home health service (06) | DRG 291 ==
LOC: EC 15:41 → 3SCARD 20:58
PROVIDERS: ADMIT Internal Medicine; ATTEND Internal Medicine
PROC: 3E0F7SF Introduction of Other Gas into Respiratory Tract, Via Natural or Artificial Opening (ICD-10-PCS; principal; 2021-02-24)
PROC: 0B978ZX Drainage of Left Main Bronchus, Via Natural or Artificial Opening Endoscopic, Diagnostic (ICD-10-PCS; 2021-02-28)
PROC: 0B938ZX Drainage of Right Main Bronchus, Via Natural or Artificial Opening Endoscopic, Diagnostic (ICD-10-PCS; 2021-02-28)
PROC: 0BC18ZZ Extirpation of Matter from Trachea, Via Natural or Artificial Opening Endoscopic (ICD-10-PCS; 2021-02-28 07:30)
DX: I13.0 Hypertensive heart and chronic kidney disease with heart failure and stage 1 through stage 4 chronic kidney disease, or unspecified chronic kidney disease (principal); I50.33 Acute on chronic diastolic (congestive) heart failure; J96.21 Acute and chronic respiratory failure with hypoxia; I48.19 Other persistent atrial fibrillation; J47.0 Bronchiectasis with acute lower respiratory infection; J44.0 Chronic obstructive pulmonary disease with (acute) lower respiratory infection; J44.1 Chronic obstructive pulmonary disease with (acute) exacerbation; T17.890A Other foreign object in other parts of respiratory tract causing asphyxiation, initial encounter; Z16.23 Resistance to quinolones and fluoroquinolones; Z16.29 Resistance to other single specified antibiotic; B96.5 Pseudomonas (aeruginosa) (mallei) (pseudomallei) as the cause of diseases classified elsewhere; Z20.822 Contact with and (suspected) exposure to COVID-19; I25.10 Atherosclerotic heart disease of native coronary artery without angina pectoris; J98.09 Other diseases of bronchus, not elsewhere classified; N18.30 Chronic kidney disease, stage 3 unspecified; D64.9 Anemia, unspecified; E66.9 Obesity, unspecified; E78.5 Hyperlipidemia, unspecified; E87.6 Hypokalemia; G25.0 Essential tremor; I25.2 Old myocardial infarction; I48.0 Paroxysmal atrial fibrillation; R77.8 Other specified abnormalities of plasma proteins; I07.1 Rheumatic tricuspid insufficiency; R00.0 Tachycardia, unspecified; M79.7 Fibromyalgia; I45.10 Unspecified right bundle-branch block; K21.9 Gastro-esophageal reflux disease without esophagitis; E07.9 Disorder of thyroid, unspecified; R19.7 Diarrhea, unspecified; M10.9 Gout, unspecified; I08.3 Combined rheumatic disorders of mitral, aortic and tricuspid valves; R42 Dizziness and giddiness; Z86.16 Personal history of COVID-19; Z79.01 Long term (current) use of anticoagulants; Z79.82 Long term (current) use of aspirin; Z79.899 Other long term (current) drug therapy; Z86.14 Personal history of Methicillin resistant Staphylococcus aureus infection; Z87.891 Personal history of nicotine dependence; Z95.2 Presence of prosthetic heart valve; Z95.5 Presence of coronary angioplasty implant and graft; Z91.14 Patient's other noncompliance with medication regimen; Z23 Encounter for immunization; Z88.8 Allergy status to other drugs, medicaments and biological substances; Z88.1 Allergy status to other antibiotic agents; Z98.42 Cataract extraction status, left eye; Z98.41 Cataract extraction status, right eye; Z87.01 Personal history of pneumonia (recurrent)
CPT/HCPCS: 31624; 31645; 36415; 71045; 71046; 80048; 80051; 80053; 81001; 82565; 83605; 83735; 83880; 84484; 84520; 85025; 85027; 85610; 85730; 87040; 87070; 87077; 87102; 87186; 87205; 87252; 87449; 87635; 88108; 88305; 93005; 94640; 94667; 94760; 96374; 99285

== ENCOUNTER 2021-03-09 16:16 | Observation (INO) | payer MEDICARE ==
[2021-03-09] MEDS ORDERED: SODIUM CHLORIDE 0.9% 500 ML 500 ML IV STA (16:55)
[2021-03-09] MEDS ORDERED: ONDANSETRON 4 MG/2 ML VIAL IVP STA (16:55)
[2021-03-09] MEDS ORDERED: MORPHINE SULFATE 2 MG/ML SYRINGE IVP STA (16:55)
--- NOTE | 2021-03-09 17:10 | ED ---
Abdominal Pain HPI - General Chief Complaint: Abdominal Pain Stated Complaint: Bowel obstructon Time Seen by Provider: 03/09/21 16:30 Source: patient, EMS, old records reviewed Mode of arrival: EMS Limitations: no limitations - History of Present Illness Initial Comments: 86 year-old male patient presents to the emergency department for evaluation of abdominal pain and no bowel movement. Patient states last bowel movement was several days ago. He has been taking stool softeners without relief. He had abdominal xray at his doctors office today and was told he has a bowel obstruction. He was recently admitted for CHF and COPD exacerbation. States his oxygen has been in the 80s today. He denies any nausea or vomiting. Reports decreased appetite. States he has left lower quadrant abdominal pain. Denies fever or chills. Patient denies any recent rash, cough, shortness of breath, chest pain, back pain, numbness, tingling, dizziness, weakness, hematuria, dysuria, urinary urgency, urinary frequency, headache, visual changes, or any other complaints. - Related Data Home Medications Medication Instructions Recorded Confirmed Ubidecarenone [Co Q-10] 100 mg PO DAILY 07/05/15 03/09/21 Multivitamins, Thera [Multivitamin 1 tab PO DAILY 03/28/18 03/09/21 (formulary)] guaiFENesin [Mucinex] 1,200 mg PO TID PRN 06/14/20 03/09/21 Ascorbic Acid [Vitamin C] 500 mg PO BID 10/10/20 03/09/21 Acetaminophen [Tylenol Arthritis] 650 mg PO Q8H PRN 11/19/20 03/09/21 Cholecalciferol (Vitamin D3) 125 mcg PO DAILY 11/19/20 03/09/21 [Vitamin D3 (5000 Iu)] Apixaban [Eliquis] 2.5 mg PO BID 12/13/20 03/09/21 Cyanocobalamin (Vitamin B-12) 5,000 mcg PO DAILY 12/13/20 03/09/21 [Vitamin B-12] Magnesium Gluconate [Magonate] 500 mg PO DAILY 12/13/20 03/09/21 Rosuvastatin Calcium 5 mg PO DAILY 12/13/20 03/09/21 Aspirin EC [Ecotrin Low Dose] 81 mg PO DAILY 02/02/21 03/09/21 Psyllium Husk (with Sugar) 17 gm PO HS PRN 02/02/21 03/09/21 [Metamucil Powder] Metoprolol Tartrate [Lopressor] 100 mg PO BID 03/09/21 03/09/21 Olodaterol HCl [Striverdi Respimat] 1 puff INHALATION RT-BID 03/09/21 03/09/21 Previous Rx's Medication Instructions Recorded Budesonide [Pulmicort] 1 mg INHALATION RT-BID 30 Days #1 03/07/21 inh Furosemide [Lasix] 40 mg PO BID@0900,1600 30 Days #60 03/07/21 tab Ipratropium-Albuterol Nebulize 3 ml INHALATION RT-QID 30 Days 03/07/21 [Duoneb 0.5 mg-3 mg/3 ml Soln] #120 ml Promethazine HCl [Phenergan Syrup] 6.25 mg PO Q6HR PRN 30 Days #1 each 03/07/21 Verapamil [Isoptin] 40 mg PO BID 30 Days #60 tab 03/07/21 predniSONE 10 mg PO DAILY #0 03/07/21 predniSONE See Taper PO DAILY 15 Days #45 tab 03/07/21 Allergies Allergy/AdvReac Type Severity Reaction Status Date / Time meperidine [From Demerol] Allergy Unknown Verified 03/09/21 18:26 Childhood ciprofloxacin [From Cipro] AdvReac joint Verified 03/09/21 18:26 problems diphenhydramine HCl AdvReac "felt like Verified 03/09/21 18:26 [From Benadryl] I was dying" steroids AdvReac "Not sure Uncoded 03/09/21 18:26 of steroids" Review of Systems ROS Statement: Those systems with pertinent positive or pertinent negative responses have been documented in the HPI. ROS Other: All systems not noted in ROS Statement are negative. Past Medical History Past Medical History: Atrial Fibrillation, Coronary Artery Disease (CAD), COPD, Fibromyalgia, GERD/Reflux, Hyperlipidemia, Hypertension, Myocardial Infarction ([place]), Pneumonia, Thyroid Disorder Additional Past Medical History / Comment(s): Received covid vaccine, hx gout, increase difficulty clearing lungs at night-occ. sleeping in chair to sleep, essential tremors, frequent cough, SOB, vertigo. COVID 01/21- given antibioites Last Myocardial Infarction Date:: unkn-silent History of Any Multi-Drug Resistant Organisms: MRSA Date of last positivie culture/infection: 04/23/19 MDRO Source:: Bronch wash Past Surgical History: Appendectomy, Cardiac Valve Replacement, Heart Cath eterization With Stent, Hernia Repair, Prostate Surgery, Tonsillectomy Additional Past Surgical History / Comment(s): TURP, sub-mucous resection to improve breathing, turbinate reduction, 4 cardiac stents, payam cataract surgery, hernia repair x3 , TAVR-aortic valve replacment 03/2020,hernia repair x3 Past Anesthesia/Blood Transfusion Reactions: Motion Sickness Additional Past Anesthesia/Blood Transfusion Reaction / Comment(s): vertigo Date of Last Stent Placement:: 2012 Past Psychological History: No Psychological Hx Reported Smoking Status: Former smoker Past Alcohol Use History: None Reported Past Drug Use History: None Reported - Past Family History Father Additional Family Medical History / Comment(s): Father had a severe CVA and of this at age 80 yrs. Mother Additional Family Medical History / Comment(s): Mother had an enlarged heart and at age 90. Sister(s) Family Medical History: Cancer General Exam Limitations: no limitations General appearance: alert, in no apparent distress, other (This is a well- developed, well-nourished adult male patient in no acute distress. Vital signs upon presentation are pulse 87, respirations 20, blood pressure 148/93, pulse ox 97% on room air.) Eye exam: Present: normal appearance, PERRL, EOMI. Absent: scleral icterus, con junctival injection, periorbital swelling ENT exam: Present: normal exam, normal oropharynx, mucous membranes moist Respiratory exam: Present: normal lung sounds bilaterally. Absent: respiratory distress, wheezes, rales, rhonchi, stridor Cardiovascular Exam: Present: regular rate, normal rhythm, normal heart sounds. Absent: systolic murmur, diastolic murmur, rubs, gallop, clicks GI/Abdominal exam: Present: soft, tenderness (Generalized), normal bowel sounds. Absent: distended, guarding, rebound, rigid Neurological exam: Present: alert, oriented X3, CN II-XII intact Psychiatric exam: Present: normal affect, normal mood Skin exam: Present: warm, dry, intact, normal color. Absent: rash Course Vital Signs 03/09/21 03/09/21 03/09/21 16:31 21:54 22:00 Pulse Rate 87 88 88 Respiratory 20 Rate Blood Pressure 148/93 O2 Sat by Pulse 97 Oximetry Medical Decision Making - Medical Decision Making 86 year-old male patient was sent in to the ED by his physician for possible bowel obstruction. Physical examination did reveal lower abdominal tenderness. Labs reviewed and are relatively unremarkable. CT abdomen and pelvis was obtained and did show evidence for extensive colonic stool with rectal fecal impaction, reflux of stool a terminal ileum. Patient also had a lesion on his pancreas, lesion on his kidney. I did attempt a digital disimpaction and was unsuccessful. Patient was given three enemas in the ED with very little stool output. Patient will be admitted for further evaluation by general surgery. Case discussed with my attending Dr. Garcia. - Lab Data Result diagrams: 03/09/21 17:26 03/09/21 17:26 Lab Results 03/09/21 03/09/21 03/09/21 Range/Units 17:26 17:26 17:26 WBC 9.7 (3.8-10.6) k/uL RBC 3.23 L (4.30-5.90) m/uL Hgb 10.4 L (13.0-17.5) gm/dL Hct 31.5 L (39.0-53.0) % MCV 97.7 (80.0-100.0) fL MCH 32.1 (25.0-35.0) pg MCHC 32.9 (31.0-37.0) g/dL RDW 14.4 (11.5-15.5) % Plt Count 261 (150-450) k/uL MPV 8.1 Neutrophils % 93 % Lymphocytes % 3 % Monocytes % 2 % Eosinophils % 1 % Basophils % 0 % Neutrophils # 9.0 H (1.3-7.7) k/uL Lymphocytes # 0.3 L (1.0-4.8) k/uL Monocytes # 0.2 (0-1.0) k/uL Eosinophils # 0.1 (0-0.7) k/uL Basophils # 0.0 (0-0.2) k/uL Sodium 137 (137-145) mmol/L Potassium 3.3 L (3.5-5.1) mmol/L Chloride 101 (98-107) mmol/L Carbon Dioxide 30 (22-30) mmol/L Anion Gap 6 mmol/L BUN 45 H (9-20) mg/dL Creatinine 0.95 (0.66-1.25) mg/dL Est GFR (CKD-EPI)AfAm 84 (>60 ml/min/1.73 sqM) Est GFR (CKD-EPI)NonAf 73 (>60 ml/min/1.73 sqM) Glucose 162 H (74-99) mg/dL Plasma Lactic Acid Ke (0.7-2.0) mmol/L Calcium 8.8 (8.4-10.2) mg/dL Total Bilirubin 0.6 (0.2-1.3) mg/dL AST 27 (17-59) U/L ALT 19 (4-49) U/L Alkaline Phosphatase 52 (38-126) U/L Total Protein 5.7 L (6.3-8.2) g/dL Albumin 2.9 L (3.5-5.0) g/dL Amylase 58 (30-110) U/L Lipase 53 (23-300) U/L Urine Color Yellow Urine Appearance Clear (Clear) Urine pH 6.0 (5.0-8.0) Ur Specific [place] 1.034 (1.001-1.035) Urine Protein 2+ H (Negative) Urine Glucose (UA) Negative (Negative) Urine Ketones Negative (Negative) Urine Blood Small H (Negative) Urine Nitrite Negative (Negative) Urine Bilirubin Negative (Negative) Urine Urobilinogen <2.0 (<2.0) mg/dL Ur Leukocyte Esterase Negative (Negative) Urine RBC <1 (0-5) /hpf Urine WBC 1 (0-5) /hpf Ur Squamous Epith Cells <1 (0-4) /hpf Hyaline Casts 47 H (0-2) /lpf Urine Mucus Rare H (None) /hpf 03/09/21 Range/Units 17:26 WBC (3.8-10.6) k/uL RBC (4.30-5.90) m/uL Hgb (13.0-17.5) gm/dL Hct (39.0-53.0) % MCV (80.0-100.0) fL MCH (25.0-35.0) pg MCHC (31.0-37.0) g/dL RDW (11.5-15.5) % Plt Count (150-450) k/uL MPV Neutrophils % % Lymphocytes % % Monocytes % % Eosinophils % % Basophils % % Neutrophils # (1.3-7.7) k/uL Lymphocytes # (1.0-4.8) k/uL Monocytes # (0-1.0) k/uL Eosinophils # (0-0.7) k/uL Basophils # (0-0.2) k/uL Sodium (137-145) mmol/L Potassium (3.5-5.1) mmol/L Chloride (98-107) mmol/L Carbon Dioxide (22-30) mmol/L Anion Gap mmol/L BUN (9-20) mg/dL Creatinine (0.66-1.25) mg/dL Est GFR (CKD-EPI)AfAm (>60 ml/min/1.73 sqM) Est GFR (CKD-EPI)NonAf (>60 ml/min/1.73 sqM) Glucose (74-99) mg/dL Plasma Lactic Acid Ke 1.1 (0.7-2.0) mmol/L Calcium (8.4-10.2) mg/dL Total Bilirubin (0.2-1.3) mg/dL AST (17-59) U/L ALT (4-49) U/L Alkaline Phosphatase (38-126) U/L Total Protein (6.3-8.2) g/dL Albumin (3.5-5.0) g/dL Amylase (30-110) U/L Lipase (23-300) U/L Urine Color Urine Appearance (Clear) Urine pH (5.0-8.0) Ur Specific [place] (1.001-1.035) Urine Protein (Negative) Urine Glucose (UA) (Negative) Urine Ketones (Negative) Urine Blood (Negative) Urine Nitrite (Negative) Urine Bilirubin (Negative) Urine Urobilinogen (<2.0) mg/dL Ur Leukocyte Esterase (Negative) Urine RBC (0-5) /hpf Urine WBC (0-5) /hpf Ur Squamous Epith Cells (0-4) /hpf Hyaline Casts (0-2) /lpf Urine Mucus (None) /hpf - Radiology Data Radiology results: report reviewed, image reviewed CT abdomen and pelvis obtained. Report was reviewed in its entirety. Impression by Dr. Malkawi shows right lower lobe pneumonic consolidation, scattered glass opacities could be secondary to pneumonia. Chronic lung changes. Dilated main pancreatic duct up to 6 mm. 1.8 x 0.9 x 0.9 cm low attenuating lesion in the head of the pancreas. Malignancy cannot be excluded. Exophytic some centimeter lesion arising from the inferior pole of the left kidney unknown etiology may represent a complex cyst or solid mass. Large amount of colonic stool rectal impaction a mild proximal dilatation of the colon and reflexes stool into the terminal ileum. Extensive atherosclerotic calcifications with mild to severe narrowing of the vascular structures, see body of report. Disposition Clinical Impression: Constipation, Fecal impaction in rectum, Pancreatic lesion Disposition: ADMITTED IP TO THIS [facility] Condition: Serious Decision to Admit Reason: Admit from EC Decision Date: 03/10/21 Decision Time: 02:09
[2021-03-09 17:38] LABS: Basophils % (A) 0 %; Eosinophils # (A) 0.1 k/uL (0-0.7); Eosinophils % (A) 1 %; HCT 31.5 % (39.0-53.0); HGB 10.4 gm/dL (13.0-17.5); Lymphocytes # (A) 0.3 k/uL (1.0-4.8); Lymphocytes % (A) 3 %; MCH 32.1 pg (25.0-35.0); MCHC 32.9 g/dL (31.0-37.0); MCV 97.7 fL (80.0-100.0); Mean Platelet Volume 8.1; Monocytes # (A) 0.2 k/uL (0-1.0); Monocytes % (A) 2 %; Neutrophils % (A) 93 %; Platelet Count 261 k/uL (150-450); RBC 3.23 m/uL (4.30-5.90); RDW 14.4 % (11.5-15.5); WBC 9.7 k/uL (3.8-10.6)
[2021-03-09 17:58] LABS: Albumin 2.9 g/dL (3.5-5.0); Calcium 8.8 mg/dL (8.4-10.2); Potassium 3.3 mmol/L (3.5-5.1); Total Bilirubin 0.6 mg/dL (0.2-1.3); Total Protein 5.7 g/dL (6.3-8.2)
[2021-03-09 20:23] LABS: Appearance,Urine Clear (Clear); Bilirubin,Urine Negative (Negative); Blood,Urine Small (Negative); Color,Urine Yellow; Glucose,Urine (UA) Negative (Negative); Hyaline Casts,Urine 47 /lpf (0-2); Ketones,Urine Negative (Negative); Leukocyte Esterase,Urine Negative (Negative); Mucus,Urine Rare /hpf; Nitrite,Urine Negative (Negative); Protein,Urine 2+ (Negative); RBC,Urine <1 /hpf (0-5); Specific Gravity,Urine 1.034 (1.001-1.035); Squamous Epithelial Cell,Urine <1 /hpf (0-4); Urobilinogen,Urine <2.0 mg/dL (<2.0); WBC,Urine 1 /hpf (0-5)
[2021-03-09] MEDS ORDERED: IPRATROPIUM-ALBUTEROL 3 ML NEB INHALATION STA (21:04)
[2021-03-09] MEDS ORDERED: ALBUTEROL NEB (CONC) 2.5 MG/0.5 ML INHALATION STA (21:05)
--- NOTE | 2021-03-09 21:24 | CT ---
EXAMINATION TYPE: CT abdomen pelvis w con DATE OF EXAM: 03/09/2021 COMPARISON: None HISTORY: Abdominal pain, distention and abnormal xray. CT DLP: 1101.7 mGycm, Automated Exposure Control for Dose Reduction was Utilized. CONTRAST: CT scan of the abdomen and pelvis is performed with IV Contrast, patient injected with 100 mL of Isov ue 300. FINDINGS: LUNG BASES: There is a pneumonic consolidation in the right lower lobe. There are groundglass and int erstitial opacities scattered throughout the rest of the included lung. No pleural effusion seen. The re is right hemidiaphragm eventration. INCLUDED CARDIAC STRUCTURES: Arterial calcifications are seen. Prosthetic arterial valve seen. LIVER: 5 mm low attenuating lesion in the anterior aspect of the right hepatic lobe too small to visu lloyd. The hepatic contour is normal. GALLBLADDER : No significant abnormality is appreciated. BILIARY TREE: No abnormal biliary tree dilation. PANCREAS: Main pancreatic duct diameter abnormal measuring up 6 mm. The pancreas is slightly atrophie d. There is a 1.8 x 0.9 x 0.9 cm hypoattenuating lesion in the head of the pancreas series 201 image 38. SPLEEN: No significant abnormality is seen. ADRENALS: No significant abnormality is seen. KIDNEYS AND URETERS: There is an exophytic subcentimeter lesion arising from the inferior pole of the left kidney. No renal collecting system dilatation seen. No renal calculi seen. URINARY BLADDER: No significant abnormality is appreciated. PROSTATE: Unremarkable. ESOPHAGUS: No significant abnormality is seen. STOMACH: No significant abnormality is seen. SMALL BOWEL: There is stool in the distal ileal bowel loop. LARGE BOWEL: Mildly dilated caliber of the colon with large amount of stool and rectal impaction. APPENDIX: Nonvisualized appendix. No secondary evidence of acute appendicitis. HERNIAS: Fat-containing midline abdominal hernia. PERITONEUM/MESENTRY: No pneumoperitoneum or ascites. LYMPH NODES: No enlarged retroperitoneal or pelvic lymph nodes are appreciated. MAJOR VASCULAR STRUCTURES: Nonaneurysmal aorta. Atherosclerotic calcification seen in the wall of the aorta and extend into the common iliac arteries. There is mild bilateral narrowing of the common wali ac arteries. This moderate severe bilateral narrowing of the femoral arteries. There is mild narrowin g of the bilateral left greater than right internal/and external iliac arteries. OSSEOUS STRUCTURES: Diffuse osteopenia. No fracture deformity seen. Severe narrowing of the intervert ebral spaces seen throughout the thoracic and lumbar spine most severe at L5-S1. Disc degenerative ch anges demonstrated throughout the lumbar spine. Slight posterior translation of L5 over S1. Facet jese nt arthropathy changes seen in the lumbar spine. There is mild S-shaped scoliosis. Mild osteoarthrosi s in the bilateral hip joints. IMPRESSION: 1. Right lower lobe pneumonic consolidation, scattered groundglass opacities could be secondary to pn eumonia. Chronic lung changes. 2. Dilated main pancreatic duct up to 6 mm they 1.8 x 0.9 x 0.9 cm low attenuating lesion in the head of the pancreas. Malignancy cannot be excluded. 3. Exophytic subcentimeter lesion arising from the inferior pole of the left kidney unknown etiology may represent a complex cyst or a solid mass. 4. Large amount of colonic stool with rectal impaction and mild proximal dilatation of the colon and reflux of stool into the terminal ileum. 5. Extensive atherosclerotic calcifications with mild to severe narrowing of the vascular structures, see body of report.
[2021-03-09] MEDS ORDERED: LIDOCAINE URO-JET JELLY 2% 5 ML KIT URETHRAL ONE (22:56)
[2021-03-09] MEDS ORDERED: POTASSIUM CHLORIDE ER 20 MEQ TAB.ER PO STA (23:39)
[2021-03-10] MEDS ORDERED: ONDANSETRON 4 MG/2 ML VIAL IVP PRN (02:07)
[2021-03-10] MEDS ORDERED: ACETAMINOPHEN TAB 325 MG TAB PO PRN (02:07)
[2021-03-10] MEDS ORDERED: NALOXONE 0.4 MG/ML 1 ML VIAL IV PRN (02:07)
[2021-03-10] MEDS ORDERED: guaiFENesin 600 MG TABLET.ER PO PRN (03:22)
[2021-03-10] MEDS ORDERED: IPRATROPIUM-ALBUTEROL 3 ML NEB INHALATION PRN (03:22)
[2021-03-10] MEDS ORDERED: PROMETHAZINE HCL 6.25 MG/5 ML CUP PO PRN (03:22)
[2021-03-10] MEDS ORDERED: PSYLLIUM HUSK 100% 6 GM PACKET PO PRN (03:22)
--- NOTE | 2021-03-10 05:24 | P.HPIM ---
History of Present Illness H&P Date: 03/10/21 Chief Complaint: Constipation of 2 weeks duration 86-year-old male with complex past medical history including diastolic CHF, valvular heart disease status post TAVR, A. fib on Eliquis Patient comes in reporting 2 week history of constipation since his last discharge he still passing gases however he is noticing increased abdominal distention he denies any vomiting he does report some abdominal discomfort but doesn't report any pain he complains of fibromyalgia and he doesn't think that his abdominal discomfort is worse than that. He denies any nausea vomiting denies any fevers or chills denies any GI bleeding. He tried enemas at home with no benefit he went to his doctor today who recommended that he goes to the hospital patient does take Metamucil and GoLYTELY daily. He claims that he had diarrhea couple weeks ago when he presented to the hospital at that time he was also presenting with hypoxic respiratory failure due to fluid overload at that time due to noncompliance with Lasix. Since discharge from the hospital he didn't have any bowel movement In the ED workup was done showed stable chronic anemia Imaging of the abdomen showed pancreatic had attenuated lesion along with dilated main duct, kidney cyst was also noticed. Also showed stool impaction in the rectum with proximal dilation Covid testing was negative Review of Systems Pertinent positives as noted in HPI. All other systems were reviewed and are negative Past Medical History Past Medical History: Atrial Fibrillation, Coronary Artery Disease (CAD), COPD, Fibromyalgia, GERD/Reflux, Hyperlipidemia, Hypertension, Myocardial Infarction ([place]), Pneumonia, Thyroid Disorder Additional Past Medical History / Comment(s): Received covid vaccine, hx gout, increase difficulty clearing lungs at night-occ. sleeping in chair to sleep, essential tremors, frequent cough, SOB, vertigo. 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 Mother Additional Family Medical History / Comment(s): Mother had an enlarged heart and at age 90. Sister(s) Family Medical History: Cancer Medications and Allergies Home Medications Medication Instructions Recorded Confirmed Type Ubidecarenone [Co Q-10] 100 mg PO DAILY 07/05/15 03/09/21 History Multivitamins, Thera [Multivitamin 1 tab PO DAILY 03/28/18 03/09/21 History (formulary)] guaiFENesin [Mucinex] 1,200 mg PO TID PRN 06/14/20 03/09/21 History Ascorbic Acid [Vitamin C] 500 mg PO BID 10/10/20 03/09/21 History Acetaminophen [Tylenol Arthritis] 650 mg PO Q8H PRN 11/19/20 03/09/21 History Cholecalciferol (Vitamin D3) 125 mcg PO DAILY 11/19/20 03/09/21 History [Vitamin D3 (5000 Iu)] Apixaban [Eliquis] 2.5 mg PO BID 12/13/20 03/09/21 History Cyanocobalamin (Vitamin B-12) 5,000 mcg PO DAILY 12/13/20 03/09/21 History [Vitamin B-12] Magnesium Gluconate [Magonate] 500 mg PO DAILY 12/13/20 03/09/21 History Rosuvastatin Calcium 5 mg PO DAILY 12/13/20 03/09/21 History Aspirin EC [Ecotrin Low Dose] 81 mg PO DAILY 02/02/21 03/09/21 History Psyllium Husk (with Sugar) 17 gm PO HS PRN 02/02/21 03/09/21 History [Metamucil Powder] Budesonide [Pulmicort] 1 mg INHALATION RT-BID 30 Days #1 03/07/21 03/09/21 Rx inh Furosemide [Lasix] 40 mg PO BID@0900,1600 30 Days #60 03/07/21 03/09/21 Rx tab Ipratropium-Albuterol Nebulize 3 ml INHALATION RT-QID 30 Days 03/07/21 03/09/21 Rx [Duoneb 0.5 mg-3 mg/3 ml Soln] #120 ml Promethazine HCl [Phenergan Syrup] 6.25 mg PO Q6HR PRN 30 Days #1 each 03/07/21 03/09/21 Rx Verapamil [Isoptin] 40 mg PO BID 30 Days #60 tab 03/07/21 03/09/21 Rx predniSONE 10 mg PO DAILY #0 03/07/21 03/09/21 Rx predniSONE See Taper PO DAILY 15 Days #45 tab 03/07/21 03/09/21 Rx Metoprolol Tartrate [Lopressor] 100 mg PO BID 03/09/21 03/09/21 History Olodaterol HCl [Striverdi Respimat] 1 puff INHALATION RT-BID 03/09/21 03/09/21 History Allergies Allergy/AdvReac Type Severity Reaction Status Date / Time meperidine [From Demerol] Allergy Unknown Verified 03/09/21 18:26 Childhood ciprofloxacin [From Cipro] AdvReac joint Verified 03/09/21 18:26 problems diphenhydramine HCl AdvReac "felt like Verified 03/09/21 18:26 [From Benadryl] I was dying" steroids AdvReac "Not sure Uncoded 03/09/21 18:26 of steroids" Physical Exam Vitals: Vital Signs Pulse Resp BP Pulse Ox 03/10/21 03:41 110 H 03/10/21 03:32 110 H 03/10/21 03:00 108 H 20 130/82 95 03/09/21 22:00 88 03/09/21 21:54 88 03/09/21 16:31 87 20 148/93 97 Intake and Output 03/09/21 03/09/21 03/10/21 14:59 22:59 06:59 Other: Weight 74.843 kg Constitutional: No acute distress, conversant, pleasant Eyes: Anicteric sclerae, moist conjunctiva, Pupils equal round reactive to light ENMT: NC/AT Oropharynx clear, no erythema, or exudates Neck: Supple, FROM, no masses, or JVD No carotid bruits No thyromegaly Lungs: Clear to auscultation Clear to percussion Normal respiratory effort, no accessory muscle use Cardiovascular: Heart irregular Systolic murmurs, no gallops, or rubs +2 peripheral edema bilaterally Abdominal: Mild distention, Soft Nontender, no guarding, rebound or rigidity Abdomen moving with respiration Normoactive bowel sounds No hepatomegaly, No splenomegaly No palpable mass Umbilical hernia soft Skin: Bruising and ecchymosis over right lateral upper extremity, otherwise Normal temperature, tone, texture, turgor No induration No subcutaneous nodules No rash, lesions No ulcers Extremities: No digital cyanosis No clubbing Pedal pulses intact and symmetrical Radial pulses intact and symmetrical No calf tenderness Psychiatric: Alert and oriented to person, place and time Appropriate affect fair judgement Neuro Muscles Strength 4/5 in all 4 extremities Sensation to light touch grossly present throughout Cranial nerves II-XII grossly intact No focal sensory deficits Lymphatics: no palpable cervical or supraclavicular , or inguinal lymph nodes Results CBC & Chem 7: 03/09/21 17:26 03/09/21 17:26 Labs: Abnormal Lab Results - Last 24 Hours (Table) 03/09/21 03/09/21 03/09/21 Range/Units 17:26 17:26 17:26 RBC 3.23 L (4.30-5.90) m/uL Hgb 10.4 L (13.0-17.5) gm/dL Hct 31.5 L (39.0-53.0) % Neutrophils # 9.0 H (1.3-7.7) k/uL Lymphocytes # 0.3 L (1.0-4.8) k/uL Potassium 3.3 L (3.5-5.1) mmol/L BUN 45 H (9-20) mg/dL Glucose 162 H (74-99) mg/dL Total Protein 5.7 L (6.3-8.2) g/dL Albumin 2.9 L (3.5-5.0) g/dL Urine Protein 2+ H (Negative) Urine Blood Small H (Negative) Hyaline Casts 47 H (0-2) /lpf Urine Mucus Rare H (None) /hpf Assessment and Plan Assessment: Fecal impaction in the rectum Trial of enema and stool softeners General surgery evaluation Incidental finding of pancreatic head attenuation lesion Consultation for GI for evaluation Kidney cysts Check an ultrasound rule out solid versus complex cystic lesion Chronic conditions Fibromyalgia A. fib on Eliquis Chronic anemia denies ear bleeding COPD compensated Fibromyalgia pain control Diastolic CHF currently compensated History of CAD status post stents Hypertension Gout Resume home medications DVT prophylaxis patient on Eliquis for A. fib Anticipated length of stay less than 2 midnights Strict discharged home
[2021-03-10] MEDS: BUDESONIDE 1 MG/2 ML NEBU INHALATION SCH ×2 (07:00→19:52)
[2021-03-10] MEDS: FORMOTEROL FUMARATE 20 MCG/2 ML NEBU INHALATION SCH ×2 (07:00→19:52)
[2021-03-10] MEDS: IPRATROPIUM-ALBUTEROL 3 ML NEB INHALATION SCH ×4 (07:25→19:52)
--- NOTE | 2021-03-10 07:53 | US ---
EXAMINATION TYPE: US kidneys/renal and bladder DATE OF EXAM: 03/10/2021 COMPARISON: CT 03/09/2021 CLINICAL HISTORY: renal mass. EXAM MEASUREMENTS: Right Kidney: 9.5 x 5.5 x 5.1 cm Left Kidney: 11.4 x 5.9 x 6.2 cm Right Kidney: No hydronephrosis or masses seen Left Kidney: 2 small to characterize hypoechoic nodule measures 0.5 x 0.5 x 0.5 cm Bladder: wnl Bilateral Jets seen: No No nephrolithiasis bilaterally. IMPRESSION: There is a too small to characterize hypoechoic nodule within the left kidney. Either 3 month follow- up ultrasound or MRI could BE obtained for further evaluation
[2021-03-10] MEDS ORDERED: IPRATROPIUM-ALBUTEROL 3 ML NEB INHALATION SCH (08:00)
[2021-03-10] MEDS: VERAPAMIL 40 MG TAB PO SCH ×2 (08:41→23:24)
[2021-03-10] MEDS: CHOLECALCIFEROL 25 MCG (1000 IU) TABLET PO SCH (08:41)
[2021-03-10] MEDS: MAGNESIUM OXIDE 400 MG TAB PO SCH (08:42)
[2021-03-10] MEDS: predniSONE 10 MG TAB PO SCH (08:42)
[2021-03-10] MEDS: METOPROLOL TARTRATE 50 MG TAB PO SCH ×2 (08:42→22:05)
[2021-03-10] MEDS: ATORVASTATIN 10 MG TAB PO SCH (08:42)
[2021-03-10] MEDS: APIXABAN 2.5 MG TABLET PO SCH ×2 (08:42→22:05)
[2021-03-10] MEDS: FUROSEMIDE 40 MG TAB PO SCH ×2 (08:42→16:05)
[2021-03-10] MEDS: ASPIRIN 81 MG PO SCH (08:42)
[2021-03-10] MEDS: MULTIVITAMINS, THERA 1 EACH TAB PO SCH (08:42)
[2021-03-10] MEDS: CYANOCOBALAMIN 500 MCG TAB PO SCH (08:42)
[2021-03-10] MEDS: ASCORBIC ACID 500 MG TAB PO SCH ×2 (08:45→22:06)
[2021-03-10] MEDS ORDERED: NON FORMULARY DRUG (Ubidecarenone [Co Q-10] 100 MG Capsule) PO SCH (09:00)
[2021-03-10 10:03] LABS: HCT 34.3 % (39.0-53.0); HGB 10.9 gm/dL (13.0-17.5); MCH 31.3 pg (25.0-35.0); MCHC 31.7 g/dL (31.0-37.0); MCV 98.8 fL (80.0-100.0); Mean Platelet Volume 8.2; Platelet Count 280 k/uL (150-450); RBC 3.47 m/uL (4.30-5.90); RDW 14.4 % (11.5-15.5)
[2021-03-10] MEDS ORDERED: PEG 3350-NA SULF,BICARB,CL/KCL 4,000 ML BOTTLE PO ONE (10:09)
--- NOTE | 2021-03-10 10:09 | P.GSCN ---
History of Present Illness Consult date: 03/10/21 Reason for Consult: Fecal impaction History of present illness: 86-year-old male recently hospitalized for pneumonia. Came back to the hospital with constipation and vague abdominal discomfort. Patient states his last bowel movement was made days ago. Patient is a poor historian. He had a CAT scan showing diffuse constipation with suggestion of some degree of impaction. Patient has had enemas and oral cathartics without complete resolution of his symptoms thus far. He has had some stool however while in the ER. No nausea or vomiting. White blood cell count is normal. Review of Systems ROS unobtainable: due to mental status Past Medical History Past Medical History: Atrial Fibrillation, Coronary Artery Disease (CAD), COPD, Fibromyalgia, GERD/Reflux, Hyperlipidemia, Hypertension, Myocardial Infarction ([place]), Pneumonia, Thyroid Disorder Additional Past Medical History / Comment(s): Received covid vaccine, hx gout, increase difficulty clearing lungs at night-occ. sleeping in chair to sleep, essential tremors, frequent cough, SOB, vertigo. 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 Mother Additional Family Medical History / Comment(s): Mother had an enlarged heart and at age 90. Sister(s) Family Medical History: Cancer Medications and Allergies Home Medications Medication Instructions Recorded Confirmed Type Ubidecarenone [Co Q-10] 100 mg PO DAILY 07/05/15 03/09/21 History Multivitamins, Thera [Multivitamin 1 tab PO DAILY 03/28/18 03/09/21 History (formulary)] guaiFENesin [Mucinex] 1,200 mg PO TID PRN 06/14/20 03/09/21 History Ascorbic Acid [Vitamin C] 500 mg PO BID 10/10/20 03/09/21 History Acetaminophen [Tylenol Arthritis] 650 mg PO Q8H PRN 11/19/20 03/09/21 History Cholecalciferol (Vitamin D3) 125 mcg PO DAILY 11/19/20 03/09/21 History [Vitamin D3 (5000 Iu)] Apixaban [Eliquis] 2.5 mg PO BID 12/13/20 03/09/21 History Cyanocobalamin (Vitamin B-12) 5,000 mcg PO DAILY 12/13/20 03/09/21 History [Vitamin B-12] Magnesium Gluconate [Magonate] 500 mg PO DAILY 12/13/20 03/09/21 History Rosuvastatin Calcium 5 mg PO DAILY 12/13/20 03/09/21 History Aspirin EC [Ecotrin Low Dose] 81 mg PO DAILY 02/02/21 03/09/21 History Psyllium Husk (with Sugar) 17 gm PO HS PRN 02/02/21 03/09/21 History [Metamucil Powder] Budesonide [Pulmicort] 1 mg INHALATION RT-BID 30 Days #1 03/07/21 03/09/21 Rx inh Furosemide [Lasix] 40 mg PO BID@0900,1600 30 Days #60 03/07/21 03/09/21 Rx tab Ipratropium-Albuterol Nebulize 3 ml INHALATION RT-QID 30 Days 03/07/21 03/09/21 Rx [Duoneb 0.5 mg-3 mg/3 ml Soln] #120 ml Promethazine HCl [Phenergan Syrup] 6.25 mg PO Q6HR PRN 30 Days #1 each 03/07/21 03/09/21 Rx Verapamil [Isoptin] 40 mg PO BID 30 Days #60 tab 03/07/21 03/09/21 Rx predniSONE 10 mg PO DAILY #0 03/07/21 03/09/21 Rx predniSONE See Taper PO DAILY 15 Days #45 tab 03/07/21 03/09/21 Rx Metoprolol Tartrate [Lopressor] 100 mg PO BID 03/09/21 03/09/21 History Olodaterol HCl [Striverdi Respimat] 1 puff INHALATION RT-BID 03/09/21 03/09/21 History Allergies Allergy/AdvReac Type Severity Reaction Status Date / Time meperidine [From Demerol] Allergy Unknown Verified 03/09/21 18:26 Childhood ciprofloxacin [From Cipro] AdvReac joint Verified 03/09/21 18:26 problems diphenhydramine HCl AdvReac "felt like Verified 03/09/21 18:26 [From Benadryl] I was dying" steroids AdvReac "Not sure Uncoded 03/09/21 18:26 of steroids" Surgical - Exam Vital Signs Pulse Resp BP Pulse Ox 87 20 148/93 97 03/09/21 16:31 03/09/21 16:31 03/09/21 16:31 03/09/21 16:31 Physical exam: General: Well-developed, well-nourished HEENT: Normocephalic, sclerae nonicteric Abdomen: Nontender, nondistended Extremities: Mild lower extremity edema Neuro: Alert but somewhat confused Rectal: Inflamed hemorrhoid laterally, stool in the rectal vault medium consis tency patient with significant discomfort on digital rectal examination not consenting for any disimpaction at this time Results - Labs 03/10/21 09:29 03/09/21 17:26 Abnormal Lab Results - Last 24 Hours (Table) 03/09/21 03/09/21 03/09/21 Range/Units 17:26 17:26 17:26 WBC (3.8-10.6) k/uL RBC 3.23 L (4.30-5.90) m/uL Hgb 10.4 L (13.0-17.5) gm/dL Hct 31.5 L (39.0-53.0) % Neutrophils # 9.0 H (1.3-7.7) k/uL Lymphocytes # 0.3 L (1.0-4.8) k/uL Potassium 3.3 L (3.5-5.1) mmol/L BUN 45 H (9-20) mg/dL Glucose 162 H (74-99) mg/dL Total Protein 5.7 L (6.3-8.2) g/dL Albumin 2.9 L (3.5-5.0) g/dL Urine Protein 2+ H (Negative) Urine Blood Small H (Negative) Hyaline Casts 47 H (0-2) /lpf Urine Mucus Rare H (None) /hpf 03/10/21 Range/Units 09:29 WBC 15.0 H (3.8-10.6) k/uL RBC 3.47 L (4.30-5.90) m/uL Hgb 10.9 L (13.0-17.5) gm/dL Hct 34.3 L (39.0-53.0) % Neutrophils # (1.3-7.7) k/uL Lymphocytes # (1.0-4.8) k/uL Potassium (3.5-5.1) mmol/L BUN (9-20) mg/dL Glucose (74-99) mg/dL Total Protein (6.3-8.2) g/dL Albumin (3.5-5.0) g/dL Urine Protein (Negative) Urine Blood (Negative) Hyaline Casts (0-2) /lpf Urine Mucus (None) /hpf Diabetes panel 03/09/21 Range/Units 17:26 Sodium 137 (137-145) mmol/L Potassium 3.3 L (3.5-5.1) mmol/L Chloride 101 (98-107) mmol/L Carbon Dioxide 30 (22-30) mmol/L BUN 45 H (9-20) mg/dL Creatinine 0.95 (0.66-1.25) mg/dL Glucose 162 H (74-99) mg/dL Calcium 8.8 (8.4-10.2) mg/dL AST 27 (17-59) U/L ALT 19 (4-49) U/L Alkaline Phosphatase 52 (38-126) U/L Total Protein 5.7 L (6.3-8.2) g/dL Albumin 2.9 L (3.5-5.0) g/dL Calcium panel 03/09/21 Range/Units 17:26 Calcium 8.8 (8.4-10.2) mg/dL Albumin 2.9 L (3.5-5.0) g/dL Pituitary panel 03/09/21 Range/Units 17:26 Sodium 137 (137-145) mmol/L Potassium 3.3 L (3.5-5.1) mmol/L Chloride 101 (98-107) mmol/L Carbon Dioxide 30 (22-30) mmol/L BUN 45 H (9-20) mg/dL Creatinine 0.95 (0.66-1.25) mg/dL Glucose 162 H (74-99) mg/dL Calcium 8.8 (8.4-10.2) mg/dL Adrenal panel 03/09/21 Range/Units 17:26 Sodium 137 (137-145) mmol/L Potassium 3.3 L (3.5-5.1) mmol/L Chloride 101 (98-107) mmol/L Carbon Dioxide 30 (22-30) mmol/L BUN 45 H (9-20) mg/dL Creatinine 0.95 (0.66-1.25) mg/dL Glucose 162 H (74-99) mg/dL Calcium 8.8 (8.4-10.2) mg/dL Total Bilirubin 0.6 (0.2-1.3) mg/dL AST 27 (17-59) U/L ALT 19 (4-49) U/L Alkaline Phosphatase 52 (38-126) U/L Total Protein 5.7 L (6.3-8.2) g/dL Albumin 2.9 L (3.5-5.0) g/dL Assessment and Plan (1) Fecal impaction in rectum Narrative/Plan: 86-year-old male with constipation and some degree of fecal impaction. Continue enemas and will begin PEG solution orally. Discussed with patient that if bowel function does not improve with this approach will require manual disimpaction under anesthesia. Current Visit: Yes Status: Acute Code(s): K56.41 - FECAL IMPACTION SNOMED Code(s): 31883694
--- NOTE | 2021-03-10 10:14 | P.PN ---
Subjective Patient was seen by me in the ER today. He seems pretty uncomfortable and was trying to sit up in bed to take his medication. He is complaining of back pain and no abdominal pain. No bowel movement as of yet despite digital disimpaction by surgery and 2 enemas Objective - Vital Signs Vital signs: Vital Signs Temp Pulse 112 H 03/10/21 08:32 Resp 20 03/10/21 08:32 BP 137/88 03/10/21 08:32 Pulse Ox 92 L 03/10/21 08:32 Intake & Output 03/09/21 03/10/21 03/10/21 18:59 06:59 18:59 Weight 74.843 kg - Exam General: The patient is awake and alert, in no distress Eye: there is normal conjunctiva bilaterally. Neck: The neck is supple, there is no JVD. Cardiovascular: Normal S1-S2, no S3-S4, no murmurs. Respiratory: Lungs clear to auscultation bilaterally Gastrointestinal: Abdomen is soft, nontender Musculoskeletal: There is no pedal edema. Neurological:. Speech is normal. Skin: Skin is warm and dry - Labs CBC & Chem 7: 03/10/21 09:29 03/09/21 17:26 Labs: Abnormal Lab Results - Last 24 Hours (Table) 03/09/21 03/09/21 03/09/21 Range/Units 17:26 17:26 17:26 WBC (3.8-10.6) k/uL RBC 3.23 L (4.30-5.90) m/uL Hgb 10.4 L (13.0-17.5) gm/dL Hct 31.5 L (39.0-53.0) % Neutrophils # 9.0 H (1.3-7.7) k/uL Lymphocytes # 0.3 L (1.0-4.8) k/uL Potassium 3.3 L (3.5-5.1) mmol/L BUN 45 H (9-20) mg/dL Glucose 162 H (74-99) mg/dL Total Protein 5.7 L (6.3-8.2) g/dL Albumin 2.9 L (3.5-5.0) g/dL Urine Protein 2+ H (Negative) Urine Blood Small H (Negative) Hyaline Casts 47 H (0-2) /lpf Urine Mucus Rare H (None) /hpf 03/10/21 Range/Units 09:29 WBC 15.0 H (3.8-10.6) k/uL RBC 3.47 L (4.30-5.90) m/uL Hgb 10.9 L (13.0-17.5) gm/dL Hct 34.3 L (39.0-53.0) % Neutrophils # (1.3-7.7) k/uL Lymphocytes # (1.0-4.8) k/uL Potassium (3.5-5.1) mmol/L BUN (9-20) mg/dL Glucose (74-99) mg/dL Total Protein (6.3-8.2) g/dL Albumin (3.5-5.0) g/dL Urine Protein (Negative) Urine Blood (Negative) Hyaline Casts (0-2) /lpf Urine Mucus (None) /hpf Assessment and Plan Assessment: Fecal impaction in the rectum General surgery evaluation appreciate Patient underwent digital disimpaction with no result and received an enema. He will be started on GoLYTELY Incidental finding of pancreatic head attenuation lesion of unclear significance Consultation for GI for evaluation by admitting provider Left kidney nodule, incidentally noted. too small to characterize on ultrasound. Recommend follow-up in 3 months. Chronic conditions Fibromyalgia A. fib on Eliquis Chronic anemia denies ear bleeding COPD compensated Fibromyalgia pain control Diastolic CHF currently compensated History of CAD status post stents Hypertension Gout Resume home medications DVT prophylaxis patient on Eliquis for A. fib Anticipated length of stay less than 2 midnights
[2021-03-10 10:17] LABS: African American GFR (CKD) 74 (>60 ml/min/1.73 sqM); Anion Gap 6 mmol/L; Blood Urea Nitrogen 39 mg/dL (9-20); Calcium 9.4 mg/dL (8.4-10.2); Carbon Dioxide 32 mmol/L (22-30); Chloride 101 mmol/L (98-107); Glucose 89 mg/dL (74-99); Non-African American GFR(CKD) 64 (>60 ml/min/1.73 sqM); Potassium 3.4 mmol/L (3.5-5.1); Sodium 139 mmol/L (137-145)
--- NOTE | 2021-03-10 12:52 | P.CONS ---
History of Present Illness - Reason for Consult Consult date: 03/10/21 pancreatic lesion Requesting physician: Jeremiah Price - Chief Complaint abdominal pain and constipation - History of Present Illness This is an 86-year-old white male who presented to the emergency department with complaints of abdominal pain and constipation. He was recently hospitalized for pneumonia. States he has not had a bowel movement in 10 days. He had a CT of the abdomen showed diffuse constipation with suggestion of some degree of impaction. Dilated main pancreatic duct up to 6 mm with a 1.8 x 0.9 x 0.9 cm low attenuating lesion in the head of the pancreas. Malignancy cannot be excluded. On admission LFTs have been normal. Patient denies any previous history of pancreatic or liver disease. Denies any previous history of pancreatitis or alcohol use. He has a past medical history including atrial fibrillation, coronary artery disease status post TAVR and cardiac stents, COPD, fibromyalgia, GERD, hyperlipidemia, hypertension, pneumonia, thyroid disorder. WBC 15.0 hemoglobin 10.9 hematocrit 34 platelet count 280,000 total bilirubin 0.6 AST 27 ALT 19 alkaline phosphatase 52 amylase 58 lipase 53. He currently denies any nausea or vomiting. States he is having some abdominal cramping. He has been given Review of Systems REVIEW OF SYSTEMS: CARDIOPULMONARY: No chest pain or shortness of breath. Gastrointestinal: Abdominal pain, distention, cramping. No nausea or vomiting. No hematemesis, coffee-ground emesis. No rectal bleeding, or melena. Constipation, no bowel movement 10 days GENITOURINARY: No dysuria or hematuria. MUSCULOSKELETAL: Reports normal range of motion., Joint pain. SKIN: No rashes. No jaundice. ENDOCRINE: No chills, fevers. No excessive weight gain or loss. No polydipsia or polyuria. PSYCHIATRIC: Unremarkable. NEUROLOGY: No change in mental status. Denies dizziness, headache. ENT: Vision unremarkable. CONSTITUTIONAL: No recent weight loss. No fever, chills, night sweats. Past Medical History Past Medical History: Atrial Fibrillation, Coronary Artery Disease (CAD), COPD, Fibromyalgia, GERD/Reflux, Hyperlipidemia, Hypertension, Myocardial Infarction ([place]), Pneumonia, Thyroid Disorder Additional Past Medical History / Comment(s): Received covid vaccine, hx gout, increase difficulty clearing lungs at night-occ. sleeping in chair to sleep, essential tremors, frequent cough, SOB, vertigo. COVID 01/21- given antibioites Last Myocardial Infarction Date:: unkn-silent History of Any Multi-Drug Resistant Organisms: MRSA Year Discovered:: 04/23/19 MDRO Source:: Bronch wash Past Surgical History: Appendectomy, Cardiac Valve Replacement, Heart Catheterization With Stent, Hernia Repair, Prostate Surgery, Tonsillectomy Additional Past Surgical History / Comment(s): TURP, sub-mucous resection to improve breathing, turbinate reduction, 4 cardiac stents, payam cataract surgery, hernia repair x3 , TAVR-aortic valve replacment 03/2020,hernia repair x3 Past Anesthesia/Blood Transfusion Reactions: Motion Sickness Additional Past Anesthesia/Blood Transfusion Reaction / Comm: vertigo Date of Last Stent Placement:: 2012 Past Psychological History: No Psychological Hx Reported Smoking Status: Former smoker Past Alcohol Use History: None Reported Past Drug Use History: None Reported - Past Family History Father Additional Family Medical History / Comment(s): Father had a severe CVA and of this at age 80 yrs. Mother Additional Family Medical History / Comment(s): Mother had an enlarged heart and at age 90. Sister(s) Family Medical History: Cancer Medications and Allergies Home Medications Medication Instructions Recorded Confirmed Type Ubidecarenone [Co Q-10] 100 mg PO DAILY 07/05/15 03/09/21 History Multivitamins, Thera [Multivitamin 1 tab PO DAILY 03/28/18 03/09/21 History (formulary)] guaiFENesin [Mucinex] 1,200 mg PO TID PRN 06/14/20 03/09/21 History Ascorbic Acid [Vitamin C] 500 mg PO BID 10/10/20 03/09/21 History Acetaminophen [Tylenol Arthritis] 650 mg PO Q8H PRN 11/19/20 03/09/21 History Cholecalciferol (Vitamin D3) 125 mcg PO DAILY 11/19/20 03/09/21 History [Vitamin D3 (5000 Iu)] Apixaban [Eliquis] 2.5 mg PO BID 12/13/20 03/09/21 History Cyanocobalamin (Vitamin B-12) 5,000 mcg PO DAILY 12/13/20 03/09/21 History [Vitamin B-12] Magnesium Gluconate [Magonate] 500 mg PO DAILY 12/13/20 03/09/21 History Rosuvastatin Calcium 5 mg PO DAILY 12/13/20 03/09/21 History Aspirin EC [Ecotrin Low Dose] 81 mg PO DAILY 02/02/21 03/09/21 History Psyllium Husk (with Sugar) 17 gm PO HS PRN 02/02/21 03/09/21 History [Metamucil Powder] Budesonide [Pulmicort] 1 mg INHALATION RT-BID 30 Days #1 03/07/21 03/09/21 Rx inh Furosemide [Lasix] 40 mg PO BID@0900,1600 30 Days #60 03/07/21 03/09/21 Rx tab Ipratropium-Albuterol Nebulize 3 ml INHALATION RT-QID 30 Days 03/07/21 03/09/21 Rx [Duoneb 0.5 mg-3 mg/3 ml Soln] #120 ml Promethazine HCl [Phenergan Syrup] 6.25 mg PO Q6HR PRN 30 Days #1 each 03/07/21 03/09/21 Rx Verapamil [Isoptin] 40 mg PO BID 30 Days #60 tab 03/07/21 03/09/21 Rx predniSONE 10 mg PO DAILY #0 03/07/21 03/09/21 Rx predniSONE See Taper PO DAILY 15 Days #45 tab 03/07/21 03/09/21 Rx Metoprolol Tartrate [Lopressor] 100 mg PO BID 03/09/21 03/09/21 History Olodaterol HCl [Striverdi Respimat] 1 puff INHALATION RT-BID 03/09/21 03/09/21 History Allergies Allergy/AdvReac Type Severity Reaction Status Date / Time meperidine [From Demerol] Allergy Unknown Verified 03/09/21 18:26 Childhood ciprofloxacin [From Cipro] AdvReac joint Verified 03/09/21 18:26 problems diphenhydramine HCl AdvReac "felt like Verified 03/09/21 18:26 [From Benadryl] I was dying" steroids AdvReac "Not sure Uncoded 03/09/21 18:26 of steroids" Physical Exam Vitals: Vital Signs Pulse Resp BP Pulse Ox 03/10/21 08:32 112 H 20 137/88 92 L 03/10/21 07:34 99 18 03/10/21 07:26 98 18 03/10/21 05:58 98 20 129/97 95 10/08/21 03:41 110 H 03/10/21 03:32 110 H 03/10/21 03:00 108 H 20 130/82 95 03/09/21 22:00 88 03/09/21 21:54 88 03/09/21 16:31 87 20 148/93 97 Intake and Output 03/09/21 03/10/21 03/10/21 22:59 06:59 14:59 Other: Weight 74.843 kg General appearance: The patient is alert, oriented, appears in no acute distress. HET: Head is normocephalic and atraumatic. Conjunctiva pink. Sclera anicteric. Neck: Supple without lymphadenopathy. Trachea midline. Heart: S1 S2. Regular rate and rhythm. Lungs: Clear to auscultation. Abdomen: Soft, nontender,, nondistended with bowel sounds. No guarding or rigidity. Skin: No rashes. No jaundice. Extremities: Normal skin color and turgor. No pedal edema. Neurological: No focal deficits. Alert and oriented 3.. Results CBC & Chem 7: 03/10/21 09:29 03/10/21 09:29 Labs: Abnormal Lab Results - Last 24 Hours (Table) 03/09/21 03/09/21 03/09/21 Range/Units 17:26 17:26 17:26 RBC 3.23 L (4.30-5.90) m/uL Hgb 10.4 L (13.0-17.5) gm/dL Hct 31.5 L (39.0-53.0) % Neutrophils # 9.0 H (1.3-7.7) k/uL Lymphocytes # 0.3 L (1.0-4.8) k/uL Potassium 3.3 L (3.5-5.1) mmol/L BUN 45 H (9-20) mg/dL Glucose 162 H (74-99) mg/dL Total Protein 5.7 L (6.3-8.2) g/dL Albumin 2.9 L (3.5-5.0) g/dL Urine Protein 2+ H (Negative) Urine Blood Small H (Negative) Hyaline Casts 47 H (0-2) /lpf Urine Mucus Rare H (None) /hpf Comments: CT abdomen and pelvis: Right lower lobe pneumonia consolidation, scattered groundglass opacities could be secondary to pneumonia. Chronic lung changes. Dilated main pancreatic duct up to 6 mm with 1.8 x 0.9 x 0.9 cm low attenuating lesion in the head of the pancreas. Malignancy cannot be excluded. Exophytic subcentimeter lesion arising from the inferior pole of the left kidney, unknown etiology may represent a complex cyst or solid mass. Large amount of colonic stool with rectal impaction and mild proximal dilation of the colon and reflux of stool into the terminal ileum. Extensive arterial sclerotic calcifications Assessment and Plan (1) Pancreatic lesion Narrative/Plan: 86-year-old male who presented to the emergency department with complaints of abdominal pain and constipation. He has not had a bowel movement in over 10 days. He was recently hospitalized with pneumonia. He had a CT of the abdomen and pelvis as part of his workup in the emergency department that showed a pancreatic lesion as well as stool impaction. He denies any previous history of pancreatic disease, pancreatitis, previous history of alcoholism or liver disease. On admission LFTs are all normal along with amylase and lipase. CA-19-9 ordered as well as MRI of the pancreas. However patient does have a history of cardiac stents and cardiac valve replacement so may not be a candidate. Current Visit: Yes Status: Acute Code(s): K86.9 - DISEASE OF PANCREAS, UNSPECIFIED SNOMED Code(s): 0323632 (2) Constipation Current Visit: Yes Status: Acute Code(s): K59.00 - CONSTIPATION, UNSPECIFIED SNOMED Code(s): 91484932 (3) Fecal impaction in rectum Narrative/Plan: Gen. surgery following Current Visit: Yes Status: Acute Code(s): K56.41 - FECAL IMPACTION SNOMED Code(s): 10102566 (4) Coronary artery disease Current Visit: No Status: Acute Code(s): I25.10 - ATHSCL HEART DISEASE OF [place] CORONARY ARTERY W/O ANG PCTRS SNOMED Code(s): 36768217 (5) History of atrial fibrillation Narrative/Plan: On Eliquis Current Visit: No Status: Acute Code(s): Z86.79 - PERSONAL HISTORY OF OTHER DISEASES OF THE CIRCULATORY SYSTEM SNOMED Code(s): 939350880 Plan: 1. Diet is tolerated 2. CA-19-9 ordered 3. MRI of the pancreas ordered 4. If patient unable to undergo MRI, may need to consider direct visualization with EUS, and this may be done as an outpatient Thank you for allowing us to participate in the care of the patient, the GI service will sign off, gastroenterology will not be available at the hospital this weekend. If further evaluation by gastroenterology is required the patient will need transfer as per the primary team's discretion.
[2021-03-10] MEDS ORDERED: MAGNESIUM HYDROXIDE 2,400 MG/10 ML CUP PO PRN (13:33)
[2021-03-11] MEDS: ALPRAZolam 0.5 MG TAB PO PRN (04:41)
[2021-03-11] MEDS: VERAPAMIL 40 MG TAB PO SCH ×2 (07:28→22:37)
[2021-03-11] MEDS: ATORVASTATIN 10 MG TAB PO SCH (07:28)
[2021-03-11] MEDS: APIXABAN 2.5 MG TABLET PO SCH ×2 (07:28→22:37)
[2021-03-11] MEDS: ASPIRIN 81 MG PO SCH (07:28)
[2021-03-11] MEDS: predniSONE 10 MG TAB PO SCH (07:28)
[2021-03-11] MEDS: METOPROLOL TARTRATE 50 MG TAB PO SCH ×2 (07:28→22:37)
[2021-03-11] MEDS: MAGNESIUM OXIDE 400 MG TAB PO SCH (07:29)
[2021-03-11] MEDS: MULTIVITAMINS, THERA 1 EACH TAB PO SCH (07:29)
[2021-03-11] MEDS: FUROSEMIDE 40 MG TAB PO SCH ×2 (07:29→15:47)
[2021-03-11] MEDS: FORMOTEROL FUMARATE 20 MCG/2 ML NEBU INHALATION SCH ×2 (07:52→19:54)
[2021-03-11] MEDS: IPRATROPIUM-ALBUTEROL 3 ML NEB INHALATION SCH ×4 (07:52→19:55)
[2021-03-11] MEDS: BUDESONIDE 1 MG/2 ML NEBU INHALATION SCH ×2 (07:52→19:54)
[2021-03-11] MEDS: CYANOCOBALAMIN 500 MCG TAB PO SCH (09:51)
[2021-03-11] MEDS: ASCORBIC ACID 500 MG TAB PO SCH ×2 (09:51→22:37)
[2021-03-11] MEDS: CHOLECALCIFEROL 25 MCG (1000 IU) TABLET PO SCH (09:51)
[2021-03-11] MEDS: MORPHINE SULFATE 2 MG/ML SYRINGE IVP PRN ×3 (10:25→22:41)
--- NOTE | 2021-03-11 11:20 | P.PN ---
Subjective Progress Note Date: 03/11/21 Principal diagnosis: Fecal impaction Patient doing well today. He has had multiple loose stools. Difficult to say how much of his fecal impaction has resolved. Says he has no pain currently. Objective - Vital Signs Vital signs: Vital Signs Temp 98.0 F 03/11/21 07:00 Pulse 90 03/11/21 08:15 Resp 16 03/11/21 07:00 BP 158/79 03/11/21 07:00 Pulse Ox 90 L 03/11/21 07:00 Intake & Output 03/10/21 03/11/21 03/11/21 18:59 06:59 18:59 Output Total 50 Balance -50 Output: Urine 50 Other: # Voids 1 6 # Bowel Movements 1 - Exam Abdomen: Soft, mild distention, mild diffuse tenderness - Labs CBC & Chem 7: 03/10/21 09:29 03/10/21 09:29 Assessment and Plan (1) Fecal impaction in rectum Narrative/Plan: Patient doing well today. Continue monitoring bowel function. Diet as tolerated. Current Visit: Yes Status: Acute Code(s): K56.41 - FECAL IMPACTION SNOMED Code(s): 96868342
--- NOTE | 2021-03-11 12:42 | P.PN ---
Subjective Patient had 3 bowel movements this morning. His abdomen is soft and nontender. No acute events overnight reported by nursing staff. Objective - Vital Signs Vital signs: Vital Signs Temp 98.0 F 03/11/21 07:00 Pulse 85 03/11/21 12:12 Resp 16 03/11/21 07:00 BP 158/79 03/11/21 07:00 Pulse Ox 90 L 03/11/21 07:00 Intake & Output 03/10/21 03/11/21 03/11/21 18:59 06:59 18:59 Output Total 50 Balance -50 Output: Urine 50 Other: # Voids 1 6 # Bowel Movements 1 - Exam General: The patient is awake and alert, in no distress Eye: there is normal conjunctiva bilaterally. Neck: The neck is supple, there is no JVD. Cardiovascular: Normal S1-S2, no S3-S4, no murmurs. Respiratory: Lungs clear to auscultation bilaterally Gastrointestinal: Abdomen is soft, nontender Musculoskeletal: There is no pedal edema. Neurological:. Speech is normal. Skin: Skin is warm and dry - Labs CBC & Chem 7: 03/10/21 09:29 03/10/21 09:29 Assessment and Plan Assessment: Fecal impaction in the rectum, status post disimpaction by the surgery He was started also softener and received GoLYTELY status post a bowel movement General surgery evaluation appreciate Incidental finding of pancreatic head attenuation lesion of unclear significance Seen and evaluated by GI, CA 199 ordered and pending. MRI of the abdomen ordered but unable to obtain as patient has cardiac stent Left kidney nodule, incidentally noted. too small to characterize on ultrasound. Recommend follow-up in 3 months. Chronic conditions Fibromyalgia A. fib on Eliquis Chronic anemia denies ear bleeding COPD compensated Fibromyalgia pain control Diastolic CHF currently compensated History of CAD status post stents Hypertension Gout Resume home medications DVT prophylaxis patient on Eliquis for A. fib Anticipated length of stay less than 2 midnights
--- NOTE | 2021-03-11 12:43 | P.PN ---
Progress Note - Text Progress Note Date: 03/11/21 Advanced Care Planning: Diagnoses: [Questionable pancreatic mass, coronary artery disease] Discussion: Person(s) present and participating in discussion:[ Patient and bedside nurse] Summary:[ Today, I had discussion with the patient regarding goals of care and CODE STATUS. I explained to him the meaning of cardiac resuscitation including chest compression and or electric shock if needed. We also discussed intubation and mechanical ventilation. Patient was clear and told me that he would like to be DO NOT RESUSCITATE/DO NOT INTUBATE.] A total of [16] minutes of face to face time was spent discussing advanced care planning.
[2021-03-12] MEDS: ALPRAZolam 0.5 MG TAB PO PRN (04:12)
[2021-03-12] MEDS: IPRATROPIUM-ALBUTEROL 3 ML NEB INHALATION SCH ×3 (07:39→15:47)
[2021-03-12] MEDS: BUDESONIDE 1 MG/2 ML NEBU INHALATION SCH (07:39)
[2021-03-12] MEDS: FORMOTEROL FUMARATE 20 MCG/2 ML NEBU INHALATION SCH (07:39)
[2021-03-12] MEDS: CYANOCOBALAMIN 500 MCG TAB PO SCH (08:32)
[2021-03-12] MEDS: MULTIVITAMINS, THERA 1 EACH TAB PO SCH (08:33)
[2021-03-12] MEDS: CHOLECALCIFEROL 25 MCG (1000 IU) TABLET PO SCH (08:33)
[2021-03-12] MEDS: APIXABAN 2.5 MG TABLET PO SCH (08:33)
[2021-03-12] MEDS: METOPROLOL TARTRATE 50 MG TAB PO SCH (08:34)
[2021-03-12] MEDS: FUROSEMIDE 40 MG TAB PO SCH ×2 (08:34→16:56)
[2021-03-12] MEDS: ATORVASTATIN 10 MG TAB PO SCH (08:34)
[2021-03-12] MEDS: ASPIRIN 81 MG PO SCH (08:34)
[2021-03-12] MEDS: MAGNESIUM OXIDE 400 MG TAB PO SCH (08:34)
[2021-03-12] MEDS: ASCORBIC ACID 500 MG TAB PO SCH (08:34)
[2021-03-12] MEDS: VERAPAMIL 40 MG TAB PO SCH (08:35)
[2021-03-12] MEDS: predniSONE 10 MG TAB PO SCH (08:35)
[2021-03-12] MEDS ORDERED: MAGNESIUM CITRATE 296 ML BOTTLE PO ONE (10:17)
--- NOTE | 2021-03-12 10:17 | P.PN ---
Subjective Progress Note Date: 03/12/21 Principal diagnosis: Fecal impaction Patient without new complaints. States he is now on hospice. He had 3 bowel movements since yesterday morning. Denies abdominal pain. Objective - Vital Signs Vital signs: Vital Signs Temp 98.7 F 03/12/21 07:00 Pulse 78 03/12/21 07:59 Resp 16 03/12/21 07:00 BP 126/75 03/12/21 07:00 Pulse Ox 98 03/12/21 07:00 Intake & Output 03/11/21 03/12/21 03/12/21 18:59 06:59 18:59 Intake Total 25 120 Balance 25 120 Intake: Oral 25 120 Other: # Voids 6 2 # Bowel Movements 6 6 - Exam Abdomen: Soft, nondistended, nontender Rectal examination in the presence of the patient's nurse revealed softer stool in the rectal vault. This is able to be easily broken up with the digital exam - Labs CBC & Chem 7: 03/10/21 09:29 03/10/21 09:29 Assessment and Plan (1) Fecal impaction in rectum Narrative/Plan: Continue cathartics for significant constipation. Patient still has some solid stool in the rectal vault but much softer than it was 48 hours ago. This appears to be something he should be able to pass. We'll give one bottle of magnesium citrate today. Will follow. Patient is no code however I do not see an order for hospice. Current Visit: Yes Status: Acute Code(s): K56.41 - FECAL IMPACTION SNOMED Code(s): 58608126
--- NOTE | 2021-03-12 11:54 | P.DS ---
Providers Date of admission: 03/10/21 01:29 Expected date of discharge: 03/12/21 Attending physician: Yola Dominguez MD Consults: 03/10/21 02:07 Consult Physician Routine Consulting Provider: Santiago Hagan Consult Reason/Comments: Severe constipation; rectal impaction Do you want consulting provider notified?: Yes 03/10/21 05:16 Consult Physician Routine Consulting Provider: Baylee Vela Consult Reason/Comments: pancreatic lesion Do you want consulting provider notified?: Yes, Notify in am Primary care physician: Aleja Ford Hospital Course: Patient will be discharged home with hospice. This is a 86-year-old male with complex past medical history noted below who presented to the emergency room with worsening abdominal pain and was found to have fecal impaction that was disimpacted by general surgery and subsequently patient was having normal bowel movement. He was noted to have a incidental finding of pancreatic head attenuation concerning for a possible mass. Also left kidney nodule noted. He had a prolonged discussion with the patient and his family regarding goals of care. He elected to pursue comfort measures. 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 fib on Eliquis Chronic anemia denies ear bleeding COPD compensated Fibromyalgia pain control Diastolic CHF currently compensated History of CAD status post stents Hypertension Gout Patient Condition at Discharge: Serious Plan - Discharge Summary Discharge Rx Participant: No New Discharge Prescriptions: New HYDROcodone/APAP 10-325MG [[place] 10-325] 1 tab PO Q6HR PRN 1 Days #6 tab PRN Reason: Pain Continue guaiFENesin [Mucinex] 1,200 mg PO TID PRN PRN Reason: Congestion Verapamil [Isoptin] 40 mg PO BID 30 Days #60 tab Promethazine HCl [Phenergan Syrup] 6.25 mg PO Q6HR PRN 30 Days #1 each PRN Reason: Cough Olodaterol HCl [Striverdi Respimat] 1 puff INHALATION RT-BID Acetaminophen [Tylenol Arthritis] 650 mg PO Q8H PRN PRN Reason: Pain Furosemide [Lasix] 40 mg PO BID@0900,1600 30 Days #60 tab Budesonide [Pulmicort] 1 mg INHALATION RT-BID 30 Days #1 inh Ipratropium-Albuterol Nebulize [Duoneb 0.5 mg-3 mg/3 ml Soln] 3 ml INHALATION RT-QID 30 Days #120 ml predniSONE 10 mg PO DAILY #0 Metoprolol Tartrate [Lopressor] 100 mg PO BID Discontinued Ubidecarenone [Co Q-10] 100 mg PO DAILY Multivitamins, Thera [Multivitamin (formulary)] 1 tab PO DAILY Ascorbic Acid [Vitamin C] 500 mg PO BID Magnesium Gluconate [Magonate] 500 mg PO DAILY Apixaban [Eliquis] 2.5 mg PO BID Psyllium Husk (with Sugar) [Metamucil Powder] 17 gm PO HS PRN PRN Reason: Constipation predniSONE See Taper PO DAILY 15 Days #45 tab Cholecalciferol (Vitamin D3) [Vitamin D3 (5000 Iu)] 125 mcg PO DAILY Cyanocobalamin (Vitamin B-12) [Vitamin B-12] 5,000 mcg PO DAILY Rosuvastatin Calcium 5 mg PO DAILY Aspirin EC [Ecotrin Low Dose] 81 mg PO DAILY Discharge Medication List guaiFENesin [Mucinex] 1,200 mg PO TID PRN 06/14/20 [History] Acetaminophen [Tylenol Arthritis] 650 mg PO Q8H PRN 11/19/20 [History] Budesonide [Pulmicort] 1 mg INHALATION RT-BID 30 Days #1 inh 03/07/21 [Rx] Furosemide [Lasix] 40 mg PO BID@0900,1600 30 Days #60 tab 03/07/21 [Rx] Ipratropium-Albuterol Nebulize [Duoneb 0.5 mg-3 mg/3 ml Soln] 3 ml INHALATION RT-QID 30 Days #120 ml 03/07/21 [Rx] Promethazine HCl [Phenergan Syrup] 6.25 mg PO Q6HR PRN 30 Days #1 each 03/07/21 [Rx] Verapamil [Isoptin] 40 mg PO BID 30 Days #60 tab 03/07/21 [Rx] predniSONE 10 mg PO DAILY #0 03/07/21 [Rx] Metoprolol Tartrate [Lopressor] 100 mg PO BID 03/09/21 [History] Olodaterol HCl [Striverdi Respimat] 1 puff INHALATION RT-BID 03/09/21 [History] HYDROcodone/APAP 10-325MG [[place] 10-325] 1 tab PO Q6HR PRN 1 Days #6 tab 03/12/21 [Rx] Follow up Appointment(s)/Referral(s): Aleja Ford DO [Primary Care Provider] - 1-2 days Discharge Disposition: HOME WITH HOSPICE
[2021-03-12 15:38] VITALS: BP 144/72; RESP 18; TEMP 97.5
[2021-03-12 16:00] VITALS: PULSE 69
== END 2021-03-12 18:34 | disposition hospice, home (50) ==
LOC: EC 16:16 → 6NMEDSUR 03-10 01:29
PROVIDERS: ADMIT Internal Medicine; ATTEND Internal Medicine
DX: K56.41 Fecal impaction (principal); K59.39 Other megacolon; I48.91 Unspecified atrial fibrillation; I11.0 Hypertensive heart disease with heart failure; I50.32 Chronic diastolic (congestive) heart failure; K86.9 Disease of pancreas, unspecified; M79.7 Fibromyalgia; J44.1 Chronic obstructive pulmonary disease with (acute) exacerbation; N28.9 Disorder of kidney and ureter, unspecified; D64.9 Anemia, unspecified; N28.1 Cyst of kidney, acquired; J44.9 Chronic obstructive pulmonary disease, unspecified; I25.10 Atherosclerotic heart disease of native coronary artery without angina pectoris; M10.9 Gout, unspecified; E78.5 Hyperlipidemia, unspecified; K21.9 Gastro-esophageal reflux disease without esophagitis; E07.9 Disorder of thyroid, unspecified; I70.0 Atherosclerosis of aorta; M85.80 Other specified disorders of bone density and structure, unspecified site; M16.0 Bilateral primary osteoarthritis of hip; M47.816 Spondylosis without myelopathy or radiculopathy, lumbar region; M41.9 Scoliosis, unspecified; M51.36 Other intervertebral disc degeneration, lumbar region; I70.203 Unspecified atherosclerosis of native arteries of extremities, bilateral legs; G25.0 Essential tremor; I25.2 Old myocardial infarction; Z20.822 Contact with and (suspected) exposure to COVID-19; Z66 Do not resuscitate; Z79.01 Long term (current) use of anticoagulants; Z79.82 Long term (current) use of aspirin; Z79.51 Long term (current) use of inhaled steroids; Z79.52 Long term (current) use of systemic steroids; Z79.899 Other long term (current) drug therapy; Z88.1 Allergy status to other antibiotic agents; Z88.5 Allergy status to narcotic agent; Z88.8 Allergy status to other drugs, medicaments and biological substances; Z95.2 Presence of prosthetic heart valve; Z95.5 Presence of coronary angioplasty implant and graft; Z87.01 Personal history of pneumonia (recurrent); Z86.14 Personal history of Methicillin resistant Staphylococcus aureus infection; Z87.898 Personal history of other specified conditions; Z86.16 Personal history of COVID-19; Z98.42 Cataract extraction status, left eye; Z98.41 Cataract extraction status, right eye; Z90.79 Acquired absence of other genital organ(s); Z87.891 Personal history of nicotine dependence; Z87.09 Personal history of other diseases of the respiratory system; Z91.14 Patient's other noncompliance with medication regimen; Z82.3 Family history of stroke; Z82.49 Family history of ischemic heart disease and other diseases of the circulatory system; Z80.9 Family history of malignant neoplasm, unspecified
CPT/HCPCS: 96376; 96361 ×3; 96374; 96375; 99285; 36415; 94640 ×7; 80053; 80048; 82150; 83605; 83690; 85025; 85027; 81001; 86301; 87635; 76770; 74177; G0378 ×3; J2405; J2270 ×2; J7512 ×3; Q9967